=== PATIENT | male | born 1965 | race Caucasian/White ===

== ENCOUNTER → 2025-04-06 15:55 | Outpatient (BNVA) | payer SELFPAY | PROVIDERS: Visit Provider Nurse Practitioner Family | DX: L29.9 Pruritus, unspecified (principal); R17 Unspecified jaundice; R10.9 Unspecified abdominal pain; R22.1 Localized swelling, mass and lump, neck | CPT/HCPCS: 80053; 82150; 83516; 83690; 85025; 86003; 86008 ==

== ENCOUNTER 2025-04-07 21:18 | Emergency (ER) | payer SELFPAY ==
[2025-04-07 21:23] VITALS: BP 175/77; PULSE 87; RESP 18; TEMP 36.8; O2SAT 100; BMI 27.0
--- NOTE | 2025-04-07 22:01 | USR_ITS ---
PROCEDURE INFORMATION: Exam: US Abdomen, Limited; Right Upper Quadrant Exam date and time: 04/07/2025 10:06 PM Age: 59 years old Clinical indication: Other: Elevated lfts; Abdominal pain; Generalized; Additional info: Ruq pain TECHNIQUE: Imaging protocol: Real time ultrasound of the abdomen with image documentation. Limited exam focused on the right upper quadrant. COMPARISON: No relevant prior studies available. FINDINGS: Liver: Hepatic target lesions measuring 2.4 x 1.7 x 2.1 cm and 2.2 x 2.2 x 2.2 cm.. On today's CT scan these are the 2 largest hepatic metastasis with multiple other smaller hepatic metastasis.. 15.2 cm liver. Gallbladder: 2.5 mm gallbladder wall which is upper limits of normal. Echogenic lesion attached to the gallbladder wall suggesting possible gallbladder wall calcification versus sessile polyp. There is no posterior shadowing to indicate a stone and on CT scan there may be noncalcified lesion attached to the gallbladder wall. Multiple calcified stones in the dependent portion of the gallbladder noted on CT scan. Sonographically negative Jose's sign suggesting no cholecystitis. Biliary ducts: Markedly dilated intra and extrahepatic biliary tree with the common hepatic duct measuring up to [address] scan. Probable mass obstructing the distal common bile duct in the pancreas and/or duodenal on today's CT scan. Pancreas: Visualized pancreas is unremarkable. Right kidney: 10.7 x 6.7 x 6.6 cm right kidney with estimated volume 249 cc. 1.7 cm right renal cortex. Aorta: 2.7 cm maximum abdominal aortic diameter. Inferior vena cava: 13 mm IVC. US/US gall bladder [id number] IMPRESSION: 1. Markedly dilated intra and extrahepatic biliary tree with the common hepatic duct measuring up to [address] scan. 2. Probable mass obstructing the distal common bile duct in the pancreas and/or duodenal on today's CT scan. 3. Echogenic lesion attached to the gallbladder wall suggesting possible gallbladder wall calcification versus sessile polyp. There is no posterior shadowing to indicate a stone and on CT scan there may be noncalcified lesion attached to the gallbladder wall. 4. Multiple calcified stones in the dependent portion of the gallbladder noted on CT scan. 5. Hepatic target lesions measuring 2.4 x 1.7 x 2.1 cm and 2.2 x 2.2 x 2.2 cm.. On today's CT scan these are the 2 largest hepatic metastasis with multiple other smaller hepatic metastasis.. 6. Sonographically negative Jose's sign suggesting no cholecystitis.
[2025-04-07 22:19] LABS: Basophils % 0.3 %; Eosinophils % 0.5 %; Hematocrit 24.3 % (37-53); Lymphocytes # 1.7 10^3/uL (0.8-4.8); Lymphocytes % 26.3 %; Mean Corpuscular HGB Conc 30.9 g/dL (30-55); Mean Corpuscular Hemoglobin 27.8 pg (27-33); Mean Platelet Volume 9.3 fL (7.4-10.4); Monocytes # 0.5 10^3/uL (0.2-0.9); Monocytes % 7.9 %; Neutrophils # 4.26 10^3/uL (1.8-7.7); Neutrophils % 64.7 %; Nucleated Red Blood Cells % 0 %; Platelet Count 380 10^3/cmm (157-399); Red Cell Distribution Width 14.2 % (12.1-15.1); White Blood Count 6.58 10^3/uL (3.29-11.43)
[2025-04-07 22:25] VITALS: BP 150/71; O2SAT 96
[2025-04-07 22:33] LABS: INR 0.86 (0.8-1.2)
[2025-04-07 22:34] LABS: Partial Thromboplastin Time 23.2 SECONDS (23.9-36.7)
[2025-04-07 22:36] LABS: Alanine Aminotransferase 322 U/L (0-41); Albumin Level 3.5 g/dL (3.5-5.2); Anion Gap 15.6 (5-19); Aspartate Amino Transferase 256 U/L (0-40); Blood Urea Nitrogen 17 mg/dL (6-20); Calcium 8.7 mg/dL (8.5-10.5); Carbon Dioxide 25 mmol/L (22-29); Chloride 94 mmol/L (98-107); Creatinine Clr Calc Pharmacy 124.5375; Globulin 3.2 g/dL (1.3-4.6); Glomerular Filtration Rate 116.2 mL/min (90-130); Glucose 113 mg/dL (65-115); Lipase 56 U/L (13-60); Osmolality Calculated 274 mOsm/kg (285-295); Potassium 3.6 mmol/L (3.5-5.1); Sodium 131 mmol/L (136-145); Total Bilirubin 4.6 mg/dL (0.15-1.2); Total Protein 6.7 g/dL (6.6-8.7)
[2025-04-07 22:51] LABS: Alkaline Phosphatase 1590 U/L (40-130)
--- NOTE | 2025-04-07 23:07 | CTR_ITS ---
PROCEDURE INFORMATION: Exam: CT Abdomen And Pelvis With Contrast Exam date and time: 04/07/2025 11:14 PM Age: 59 years old Clinical indication: Abdominal pain; Localized; Right upper quadrant (ruq); C/O ruq pain, rash on chest, legs and feet; Additional info: Ruq pain, dilated cbd TECHNIQUE: Imaging protocol: Computed tomography of the abdomen and pelvis with contrast. Radiation optimization: All CT scans at this facility use at least one of these dose optimization techniques: automated exposure control; mA and/or kV adjustment per patient size (includes targeted exams where dose is matched to clinical indication); or iterative reconstruction. Contrast material: OMNI 350; Contrast volume: 100 ml; Contrast route: INTRAVENOUS (IV); COMPARISON: US gall bladder [id number] 04/07/2025 10:06 PM RADIATION DOSE METRICS: Total DLP (mGy-cm): 675.8 FINDINGS: Liver: Normal. No mass. Gallbladder and biliary ducts: Dilated intra and extrahepatic biliary tree with the common hepatic duct measuring 16 mm in diameter. The bulky mass apparently obstructs the distal common bile duct creating dilatation of the biliary tree but no dilatation of the pancreatic duct. Pancreas: See Gallbladder and biliary ducts finding. Spleen: Calcified splenic granulomas. One or more accessory splenules. Adrenal glands: Normal. No mass. Kidneys and ureters: Normal. No hydronephrosis. Stomach and bowel: Unremarkable. No obstruction. No mucosal thickening. Appendix: No evidence of appendicitis. Intraperitoneal space: Unremarkable. No free air. No significant fluid collection. Vasculature: Calcification of the abdominal aorta and/or iliac arteries consistent with atherosclerotic vessel disease. Lymph nodes: Calcified right hilar nodes and/or mediastinal nodes and/or lung granulomas consistent with old granulomatous disease. 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 Urinary bladder: Unremarkable as visualized. Reproductive: Unremarkable as visualized. Bones/joints: Unremarkable. No acute fracture. Soft tissues: Unremarkable. CT/CT abdomen pelvis w con* [id number] IMPRESSION: 1. Dilated intra and extrahepatic biliary tree with the common hepatic duct measuring 16 mm in diameter. 2. 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 3. The bulky mass apparently obstructs the distal common bile duct creating dilatation of the biliary tree but no dilatation of the pancreatic duct. 4. No obvious lymphadenopathy, adrenal metastasis, bony metastasis or lung base pulmonary metastasis.
[2025-04-07] MEDS: iohexol 350 mg/mL 500 mL Btl (per mL) IV (23:20)
[2025-04-07 23:36] LABS: Bilirubin Urine 2+ (Negative); Blood Urine Negative (Negative); Glucose Urine UA Negative (Normal); Ketones Urine Negative (Negative); Leukocyte Esterase Urine Negative (Negative); Nitrate Urine Negative (Negative); Protein Urine Negative (Negative); Specific Gravity, Urine 1.019 (1.005-1.030); Urine Appearance Clear (CLEAR); Urine Color Dark Yellow (Yellow); pH Urine 5.5 (5-7)
[2025-04-07 23:38] LABS: Add Urine Microscopic? YES; Bacteria Urine None Seen /hpf; Hyaline Casts Urine 1.65 /lpf; RBC Urine 0-2 /hpf (0-2); Squamous Epithelial Cell Urine 0-5 /hpf (0-5); WBC Urine 0-5 /hpf (0-5)
[2025-04-08] VITALS (20 sets, daily range): BP systolic 117–161; BP diastolic 41–73; PULSE 62–97; RESP 16–18; TEMP 36.8–37.1; O2SAT 95–100
--- NOTE | 2025-04-08 01:25 | W.ED.RECABL ---
HPI - Recheck/Abnormal Lab/Rx General: Chief Complaint: Recheck/Abnormal Lab/Rx Stated Complaint: Dr Iris gamez with labs Time Seen by Provider: 04/07/25 21:32 History of Present Illness: Patient presents emerged part with complaint of right upper quadrant abdominal pain. Has had some nausea. States the pain has been ongoing for about a year and a half now. He states that he has been doing some over the counter holistic gallbladder cleansing. States he has had blood work done but no imaging. History of drinking alcohol fairly heavy in the past but none for the past year. He noticed that over the last 3 days he started to become jaundiced. Related Data Home Medications ?Medication ?Instructions ?Recorded ?Confirmed No Known Home Medications 05/20/23 05/20/23 Allergies Allergy/AdvReac Type Severity Reaction Status Date / Time No Known Drug Allergies Allergy Unknown Verified 04/07/25 21:31 Physical Exam Const: COMMON NORMALS: no acute distress, average body habitus, patient oriented x3, no limitations, healthy appearing, alert and well nourished Eye: OTHER: Scleral icterus noted Neck/C-Spine: COMMON NORMALS: no JVD Chest: COMMONS NORMALS: normal inspection of the chest, normal palpation of entire chest wall, normal inspection of the breasts and normal palpation of the breasts Breast/axilla inspection: Yes normal inspection of the breasts BREAST/AXILLA PALPATION: Yes normal palpation of the breasts Resp: COMMON NORMALS: normal respiratory effort, No retractions, No use of accessory muscles, clear to auscultation bilaterally and percussion normal AUSCULTATION: clear to auscultation bilaterally PERCUSSION: percussion normal Cardio: COMMON NORMALS: no JVD, regular rate, regular rhythm, S1 normal heart sound present, S2 normal heart sound present, No gallops present (Cardio), No clicks present (Cardio), No murmurs present (Cardio), No rub (Cardio) and Peripheral pulses 2+ throughout RATE: regular rate RHYTHM: regular rhythm HEART SOUNDS: S1 normal heart sound present and S2 normal heart sound present PERIPHERAL PULSES: Peripheral pulses 2+ throughout GI: COMMON NORMALS: Normal to inspection, nondistended, normoactive bowel sounds present, Soft to palpation, No hepatosplenomegaly present, no masses and no bruits; negative for non-tender (Right upper quadrant tenderness to palpation) PALPATION: Yes Soft to palpation and Yes No hepatosplenomegaly present Neuro: COMMON NORMALS: patient oriented x3 SENSORIUM/ORIENTATION: Yes alert Skin: OTHER: Jaundice noted Course Vital Signs: Vital signs: Vital Signs Temperature 98.2 F 04/07/25 21:23 Pulse Rate 87 04/08/25 00:01 Respiratory Rate 16 04/08/25 00:01 Blood Pressure 134/48 04/08/25 00:01 Pulse Oximetry 95 04/08/25 00:01 Oxygen Delivery Me thod Room Air 04/07/25 22:25 MDM - Recheck/Abnormal Lab/Rx Medical Decision Making Patient presents with right upper quadrant abdominal pain over the past year and a half that has been worsening over the past several days as well as jaundice that has been happening over the past 3 days. Has nausea. No vomiting. No diarrhea or constipation. Patient has been thinking it is his gallbladder and has been doing holistic gallbladder cleanses. Patient's labs today reveal significant anemia as well as elevated LFTs. Alk phos in particular is elevated. He has not had any melanotic or hematochezia's stools. No vomiting blood. Imaging today shows that he has a mass in his right upper quadrant that is likely from either the duodenum or the pancreas. Regardless it appears to be causing some common bile duct obstruction. Gallbladder does have some calcifications as well. Patient will need to be transferred to [facility] for GI consultation for possible stenting of his common bile duct as well as further evaluation of cancer mass to determine more definitive diagnosis and treatment options. Dr. Humphrey, hospitalist at [facility] accepted transfer. Discussed all findings with the patient and the patient's family. The patient is wanting to go POV. He is stable here and likely that has been an ongoing issue for quite a while as he has been having pain now for about 18 months. I do not see any immediate risk of life or injury by going POV. Patient was given a dose of IV Zosyn here prophylactically due to the common bile duct obstruction. Patient instructed to drive immediately to [facility] for admission after release from here with bed assignment. Lab Data 04/07/25 22:05 04/07/25 22:05 Radiology Impressions Gallbladder Ultrasound 04/07/25 22:01 IMPRESSION: 1. Markedly dilated intra and extrahepatic biliary tree with the common hepatic duct measuring up to [address] scan. 2. Probable mass obstructing the distal common bile duct in the pancreas and/or duodenal on today's CT scan. 3. Echogenic lesion attached to the gallbladder wall suggesting possible gallbladder wall calcification versus sessile polyp. There is no posterior shadowing to indicate a stone and on CT scan there may be noncalcified lesion attached to the gallbladder wall. 4. Multiple calcified stones in the dependent portion of the gallbladder noted on CT scan. 5. Hepatic target lesions measuring 2.4 x 1.7 x 2.1 cm and 2.2 x 2.2 x 2.2 cm.. On today's CT scan these are the 2 largest hepatic metastasis with multiple other smaller hepatic metastasis.. 6. Sonographically negative Jose's sign suggesting no cholecystitis. Abdomen/Pelvis CT 04/07/25 23:07 IMPRESSION: 1. Dilated intra and extrahepatic biliary tree with the common hepatic duct measuring 16 mm in diameter. 2. 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 3. The bulky mass apparently obstructs the distal common bile duct creating dilatation of the biliary tree but no dilatation of the pancreatic duct. 4. No obvious lymphadenopathy, adrenal metastasis, bony metastasis or lung base pulmonary metastasis. ADDENDUM: 04/08/25 0002 THIS REPORT CONTAINS FINDINGS THAT MAY BE CRITICAL TO PATIENT CARE. The findings were verbally communicated via telephone conference with ROSANNA PRABHAKAR at 12:01 AM CDT on 04/08/2025. The findings were acknowledged and understood. Laboratory Results WBC 6.58 10^3/uL (3.29-11.43) 04/07/25 22:05 RBC 2.70 10^6/uL (3.85-5.65) L 04/07/25 22:05 Hgb 7.50 g/dL (11.27-16.99) L 04/07/25 22:05 Hct 24.3 % (37-53) L 04/07/25 22:05 MCV 90.0 fl (82-101) 04/07/25 22:05 MCH 27.8 pg (27-33) 04/07/25 22:05 MCHC 30.9 g/dL (30-55) 04/07/25 22:05 RDW 14.2 % (12.1-15.1) 04/07/25 22:05 Plt Count 380 10^3/cmm (157-399) 04/07/25 22:05 MPV 9.3 fL (7.4-10.4) 04/07/25 22:05 Neut % (Auto) 64.7 % 04/07/25 22:05 Lymph % (Auto) 26.3 % 04/07/25 22:05 [place] % (Auto) 7.9 % 04/07/25 22:05 Eos % (Auto) 0.5 % 04/07/25 22:05 Baso % (Auto) 0.3 % 04/07/25 22:05 Neut # (Auto) 4.26 10^3/uL (1.8-7.7) 04/07/25 22:05 Lymph # (Auto) 1.7 10^3/uL (0.8-4.8) 04/07/25 22:05 [place] # (Auto) 0.5 10^3/uL (0.2-0.9) 04/07/25 22:05 Eos # (Auto) 0.0 10^3/uL (0.0-0.8) 04/07/25 22:05 Baso # (Auto) 0.0 10^3/uL (0.0-0.1) 04/07/25 22:05 Nucleated RBC % (auto) 0 % 04/07/25 22:05 Nucleated RBCs # 0.0 /100WBC 04/07/25 22:05 PT 12.40 SECONDS (12.1-14.9) 04/07/25 22:05 INR 0.86 (0.8-1.2) 04/07/25 22:05 APTT 23.2 SECONDS (23.9-36.7) L 04/07/25 22:05 Sodium 131 mmol/L (136-145) L 04/07/25 22:05 Potassium 3.6 mmol/L (3.5-5.1) 04/07/25 22:05 Chloride 94 mmol/L (98-107) L 04/07/25 22:05 Carbon Dioxide 25 mmol/L (22-29) 04/07/25 22:05 Anion Gap 15.6 (5-19) 04/07/25 22:05 BUN 17 mg/dL (6-20) 04/07/25 22:05 Creatinine 0.7 mg/dL (0.7-1.2) 04/07/25 22:05 GFR Calculation 116.2 mL/min (90-130) 04/07/25 22:05 Glucose 113 mg/dL (65-115) 04/07/25 22:05 Calculated Osmolality 274 mOsm/kg (285-295) L 04/07/25 22:05 Calcium 8.7 mg/dL (8.5-10.5) 04/07/25 22:05 Magnesium 2.0 mg/dL (1.7-2.3) 04/07/25 22:05 Total Bilirubin 4.6 mg/dL (0.15-1.2) H 04/07/25 22:05 AST 256 U/L (0-40) H 04/07/25 22:05 ALT 322 U/L (0-41) H 04/07/25 22:05 Alkaline Phosphatase 1590 U/L (40-130) H* 04/07/25 22:05 Total Protein 6.7 g/dL (6.6-8.7) 04/07/25 22:05 Albumin 3.5 g/dL (3.5-5.2) 04/07/25 22:05 Globulin 3.2 g/dL (1.3-4.6) 04/07/25 22:05 Lipase 56 U/L (13-60) 04/07/25 22:05 Urine Color Dark yellow (Yellow) A 04/07/25: Urine Appearance Clear (CLEAR) 04/07/25 23: Urine pH 5.5 (5-7) 04/07/25 23: Ur Specific [place] 1.019 (1.005-1.030) 04/07/25 23: Urine Protein Negative (Negative) 04/07/25: Urine Glucose (UA) Negative (Normal) 04/07/25 23: Urine Ketones Negative (Negative) 04/07/25 23: Urine Blood Negative (Negative) 04/07/25: Urine Nitrate Negative (Negative) 04/07/25 23: Urine Bilirubin 2+ (Negative) H 04/07/25 23:29 Urine Urobilinogen 1.0 mg/dL (Negative) 04/07/25 23:29 Ur Leukocyte Esterase Negative (Negative) 04/07/25 23:29 Urine RBC 0-2 /hpf (0-2) 04/07/25 23:29 Urine WBC 0-5 /hpf (0-5) 04/07/25 23:29 Ur Squamous Epith Cells 0-5 /hpf (0-5) 04/07/25 23:29 Amorphous Sediment Not Reportable 04/07/25 23:29 Urine Bacteria None seen /hpf (NONE) 04/07/25 23:29 Hyaline Casts 1.65 /lpf 04/07/25 23:29 All radiology interpretation(s) finalized by discharge Discharge Plan Discharge Patient Disposition: Xfer Short-Term Hosp Clinical Impression: Abdominal mass, RUQ (right upper quadrant), Common bile duct (CBD) obstruction, Hyperbilirubinemia, Elevated LFTs Metastatic disease Qualifiers: Area of secondary neoplastic involvement: unspecified site Qualified Code(s): C79.9 - Secondary malignant neoplasm of unspecified site Cholelithiasis Qualifiers: Cholelithiasis location: gallbladder Cholecystitis presence: without cholecystitis Biliary obstruction: with biliary obstruction Qualified Code(s): K80.21 - Calculus of gallbladder without cholecystitis with obstruction Anemia Qualifiers: Anemia type: unspecified type Qualified Code(s): D64.9 - Anemia, unspecified Condition: Stable Referrals: Roderick Morrison MD [Family Provider, Family Practice] Elizabeth Hollis NP [Primary Care Provider, Family Practice] Print Language: Azerbaijani Coding Level of Care Code ED Verifying Machine Operator for [facility]
[2025-04-08] MEDS: famotidine 20 mg/2 mL INJ IVP (01:26)
[2025-04-08] MEDS: piperacillin-tazobactam 3.375 GM in sodium chloride 0.9% (plus) 50 ML IV ×2 (01:27→13:30)
--- NOTE | 2025-04-08 03:43 | PC.NURSE ---
nurse called and gave family an update at 0343.
[2025-04-08 07:49] LABS: Basophils % 0.2 %; Eosinophils % 0.5 %; Hematocrit 21.9 % (37-53); Lymphocytes # 1.1 10^3/uL (0.8-4.8); Lymphocytes % 20.5 %; Mean Corpuscular HGB Conc 30.1 g/dL (30-55); Mean Corpuscular Hemoglobin 27.3 pg (27-33); Mean Corpuscular Volume 90.5 fl (82-101); Mean Platelet Volume 9.2 fL (7.4-10.4); Monocytes # 0.4 10^3/uL (0.2-0.9); Monocytes % 7.5 %; Neutrophils # 3.88 10^3/uL (1.8-7.7); Neutrophils % 70.9 %; Nucleated Red Blood Cells % 0 %; Platelet Count 355 10^3/cmm (157-399); Red Blood Count 2.42 10^6/uL (3.85-5.65); Red Cell Distribution Width 14.4 % (12.1-15.1); White Blood Count 5.47 10^3/uL (3.29-11.43)
[2025-04-08] MEDS: sodium chlor 0.9% + KCl 20 mEq 20 MEQ/1,000 ML BAG 125 MEQ IV (07:58)
[2025-04-08] MEDS: pantoprazole 40 mg SDV IVP (07:59)
[2025-04-08 08:13] LABS: Alanine Aminotransferase 275 U/L (0-41); Albumin Level 3.1 g/dL (3.5-5.2); Anion Gap 13.6 (5-19); Aspartate Amino Transferase 234 U/L (0-40); Blood Urea Nitrogen 14 mg/dL (6-20); Calcium 8.3 mg/dL (8.5-10.5); Carbon Dioxide 25 mmol/L (22-29); Chloride 100 mmol/L (98-107); Creatinine Clr Calc Pharmacy 124.5375; Globulin 2.7 g/dL (1.3-4.6); Glomerular Filtration Rate 116.2 mL/min (90-130); Glucose 101 mg/dL (65-115); Lipase 39 U/L (13-60); Magnesium 1.9 mg/dL (1.7-2.3); Osmolality Calculated 281 mOsm/kg (285-295); Potassium 3.6 mmol/L (3.5-5.1); Sodium 135 mmol/L (136-145); Total Bilirubin 3.7 mg/dL (0.15-1.2); Total Protein 5.8 g/dL (6.6-8.7)
[2025-04-08 08:34] LABS: Alkaline Phosphatase 1371 U/L (40-130)
[2025-04-08] MEDS: sodium chloride 0.9% 100 mL Bag 50 ML IV (10:15)
--- NOTE | 2025-04-08 14:55 | PC.NURSE ---
BLADDER SCAN PERFORMED AFTER URINATION - BLADDER HAD 0 ML AFTER URINATION. PATIENT URINATED 800 ML. PATIENT REPORTS HE HAS WENT TO THE BATHROOM TWICE PRIOR TO URINATION AT 1445 WHICH WAS UNABLE TO BE MEASURED.
== END 2025-04-08 16:30 | disposition short-term general hospital (02) ==
PROVIDERS: Family Medicine; Emergency Provider Emergency Medicine; Family Provider Family Medicine; PCP Nurse Practitioner Family
DX: R19.00 Intra-abdominal and pelvic swelling, mass and lump, unspecified site (principal); E80.6 Other disorders of bilirubin metabolism; R74.01 Elevation of levels of liver transaminase levels; C79.9 Secondary malignant neoplasm of unspecified site; D64.9 Anemia, unspecified; K80.51 Calculus of bile duct without cholangitis or cholecystitis with obstruction
CPT/HCPCS: 36415; 36430; 74177; 76705; 80053; 81001; 83690; 83735; 85025; 85610; 85730; 86850; 86900; 86920; 96365; 96366; 96367; 96375; 99285; J2470; J2543; J3480; J3490; P9016

== ENCOUNTER 2025-04-23 10:06 | Day surgery (SDC) | payer SELFPAY ==
[2025-04-23] VITALS (7 sets, daily range): BP systolic 118–144; BP diastolic 68–88; PULSE 63–77; RESP 12–17; TEMP 36.3–36.6; O2SAT 97–99; BMI 26.4
--- NOTE | 2025-04-23 10:15 | SC_ITS ---
WS: [id number] C-ARM RADIOGRAPHS CHEST; 2 IMAGES HISTORY: Port placement COMPARISON: None available. RIGHT Mediport is placed to the subclavian. Tip is in the expected location of the cavoatrial junction. SC/C-arm FL for CVA [id number] IMPRESSION: Satisfactory position RIGHT Mediport.
--- NOTE | 2025-04-23 10:30 | ANES.PREANE2 ---
Pre-Anesthetic Assessment Height/Weight: Height 1.75 m Weight 81.193 kg Temp Pulse Resp BP Pulse Ox O2 Del Method 97.6 F 77 16 144/83 98 Room Air 04/23/25 10:04/23/25 10:04/23/25 10:04/23/25 10:04/23/25 10:04/23/25 10:22 Operation Date: 04/23/25 12:00 Proposed Procedures p Portacath Placement 67301 C17.9(Not Applicable) - Roderick Taylor MD Familial anesthetic complications: None Was Beta Padmini taken within 24 hours: N/A Was Clonidine taken within 24 hours: N/A Last intake: Intake Last Liquid Date 04/22/25 Last Liquid Time 20: Last Solid Date 04/22/25 Last Solid Time 20:30 Social No alcohol and No tobacco Exam alert, oriented x 3, clear to auscultation bilaterally and regular rate & rhythm Airway Mallampati: Class I Dentition: chipped CV/HEM Anemia (2 units received on saturday) GI pancreatic cancer Anesthetic Plan ASA status: 4 Anesthesia: MAC Risk of > 500 ml blood loss (7ml/kg in children): No Medications/Allergies Home Medications ?Medication ?Instructions ?Recorded ?Confirmed ?Last Taken ?Type L.acidophilus-B.animalis-B.bifidum 1 cap PO DAILY 04/08/25 04/22/25 04/07/25 08:00 History 25 billion cell-FOS 100 mg capsule (Probiotic Complex) ferrous sulfate 325 mg (65 mg 325 mg PO DAILY 04/19/25 04/22/25 04/22/25 History iron) tablet (FeroSul) levofloxacin 500 mg tablet 500 mg PO DAILY 7 days #7 tabs 04/19/25 04/22/25 04/22/25 Rx methylprednisolone 4 mg tablets in See Rx Instructions PO PER PKG DIR 04/19/25 04/22/25 04/22/25 Rx a dose pack (Medrol ([place])) #21 ea oxycodone 5 mg tablet 5 mg PO PRN PRN Pain 04/19/25 04/22/25 Unknown History pantoprazole 40 mg tablet,delayed 40 mg PO DAILY #14 tabs 04/19/25 04/22/25 04/22/25 Rx release (Protonix) sennosides 8.6 mg-docusate sodium 1 tab PO DAILY 04/19/25 04/22/25 04/22/25 History 50 mg tablet (Stimulant Laxative Plus) simethicone 125 mg chewable tablet 125 mg PO PRN PRN Stomach Upset 04/19/25 04/22/25 Unknown History (Gas Relief Extra Strength) ondansetron HCl 4 mg tablet 4 mg PO Q6H PRN nausea and 04/21/25 04/22/25 Unknown Rx vomiting #30 tabs prochlorperazine maleate 10 mg 10 mg PO Q4H PRN mild nausea #30 04/21/25 04/22/25 Unknown Rx tablet (Compazine) tabs Allergies Allergy/AdvReac Type Severity Reaction Status Date / Time No Known Drug Allergies Allergy Unknown Verified 04/19/25 14:16 [facility] Anesthesia Social History Smoking and tobacco/nicotine status: never used tobacco/nicotine
[2025-04-23] MEDS: sodium chloride 0.9% 1,000 ML 30 ML IV (10:50)
[2025-04-23 11:00] LABS: Basophils % 0.3 %; Eosinophils % 0.3 %; Hematocrit 32.1 % (37-53); Lymphocytes % 31.6 %; Mean Corpuscular HGB Conc 30.8 g/dL (30-55); Mean Corpuscular Hemoglobin 27.8 pg (27-33); Mean Corpuscular Volume 90.2 fl (82-101); Mean Platelet Volume 8.3 fL (7.4-10.4); Monocytes # 0.7 10^3/uL (0.2-0.9); Neutrophils # 5.64 10^3/uL (1.8-7.7); Neutrophils % 59.7 %; Nucleated Red Blood Cells % 0 %; Platelet Count 437 10^3/cmm (157-399); Red Blood Count 3.56 10^6/uL (3.85-5.65); Red Cell Distribution Width 14.5 % (12.1-15.1); White Blood Count 9.45 10^3/uL (3.29-11.43)
--- NOTE | 2025-04-23 12:12 | W.PM.OPSUD ---
Surgery/Procedure H&P Update DATE OF PROCEDURE: April 23, 2025 DATE H&P PERFORMED: 04/19/25 H&P UPDATE INFORMATION: I have reviewed H&P completed within last 30 days, I have examined patient prior to procedure and No changes to prior documentation PLANNED PROCEDURE: Operation Date: 04/23/25 12:00 Proposed Procedures p Portacath Placement 83501 C17.9(Not Applicable) - Roderick Taylor MD
[2025-04-23] MEDS: ceFAZolin 2,000 mg SDV 2000 MG IVP (12:17)
[2025-04-23] MEDS: lidocaine-epi 1% PF 1:200,000 30 mL SDV INJECTION (12:40)
[2025-04-23] MEDS: BUPivacaine 0.25% INJ 30 mL INJECTION (12:40)
[2025-04-23] MEDS: heparin, porcine 1,000 unit/mL INJ 10 mL 10000 UNIT INJECTION (12:41)
--- NOTE | 2025-04-23 12:46 | PM.OP ---
Operative Report Date of procedure: April 23, 2025 Pre-op diagnosis: Pancreatic cancer Post-op diagnosis: same Post-op findings: Right-sided chest port. Accessed right internal jugular vein using ultrasound guidance. Confirmed tip of catheter at atriocaval junction using intraoperative fluoroscopy. Procedure done: Port-A-Cath placement Implants: Port-A-Cath Specimens removed/disposition: N/A Pathology: none sent Surgeon: Roderick Taylor MD Central Office Operator: N/A Anesthesia: MAC Estimated blood loss (mL): 10 Complications: N/A Findings: Right-sided chest port. Accessed right internal jugular vein using ultrasound guidance. Confirmed tip of catheter at atriocaval junction using intraoperative fluoroscopy. Condition: stable Disposition: same day Brief History: 59-year-old male with pancreatic cancer. Discussed risk and benefits and patient agreed to proceed with Port-A-Cath placement. Procedure: Patient was brought into the operating room and a timeout was carried out. Procedure was done under MAC. Patient was placed supine with the arms tucked and in Trendelenburg. Patient was prepped and draped in the usual sterile fashion. Using ultrasound guidance the right internal jugular vein was accessed. A guidewire was then placed down to the atriocaval junction using fluoroscopy. The finder needle was removed and the guidewire was secured. I then turned my attention to creating a pocket over the right chest. Make sure to locally infiltrated using plain lidocaine and bupivacaine at the site of the pocket and throughout the tunnel site. I confirmed adequate hemostasis at the pocket. I then proceeded to place the port that was already preassembled and flushed with heparinized saline and the chest pocket. I tunneled the catheter from the chest to the neck at the site where I accessed the internal jugular vein. I measured and adjusted the length of the catheter so it would reach the atrial caval junction. At this point, I used a dilator to dilate the tract into the internal jugular vein using fluoroscopy. I removed the guidewire and proceeded to thread the central venous catheter through the introducer. In the process, I removed the sheath as a completely pushed the catheter into the internal jugular vein. I then confirmed adequate placement of the catheter by performing intraoperative interpretation of fluoroscopy. The tip of the catheter was confirmed to be placed in the atriocaval junction. There were no kinks noted throughout the trajectory of the catheter. I then proceeded to test the port and was satisfied with its functionality. I proceeded to flushed the catheter without any issues. I then hep-locked the port. Skin was closed using deep dermal 3-0 Vicryl, subcuticular 4-0 Monocryl, and Dermabond. Patient was then transferred to PACU without any complications. Port is ready for immediate use.
--- NOTE | 2025-04-23 14:00 | ANE.PACU2 ---
Inpatient post-anesthesia follow up: Airway intact: Yes Vital signs: Temperature 98 F Pulse Rate 68 Respiratory Rate 16 Blood Pressure 140/88 Pulse Oximetry 98 Oxygen Delivery Me thod Room Air Oxygen Flow Rate Fraction of Inspir ed Oxygen Hydration adequate: Yes Nausea and vomiting: No Pain level: 1 Mental status: Baseline
== END 2025-04-23 14:00 | disposition home or self-care (01) ==
PROVIDERS: Anesthesiology; PCP Nurse Practitioner Family; Visit Provider Student in an Organized Health Care Education/Training Program
PROC: (CPT 36561; principal; 2025-04-23 12:00)
DX: C25.9 Malignant neoplasm of pancreas, unspecified (principal); K21.9 Gastro-esophageal reflux disease without esophagitis
CPT/HCPCS: 36561; 36415; 76000; 77001; 85025; 86850; 86900; C1788; J0690; J1644; J2250; J2704; J3010; J3490; J7030; J9999

== ENCOUNTER 2025-04-30 10:00 | Oncology outpatient (recurring) (ONCR) | payer SELFPAY ==
[2025-04-19 10:39] LABS: Basophils % 0.4 %; Eosinophils % 0.3 %; Hematocrit 25.2 % (37-53); Lymphocytes # 1.8 10^3/uL (0.8-4.8); Lymphocytes % 22.8 %; Mean Corpuscular HGB Conc 29.8 g/dL (30-55); Mean Corpuscular Hemoglobin 27.3 pg (27-33); Mean Corpuscular Volume 91.6 fl (82-101); Mean Platelet Volume 8.7 fL (7.4-10.4); Monocytes # 0.8 10^3/uL (0.2-0.9); Monocytes % 9.5 %; Neutrophils # 5.25 10^3/uL (1.8-7.7); Neutrophils % 65.5 %; Nucleated Red Blood Cells % 0 %; Platelet Count 436 10^3/cmm (157-399); Red Blood Count 2.75 10^6/uL (3.85-5.65); Red Cell Distribution Width 15.3 % (12.1-15.1)
[2025-04-19 11:01] LABS: Alanine Aminotransferase 75 U/L (0-41); Albumin Level 3.5 g/dL (3.5-5.2); Alkaline Phosphatase 564 U/L (40-130); Anion Gap 15.4 (5-19); Aspartate Amino Transferase 36 U/L (0-40); Blood Urea Nitrogen 23 mg/dL (6-20); Carbon Dioxide 26 mmol/L (22-29); Chloride 96 mmol/L (98-107); Creatinine Clr Calc Pharmacy 107.9248; Globulin 3.2 g/dL (1.3-4.6); Glomerular Filtration Rate 99.6 mL/min (90-130); Glucose 107 mg/dL (65-115); Osmolality Calculated 280 mOsm/kg (285-295); Potassium 4.4 mmol/L (3.5-5.1); Sodium 133 mmol/L (136-145); Total Bilirubin 1.1 mg/dL (0.15-1.2); Total Protein 6.7 g/dL (6.6-8.7)
[2025-04-19] MEDS: pantoprazole 40 mg SDV IVP (11:35)
[2025-04-19] MEDS: ertapenem 1,000 mg SDV 1000 MG IVP (11:35)
[2025-04-19] MEDS: dexamethasone 10 mg/mL INJ IVP (11:36)
[2025-04-20] VITALS (11 sets, daily range): BP systolic 129–160; BP diastolic 72–81; PULSE 74–84; RESP 16–17; TEMP 36.7–37.1; O2SAT 97–99
[2025-04-20] MEDS: diphenhydrAMINE 25 mg Capsule PO (08:46)
[2025-04-20] MEDS: sodium chloride 0.9% 250 mL Bag IV (09:25)
[2025-04-20] MEDS: FUROsemide 10 mg/mL SDV 2mL 20 MG IVP (11:14)
[2025-04-28 08:18] LABS: Basophils % 0.5 %; Eosinophils % 0.7 %; Lymphocytes # 1.7 10^3/uL (0.8-4.8); Lymphocytes % 29.8 %; Mean Corpuscular Hemoglobin 26.9 pg (27-33); Mean Corpuscular Volume 89.8 fl (82-101); Mean Platelet Volume 8.4 fL (7.4-10.4); Monocytes # 0.5 10^3/uL (0.2-0.9); Neutrophils # 3.48 10^3/uL (1.8-7.7); Neutrophils % 60.1 %; Nucleated Red Blood Cells % 0 %; Platelet Count 298 10^3/cmm (157-399); Red Blood Count 3.34 10^6/uL (3.85-5.65); Red Cell Distribution Width 13.8 % (12.1-15.1); White Blood Count 5.78 10^3/uL (3.29-11.43)
[2025-04-28 08:35] LABS: Alanine Aminotransferase 32 U/L (0-41); Albumin Level 3.3 g/dL (3.5-5.2); Alkaline Phosphatase 324 U/L (40-130); Anion Gap 14.1 (5-19); Aspartate Amino Transferase 27 U/L (0-40); Blood Urea Nitrogen 23 mg/dL (6-20); Calcium 8.6 mg/dL (8.5-10.5); Carbon Dioxide 24 mmol/L (22-29); Chloride 103 mmol/L (98-107); Creatinine Clr Calc Pharmacy 95.4684; Globulin 2.7 g/dL (1.3-4.6); Glucose 107 mg/dL (65-115); Osmolality Calculated 288 mOsm/kg (285-295); Potassium 4.1 mmol/L (3.5-5.1); Sodium 137 mmol/L (136-145); Total Bilirubin 0.6 mg/dL (0.15-1.2)
[2025-04-28] MEDS: dextrose 5% 250 ML 75 ML IV (10:54)
[2025-04-28] MEDS: palonosetron 0.25 mg/5 mL SDV IVP (10:56)
[2025-04-28] MEDS: dexamethasone 4 mg/mL INJ 5 mL 12 MG IVP (10:59)
[2025-04-28] MEDS: leucovorin 780 MG in dextrose 5% 250 ML 62.5 MG IV (11:28)
[2025-04-28] MEDS: OXALIPLATIN IV (11:29)
[2025-04-28] MEDS: DEXTROSE 5% IV (11:29)
[2025-04-28] MEDS: fluorouraciL 50 mg/ml MDV 100 mL 800 MG IVP (13:57)
[2025-04-28] MEDS: fluorouraciL 4,700 MG, elastomeric pump 1 PUMP in sodium chloride 0.9% (100 ml) 0 ML IV (14:03)
[2025-04-28 14:29] VITALS: BP 156/73; PULSE 80; RESP 16; TEMP 37.2; O2SAT 96
[2025-04-30 09:21] VITALS: BP 125/75; PULSE 70; RESP 18; TEMP 36.4; O2SAT 98
--- NOTE | 2025-04-30 10:00 | PETR_ITS ---
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 Then, PET images were obtained. Attenuation corrected images were constructed using the CT scan. Fused images of PET and CT were reviewed. The standardized uptake values (SUV) reported below are maximum values within a region of interest, expressed in gm/ml. Exam includes orbital meatal line to mid-thigh. SUV normalization method: BodyWeight Radiopharmaceutical: 11.14 mCi F-18 FDG (Fluorodeoxyglucose), IV. Time of imaging post radiopharmaceutical administration: 47 minutes Injection site: left ac COMPARISON: 1. CT abdomen pelvis w con* [id number] 04/07/2025 11:14 PM 2. MR abdomen wo/w con* [id number] 04/09/2025 6:36 PM FINDINGS: Tubes, catheters and devices: Right chest port terminates near the superior cavoatrial junction. Brain: Visualized brain has normal physiologic uptake. Pharynx: No abnormal uptake. Larynx: No abnormal uptake. Lungs, pleura and trachea: No abnormal uptake. Mild dependent atelectasis. Calcified granulomata. No consolidation or mass. Heart: Normal physiologic uptake. Mediastinal space: No abnormal uptake. Liver: Multiple FDG avid lesions throughout both hepatic lobes with subtle underlying hypodense foci on CT images, index at the lateral left lobe adjacent to the fissure for the ligamentum teres showing SUV max 8.7 on axial image 149. Gallbladder and biliary ducts: Interval biliary stent extends from the common duct into the 2nd duodenal segment with resolved biliary ductal dilatation and developed upstream pneumobilia. Associated FDG uptake along its length. Cholelithiasis. Pancreas: No abnormal uptake. Spleen: No abnormal uptake. Calcified granulomata. Adrenal glands: No abnormal uptake. Kidneys and ureters: Normal physiologic uptake. Stomach and bowel: FDG-avid circumferential proximal duodenal masslike thickening along the length of the 2nd segment extending to the proximal 3rd segment with SUV max 13.7. Vasculature: No abnormal uptake. Mild systemic atherosclerotic calcification without aortic aneurysm. Lymph nodes: Noncalcified left hilar node measures 8 mm in the short axis on axial image 101 and shows SUV max 3.9. Calcified mediastinal and bilateral hilar nodes in keeping with sequela of old granulomatous disease. Skeleton: Degenerative change along the spine, shoulders and sacroiliac joints. Soft tissues: No abnormal uptake in the visualized head, neck, chest, abdomen, pelvis, and extremities. Mild bilateral gynecomastia. Small fat containing right inguinal hernia. METRICS: Mediastinal blood pool: SUV mean 1.9 Liver uptake: SUV mean 2.3 PET/PET skull to thigh INIT [id number] assessment IMPRESSION: 1. FDG avid proximal duodenal circumferential masslike thickening compatible with malignancy. 2. Multiple bilobar hepatic metastases. 3. Interval biliary stent with resolved biliary ductal dilatation and developed upstream pneumobilia. Associated FDG uptake along its length may be postprocedural/inflammatory or neoplastic. 4. Mildly FDG avid nonenlarged left hilar lymph node is suspected reactive or possibly granulomatous, metastasis not entirely excluded.
== END 2025-04-30 23:59 | disposition home or self-care (01) ==
LOC: ONCMED 10:55 → RAD 05-01 00:01 → ONCMED 05-03 08:36
PROVIDERS: PCP Nurse Practitioner Family; Visit Provider Internal Medicine Medical Oncology
DX: Z53.9 Procedure and treatment not carried out, unspecified reason; C17.9 Malignant neoplasm of small intestine, unspecified; C78.7 Secondary malignant neoplasm of liver and intrahepatic bile duct; Z45.2 Encounter for adjustment and management of vascular access device
CPT/HCPCS: 36415; 36430; 78815; 80053; 85025; 86850; 86900; 86920; 96367; 96368; 96374; 96375; 96411; 96413; 96415; 96416; 96523; A9552; J0640; J1100; J1335; J1938; J2469; J2470; J7050; J7060; J9190; J9263; P9016

== ENCOUNTER 2025-05-31 13:45 | Oncology outpatient (recurring) (ONCR) | payer MEDICAID, SELFPAY ==
[2025-05-03] VITALS (8 sets, daily range): BP systolic 122–148; BP diastolic 72–86; PULSE 62–75; RESP 16–18; TEMP 36.2–36.9; O2SAT 96–99
[2025-05-03 09:14] LABS: Basophils % 0.2 %; Eosinophils % 0.6 %; Hematocrit 26.7 % (37-53); Lymphocytes # 1.3 10^3/uL (0.8-4.8); Lymphocytes % 24.9 %; Mean Corpuscular HGB Conc 31.1 g/dL (30-55); Mean Corpuscular Hemoglobin 27.4 pg (27-33); Mean Corpuscular Volume 88.1 fl (82-101); Mean Platelet Volume 8.2 fL (7.4-10.4); Monocytes # 0.2 10^3/uL (0.2-0.9); Monocytes % 3.7 %; Neutrophils % 70.4 %; Nucleated Red Blood Cells % 0 %; Platelet Count 214 10^3/cmm (157-399); Red Blood Count 3.03 10^6/uL (3.85-5.65); Red Cell Distribution Width 13.7 % (12.1-15.1); White Blood Count 5.11 10^3/uL (3.29-11.43)
[2025-05-03 09:35] LABS: Alanine Aminotransferase 23 U/L (0-41); Albumin Level 3.6 g/dL (3.5-5.2); Alkaline Phosphatase 223 U/L (40-130); Anion Gap 12.7 (5-19); Aspartate Amino Transferase 24 U/L (0-40); Blood Urea Nitrogen 21 mg/dL (6-20); Calcium 8.2 mg/dL (8.5-10.5); Carbon Dioxide 26 mmol/L (22-29); Chloride 101 mmol/L (98-107); Creatinine Clr Calc Pharmacy 122.1477; Globulin 2.7 g/dL (1.3-4.6); Glomerular Filtration Rate 116.2 mL/min (90-130); Glucose 108 mg/dL (65-115); Osmolality Calculated 286 mOsm/kg (285-295); Potassium 3.7 mmol/L (3.5-5.1); Sodium 136 mmol/L (136-145); Total Bilirubin 0.5 mg/dL (0.15-1.2); Total Protein 6.3 g/dL (6.6-8.7)
[2025-05-03] MEDS: sodium chloride 0.9% 250 mL Bag IV (11:43)
[2025-05-03] MEDS: diphenhydrAMINE 25 mg Capsule PO (11:45)
[2025-05-03] MEDS: pantoprazole 40 mg SDV IVP (11:45)
[2025-05-03] MEDS: FUROsemide 10 mg/mL SDV 2mL 20 MG IVP (14:07)
[2025-05-10 08:06] LABS: Basophils % 0.2 %; Eosinophils # 0.1 10^3/uL (0.0-0.8); Eosinophils % 0.9 %; Hematocrit 34.6 % (37-53); Lymphocytes # 1.5 10^3/uL (0.8-4.8); Lymphocytes % 28.9 %; Mean Corpuscular HGB Conc 31.2 g/dL (30-55); Mean Corpuscular Hemoglobin 27.3 pg (27-33); Mean Corpuscular Volume 87.4 fl (82-101); Mean Platelet Volume 8.6 fL (7.4-10.4); Monocytes # 0.5 10^3/uL (0.2-0.9); Monocytes % 9.1 %; Neutrophils # 3.22 10^3/uL (1.8-7.7); Neutrophils % 60.7 %; Nucleated Red Blood Cells % 0 %; Platelet Count 160 10^3/cmm (157-399); Red Blood Count 3.96 10^6/uL (3.85-5.65); Red Cell Distribution Width 14.3 % (12.1-15.1)
[2025-05-10 08:24] LABS: Alanine Aminotransferase 20 U/L (0-41); Albumin Level 3.7 g/dL (3.5-5.2); Alkaline Phosphatase 225 U/L (40-130); Anion Gap 11.4 (5-19); Aspartate Amino Transferase 21 U/L (0-40); Blood Urea Nitrogen 13 mg/dL (6-20); Carbon Dioxide 26 mmol/L (22-29); Chloride 103 mmol/L (98-107); Creatinine Clr Calc Pharmacy 122.7451; Globulin 2.7 g/dL (1.3-4.6); Glomerular Filtration Rate 116.2 mL/min (90-130); Glucose 120 mg/dL (65-115); Osmolality Calculated 283 mOsm/kg (285-295); Potassium 4.4 mmol/L (3.5-5.1); Sodium 136 mmol/L (136-145); Total Bilirubin 0.4 mg/dL (0.15-1.2); Total Protein 6.4 g/dL (6.6-8.7)
[2025-05-10] MEDS: dextrose 5% 250 ML 75 ML IV (09:47)
[2025-05-10] MEDS: dexamethasone 4 mg/mL INJ 5 mL 12 MG IVP (09:47)
[2025-05-10] MEDS: palonosetron 0.25 mg/5 mL SDV IVP (09:47)
[2025-05-10] MEDS: leucovorin 780 MG in dextrose 5% 250 ML 62.5 MG IV (10:41)
[2025-05-10] MEDS: DEXTROSE 5% IV (10:41)
[2025-05-10] MEDS: OXALIPLATIN IV (10:41)
[2025-05-10] MEDS: fluorouraciL 50 mg/ml MDV 100 mL 800 MG IVP (14:03)
[2025-05-10] MEDS: fluorouraciL 4,700 MG in elastomeric pump 1 PUMP IV (14:04)
--- NOTE | 2025-05-12 16:17 | PC.NURSE ---
Pt states he rolled over in bed last night resulting in the equashield attached to the pump came unhooked, leaking a small amount onto his abdomen and his sleep pants. Pt states he washed the area good with soap and water, re connected the equashield and taped it up with coban. Pump was noted to be empty at time of unhook. No skin irritation was noted on the abdomen. Pt was advised to contact the doctor if any changes are noted. Pt verbalized understanding.
[2025-05-24 08:06] LABS: Basophils % 0.3 %; Eosinophils % 0.3 %; Hematocrit 35.9 % (37-53); Lymphocytes # 1.7 10^3/uL (0.8-4.8); Lymphocytes % 47.7 %; Mean Corpuscular HGB Conc 31.8 g/dL (30-55); Mean Corpuscular Hemoglobin 27.3 pg (27-33); Mean Corpuscular Volume 86.1 fl (82-101); Mean Platelet Volume 9.1 fL (7.4-10.4); Monocytes # 0.6 10^3/uL (0.2-0.9); Monocytes % 15.6 %; Neutrophils # 1.26 10^3/uL (1.8-7.7); Neutrophils % 35.8 %; Nucleated Red Blood Cells % 0 %; Platelet Count 115 10^3/cmm (157-399); Red Blood Count 4.17 10^6/uL (3.85-5.65); Red Cell Distribution Width 15.2 % (12.1-15.1); White Blood Count 3.52 10^3/uL (3.29-11.43)
[2025-05-24 08:28] LABS: Alanine Aminotransferase 50 U/L (0-41); Alkaline Phosphatase 263 U/L (40-130); Anion Gap 16.1 (5-19); Aspartate Amino Transferase 59 U/L (0-40); Blood Urea Nitrogen 13 mg/dL (6-20); Calcium 8.9 mg/dL (8.5-10.5); Carbon Dioxide 24 mmol/L (22-29); Chloride 104 mmol/L (98-107); Globulin 2.6 g/dL (1.3-4.6); Glomerular Filtration Rate 99.6 mL/min (90-130); Glucose 98 mg/dL (65-115); Magnesium 2.1 mg/dL (1.7-2.3); Osmolality Calculated 290 mOsm/kg (285-295); Potassium 4.1 mmol/L (3.5-5.1); Sodium 140 mmol/L (136-145); Total Bilirubin 0.3 mg/dL (0.15-1.2); Total Protein 6.6 g/dL (6.6-8.7)
[2025-05-24] MEDS: dextrose 5% 250 ML 75 ML IV (09:35)
[2025-05-24] MEDS: palonosetron 0.25 mg/5 mL SDV IVP (09:36)
[2025-05-24] MEDS: dexamethasone 4 mg/mL INJ 5 mL 12 MG IVP (09:39)
[2025-05-24 10:03] LABS: Ferritin 61 ng/mL (30-400); Iron 212 ug/dL (59-158); Percent Saturation 56.6 % (20-50); Total Iron Binding Capacity 374 mcg/dl; Unsaturated Iron Binding 162 ug/dL (112-347)
[2025-05-24] MEDS: leucovorin 780 MG in dextrose 5% 250 ML 62.5 MG IV (10:10)
[2025-05-24 10:19] LABS: Vitamin B12 829 pg/mL (232-1245)
[2025-05-24 10:46] LABS: Folate Level > 20.0 ng/mL (4.5-32.2)
[2025-05-24 11:01] LABS: Carcinoembryonic Antigen 6.6 ng/mL (0.0-4.7)
[2025-05-24] MEDS: fluorouraciL 50 mg/ml MDV 100 mL 800 MG IVP (12:23)
[2025-05-24] MEDS: fluorouraciL 4,700 MG, elastomeric pump 1 PUMP in sodium chloride 0.9% (100 ml) 0 ML IV (12:24)
[2025-05-24 12:42] VITALS: BP 151/83; PULSE 71; RESP 16; TEMP 36.2; O2SAT 97
[2025-05-31 14:15] LABS: Basophils % 0.3 %; Eosinophils % 0.3 %; Hematocrit 32.9 % (37-53); Lymphocytes # 1.5 10^3/uL (0.8-4.8); Lymphocytes % 38.7 %; Mean Corpuscular HGB Conc 32.5 g/dL (30-55); Mean Corpuscular Hemoglobin 27.2 pg (27-33); Mean Corpuscular Volume 83.7 fl (82-101); Mean Platelet Volume 9.1 fL (7.4-10.4); Monocytes # 0.2 10^3/uL (0.2-0.9); Monocytes % 6.4 %; Neutrophils # 2.03 10^3/uL (1.8-7.7); Nucleated Red Blood Cells % 0 %; Platelet Count 74 10^3/cmm (157-399); Red Blood Count 3.93 10^6/uL (3.85-5.65); Red Cell Distribution Width 15.2 % (12.1-15.1); White Blood Count 3.75 10^3/uL (3.29-11.43)
[2025-05-31 14:32] LABS: Alanine Aminotransferase 49 U/L (0-41); Alkaline Phosphatase 222 U/L (40-130); Anion Gap 17.2 (5-19); Aspartate Amino Transferase 42 U/L (0-40); Blood Urea Nitrogen 22 mg/dL (6-20); Calcium 8.8 mg/dL (8.5-10.5); Carbon Dioxide 23 mmol/L (22-29); Chloride 102 mmol/L (98-107); Globulin 2.7 g/dL (1.3-4.6); Glucose 96 mg/dL (65-115); Osmolality Calculated 289 mOsm/kg (285-295); Potassium 4.2 mmol/L (3.5-5.1); Sodium 138 mmol/L (136-145); Total Bilirubin 0.3 mg/dL (0.15-1.2); Total Protein 6.7 g/dL (6.6-8.7)
== END 2025-05-31 23:59 | disposition home or self-care (01) ==
PROVIDERS: Internal Medicine; Nurse Practitioner; PCP Nurse Practitioner Family; Visit Provider Internal Medicine Medical Oncology
DX: Z53.9 Procedure and treatment not carried out, unspecified reason; Z45.2 Encounter for adjustment and management of vascular access device; Z95.828 Presence of other vascular implants and grafts; C17.9 Malignant neoplasm of small intestine, unspecified; C78.7 Secondary malignant neoplasm of liver and intrahepatic bile duct
CPT/HCPCS: 36430; 36591; 80053; 82378; 82607; 82728; 82746; 83540; 83550; 83735; 85025; 86850; 86900; 86920; 96368; 96375; 96411; 96413; 96415; 96416; 96523; J0640; J1100; J1938; J2469; J2470; J7050; J7060; J9190; J9263; P9016

== ENCOUNTER 2025-06-21 07:30 | Oncology outpatient (recurring) (ONCR) | payer MEDICAID, SELFPAY ==
[2025-06-07 08:13] LABS: Hematocrit 38.0 % (37-53); Hemoglobin 12.00 g/dL (11.27-16.99); Mean Corpuscular HGB Conc 31.6 g/dL (30-55); Mean Corpuscular Hemoglobin 26.7 pg (27-33); Mean Corpuscular Volume 84.6 fl (82-101); Nucleated Red Blood Cells % 0 %; Platelet Count 96 10^3/cmm (157-399); Red Blood Count 4.49 10^6/uL (3.85-5.65); White Blood Count 4.81 10^3/uL (3.29-11.43)
[2025-06-07 08:32] LABS: Alanine Aminotransferase 44 U/L (0-41); Albumin Level 4.3 g/dL (3.5-5.2); Alkaline Phosphatase 283 U/L (40-130); Anion Gap 18.2 (5-19); Aspartate Amino Transferase 40 U/L (0-40); Blood Urea Nitrogen 16 mg/dL (6-20); Calcium 9.4 mg/dL (8.5-10.5); Carbon Dioxide 23 mmol/L (22-29); Chloride 100 mmol/L (98-107); Globulin 3.3 g/dL (1.3-4.6); Glucose 99 mg/dL (65-115); Osmolality Calculated 285 mOsm/kg (285-295); Potassium 4.2 mmol/L (3.5-5.1); Sodium 137 mmol/L (136-145); Total Protein 7.6 g/dL (6.6-8.7)
[2025-06-07] MEDS: dexamethasone 4 mg/mL INJ 5 mL 12 MG IVP (09:18)
[2025-06-07] MEDS: aprepitant 130 mg/18 ml SDV IVP (09:22)
[2025-06-07] MEDS: OXALIPLATIN IV (10:27)
[2025-06-07] MEDS: DEXTROSE 5% IV (10:27)
[2025-06-07] MEDS: leucovorin 770 MG in dextrose 5% 250 ML 140 MG IV (10:27)
[2025-06-07] MEDS: fluorouraciL 50 mg/ml MDV 100 mL 750 MG IVP (12:54)
[2025-06-07] MEDS: fluorouraciL 4,650 MG in elastomeric pump 1 PUMP IV (12:54)
[2025-06-07 13:07] VITALS: BP 151/81; PULSE 75; TEMP 36.8; O2SAT 96
--- NOTE | 2025-06-14 09:00 | CT_ITS ---
WS: [id number] CT ABDOMEN AND PELVIS WITH CONTRAST HISTORY: malignant neoplasm of small intestine TECHNIQUE: Imaging performed of the abdomen and pelvis with IV contrast. Single phase imaging of the abdomen. Coronal and sagittal reformats are submitted. All CT scans at [facility] use at least one of these dose optimization techniques: automated exposure control; mA and/or kV adjustment per patient size (includes targeted exams where dose is matched to clinical indication); or iterative reconstruction. IV CONTRAST: Omnipaque 350; 100 mL IV. Oral contrast: Yes. DLP: 366.71 mGy.cm COMPARISON: 04/07/2025, PET/CT 04/30/2025 Lower thorax: Lung bases are clear. Heart is normal size. No hiatal hernia. Liver/biliary system: Normal size liver. Previously described intrahepatic and extrahepatic biliary duct dilatation has resolved. There is now pneumobilia. There is a common bile duct stent which has been placed since 04/07/2025. Known metastatic liver lesions are much less apparent. There are only a few identifiable lesions which are smaller and very subtle. Largest lesion is 14 mm along the falciform ligament. Portal vein is patent. Gallbladder: Normally distended gallbladder with stones. Pancreas: Continued mild bulky configuration of the pancreatic head and uncinate process. Common bile duct stent in good position with no residual common bile duct dilatation. Pancreatic duct is not dilated. There is very mild enhancement of the CBD wall. Spleen: Normal size with granulomata. Adrenal glands: Normal. Right kidney: Normal. Left kidney: Normal. Aorta: Normal. Lymphadenopathy: None. Free fluid: None. GI tract: Mildly distended stomach. Previously described bulky circumferential mass involving the second and third portion of the duodenum has significantly decreased. There is a minimal amount of soft tissue infiltration along the pancreatic head and the duodenal C-loop. No residual identifiable mass. Abdominal wall: Unremarkable abdominal wall. No hernia. Pelvis: Urinary bladder is well distended. There is mild bladder wall thickening but no focal mass. Bones: No destructive bone lesions. CT/CT abdomen pelvis w con* [id number] IMPRESSION: 1. Previously described circumferential duodenal bulky masses resolved. No sissy ntifiable mass persists. 2. Interval placement of a common bile duct stent since 04/07/2025 with resolved intrahepatic and extrahepatic biliary duct dilatation. No pancreatic duct dila tation. 3. Significant improvement in the hepatic metastatic sites. There are a few ar eas of decreased attenuation persisting in the liver from treated metastasis. T he largest is 14 mm along the falciform ligament. 4. No ascites or adenopathy. 5. No adrenal mass. 6. Cholelithiasis without acute cholecystitis.
[2025-06-14] MEDS: iohexol 350 mg/mL 500 mL Btl (per mL) PO (09:30)
[2025-06-14] MEDS: iohexol 350 mg/mL 500 mL Btl (per mL) IV (09:30)
[2025-06-14 09:50] LABS: Hematocrit 34.4 % (37-53); Hemoglobin 11.20 g/dL (11.27-16.99); Mean Corpuscular HGB Conc 32.6 g/dL (30-55); Mean Corpuscular Hemoglobin 27.5 pg (27-33); Mean Corpuscular Volume 84.3 fl (82-101); Nucleated Red Blood Cells % 0 %; Platelet Count 89 10^3/cmm (157-399); Red Blood Count 4.08 10^6/uL (3.85-5.65); White Blood Count 2.93 10^3/uL (3.29-11.43)
[2025-06-14 10:07] LABS: Alanine Aminotransferase 41 U/L (0-41); Albumin Level 4.0 g/dL (3.5-5.2); Alkaline Phosphatase 265 U/L (40-130); Anion Gap 14.0 (5-19); Aspartate Amino Transferase 47 U/L (0-40); Blood Urea Nitrogen 12 mg/dL (6-20); Calcium 8.9 mg/dL (8.5-10.5); Carbon Dioxide 25 mmol/L (22-29); Chloride 98 mmol/L (98-107); Creatinine Clr Calc Pharmacy 141.1108; Globulin 2.9 g/dL (1.3-4.6); Glucose 88 mg/dL (65-115); Osmolality Calculated 275 mOsm/kg (285-295); Potassium 4.0 mmol/L (3.5-5.1); Sodium 133 mmol/L (136-145); Total Protein 6.9 g/dL (6.6-8.7)
[2025-06-21 07:54] LABS: Hematocrit 35.0 % (37-53); Hemoglobin 11.50 g/dL (11.27-16.99); Mean Corpuscular HGB Conc 32.9 g/dL (30-55); Mean Corpuscular Hemoglobin 27.8 pg (27-33); Mean Corpuscular Volume 84.5 fl (82-101); Nucleated Red Blood Cells % 0 %; Platelet Count 74 10^3/cmm (157-399); Red Blood Count 4.14 10^6/uL (3.85-5.65); White Blood Count 2.97 10^3/uL (3.29-11.43)
[2025-06-21 08:01] LABS: Alanine Aminotransferase 61 U/L (0-41); Albumin Level 3.9 g/dL (3.5-5.2); Alkaline Phosphatase 424 U/L (40-130); Anion Gap 18.9 (5-19); Aspartate Amino Transferase 61 U/L (0-40); Blood Urea Nitrogen 10 mg/dL (6-20); Calcium 9.1 mg/dL (8.5-10.5); Carbon Dioxide 22 mmol/L (22-29); Chloride 97 mmol/L (98-107); Creatinine Clr Calc Pharmacy 120.9521; Globulin 3.4 g/dL (1.3-4.6); Glucose 102 mg/dL (65-115); Osmolality Calculated 277 mOsm/kg (285-295); Potassium 3.9 mmol/L (3.5-5.1); Sodium 134 mmol/L (136-145); Total Protein 7.3 g/dL (6.6-8.7)
[2025-06-21 08:36] LABS: Slide Review Slide Review Perform
== END 2025-07-01 23:59 | disposition home or self-care (01) ==
PROVIDERS: Internal Medicine; PCP Nurse Practitioner Family; Visit Provider Internal Medicine Medical Oncology
DX: C17.9 Malignant neoplasm of small intestine, unspecified (principal); C78.7 Secondary malignant neoplasm of liver and intrahepatic bile duct
CPT/HCPCS: 36591; 74177; 80053; 85025; 96368; 96375; 96411; 96413; 96415; 96416; J0185; J0640; J1100; J7060; J9190; J9263

== ENCOUNTER 2025-07-21 12:30 | Oncology outpatient (recurring) (ONCR) | payer MEDICAID, SELFPAY ==
[2025-07-05 08:01] LABS: Hematocrit 37.5 % (37-53); Hemoglobin 11.90 g/dL (11.27-16.99); Mean Corpuscular HGB Conc 31.7 g/dL (30-55); Mean Corpuscular Hemoglobin 27.4 pg (27-33); Mean Corpuscular Volume 86.4 fl (82-101); Nucleated Red Blood Cells % 0 %; Platelet Count 222 10^3/cmm (157-399); Red Blood Count 4.34 10^6/uL (3.85-5.65); White Blood Count 6.56 10^3/uL (3.29-11.43)
[2025-07-05 08:31] LABS: Carcinoembryonic Antigen 3.5 ng/mL (0.0-4.7)
[2025-07-05 08:42] LABS: Alanine Aminotransferase 45 U/L (0-41); Albumin Level 4.2 g/dL (3.5-5.2); Alkaline Phosphatase 440 U/L (40-130); Anion Gap 16.0 (5-19); Aspartate Amino Transferase 43 U/L (0-40); Blood Urea Nitrogen 13 mg/dL (6-20); Calcium 9.3 mg/dL (8.5-10.5); Carbon Dioxide 24 mmol/L (22-29); Chloride 101 mmol/L (98-107); Creatinine Clr Calc Pharmacy 107.4020; Globulin 3.5 g/dL (1.3-4.6); Glucose 93 mg/dL (65-115); Osmolality Calculated 284 mOsm/kg (285-295); Potassium 4.0 mmol/L (3.5-5.1); Sodium 137 mmol/L (136-145); Total Protein 7.7 g/dL (6.6-8.7)
[2025-07-05] MEDS: dexamethasone 4 mg/mL INJ 5 mL 12 MG IVP (09:56)
[2025-07-05] MEDS: aprepitant 130 mg/18 ml SDV IVP (09:58)
[2025-07-05] MEDS: leucovorin 780 MG in dextrose 5% 250 ML 62.5 MG IV (10:41)
[2025-07-05] MEDS: fluorouraciL 4,700 MG in elastomeric pump 1 PUMP IV (13:02)
[2025-07-19 08:18] LABS: Hematocrit 35.3 % (37-53); Hemoglobin 11.10 g/dL (11.27-16.99); Mean Corpuscular HGB Conc 31.4 g/dL (30-55); Mean Corpuscular Hemoglobin 27.1 pg (27-33); Mean Corpuscular Volume 86.1 fl (82-101); Nucleated Red Blood Cells % 0 %; Platelet Count 131 10^3/cmm (157-399); Red Blood Count 4.10 10^6/uL (3.85-5.65); White Blood Count 4.16 10^3/uL (3.29-11.43)
[2025-07-19 08:41] LABS: Alanine Aminotransferase 45 U/L (0-41); Albumin Level 4.1 g/dL (3.5-5.2); Alkaline Phosphatase 381 U/L (40-130); Anion Gap 10.3 (5-19); Aspartate Amino Transferase 43 U/L (0-40); Blood Urea Nitrogen 12 mg/dL (6-20); Calcium 8.9 mg/dL (8.5-10.5); Carbon Dioxide 27 mmol/L (22-29); Chloride 100 mmol/L (98-107); Creatinine Clr Calc Pharmacy 122.7451; Globulin 2.9 g/dL (1.3-4.6); Glucose 112 mg/dL (65-115); Magnesium 2.0 mg/dL (1.7-2.3); Osmolality Calculated 277 mOsm/kg (285-295); Potassium 4.3 mmol/L (3.5-5.1); Sodium 133 mmol/L (136-145); Total Protein 7.0 g/dL (6.6-8.7)
[2025-07-19] MEDS: aprepitant 130 mg/18 ml SDV IVP (09:49)
[2025-07-19] MEDS: dexamethasone 4 mg/mL INJ 5 mL 12 MG IVP (09:52)
[2025-07-19] MEDS: OXALIPLATIN IV (10:45)
[2025-07-19] MEDS: DEXTROSE 5% IV (10:45)
[2025-07-19] MEDS: leucovorin 790 MG in dextrose 5% 250 ML 140 MG IV (10:45)
[2025-07-19] MEDS: ELASTOMERIC PUMP PUMP IV (13:15)
[2025-07-19] MEDS: FLUOROURACIL IV (13:15)
== END 2025-08-01 23:59 | disposition home or self-care (01) ==
PROVIDERS: Nurse Practitioner; PCP Nurse Practitioner Family; Visit Provider Internal Medicine Medical Oncology
DX: Z45.2 Encounter for adjustment and management of vascular access device; Z95.828 Presence of other vascular implants and grafts; Z53.9 Procedure and treatment not carried out, unspecified reason
CPT/HCPCS: 80053; 82378; 83735; 85025; 96368; 96375; 96413; 96415; 96416; 96523; J0185; J0640; J1100; J7060; J9190; J9263

== ENCOUNTER 2025-08-30 17:00 | Oncology outpatient (recurring) (ONCR) | payer MEDICAID, SELFPAY ==
[2025-08-03 08:19] LABS: Hematocrit 36.4 % (37-53); Hemoglobin 11.60 g/dL (11.27-16.99); Mean Corpuscular HGB Conc 31.9 g/dL (30-55); Mean Corpuscular Hemoglobin 27.3 pg (27-33); Mean Corpuscular Volume 85.6 fl (82-101); Nucleated Red Blood Cells % 0 %; Platelet Count 130 10^3/cmm (157-399); Red Blood Count 4.25 10^6/uL (3.85-5.65); White Blood Count 4.06 10^3/uL (3.29-11.43)
[2025-08-03 08:40] LABS: Alanine Aminotransferase 86 U/L (0-41); Albumin Level 4.2 g/dL (3.5-5.2); Alkaline Phosphatase 579 U/L (40-130); Anion Gap 13.3 (5-19); Aspartate Amino Transferase 77 U/L (0-40); Blood Urea Nitrogen 10 mg/dL (6-20); Calcium 9.5 mg/dL (8.5-10.5); Carbon Dioxide 26 mmol/L (22-29); Chloride 100 mmol/L (98-107); Globulin 3.6 g/dL (1.3-4.6); Glucose 106 mg/dL (65-115); Osmolality Calculated 279 mOsm/kg (285-295); Potassium 4.3 mmol/L (3.5-5.1); Sodium 135 mmol/L (136-145); Total Protein 7.8 g/dL (6.6-8.7)
[2025-08-03] MEDS: dexamethasone 4 mg/mL INJ 5 mL 12 MG IVP (10:44)
[2025-08-03] MEDS: aprepitant 130 mg/18 ml SDV IVP (10:47)
[2025-08-03] MEDS: leucovorin 790 MG in dextrose 5% 250 ML 145 MG IV (11:34)
[2025-08-03 11:53] VITALS: BP 111/74; PULSE 98; RESP 16; TEMP 36.8; O2SAT 94
[2025-08-03] MEDS: diphenhydrAMINE 50 mg/mL SDV 1mL 25 MG IVP (11:55)
[2025-08-03 12:00] VITALS: BP 158/107; PULSE 76; RESP 18; O2SAT 97
[2025-08-03 12:10] VITALS: BP 167/80; PULSE 65; RESP 17; TEMP 36.3; O2SAT 98
[2025-08-03 12:30] VITALS: BP 151/88; PULSE 60; RESP 16; TEMP 36.6; O2SAT 98
[2025-08-03 12:35] VITALS: O2SAT 95
[2025-08-03] MEDS: ELASTOMERIC PUMP PUMP IV (15:06)
[2025-08-03] MEDS: FLUOROURACIL IV (15:06)
[2025-08-03 15:25] VITALS: BP 150/91; PULSE 83; RESP 17; TEMP 36.4; O2SAT 97
[2025-08-16 08:23] LABS: Hematocrit 33.6 % (37-53); Hemoglobin 10.90 g/dL (11.27-16.99); Mean Corpuscular HGB Conc 32.4 g/dL (30-55); Mean Corpuscular Hemoglobin 28.2 pg (27-33); Mean Corpuscular Volume 87.0 fl (82-101); Nucleated Red Blood Cells % 0 %; Platelet Count 86 10^3/cmm (157-399); Red Blood Count 3.86 10^6/uL (3.85-5.65); White Blood Count 3.95 10^3/uL (3.29-11.43)
[2025-08-16 08:42] LABS: Alanine Aminotransferase 99 U/L (0-41); Albumin Level 4.1 g/dL (3.5-5.2); Alkaline Phosphatase 533 U/L (40-130); Anion Gap 14.3 (5-19); Aspartate Amino Transferase 80 U/L (0-40); Blood Urea Nitrogen 9 mg/dL (6-20); Calcium 9.2 mg/dL (8.5-10.5); Carbon Dioxide 25 mmol/L (22-29); Chloride 105 mmol/L (98-107); Creatinine Clr Calc Pharmacy 123.4362; Globulin 3.3 g/dL (1.3-4.6); Glucose 119 mg/dL (65-115); Osmolality Calculated 290 mOsm/kg (285-295); Potassium 4.3 mmol/L (3.5-5.1); Sodium 140 mmol/L (136-145); Total Protein 7.4 g/dL (6.6-8.7)
[2025-08-23 07:39] LABS: Hematocrit 35.9 % (37-53); Hemoglobin 11.50 g/dL (11.27-16.99); Mean Corpuscular HGB Conc 32.0 g/dL (30-55); Mean Corpuscular Hemoglobin 28.8 pg (27-33); Mean Corpuscular Volume 89.8 fl (82-101); Nucleated Red Blood Cells % 0 %; Platelet Count 165 10^3/cmm (157-399); Red Blood Count 4.00 10^6/uL (3.85-5.65); White Blood Count 3.76 10^3/uL (3.29-11.43)
[2025-08-23 08:01] LABS: Carcinoembryonic Antigen 3.5 ng/mL (0.0-4.7)
[2025-08-23 08:12] LABS: Alanine Aminotransferase 62 U/L (0-41); Albumin Level 4.2 g/dL (3.5-5.2); Alkaline Phosphatase 496 U/L (40-130); Anion Gap 17.3 (5-19); Aspartate Amino Transferase 49 U/L (0-40); Blood Urea Nitrogen 20 mg/dL (6-20); Calcium 9.3 mg/dL (8.5-10.5); Carbon Dioxide 23 mmol/L (22-29); Chloride 101 mmol/L (98-107); Creatinine Clr Calc Pharmacy 96.0059; Globulin 3.4 g/dL (1.3-4.6); Glucose 120 mg/dL (65-115); Osmolality Calculated 288 mOsm/kg (285-295); Potassium 4.3 mmol/L (3.5-5.1); Sodium 137 mmol/L (136-145); Total Protein 7.6 g/dL (6.6-8.7)
[2025-08-23] MEDS: aprepitant 130 mg/18 ml SDV IVP (10:15)
[2025-08-23] MEDS: dexamethasone 4 mg/mL INJ 5 mL 12 MG IVP (10:15)
[2025-08-23] MEDS: leucovorin 790 MG in dextrose 5% 250 ML 62.5 MG IV (11:27)
[2025-08-23] MEDS: DEXTROSE 5% IV (11:27)
[2025-08-23] MEDS: OXALIPLATIN IV (11:27)
[2025-08-23] MEDS: fluorouraciL 4,050 MG, elastomeric pump 1 PUMP in sodium chloride 0.9% (100 ml) 11 ML IV (13:50)
[2025-08-23 14:21] VITALS: BP 152/84; PULSE 69; RESP 18; TEMP 36.6; O2SAT 97
--- NOTE | 2025-08-30 17:00 | CT_ITS ---
WS: [id number] CT ABDOMEN AND PELVIS WITH CONTRAST HISTORY: Follow-up duodenal cancer. TECHNIQUE: Imaging performed of the abdomen and pelvis with IV contrast. Single phase imaging of the abdomen. Coronal and sagittal reformats are submitted. All CT scans at [facility] use at least one of these dose optimization techniques: automated exposure control; mA and/or kV adjustment per patient size (includes targeted exams where dose is matched to clinical indication); or iterative reconstruction. IV CONTRAST: Omnipaque 350; 100 mL IV. Oral contrast: Yes. DLP: 408.19 mGy.cm COMPARISON: 06/14/2025, 04/07/2025, PET/CT 04/30/2025 Lower thorax: Lung bases are clear. Heart is normal size. No hiatal hernia. Liver/biliary system: Normal size liver. No residual intrahepatic duct dilatation. Pneumobilia is again identified. No metastatic lesions are reidentified within the liver. No new metastatic sites. Gallbladder: Gallbladder is present with stones. Pancreas: There is a common bile duct stent which remains in good position. New area of decreased attenuation and fullness surrounding the pancreatic stent extending between the second portion of the duodenum and the pancreatic head. On the most recent study no mass was identified. New soft tissue mass encasing the distal stent with variable attenuation. Mass measures 3.7 x 4.9 cm. Mass extends between the pancreatic head and the duodenum. Spleen: Normal size with granulomata. Adrenal glands: Normal. Right kidney: Normal. Left kidney: Normal. Aorta: Normal. Lymphadenopathy: None. Free fluid: None. GI tract: No GI tract obstruction. See above pancreas for details of the duodenum. Moderate diffuse constipation. No obstruction. Abdominal wall: Tiny umbilical hernia. Pelvis: Normally distended urinary bladder. No free fluid. No adenopathy. Bones: Unremarkable. CT/CT abdomen pelvis w con* [id number] IMPRESSION: 1. Recurrent heterogeneous mass surrounding the common bile duct stent extendi ng into the duodenal C-loop and the pancreatic head. Highly suspicious for recu rrent neoplasm. Mass measures seven 3.7 x 4.9 cm and is new since 06/14/2025. 2. No hepatic metastatic sites are identified. 3. No ascites or adenopathy. 4. Cholelithiasis without acute cholecystitis. 5. Pneumobilia.
[2025-08-30] MEDS: iohexol 350 mg/mL 500 mL Btl (per mL) PO (17:29)
[2025-08-30] MEDS: iohexol 350 mg/mL 500 mL Btl (per mL) IV (17:30)
== END 2025-08-31 23:59 | disposition home or self-care (01) ==
LOC: RAD 08-31 00:01 → ONCMED 08-31 11:04
PROVIDERS: Nurse Practitioner; PCP Nurse Practitioner Family; Visit Provider Internal Medicine Medical Oncology
DX: Z53.9 Procedure and treatment not carried out, unspecified reason; C17.9 Malignant neoplasm of small intestine, unspecified; C78.7 Secondary malignant neoplasm of liver and intrahepatic bile duct; R19.09 Other intra-abdominal and pelvic swelling, mass and lump; K80.20 Calculus of gallbladder without cholecystitis without obstruction; K83.8 Other specified diseases of biliary tract
CPT/HCPCS: 74177; 80053; 82378; 85025; 96368; 96375; 96411; 96413; 96415; 96416; 96417; 96523; J0185; J0640; J1100; J1200; J3490; J7040; J7060; J9190; J9263

== ENCOUNTER 2025-09-12 14:09 | Emergency (ER) | payer MEDICAID, SELFPAY ==
[2025-09-12] VITALS (10 sets, daily range): BP systolic 133–179; BP diastolic 79–114; PULSE 75–90; RESP 16–18; TEMP 36.8; O2SAT 93–100
--- OUTSIDE RECORDS SUMMARY | 2025-09-12 14:15 | XMS_ITS | Clinical Summary ---
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
--- OUTSIDE RECORDS SUMMARY | 2025-09-12 14:15 | XMS_ITS | Patient Health Record ---
Author Organization [facility] Address [address] [place] [address] Care Team Providers Care Automation Consultant Name Role Phone Ara Escalona APN Primary Care Provider UnavailAmbrosio Najera Unavailable Allergies Allergen (clinical drug ingredient) Drug/Non Drug Allergy documented on EMR Reaction Allergy Type Onset Date Status Dust Mites Unknown Allergy Active Shellfish (FN) Shellfish-derived Products Unknown Drug Allergy Active Reason For Referral No Information Medications Medication SIG (Take, Route, Frequency, Duration) Notes Start Date End Date Status Desloratadine 5 MG Tablet 1 tablet Orall y Once a day Active Montelukast Sodium 10 MG Tablet Take 1 tablet by mouth once daily; Duration: 30 Active Social History Tobacco Use: Social History Observation Description Date Details (start date - stop date) Never Smoker NA - NA Social History Depression Screening Social Info Question Answer Notes depression screening findings Findings Negative (0 -4) PHQ9 - 10/06/24 PHQ-9 Little interest or pleasure in doing things Not at all Feeling down, depressed, or hopeless Not at all Trouble falling or staying asleep, or sleeping t oo much Not at all Feeling tired or having little energy Not at all Poor appetite or overeating Not at all Feeling bad about yourself, or that you are a failure, or have let yourself or your family down Not at all Trouble concentrating on thi ngs, such as reading the newspaper or watching television Not at all Moving or speaking so slowly that other people could have noticed. Or the opposite ? being so fidgety or restless that you have been moving around a lot more than usual Not at all Thoughts that you would be b marnie off , or of hurting yourself in some way Not at all Total Score 0 Drugs/Alcohol: Social Info Question Answer Notes Drugs Have you used drugs other than those for medical reasons in the past 12 months? No Drug/Alcohol: Social Info Question Answer Notes AUDIT-C (Standard) Did you have a drink containing alcohol in the past year? No Points 0 Interpretation Negative Tobacco Use: Social Info Question Answer Notes Tobacco Control (Standard) Tobacco use: Nonsmoker Additional Findings: Tobacco user Chews tobacco Section Notes: PHQ9 - 09/07/24 Problems Problem Type SNOMED Code ICD Code Onset Dates Problem Status W/U Status Risk Notes Problem Hyperlipidaemia (50011657) Hyperlipidemia, unspecified hyperlipidemia type (E78.5) Active confirmed Problem Pruritic rash (54486341) Pruritic rash (L28.2) Active confirmed Problem Elevated liver enzymes level (277524241) Elevated LFTs (R79.89) Active confirmed Encounters Encounter Location Date Provider Diagnosis [facility] [address] [place] [phone] 11/04/2024 Ambrosio Mustafa Pruritic rash L28.2 Assessments Encounter Date Diagnosis (ICD Code) Assessment Notes Treatment Notes Treatment Clinical Notes Section Notes 11/04/2024 Pruritic rash (ICD-10 - L28.2) Plan Of Treatment No Information Insurance Providers Payer Name Payer Address Payer Phone Subscriber Number Group Number Insured Name Patient Relationship to Insured Coverage Start Date Coverage End Date [facility] Medicaid Replacement [address] [facility] [place] [phone] [id number] KINA GUTIERREZ Self - patient is the insured Medical (General) History Medical History History ICD Code seasonal allergies Surgical History Surgery Date(Month/Year) L shoulder x 3 cyst removal neck
--- OUTSIDE RECORDS SUMMARY | 2025-09-12 14:15 | XMS_ITS | Patient Health Record ---
Author Organization [facility] Address [address] [address] Care Team Providers Care Esl Teacher Name Role Phone Ara Escalona Unavailable [phone] Allergies No Known Allergies Results Component Value Reference Range Notes COMPREHENSIVE METABOLIC PANE L ([id number]) Reviewed date:10/05/2024 08:58:52 AM Interpretation: Performing Lab:[facility]-[id number] Zenon Patel, [id number] Melissa Montana MD Notes/Report: 0 GLUCOSE 112 65-99 mg/dL Fasting reference interval For someone without known diabetes, a glucose value between 100 and 125 mg/dL is consistent with prediabetes and should be confirmed with a follow-up test. UREA NITROGEN (BUN) 14 7-25 mg/dL CREATININE 0.96 0.70-1.30 mg/dL EGFR 93 > OR = 60 mL/min/1.73m2 BUN/CREATININE RATIO SEE NOTE: 6-22 (calc) Not Reported: BUN and Creatinine are within reference range. SODIUM 139 135-146 mmol/L POTASSIUM 4.5 3.5-5.3 mmol/L CHLORIDE 105 98-110 mmol/L CARBON DIOXIDE 27 20-32 mmol/L CALCIUM 9.3 8.6-10.3 mg/dL PROTEIN, TOTAL 6.8 6.1-8.1 g/dL ALBUMIN 4.4 3.6-5.1 g/dL GLOBULIN 2.4 1.9-3.7 g/dL (calc) ALBUMIN/GLOBULIN RATIO 1.8 1.0-2.5 (calc) BILIRUBIN, TOTAL 0.4 0.2-1.2 mg/dL ALKALINE PHOSPHATASE 144 35-144 U/L AST 57 10-35 U/L ALT 66 9-46 U/L Reason For Referral No Information Medications Medication SIG (Take, Route, Frequency, Duration) Notes Start Date End Date Status predniSONE 20 MG as directed. daily d ose in m,40,20,20 ,20, 10, 10 Orally Once a day 03/26/2024 Active Ibuprofen 11/16/2022 Not-Takin g Triamcinolone Acetonide 0.1 % 1 application Externally Twice a day; Duration: 7 days 03/26/2024 Active Tylenol 325 MG 1 tablet as needed Orally every 4 hrs As needed Active Social History Sex Assigned At : Social History Observation Description Sex Assigned At Male Section Notes: chews tobacco no smoking occasional etoh chews tobacco Problems Problem Type SNOMED Code ICD Code Onset Dates Problem Status W/U Status Risk Notes Problem Hyperlipidaemia (53840671) Hyperlipidemia, unspecified hyperlipidemia type (E78.5) Active confirmed Problem Elevated liver enzymes level (374344387) Elevated LFTs (R79.89) Active confirmed Encounters Encounter Location Date Provider Diagnosis [address] [phone] 09/23/2024 Ara Escalona Elevated LFTs R79.89 Assessments Encounter Date Diagnosis (ICD Code) Assessment Notes Treatment Notes Treatment Clinical Notes Section Notes 09/23/2024 Elevated LFTs (ICD-10 - R79.89) labs drawn by Nito Domingo LPN Draw for [facility] fax [phone] Plan Of Treatment No Information Insurance Providers Payer Name Payer Address Payer Phone Subscriber Number Group Number Insured Name Patient Relationship to Insured Coverage Start Date Coverage End Date [facility] [address] [place] [phone] [id number] Melo Simpson Self - patient is the insured Medical (General) History Medical History History ICD Code HX of high blood pressure swollen salivary gland Surgical History Surgery Date(Month/Year) Right Neck abscess 11/2023 left shoulder surgery x3 Hospitalization History Reason Date(Month/Year) right neck abscess [facility] 11/2022
--- OUTSIDE RECORDS SUMMARY | 2025-09-12 14:15 | XMS_ITS | Clinical Summary ---
Author Organization [facility] Address [address] [place] [address] Phone Care Team Providers Care Supervisor Roving Department Name Role Phone Unavailable Primary Care Provider Unavailabl e Allergies Active Allergy Reactions Criticality Noted Date Comments Onion Unknown 04/16/2025 Shrimp Anaphylaxis High 04/16/2025 Medications ferrous sulfate 325 mg (65 mg iron) tablet Take 1 Tablet (325 mg) by mouth daily. 30 Tablet 2 04/17/2025 Active oxyCODONE (ROXICODONE) 5 mg tabletIndication s:Elevated LFTs Take 1 Tablet (5 mg) by mouth every 4 hours as needed for Pain. Max Daily Amount: 30 mg 20 Tablet 04/16/2025 Active Active Problems Problem Noted Date Diagnosed Date Protein-calorie malnutrition, moderate Biliary stricture 04/14/2025 History of biliary stent insertion 04/14/2025 Biliary obstruction 04/09/2025 Elevated LFTs 04/09/2025 Pancreatic mass 04/08/2025 Common bile duct dilatation 04/08/2025 Transaminitis 04/08/2025 Calcification of gallbladder 04/08/2025 Abdominal pain, acute, right upper quadrant 05/0 07/2025 Encounters Date Type Department Care Team Description 08/31/2025 External Device Data ST[facility] ABSTRACTION Provider, Abstract 07/21/2025 External Device Data [facility] ABSTRACTION Provider, Abstract 07/20/2025 External Device Data [facility] ABSTRACTION Provider, Abstract 07/20/2025 External Device Data [facility] ABSTRACTION Provider, Abstract 07/07/2025 External Device Data [facility] ABSTRACTION Provider, Abstract 06/16/2025 External Device Data STL ABSTRACTION Provider, Abstract 06/16/2025 External Device Data ST[facility] ABSTRACTION Provider, Abstract 06/16/2025 External Device Data STL ABSTRACTION Provider, Abstract 06/16/2025 External Device Data ST[facility] ABSTRACTION Provider, Abstract 06/15/2025 External Device Data STL ABSTRACTION Provider, Abstract from Last 3 Months Social History Tobacco Use Types Packs/Day Years Used Date Smoking Tobacco: Never Smokeless Tobacco: Never Tobacco Cessation:Counseling Given: Not Answered Food Insecurity Answer Date Recorded Do you find you are eating l ess than you should because you can t pay for food? No 04/09/2025 Housing Stability Answer Date Recorded Do you worry you won t have a steady place to sleep or struggle to pay rent or mortgage? No 04/09/2025 Feeling Safe Answer Date Recorded Are you in a relationship wi th someone who hurts you emotionally and/or physically? 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 Gender Identity Not on file Sexual Orientation Not on file Last Filed Vital Signs Vital Sign Reading Time Taken Comments Blood Pressure 142/74 04/16/2025 10:57 AM CDT Pulse 81 04/16/2025 10:57 AM CDT Temperature 36.4 C (97.5 F) 04/16/2025 10:57 AM CDT Respiratory Rate 14 04/16/2025 10:57 AM CDT Oxygen Saturation 100% 04/16/2025 10:57 AM CDT Inhaled Oxygen Concentration - - Weight 83.5 kg (184 lb) 04/10/2025 4:00 PM CDT Height 175.3 cm (5' 9 ) 04/10/2025 4:00 PM CDT Body Mass Index 27.17 04/10/2025 4:00 PM CDT Plan of Treatment Health Maintenance Due Date Last Done Comments Pre-Diabetes and Diabetes Screening 1967 DTAP/TDAP/TD VACCINES (1 - Tdap) 1986 HEPATITIS B VACCINES (1 of 3 - 19+ 3-dose series) 09/02 COLORECTAL SCREENING 2012 Colorectal Cancer Screening 2012 FIT-DNA Q 3 years 2012 FIT/FOBT Q 1 year 2012 Flex Sig/CT Colonography Q 5 years 2012 ZOSTER VACCINE (1 of 2) 2017 INFLUENZA VACCINE (#1) 2025 Medical Devices Implanted Type Area Import Specialist Device Identifier Shelf Expiration Date Model / Serial / Lot 8.5f Resolve Biliary Drain-04/12/2025 Implanted:Qty: 1 on 04/12/2025 by Yefri Topete MD Catheter Left: Bile Duct 02/17/2027 / / [id number] Stent Bili Wallflex Rx 10x60 [id number] - [id number] Implanted:Qty: 1 on 04/13/2025 by Stephanie Oden DO at [facility] Stent N/A: Bile Duct [facility] [id number] 01/07/2027 [id number] / / [id number] [address] [place] [address] MEDICAID [place] Advance Directives For more information, please contact: [phone] * Full Code (Latest Code Status on File) Date Activated Date Inactivated Comments 04/13/2025 10:28 AM 04/16/2025 5:00 PM * Full Code Date Activated Date Inactivated Comments 04/08/2025 7:44 PM 04/13/2025 10:28 AM
--- OUTSIDE RECORDS SUMMARY | 2025-09-12 14:15 | XMS_ITS | Encounter Summary ---
Author Organization [facility] Address [address] [place] [address] Care Team Providers Care Antique Refinisher Name Role Phone Unavailable Primary Care Provider Unavailabl e Encounter Details Date Type Department Care Team (Late st Contact Info) Description 11/13/2005 Emergency [facility] Emergency Department [address] 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
--- NOTE | 2025-09-12 14:37 | ED_ITS ---
HPI - Abdominal Pain 2 General: Chief Complaint: Abdominal Pain Stated Complaint: abd pains, nausea Time Seen by Provider: 09/12/25 14:35 History of Present Illness: 59-year-old male presents emergency room with abdominal pain and nausea progressively worsening for the last week. . Patient has a history of pancreatic CA previously had a common bile duct stent placed Associated Symptoms: Denies chills, dysuria and fever(s) Related Data Previous Rx's ?Medication ?Instructions ?Recorded pantoprazole 40 mg tablet,delayed 40 mg PO DAILY #60 t abs 05/03/25 release (Protonix) diphenoxylate-atropine 2.5 2 tab PO QID PRN diarrhea # 60 tabs 09/07/25 mg-0.025 mg tablet (Lomotil) ondansetron HCl 4 mg tablet 4 mg PO Q6H PRN nausea and 09/07/25 vomiting #30 tabs prochlorperazine maleate 10 mg 10 mg PO Q4H PRN mild n ausea #30 09/07/25 tablet (Compazine) tabs Allergies Allergy/AdvReac Type Severity Reaction Status Date / Time No Known Drug Allergies Allergy Unknown Verified 09/12/25 14:25 Review of Systems 2 Const: Denies: fever(s) or chills Card: Denies: chest pain Resp: Denies: dyspnea GI: Reports: abdominal pain : Denies: dysuria, urinary frequency or urinary urgency Musc: Denies: neck pain or back pain Skin/Breast: Denies: rash PFSH ED 2 PFSH: Medical History Port-A-Cath in place 04/23/25 Dr Taylor Social History Smoking and tobacco/nicotine status: never used tobacco/nicotine Physical Exam 2 Const: COMMON NORMALS: no acute distress GENERAL APPEARANCE: cooperative and comfortable ORIENTATION/CONSCIOUSNESS: Yes awake, Yes oriented to person, Yes oriented to place and Yes oriented to time HENMT: COMMON NORMALS: normocephalic, atraumatic and hearing grossly normal bilaterally HEAD & SCALP: normocephalic and atraumatic Resp: COMMON NORMALS: normal respiratory effort, No retractions, No use of accessory muscles and clear to auscultation bilaterally AUSCULTATION: clear to auscultation bilaterally Cardio: COMMON NORMALS: regular rate, regular rhythm and No murmurs present (Cardio) RATE: regular rate RHYTHM: regular rhythm GI: COMMON NORMALS: No hepatosplenomegaly present AUSCULTATION: Yes Hyperactive bowel sounds present PALPATION: Yes Tenderness to palpation present (GI), No Guarding due to palpation present (GI) and Yes No hepatosplenomegaly present Extremity: COMMON NORMALS: normal to inspection, capillary refill normal, no clubbing, cyanosis or edema, no calf tenderness and no pedal edema Neuro: SENSORIUM/ORIENTATION: Yes oriented to person, Yes oriented to place and Yes oriented to time Skin: COMMON NORMALS: no rashes or lesions noted GENERAL SKIN EXAM: no rashes or lesions noted Course 2 Vital Signs: Vital signs: Vital Signs Temperature 98.2 F 09/12/25 14:20 Pulse Rate 79 09/12/25 18:11 Respiratory Rate 18 09/12/25 15:23 Blood Pressure 144/82 09/12/25 18:11 Pulse Oximetry 95 09/12/25 18:11 Oxygen Delivery Me thod Room Air 09/12/25 16:51 MDM - Abdominal Pain Medical Decision Making Labs and imaging reviewed. Patient has a gastric outlet obstruction second part of the duodenum. Gastroccult on emesis was positive. Patient has known pancreatic cancer is some elevation of transaminases mild elevation of lipase as well discussed with the patient we will place an NG tube. Contacted [facility] [place] where he was seen previously we will transfer him back there for GI specialty. He likely will need another duodenal stent. Medical Records I reviewed the patient's medical records. Lab Data I reviewed the patient's lab results. 09/12/25 15:05 09/12/25 15:05 Labs/Radiology: Radiology Impressions Gallbladder Ultrasound 09/12/25 14:43 IMPRESSION: 1. Gallstones with gallbladder wall upper limits of normal in thickness. Common bile duct stent. 2. Gallbladder polyp. Abdomen/Pelvis CT 09/12/25 14:44 IMPRESSION: 1. Enlarging mass centered in the 2nd portion of the duodenal/pancreatic head. It may be partially obstructing the duodenal. Again seen is a stent between the 2nd duodenal in the extrahepatic bile duct. This is highly suggestive of malignancy. 2. Cholelithiasis. Laboratory Results WBC 5.73 10^3/uL (3.29-11.43) 09/12/25 15:05 RBC 4.07 10^6/uL (3.85-5.65) 09/12/25 15:05 Hgb 12.00 g/dL (11.27-16.99) 09/12/25 15:05 Hct 36.4 % (37-53) L 09/12/25 15:05 MCV 89.4 fl (82-101) 09/12/25 15:05 MCH 29.5 pg (27-33) 09/12/25 15:05 MCHC 33.0 g/dL (30-55) 09/12/25 15:05 RDW 17.8 % (12.1-15.1) H 09/12/25 15:05 Plt Count 192 10^3/cmm (157-399) 09/12/25 15:05 MPV 8.4 fL (7.4-10.4) 09/12/25 15:05 Neut % (Auto) 48.6 % 09/12/25 15:05 Lymph % (Auto) 37.2 % 09/12/25 15:05 Granite % (Auto) 12.7 % 09/12/25 15:05 Eos % (Auto) 0.5 % 09/12/25 15:05 Baso % (Auto) 0.7 % 09/12/25 15:05 Neut # (Auto) 2.78 10^3/uL (1.8-7.7) 09/12/25 15:05 Lymph # (Auto) 2.1 10^3/uL (0.8-4.8) 09/12/25 15:05 Granite # (Auto) 0.7 10^3/uL (0.2-0.9) 09/12/25 15:05 Eos # (Auto) 0.0 10^3/uL (0.0-0.8) 09/12/25 15:05 Baso # (Auto) 0.0 10^3/uL (0.0-0.1) 09/12/25 15:05 Nucleated RBC % (auto) 0 % 09/12/25 15:05 Nucleated RBCs # 0.0 /100WBC 09/12/25 15:05 PT 11.90 SECONDS (12.1-14.9) L 09/12/25 15:05 INR 0.82 (0.8-1.2) 09/12/25 15:05 APTT 37.0 SECONDS (23.9-36.7) H 09/12/25 15:05 Sodium 138 mmol/L (136-145) 09/12/25 15:05 Potassium 4.6 mmol/L (3.5-5.1) 09/12/25 15:05 Chloride 99 mmol/L (98-107) 09/12/25 15:05 Carbon Dioxide 25 mmol/L (22-29) 09/12/25 15:05 Anion Gap 18.6 (5-19) 09/12/25 15:05 BUN 16 mg/dL (6-20) 09/12/25 15:05 Creatinine 0.7 mg/dL (0.7-1.2) 09/12/25 15:05 GFR Calculation 116.2 mL/min (90-130) 09/12/25 15:05 Glucose 106 mg/dL (65-115) 09/12/25 15:05 Calculated Osmolality 288 mOsm/kg (285-295) 09/12/25 15:05 Calcium 9.5 mg/dL (8.5-10.5) 09/12/25 15:05 Total Bilirubin 0.3 mg/dL (0.15-1.2) 09/12/25 15:05 AST 42 U/L (0-40) H 09/12/25 15:05 ALT 50 U/L (0-41) H 09/12/25 15:05 Alkaline Phosphatase 458 U/L (40-130) H 09/12/25 15:05 Ammonia 26 umol/L (16-60) 09/12/25 15:05 Total Protein 7.5 g/dL (6.6-8.7) 09/12/25 15:05 Albumin 4.3 g/dL (3.5-5.2) 09/12/25 15:05 Globulin 3.2 g/dL (1.3-4.6) 09/12/25 15:05 Lipase 128 U/L (13-60) H 09/12/25 15:05 Urine Color Dark yellow (Yellow) A 09/12/25 14:38 Urine Appearance Cloudy (CLEAR) A 09/12/25 14:38 Urine pH 5 (5-7) 09/12/25 14:38 Ur Specific [place] 1.030 (1.005-1.030) 09/12/25 14:38 Urine Protein Trace (Negative) 09/12/25 14:38 Urine Glucose (UA) Norm (Normal) 09/12/25 14:38 Urine Ketones 2+ (Negative) H 09/12/25 14:38 Urine Blood Trace (Negative) H 09/12/25 14:38 Urine Nitrate Negative (Negative) 09/12/25 14:38 Urine Bilirubin 1+ (Negative) H 09/12/25 14:38 Urine Urobilinogen 1 mg/dL (Negative) H 09/12/25 14:38 Ur Leukocyte Esterase Trace (Negative) H 09/12/25 14:38 Urine RBC 0-4 /hpf (0-2) H 09/12/25 14:38 Urine WBC 0-4 /hpf (0-5) H 09/12/25 14:38 Ur Squamous Epith Cells 5-10 /hpf (0-5) H 09/12/25 14:38 Calcium Oxalate Crystal 0-4 /hpf H 09/12/25 14:38 Amorphous Sediment Not Reportable 09/12/25 14:38 Urine Bacteria Trace /hpf (NONE) 09/12/25 14:38 Hyaline Casts 0-4 /lpf H 09/12/25 14:38 Urine Mucus 3+ /hpf 09/12/25 14:38 Gastric Occult Blood Positive (Negative) H 09/12/25 15:17 All radiology interpretation(s) finalized by discharge Discharge Plan Discharge Patient Disposition: Xfer Short-Term Hosp Clinical Impression: Gastric outlet obstruction, Metastasis from pancreatic cancer, Pancreatic cancer Condition: Stable Referrals: Elizabeth Hollis NP [Primary Care Provider, [facility]] Print Language: Korean Coding Level of Care Code ED Safety Inspector for Bryan Matute
--- NOTE | 2025-09-12 14:43 | USR_ITS ---
PROCEDURE INFORMATION: Exam: US Abdomen, Limited; Right Upper Quadrant Exam date and time: 09/12/2025 3:40 PM Age: 59 years old Clinical indication: Abdominal pain; Prior surgery; Surgery date: 6+ months; Surgery type: Unsure of dates, but patient has a history of a cbd stent; Additional info: Abdominal pain history common bile duct obstruction current TECHNIQUE: Imaging protocol: Real time ultrasound of the abdomen with image documentation. Limited exam focused on the right upper quadrant. COMPARISON: US gall bladder [id number] 04/07/2025 10:06 PM ; CT abdomen pelvis 08/30/2025 FINDINGS: Liver: Normal. No masses. Gallbladder: There are gallstones. Gallbladder polyp measures 1.1 x 0.8 x 0.6 cm gallbladder wall is borderline in thickness measuring 3 mm. Biliary ducts: Stent in the extrahepatic bile duct. Pancreas: Visualized pancreas is unremarkable. Mass in the pancreatic head on CT is not clearly visualized on this ultrasound. Right kidney: Normal. No mass. No hydronephrosis. US/US gall bladder [id number] IMPRESSION: 1. Gallstones with gallbladder wall upper limits of normal in thickness. Common bile duct stent. 2. Gallbladder polyp.
--- NOTE | 2025-09-12 14:44 | CTR_ITS ---
PROCEDURE INFORMATION: Exam: CT Abdomen And Pelvis With Contrast Exam date and time: 09/12/2025 4:11 PM Age: 59 years old Clinical indication: Abdominal pain; Prior surgery; Surgery date: 6+ months; Surgery type: Port; Additional info: Abd pain, history of pancreatic cancer previous common bile TECHNIQUE: Imaging protocol: Computed tomography of the abdomen and pelvis with contrast. Radiation optimization: All CT scans at this facility use at least one of these dose optimization techniques: automated exposure control; mA and/or kV adjustment per patient size (includes targeted exams where dose is matched to clinical indication); or iterative reconstruction. Contrast material: OMNI 350; Contrast volume: 100 ml; Contrast route: INTRAVENOUS (IV); COMPARISON: CT abdomen pelvis w con* [id number] 08/30/2025 5:22 PM RADIATION DOSE METRICS: Total DLP (mGy-cm): 503.21 FINDINGS: Liver: Intrahepatic and extrahepatic biliary gas is again seen. There is a stent between the extrahepatic bile duct in the duodenal, crossing a duodenal/pancreatic head mass. The mass is increased in size, measuring 6.2 x 4.7 cm, previously 4.9 x 3.7 cm. There is slight dilatation of the proximal duodenal or duodenal bulb and slight prominence of the stomach. Gallbladder and biliary ducts: Dependent gallstones are seen. Pancreas: See Liver finding. Spleen: Normal. No splenomegaly. Adrenal glands: Normal. No mass. Kidneys and ureters: Normal. No hydronephrosis. Stomach and bowel: See Liver finding. Appendix: No evidence of appendicitis. Intraperitoneal space: Unremarkable. No free air. No significant fluid collection. Vasculature: Unremarkable. No abdominal aortic aneurysm. Lymph nodes: Unremarkable. No enlarged lymph nodes. Urinary bladder: Unremarkable as visualized. Reproductive: Unremarkable as visualized. Bones/joints: Unremarkable. No acute fracture. Soft tissues: Unremarkable. CT/CT abdomen pelvis w con* [id number] IMPRESSION: 1. Enlarging mass centered in the 2nd portion of the duodenal/pancreatic head. It may be partially obstructing the duodenal. Again seen is a stent between the 2nd duodenal in the extrahepatic bile duct. This is highly suggestive of malignancy. 2. Cholelithiasis.
[2025-09-12 14:53] LABS: Glucose Urine UA Norm (Normal); Nitrate Urine Negative (Negative); Specific Gravity, Urine 1.030 (1.005-1.030)
[2025-09-12 14:54] LABS: Add Urine Microscopic? YES
[2025-09-12 15:12] LABS: Hematocrit 36.4 % (37-53); Hemoglobin 12.00 g/dL (11.27-16.99); Mean Corpuscular HGB Conc 33.0 g/dL (30-55); Mean Corpuscular Hemoglobin 29.5 pg (27-33); Mean Corpuscular Volume 89.4 fl (82-101); Nucleated Red Blood Cells % 0 %; Platelet Count 192 10^3/cmm (157-399); Red Blood Count 4.07 10^6/uL (3.85-5.65); White Blood Count 5.73 10^3/uL (3.29-11.43)
[2025-09-12] MEDS: ondansetron 2 mg/ML SDV 2 mL 4 MG IVP (15:23)
[2025-09-12] MEDS: morphine 4 mg/mL SDV 1 mL IVP ×2 (15:23→19:21)
[2025-09-12 15:24] LABS: INR 0.82 (0.8-1.2); Prothrombin Time 11.90 SECONDS (12.1-14.9)
[2025-09-12 15:25] LABS: Partial Thromboplastin Time 37.0 SECONDS (23.9-36.7)
[2025-09-12 15:32] LABS: Ammonia 26 umol/L (16-60)
[2025-09-12 15:33] LABS: Alanine Aminotransferase 50 U/L (0-41); Albumin Level 4.3 g/dL (3.5-5.2); Alkaline Phosphatase 458 U/L (40-130); Anion Gap 18.6 (5-19); Aspartate Amino Transferase 42 U/L (0-40); Blood Urea Nitrogen 16 mg/dL (6-20); Calcium 9.5 mg/dL (8.5-10.5); Carbon Dioxide 25 mmol/L (22-29); Chloride 99 mmol/L (98-107); Creatinine Clr Calc Pharmacy 122.1477; Globulin 3.2 g/dL (1.3-4.6); Glucose 106 mg/dL (65-115); Lipase 128 U/L (13-60); Osmolality Calculated 288 mOsm/kg (285-295); Potassium 4.6 mmol/L (3.5-5.1); Sodium 138 mmol/L (136-145); Total Protein 7.5 g/dL (6.6-8.7)
[2025-09-12 15:34] LABS: Gastricult Occult Blood Positive (Negative); Gastricult Occult PH 2.0 PH (1.5-3.5)
[2025-09-12] MEDS: iohexol 350 mg/mL 500 mL Btl (per mL) IV (16:16)
[2025-09-12] MEDS: pantoprazole 40 mg SDV 80 MG IVP (18:27)
--- NOTE | 2025-09-12 19:04 | XRR_ITS ---
PROCEDURE INFORMATION: Exam: XR Chest Exam date and time: 09/12/2025 7:06 PM Age: 59 years old Clinical indication: Device placement; Ng tube; Prior surgery; Surgery date: 6+ months; Surgery type: Port; Additional info: Ng placement confirmation TECHNIQUE: Imaging protocol: Radiologic exam of the chest. Views: 1 view. COMPARISON: PT PET skull to thigh INIT [id number] 04/30/2025 10:51 AM FINDINGS: Tubes, catheters and devices: There is a right internal jugular MediPort terminating SVC right atrial junction. The nasogastric tube is in the stomach. Lungs: Unremarkable. No consolidation. Pleural spaces: Unremarkable. No pleural effusion. No pneumothorax. Heart/Mediastinum: Unremarkable. No cardiomegaly. Bones/joints: Unremarkable. XR/XR chest 1V portable [id number] IMPRESSION: No acute cardiopulmonary process demonstrated
== END 2025-09-12 22:54 | disposition short-term general hospital (02) ==
PROVIDERS: Physician Assistant; Emergency Provider Family Medicine; PCP Nurse Practitioner Family
DX: K31.1 Adult hypertrophic pyloric stenosis (principal); C25.9 Malignant neoplasm of pancreas, unspecified
CPT/HCPCS: 71045; 74177; 76705; 80053; 81001; 82140; 82271; 83690; 85025; 85610; 85730; 96361; 96374; 96375; 96376; 99285; J2270; J2405; J2470; J7030

== ENCOUNTER 2025-09-24 11:00 | Oncology outpatient (recurring) (ONCR) | payer MEDICAID, SELFPAY ==
[2025-09-06 07:47] LABS: Hematocrit 33.8 % (37-53); Hemoglobin 11.00 g/dL (11.27-16.99); Mean Corpuscular HGB Conc 32.5 g/dL (30-55); Mean Corpuscular Hemoglobin 29.0 pg (27-33); Mean Corpuscular Volume 89.2 fl (82-101); Nucleated Red Blood Cells % 0 %; Platelet Count 123 10^3/cmm (157-399); Red Blood Count 3.79 10^6/uL (3.85-5.65); White Blood Count 4.73 10^3/uL (3.29-11.43)
[2025-09-06 08:07] LABS: Carcinoembryonic Antigen 4.0 ng/mL (0.0-4.7)
[2025-09-06 08:18] LABS: Alanine Aminotransferase 66 U/L (0-41); Albumin Level 4.2 g/dL (3.5-5.2); Alkaline Phosphatase 503 U/L (40-130); Anion Gap 15.1 (5-19); Aspartate Amino Transferase 62 U/L (0-40); Blood Urea Nitrogen 9 mg/dL (6-20); Calcium 8.8 mg/dL (8.5-10.5); Carbon Dioxide 24 mmol/L (22-29); Chloride 100 mmol/L (98-107); Globulin 3.0 g/dL (1.3-4.6); Glucose 142 mg/dL (65-115); Osmolality Calculated 281 mOsm/kg (285-295); Potassium 4.1 mmol/L (3.5-5.1); Sodium 135 mmol/L (136-145); Total Protein 7.2 g/dL (6.6-8.7)
--- NOTE | 2025-09-24 15:30 | PETR_ITS ---
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 Then, PET images were obtained. Attenuation corrected images were constructed using the CT scan. Fused images of PET and CT were reviewed. The standardized uptake values (SUV) reported below are maximum values within a region of interest, expressed in gm/ml. Exam includes orbital meatal line to mid-thigh. SUV normalization method: BodyWeight Radiopharmaceutical: 11.2 mCi F-18 FDG (Fluorodeoxyglucose), IV. Time of imaging post radiopharmaceutical administration: 47 minutes Injection site: right hand COMPARISON: PT PET skull to thigh INIT [id number] 04/30/2025 10:51 AM FINDINGS: Tubes, catheters and devices: Right chest wall chemo port with tip at the cavoatrial junction. Brain: Visualized brain has normal physiologic uptake. Pharynx: No abnormal uptake. Larynx: New nonspecific focal increased FDG uptake posterior to the right cricoid cartilage, maximum SUV 6.6. No discrete visualized underlying lesion. Lungs, pleura and trachea: New clustered tree-in-bud branching opacities throughout the right upper lobe and some scattered throughout the right middle and lower lobe. No increased FDG uptake. Scattered punctate and coarsely calcified pulmonary granulomas. Heart: Normal physiologic uptake. Mediastinal space: No abnormal uptake. Liver: No visualized abnormal uptake. There has been complete resolution of previously noted multifocal FDG avid metastatic uptake. There is no discrete visualized hepatic lesion. Compression. Gallbladder and biliary ducts: No abnormal uptake. Cholelithiasis. Stable mild pneumobilia without significant biliary ductal dilatation. Pancreas: Hypermetabolic duodenal mass adjacent to the pancreatic head. The remainder of the pancreas appears unremarkable without increased FDG uptake. Spleen: No abnormal uptake. The spleen demonstrates punctate calcifications, consistent with remote granulomatous organism exposure. Adrenal glands: No abnormal uptake. Kidneys and ureters: Normal physiologic uptake. Stomach and bowel: Redemonstrated, ill-defined circumferential proximal duodenal FDG avid mass, maximum SUV 10.1 (previously 13). There is a redemonstrated proximal duodenal stent. Intraperitoneal and retroperitoneal spaces: Small volume postoperative gas along the upper abdomen. Non FDG avid gas and fluid containing collection along the right paramidline superior anterior abdomen measuring 1.8 x 2.9 cm, likely a postoperative seroma/collection. Vasculature: No abnormal uptake. Lymph nodes: FDG avid bilateral hilar lymph nodes and subcarinal lymph node, maximum SUV 7.0 obtained from the left hilum. Skeleton: No abnormal uptake in the visualized axial and appendicular skeleton. Soft tissues: Postsurgical changes along the anterior abdominal wall, with anterior peritoneal increased FDG uptake, likely inflammatory/postoperative. Overlying skin amelia. Scattered minimal subcutaneous emphysema along the anterior abdominal wall. METRICS: Mediastinal blood pool: Mean SUV of 1.8 Liver uptake: Mean SUV of 2.2 PET/PET skull to thigh SUBS [id number] IMPRESSION: 1. Postoperative changes along the anterior abdominal wall and associated small volume postoperative gas along the upper abdomen. There is a non FDG avid 2.9 cm gas and fluid containing collection along the right paramidline superior anterior abdomen, likely a postoperative seroma/collection. Correlate with clinical findings to exclude developing abscess. 2. Redemonstrated FDG avid circumferential proximal duodenal mass consistent with malignancy. Redemonstrated proximal duodenal stent in place. 3. New clustered tree-in-bud branching opacities throughout the right lung most pronounced in the right upper lobe, suspicious for bronchiolitis, possibly aspiration in etiology. 4. FDG avid hilar and mediastinal lymph nodes, possibly reactive in the setting of pulmonary findings. Close attention on interval follow-up is recommended. 5. New nonspecific focal increased FDG uptake posterior to the right cricoid cartilage without discrete visualized underlying lesion. This may be due to vocal cord use but remains indeterminate. Close attention on interval follow-up is recommended.
== END 2025-10-01 23:59 | disposition home or self-care (01) ==
LOC: ONCMED 09-27 09:26
PROVIDERS: Internal Medicine Medical Oncology; PCP Nurse Practitioner Family; Visit Provider Nurse Practitioner
DX: C17.9 Malignant neoplasm of small intestine, unspecified (principal); R93.89 Abnormal findings on diagnostic imaging of other specified body structures; Z96.89 Presence of other specified functional implants; R91.8 Other nonspecific abnormal finding of lung field; R59.0 Localized enlarged lymph nodes; Z95.828 Presence of other vascular implants and grafts; J84.10 Pulmonary fibrosis, unspecified; K80.20 Calculus of gallbladder without cholecystitis without obstruction; R93.3 Abnormal findings on diagnostic imaging of other parts of digestive tract; K86.89 Other specified diseases of pancreas; D73.89 Other diseases of spleen; J43.8 Other emphysema; Z53.9 Procedure and treatment not carried out, unspecified reason
CPT/HCPCS: 78815; 80053; 82378; 85025; A9552

== ENCOUNTER 2025-09-25 06:28 | Emergency (ER) | payer MEDICAID, SELFPAY ==
--- OUTSIDE RECORDS SUMMARY | 2025-09-13 00:34 | XMS_ITS | Encounter Summary ---
Author Organization [facility] Address [address] [place] [address] Care Team Providers Care Photocopying Equipment Repairer Name Role Phone Unavailable Primary Care Provider Unavailabl e Reason for Visit * Auth/Cert (Routine) Specialty Diagnoses / Procedures Referred By Victorianoac t Referred To Contact Oncology Diagnoses GI bleed Federico Garibay MD [facility] [place] [address] Phone: tel: fax: [address] Oncology [address] [place] [phone] Phone: tel: fax: Referral ID Status Reason Start Date Expiration Date Visits Re quested Visits Authorized [id number] 1 1 Encounter Details Date Type Department Care Team (Latest Contact Info) Description 09/13/2025 12:34 AM CDT - 09/23/2025 9:22 AM CDT Hospital Encounter [address] Oncology [address] [place] [phone] Tevin Quigley MD [facility] [place] [address] Federico Garibay MD [facility] [place] [address] Andrea Solano MD [address] [place] [address] Tex Ricketts MD [address] [place] [address] Shlomo Harris MD [address] [place] [address] Upper GI bleed Discharge Disposition: Home or Self Care Social History Tobacco Use Types Packs/Day Years Used Date Smoking Tobacco: Never Smokeless Tobacco: Never Food Insecurity Answer Date Recorded Do you find you are eating l ess than you should because you can t pay for food? No 09/13/2025 Transportation Needs Answer Date Record ed Have you gone without health care because you didn t have a way to get there? Or worry about transportation for future doctor visits, parts picker medication, etc.? No 2024 Housing Stability Answer Date Recorded Do you worry you won t have a steady place to sleep or struggle to pay rent or mortgage? No 09/13/2025 Utility Needs Answer Date Recorded Do you have difficulty payin g for utility costs (electric, water or gas bills)? No 09/13/2025 Medication Needs Answer Date Recorded Have you skipped taking medi cation due to cost or worry you can t afford new medications? No 09/13/2025 Feeling Safe Answer Date Recorded Are you in a relationship wi th someone who hurts you emotionally and/or physically? 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 Gender Identity Not on file Sexual Orientation Not on file documented as of this encounter Last Filed Vital Signs Vital Sign Reading Time Taken Comments Blood Pressure 148/80 09/23/2025 7:42 AM CDT Pulse 80 09/23/2025 7:42 AM CDT Temperature 36.5 C (97.7 F) 09/23/2025 7:42 AM CDT Respiratory Rate 18 09/23/2025 7:42 AM CDT Oxygen Saturation 97% 09/23/2025 7:42 AM CDT Inhaled Oxygen Concentration - - Weight 73.9 kg (163 lb) 09/19/2025 4:13 AM CDT Height 175.3 cm (5' 9 ) 09/13/2025 12:48 AM CDT Body Mass Index 24.07 09/13/2025 12:48 AM CDT documented in this encounter Discharge Summaries * Shlomo Harris MD - 09/23/2025 7:35 AM CDT [facility]- Discharge Summary Melo Simpson 59 y.o. male 1965 CSN: [id number] Date of Admission: 09/13/2025 Date of Discharge: 09/23/2025 LOS: 10 days Discharging Physician: Shlomo Harris MD PCP: No primary care provider on file. Code Status at Discharge: Full Code Dispo: Home Labs and studies from this hospitalization needing follow up: CBC and Comprehensive Metabolic Panel (CMP) in 1 week Abnormal Imaging: Follow up with PCP: Follow-up: You must follow up with PCP in one week Follow up with Consultants: Follow-up with general surgery as scheduled. Follow- up with primary oncologist as scheduled. Discharge Condition: stable Primary Discharge Diagnosis: Upper GI bleed Other Active medical issues also addressed during this admission: Active Hospital Problems Diagnosis Adenocarcinoma of pancreas (CMS/HCC) Anemia in neoplastic disease Upper GI bleed Gastric outlet obstruction Protein-calorie malnutrition, moderate History of biliary stent insertion Pancreatic mass Abdominal pain, acute, right upper quadrant Resolved Hospital Problems No resolved problems to display. HOSPITAL COURSE: Melo Simpson is a 59-year-old male with a history of pancreatic adenocarcinoma who was admitted for evaluation and management of abdominal pain, nausea, and concern for upper gastrointestinal (GI)bleeding. On admission, he was found to have a history of partial gastric outlet obstruction, biliary stent placement, and protein-calorie malnutrition. Initial workup included CT imaging that demonstrated an enlarging mass in the pancreatic head with possible duodenal obstruction and cholelithiasis, as well as ultrasound findings of gallstones and a common bile duct (CBD) stent. Nasogastric (NG)tube placement revealed occult blood in gastric fluid, raising concern for an upper GI bleed. Gastroenterology was consulted and an upper endoscopy (EGD) was performed, which showed mild to moderate esophagitis, a normal stomach, and a circumferential mass in the duodenal bulb causing at least partial obstruction; the endoscope could not be advanced beyond this point. An upper GI series confirmed moderate to high-grade obstruction in the second portion of the duodenum, consistent with theEGD findings, and suggested possible displacement of the CBD stent. Hemoglobin remained stable throughout the initial course, and no active GI bleeding was identified on endoscopy. Despite initial conservative management with intravenous pantoprazole, antiemetics, and bowel rest,he was unable to tolerate advancement of his diet due to persistent vomiting and evidence of ongoing obstruction. After multidisciplinary discussion with gastroenterology, oncology, and surgery, he un derwent an open gastrojejunostomy on 09/17 to bypass the malignant duodenal obstruction. The procedure was uncomplicated, and postoperatively he was managed with NG decompression, intravenous fluids,and gradual advancement of diet as tolerated. He initially developed a postoperative ileus, requiring reinsertion of the NG tube and a period of NPO status, but subsequently demonstrated return of bowel function and was able to tolerate advancement to a soft diet with oral supplements. During the admission, he was also managed for moderate protein-calorie malnutrition, as evidenced by significant weight loss, reduced oral intake, and physical exam findings, with ongoing nutrition support and monitoring by the dietitian. His course was further complicated by anemia in the setting of neoplastic disease, but he remained hemodynamically stable and did not require transfusion. Oncology was involved for ongoing management of metastatic pancreatic adenocarcinoma, with plans to transition chemotherapy regimens as an outpatient following recovery from the acute illness. By the end of the hospitalization, his principal issues included duodenal obstruction secondary to pancreatic adenocarcinoma, postoperative recovery from gastrojejunostomy, moderate protein-calorie malnutrition, and anemia in neoplastic disease. He was tolerating a soft diet with supplements, had stable laboratory parameters, and was planned for discharge with follow-up arranged with his primary care provider, oncology, and surgery. MEDICATION RECONCILIATION: Current and discharge medications reviewed and reconciled: Yes Consultants: IP CONSULT TO GI IP CONSULT TO IV TEAM IP CONSULT TO IV TEAM IP CONSULT TO NUTRITION SERVICES IP CONSULT TO IV TEAM IP CONSULT TO GENERAL SURGERY Procedures performed: 09/20 1915 INSERT MIDLINE IV Procedure(s) (LRB): GASTROJEJUNOSTOMY (N/A) DISCHARGE MEDICATIONS: Medication List START taking these medications polyethylene glycol 17 gram Powder in Packet Commonly known as: MIRALAX Take 1 Packet (17 Grams) by mouth daily. Signed by: Dr. José Harris Quantity: 30 Packet Refills: 0 simethicone 125 mg Capsule Commonly known as: GAS-X Take 1 Capsule (125 mg) by mouth every 6 hours as needed for Gas. Signed by: Dr. José Harris Quantity: 20 Capsule Refills: 0 CONTINUE taking these medications ferrous sulfate 325 mg (65 mg iron) tablet Take 1 Tablet (325 mg) by mouth daily. Signed by: Dr. Ashley Mccann Quantity: 30 Tablet Refills: 2 oxyCODONE 5 mg tablet Commonly known as: ROXICODONE Take 1 Tablet (5 mg) by mouth every 4 hours as needed for Pain. Max Daily Amount: 30 mg Signed by: Dr. Ashley Mccann Quantity: 20 Tablet Refills: 0 pantoprazole 40 mg Tablet, Delayed Release (E.C.) Commonly known as: PROTONIX Take 1 Tablet (40 mg) by mouth daily. Signed by: Dr. José Harris Quantity: 30 Tablet Refills: 1 Where to Get Your Medications These medications were sent to [facility] [address] [address] Hours: Saturday - Saturday: 7 am - 9 pm; Saturday - Saturday: 8 am - 4 pm pantoprazole 40 mg Tablet, Delayed Release (E.C.) polyethylene glycol 17 gram Powder in Packet simethicone 125 mg Capsule Future Appointments Date Time Provider Department Center 10/06/2025 1:00 PM Marah Cruz NP [id number] Activity level: up as tolerated Diet: DIET GENERAL Soft, Effective Now DIET SUPPLEMENT GEN ADULT QID; Complete Oral Supplement, Wound Care: Not Applicable DISCHARGE EXAM: BP 138/75 (BP Location: Left arm, Patient Position (BP): Supine) Pulse 87 Temp 98.4 ??F (36.9 ??C) (Oral) Resp 18 Ht 5' 9 (1.753 m) Wt 73.9 kg (163 lb) SpO2 96% BMI 24.07 kg/m?? Last documented weight: Weight: 73.9 kg (163 lb) (09/19/25 0413) General: alert, in no distress Neurologic: Grossly normal HEENT: atraumatic, Normocephalic, without obvious abnormality Lungs: clear to auscultation bilaterally, normal respiratory effort Heart: normal rate, regular rhythm, normal S1, S2, no murmurs, rubs, clicks or gallops Abdomen: Soft, non-tender. Bowel sounds normal. No masses, no organomegaly. Extremities: extremities normal, atraumatic, no cyanosis or edema, intact distal pulses, moves all extremities equally, no edema, redness or tenderness in the calves or thighs, normal strength, normal tone Total time spent on discharge services today including examining and educating the patient and , writing prescriptions and reviewing the discharge medication list, documenting this discharge summary and coordinating outpatient care and follow up required more than 30 minutes. documented in this encounter Discharge Instructions * Discharge Instructions* Yessi Perez GN - 09/23/2025 7:40 AM CDT Diet: You may resume your usual diet. Activity: As tolerated. Take frequent rest periods. Avoid crowds: Avoid persons with colds, flu, or other contagious diseases Medicine to note: Do not take aspirin or aspirin products unless otherwise instructed by your physician. Do not take anti-inflammatory medicines (usually used to treat pain or arthritis) such as ibuprofen, Motrin, Advil, or Aleve, unless otherwise instructed by your physician. Mouth: Mouth rinses with salt/soda after meals and before bedtime. Do not use commercial mouth washes. Follow-up: Follow up with PCP 3-5 days after discharge Follow Up with Nurse Practitioner Ashley Cruz Saturday 1:00 PM (Arrive by 12:45 PM) Call the doctor if: Fever over 100.4 F or shaking chills. Pain that is new or pain not relieved by current medication(s). Nausea/vomiting that is new or does not lessen after taking medication for nausea. You are unable to keep food or liquids down for 24 hours or more. Any bleeding, such as nosebleed. Diarrhea that is new or persists. Cough is new or persists. Weight loss more than 10 pounds from admission weight. Central line is red, tender or draining. Smoking: STOP SMOKING AND/OR DO NOT ALLOW ANYONE TO SMOKE IN YOUR HOUSE OR CAR. Tobacco smoke aggravates coughing and increases wheezing. Tobacco smoke may cause you to have further lung problems and delay your recovery. Tobacco smoke irritates the breathing passages and greatlyincreases the risk of pneumonia, bronchitis, and asthma. If you need help to stop smoking, call [phone] or the Health Information Team at [phone] or [phone] The staff of seeks to provide the best possible care. We hope you were satisfied with your recent stay. You may receive a phone call regarding this hospital stay and we would appreciate your sincere feedback. Thank you, Management & staff of * Attachments The following attachments cannot be sent through Care Everywhere. * Ultrasound: Endoscopic (Oral): Pre op (Omani) * Upper GI Bleed (Omani) * Wound Dehiscence (Omani) * Surgical Site Infections: Prevention: General Info (Omani) documented in this encounter Medications at Time of Discharge pantoprazole (PROTONIX) 40 mg Tablet, Delayed Release (E.C.) Take 1 Tablet (40 mg) by mouth daily. 30 Tablet 1 09/23/2025 9:12 AM CDT 09/23/2025 polyethylene glycol 3350 (MIRALAX) 17 gram/dose Powder Take 1 Scoop (17 Grams) by mouth daily. 510 Gram 09/23/2025 9:12 AM CDT 09/23/2025 10/23/2025 simethicone (GAS-X) 125 mg Capsule Take 1 Capsule (125 mg) by mouth every 6 hours as needed for Gas. 20 Capsule 09/23/2025 ferrous sulfate 325 mg (65 mg iron) tablet Take 1 Tablet (325 mg) by mouth daily. 30 Tablet 2 04/17/2025 oxyCODONE (ROXICODONE) 5 mg tabletIndications :Elevated LFTs Take 1 Tablet (5 mg) by mouth every 4 hours as needed for Pain. Max Daily Amount: 30 mg 20 Tablet 04/16/2025 documented as of this encounter Progress Notes * Beth Dawson, RD - 09/23/2025 11:11 AM CDT Nutritional Status/Recommendations/Plan for Follow up: Postop ileus resolved per PA documentation 09/22 Diet: clear with tolerance 09/22 Diet to advance to soft with supplements 09/22 Nutrition Interventions: other (see comments) (monior plan of care) (09/20/25 1400) Estimated Needs: Estimated Energy Target: 1850- 2220 (09/20/25 1400) Estimated Protein Target: 75 -95 (09/20/25 1400) Estimated Fluid Target : 1850- - 2220 (09/20/25 1400) Nutrition Energy Formula: Calories per kilogram (09/20/25 1400) Weight Used for Formula: Actual weight (09/20/25 1400) Current diet/nutrition support: DIET GENERAL Soft, Effective Now DIET SUPPLEMENT GEN ADULT QID; Complete Oral Supplement, Food/Meal: Breakfast (09/23/25 0749),Intake (%): (!) 20% (09/23/25 0749) Oral Supplement Type: Clear liquid supplement (09/21/25 1538) Weight status/changes: Height: 5' 9 (175.3 cm) (09/13/2547) Weight: 73.9 kg (163 lb) (09/19/25412) Last seven weights (if available) from 08/26/25 1112 to 09/23/25 1111 (Last 7 readings): Weight Weight Method 09/19/25412 73.9 kg (163 lb) Actual 09/13/2547 79.4 kg (175 lb) Stated Admission:Weight: 79.4 kg (175 lb) (09/13/2547)Weight Method: Stated (09/13/2547) Body mass index is 24.07 kg/m??. 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) (09/20/25 1500) Percentage of Energy: < or equal to 50% for > or equal to 5 days (severe-acute) (09/20/25 1500) Percentage of Weight Loss: 10% in 6 months (moderate) (09/20/25 1500) Additional assessment indices: Kapil Score: 21 (09/23/25 0700) Last Bowel Movement (mm/dd/yyyy): 09/21/25 (09/21/25 1538) Stool Consistency - Reference Bud Stool Chart: soft - (type 4/5) (09/21/25 1538) Bowel Sounds: All Quadrants: hypoactive (09/22/252019) Allergies Allergies Allergen Reactions Shrimp Anaphylaxis Onion Unknown Labs: Lab Results Component Value Date/Time NA 134 (L) 09/23/2025 05:01 AM K 3.9 09/23/2025 05:01 AM CL 100 09/23/2025 05:01 AM CO2 24 09/23/2025 05:01 AM CA 8.1 (L) 09/23/2025 05:01 AM BUN 10 09/23/2025 05:01 AM CREAT 0.72 09/23/2025 05:01 AM GLUCOSE 122 (H) 09/23/2025 05:01 AM TOTALPROTEIN 5.8 (L) 09/23/2025 05:01 AM ALBUMIN 2.9 (L) 09/23/2025 05:01 AM BILITOTAL 0.3 09/23/2025 05:01 AM ALKPHOS 297 (H) 09/23/2025 05:01 AM AST 17 09/23/2025 05:01 AM ALT 11 09/23/2025 05:01 AM ANIONGAP 10 09/23/2025 05:01 AM No results found for: HGBA1C , [id number] Lab Results Component Value Date/Time RDW 16.3 (H) 09/20/2025 04:21 AM No results found for: CRP , CRPHS Lab Results Component Value Date/Time MG 1.8 09/22/2025 01:39 AM Lab Results Component Value Date/Time CA 8.1 (L) 09/23/2025 05:01 AM No results found for: AFLD824 , VITD25 , EHZO68NAI4 , WKRD83LBR2 , SDHM72DTLU , EPWC9SDAGCHM , IQIW8OAYXGKP , VITAMINDTO , HRJRAWZ044 Lab Results Component Value Date/Time [id number] 977 (H) 04/14/2025 02:19 PM Lab Results Component Value Date/Time FOLATE 6.9 04/14/2025 02:19 PM No results found for: ZINC * Shlomo Harris MD - 09/22/2025 10:00 AM CDT Images from the original note were not included. [facility] MEDICINE PROGRESS NOTE Patient name: Melo Simpson Date of : 1965 Room/Bed: [address] [place] [address] ; LOS: 9 days HOSPITAL COURSE SUMMARY: Melo Simpson is a 59 y.o. male who is being admitted for further evaluation of abdominal pain andnausea. Patient is a direct admit from [facility]. He has a past medical history of pancreatic adenocarcinoma. He went to the outside facility complaining of abdominal pain with nausea. CT abdomen pelvis with contrast showing enlarging mass centered in second portion of duodenal/pancreatic head, may be partially obstructing the duodenum, cholelithiasis. Ultrasound abdomen showing gallstones with gallbladder wall upper limits of normal in thickness, CBD stent. Patient had NG tube placed and w as found to have positive occult blood on gastric fluid. He is being transferred to [facility] for GI evaluation and higher level of care. 09/13: Took over patient care, continue NG tube to intermittent suction, pending GI evaluation 09/14: S/p EGD, showing esophagitis, cannot pass the scope past the obvious circumferential mass, upper GI follow-through ordered. Oncology consulted for second opinion 09/15: Upper GI showing moderate to high-grade obstruction secondary to masslike effect in the second portion of the duodenum consistent with EGD, patient is tolerating a clear diet, pending further evaluation by GI and oncology. 09/16: Yesterday patient became nauseous and had abdominal discomfort and vomited a couple of timesafter advancing his diet, patient was switched back to n.p.o., after discussion with the patient today, GI and oncology oncology team consulted surgery for J-tube placement. 09/17-patient is s/p open gastrojejunostomy 09/18-per general surgery recommendation, continue NGT for now. Once the output decreases and patient passes flatus, remove NG and start clear liquid diet. Since patient has been n.p.o. for so many days, will switch Ringer lactate to dextrose Ringer lactate for 24 hours. 09/19-patient's NG tube came off early this morning, surgery has recommended to try clear diet. 09/20: NG tube reinserted, 09/21; reported two bowel movements yesterday. NG tube in place. No nausea or vomiting He is hungry now. 09/22: Tolerating clear liquids. Advance to full liquid diet He denied any increasing abdominal pain at this time. No nausea vomiting. SUBJECTIVE: Patient is seen and examined Patient denied any increasing abdominal pain. No nausea vomiting. No fever no chills. ROS: negative except as mentioned above. OBJECTIVE: BP (!) 148/74 (BP Location: Left arm, Patient Position (BP): Supine) Pulse 68 Temp 98.1 ??F (36.7 ??C) (Oral) Resp 12 Ht 5' 9 (1.753 m) Wt 73.9 kg (163 lb) SpO2 100% BMI 24.07 kg/m?? Intake/Output Summary (Last 24 hours) at 09/22/2025 1000 Last data filed at 09/21/2025 1538 Gross per 24 hour Intake 137 ml Output 650 ml Net -513 ml EXAM: unchanged General:fatigued, overall ill appearing Neurologic: generalized debility HEENT: atraumatic, Normocephalic, without obvious abnormality Lungs: clear to auscultation bilaterally, normal respiratory effort Heart: normal rate, regular rhythm, normal S1, S2, no murmurs Abdomen: no bowel sounds still. No gross tenderness. . Extremities: intact distal pulses, moves all extremities equally, no cyanosis or edema Skin: negative LABORATORY: Recent Labs 09/20/25420 WBC 9.9 HGB 11.3* HCT 34.6* PLT 228 Recent Labs 09/20/2542009/21/2532 09/22/25 0139 NA 138 140 138 K 3.9 4.4 3.4* CL 97* 100 100 CO2 27 29 28 CA 9.4 8.9 8.4* BUN 18 21* 19 CREAT 0.77 0.77 0.78 GLUCOSE 139* 109* 116* Recent Labs 09/20/2542009/21/2532 09/22/25 0139 TOTALPROTEIN 7.8 6.7 6.3* ALBUMIN 3.7 3.3* 3.2* BILITOTAL 0.4 0.3 0.4 ALKPHOS 242* 208* 220* AST 18 15 14 ALT 16 12 11 Diagnostic testing and medications were reviewed. Primary discharge diagnosis: Upper GI bleed Other active medical issues also addressed during this admission: Active Hospital Problems Diagnosis Adenocarcinoma of pancreas (CMS/HCC) Anemia in neoplastic disease Upper GI bleed Gastric outlet obstruction Protein-calorie malnutrition, moderate History of biliary stent insertion Pancreatic mass Abdominal pain, acute, right upper quadrant Resolved Hospital Problems No resolved problems to display. ASSESSMENT AND PLAN: Duodenal obstruction secondary to pancreatic adenocarcinoma Concern for upper GI bleed Abdominal pain Pancreatic adenocarcinoma CT abdomen pelvis with contrast showing enlarging mass centered in second portion of duodenal/pancreatic head, may be partially obstructing the duodenum, cholelithiasis. Status post NG tube placement, Gastric fluid positive for occult blood GI consulted, appreciate assistance, s/p EGD showing at least partial obstruction if no total obstruction by the mass Continue with twice daily Protonix Hemoglobin stable Telemetry monitoring Upper GI follow-through shows moderate to high-grade stenosis Patient was not able to tolerate full liquid diet; recurrent emesis, NG tube reinserted 09/20. Improved ileus; advance diet and add bowel regimen. Slowly introduce full liquid diet and stay on liquid diet at least for a week. Continue PPI therapy Patient is s/p open gastrojejunostomy 09/17 Code status: Full Code Diet: Diet Orders Procedures DIET FULL LIQUID Nutrition Status: Malnutrition Nutrition Diagnosis: Moderate protein-calorie malnutrition Provider Assessment/Plan: Symptoms/Signs/Physical Exam: Muscle Wasting, Poor Appetite, Weight Loss, Eating Poorly, Weakness, and Fatigue Etiology: Cancer, Acute illness, Chronic illness, Inability to consume adequate nutrition, Alteration in GI tract structure/function, Physiological causes increasing nutrient needs, and Recurrent hospitalization with decreased oral intake Nutrition Treatment Plan: - Current Diet and/or Nutritional Supplementation ordered: DIET FULL LIQUID - Daily weights Impact of Malnutrition on patient condition and outcomes: Reduced oral intake, Increased dysphagia, Increased risk of infection, Delayed recovery, Increased muscle weakness and fall risk, Decreased ability to perform activities, Decreased activity toleranceand reduced mobility , Respiratory deterioration, Poor wound healing, Skin breakdown, Decreased bone health and healing, Increased readmission risk, and Increased hospitalization length DVT Pharmacologic Prophylaxis: Lovenox Disposition: Home with family support after return of bowel function Likely DC tomorrow. Discharge follow-ups: PCP MDM complexity: [] Mild [x] Moderate [] High Shlomo Harris MD, 09/22/2025 10:00 AM * Lizet Shrestha GN - 09/22/2025 2:41 AM CDT 0240: NG Tube removed pt tolerated removal. No N/V episodes * Binta Garay RN - 09/21/2025 6:00 PM CDT Nursing Shift Report: NG clamped at 1230. Patient provided clear liquids. Tolerated without concern. Per General Surgery,NGT can be removed at 2029 if patient still tolerating well. Moderate solid BM noted this morning. Passing flatus throughout shift. Moderate solid BM this afternoon x2. Willie having stomach cramping after clear liquid diet. No N/V. Ambulating in room. [place] along midline abdomen remains dry and intact. * Shlomo Harris MD - 09/21/2025 10:01 AM CDT Images from the original note were not included. HOSPITAL MEDICINE PROGRESS NOTE Patient name: Melo Simpson Date of : 1965 Room/Bed: [address] [place] [address] ; LOS: 8 days HOSPITAL COURSE SUMMARY: Melo Simpson is a 59 y.o. male who is being admitted for further evaluation of abdominal pain andnausea. Patient is a direct admit from [facility]. He has a past medical history of pancreatic adenocarcinoma. He went to the outside facility complaining of abdominal pain with nausea. CT abdomen pelvis with contrast showing enlarging mass centered in second portion of duodenal/pancreatic head, may be partially obstructing the duodenum, cholelithiasis. Ultrasound abdomen showing gallstones with gallbladder wall upper limits of normal in thickness, CBD stent. Patient had NG tube placed and w as found to have positive occult blood on gastric fluid. He is being transferred to [facility] for GI evaluation and higher level of care. 09/13: Took over patient care, continue NG tube to intermittent suction, pending GI evaluation 09/14: S/p EGD, showing esophagitis, cannot pass the scope past the obvious circumferential mass, upper GI follow-through ordered. Oncology consulted for second opinion 09/15: Upper GI showing moderate to high-grade obstruction secondary to masslike effect in the second portion of the duodenum consistent with EGD, patient is tolerating a clear diet, pending further evaluation by GI and oncology. 09/16: Yesterday patient became nauseous and had abdominal discomfort and vomited a couple of timesafter advancing his diet, patient was switched back to n.p.o., after discussion with the patient today, GI and oncology oncology team consulted surgery for J-tube placement. 09/17-patient is s/p open gastrojejunostomy 09/18-per general surgery recommendation, continue NGT for now. Once the output decreases and patient passes flatus, remove NG and start clear liquid diet. Since patient has been n.p.o. for so many days, will switch Ringer lactate to dextrose Ringer lactate for 24 hours. 09/19-patient's NG tube came off early this morning, surgery has recommended to try clear diet. 09/20: NG tube reinserted, 09/21; reported two bowel movements yesterday. NG tube in place. No nausea or vomiting He is hungry now. SUBJECTIVE: Patient is seen and examined No nausea or emesis ROS: negative except as mentioned above. OBJECTIVE: BP 133/70 (BP Location: Left arm, Patient Position (BP): Sitting) Pulse 92 Temp 98.2 ??F (36.8 ??C) (Oral) Resp 12 Ht 5' 9 (1.753 m) Wt 73.9 kg (163 lb) SpO2 99% BMI 24.07 kg/m?? Intake/Output Summary (Last 24 hours) at 09/21/2025 1001 Last data filed at 09/21/2025 0421 Gross per 24 hour Intake -- Output 2550 ml Net -2550 ml EXAM: unchanged General:fatigued, overall ill appearing Neurologic: generalized debility HEENT: atraumatic, Normocephalic, without obvious abnormality Lungs: clear to auscultation bilaterally, normal respiratory effort Heart: normal rate, regular rhythm, normal S1, S2, no murmurs Abdomen: no bowel sounds still. No gross tenderness. . Extremities: intact distal pulses, moves all extremities equally, no cyanosis or edema Skin: negative LABORATORY: Recent Labs 09/19/2532509/20/25 0421 WBC 8.9 9.9 HGB 10.5* 11.3* HCT 32.3* 34.6* PLT 171 228 Recent Labs 09/19/2532509/20/251 09/21/25 0532 NA 138 138 140 K 3.7 3.9 4.4 CL 99 97* 100 CO2 27 27 29 CA 8.8 9.4 8.9 BUN 12 18 21* CREAT 0.79 0.77 0.77 GLUCOSE 140* 139* 109* Recent Labs 09/19/2532509/20/251 09/21/25 0532 TOTALPROTEIN 6.9 7.8 6.7 ALBUMIN 3.4* 3.7 3.3* BILITOTAL 0.3 0.4 0.3 ALKPHOS 237* 242* 208* AST 18 18 15 ALT 15 16 12 Diagnostic testing and medications were reviewed. Primary discharge diagnosis: Upper GI bleed Other active medical issues also addressed during this admission: Active Hospital Problems Diagnosis Adenocarcinoma of pancreas (CMS/HCC) Anemia in neoplastic disease Upper GI bleed Gastric outlet obstruction Protein-calorie malnutrition, moderate History of biliary stent insertion Pancreatic mass Abdominal pain, acute, right upper quadrant Resolved Hospital Problems No resolved problems to display. ASSESSMENT AND PLAN: Duodenal obstruction secondary to pancreatic adenocarcinoma Concern for upper GI bleed Abdominal pain Pancreatic adenocarcinoma CT abdomen pelvis with contrast showing enlarging mass centered in second portion of duodenal/pancreatic head, may be partially obstructing the duodenum, cholelithiasis. Status post NG tube placement, Gastric fluid positive for occult blood GI consulted, appreciate assistance, s/p EGD showing at least partial obstruction if no total obstruction by the mass Continue with twice daily Protonix Hemoglobin stable Telemetry monitoring Upper GI follow-through shows moderate to high-grade stenosis Patient was not able to tolerate full liquid diet; recurrent emesis, NG tube reinserted 09/20. Improving ileus slowly. Can clamp NG tube and assess clinically . Slowly introduce liquid diet and stay on liquid diet at least for a week. Continue PPI therapy Patient is s/p open gastrojejunostomy 09/17 Code status: Full Code Diet: Diet Orders Procedures DIET NPO Strict NPO terms: Strict Nutrition Status: Malnutrition Nutrition Diagnosis: Moderate protein-calorie malnutrition Provider Assessment/Plan: Symptoms/Signs/Physical Exam: Muscle Wasting, Poor Appetite, Weight Loss, Eating Poorly, Weakness, and Fatigue Etiology: Cancer, Acute illness, Chronic illness, Inability to consume adequate nutrition, Alteration in GI tract structure/function, Physiological causes increasing nutrient needs, and Recurrent hospitalization with decreased oral intake Nutrition Treatment Plan: - Current Diet and/or Nutritional Supplementation ordered: DIET NPO Strict - Daily weights Impact of Malnutrition on patient condition and outcomes: Reduced oral intake, Increased dysphagia, Increased risk of infection, Delayed recovery, Increased muscle weakness and fall risk, Decreased ability to perform activities, Decreased activity toleranceand reduced mobility , Respiratory deterioration, Poor wound healing, Skin breakdown, Decreased bone health and healing, Increased readmission risk, and Increased hospitalization length DVT Pharmacologic Prophylaxis: Lovenox Disposition: Home with family support after return of bowel function Likely DC in 1-2 days. Discharge follow-ups: PCP MDM complexity: [] Mild [x] Moderate [] High Shlomo Harris MD, 09/21/2025 10:01 AM * Binta Garya RN - 09/20/2025 7:56 PM CDT Nursing Shift Report: NG replaced for Willie this morning due to vomiting dark black, fecal matter. Discussed with hospitalist and Mariana Alex from Trauma Surgery. Per Mariana, ok for RN to place. NG verified by Xray. Gastric contents removed throughout shift was dark black, fecal matter containing, and foul smelling. Ambulating to bedside commode and in hallway this shift. IV infiltrated this afternoon. Warm, redness, swollen to touch. Removed. Midline placed per IV team. Willie reports that he is feeling hungry and would like a milkshake. Two BMs noted this shift were liquid and very dark. * Beth Dawson RD - 09/20/2025 3:18 PM CDT The patient was evaluated by the dietitian and was found to have Malnutrition Nutrition Diagnosis: Moderate protein-calorie malnutrition (09/20/25 1500). 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) (09/20/25 1500) Percentage of Energy: < or equal to 50% for > or equal to 5 days (severe-acute) (09/20/25 1500) Percentage of Weight Loss: 10% in 6 months (moderate) (09/20/25 1500) Malnutrition Decision Malnutrition Nutrition Diagnosis: Moderate protein-calorie malnutrition (09/20/25 1500) BMI BMI (Calculated): 24.05 (09/19/25 0413) Malnutrition Recommendations Monitor for plan of care Nutrition Interventions: other (see comments) (monior plan of care) (09/20/25 1400) Cosigned by Shlomo Harris MD at 09/21/2025 4:49 AM CDT * JulianaLynne kendall Daniel [employer] INSULATOR - 09/20/2025 1:54 PM CDT ONCOLOGY PROGRESS NOTE Subjective: The patient is seen awake and alert, resting in bed. He reports he is feeling better. No further nausea. NGT in place. Review of Systems: Constitutional: denies fevers, chills, sweats, fatigue Neurological: denies headaches, weakness, visual changes Respiratory: denies cough, dyspnea, nosebleeds Cardiovascular: denies chest pain or discomfort Gastrointestinal: denies abdominal pain, constipation, diarrhea, vomiting Genitourinary: denies dysuria, urinary frequency Hematologic, Oncologic: denies bruising, bleeding, petechiae Lymphatic: denies lymph node swelling, no lumps or bumps Musculoskeletal: denies: myalgia, muscle weakness Skin: denies nail changes or rash Objective: Vitals: 09/20/25 0000 09/20/25 0244 09/20/25 0400 09/20/25 0755 BP: (!) 145/72 (!) 143/87 (!) 143/87 136/85 BP Location: Left arm Left arm Left arm Patient Position (BP): Supine Supine Supine Pulse: 86 88 84 Resp: 20 20 11 Temp: 98.2 ??F (36.8 ??C) 97.5 ??F (36.4 ??C) 97.8 ??F (36.6 ??C) TempSrc: Oral Oral Oral SpO2: 96% 96% 95% Weight: Height: PHYSICAL EXAMINATION: General appearance: Alert, in no distress ECOG 0. Head: Atraumatic, normocephalic without obvious abnormality. Eyes: Conjunctivae/corneas clear. PERRL, EOM's intact. Nose: Nares normal. Septum midline. Mucosa normal, no drainage, or sinus tenderness. NGT to LIS Lungs: Clear to auscultation bilaterally, normal respiratory effort. Heart: Normal rate, regular rhythm, normal S1-S2, no murmurs, rubs, clicks, or gallops. Abdomen: Soft, non-tender. Bowel sounds normal, no masses, no organomegaly. Extremities: No extremity edema, no redness or tenderness in the calves or thighs, normal strength,normal tone. Pulses: 2+ and symmetric. Skin: Skin color, texture, turgor normal, no rashes, or lesions. Data Review: Labs Reviewed Lab Results Component Value Date/Time WBC 9.9 09/20/2025 04:21 AM HGB 11.3 (L) 09/20/2025 04:21 AM HCT 34.6 (L) 09/20/2025 04:21 AM PLT 228 09/20/2025 04:21 AM MCV 90.6 09/20/2025 04:21 AM Lab Results Component Value Date/Time NA 138 09/20/2025 04:21 AM K 3.9 09/20/2025 04:21 AM CL 97 (L) 09/20/2025 04:21 AM CO2 27 09/20/2025 04:21 AM CA 9.4 09/20/2025 04:21 AM BUN 18 09/20/2025 04:21 AM CREAT 0.77 09/20/2025 04:21 AM GLUCOSE 139 (H) 09/20/2025 04:21 AM TOTALPROTEIN 7.8 09/20/2025 04:21 AM ALBUMIN 3.7 09/20/2025 04:21 AM BILITOTAL 0.4 09/20/2025 04:21 AM ALKPHOS 242 (H) 09/20/2025 04:21 AM AST 18 09/20/2025 04:21 AM ALT 16 09/20/2025 04:21 AM ANIONGAP 14 09/20/2025 04:21 AM ASSESSMENT/PLAN Principal Problem: Upper GI bleed Active Problems: Pancreatic mass Abdominal pain, acute, right upper quadrant History of biliary stent insertion Gastric outlet obstruction Adenocarcinoma of pancreas (CMS/HCC) Anemia in neoplastic disease Metastatic duodenal cancer with liver metastasis-MSI stable, no targetable mutations -diagnosed April 2025 [facility] [place] [facility] mFOLFOX -s/p cycle 7 with reduced dose (15% reduction) -CT abdomen/pelvis-August 30 2025-recurrent mass surrounding CBD 3.7 x 4.9 cm -planned treatment break as of 09/06/2025-stopping FOLFOX due to side effects and recurrence of disease -planning re-evaluation with PET scan -planning therapy change to FOLFIRI after PET -CT abdomen pelvis with contrast showing enlarging mass centered in second portion of duodenal/pancreatic head, may be partially obstructing the duodenum, cholelithiasis Bowel obstruction Concern for occult blood in the gastric fluid -CT abdomen pelvis with contrast showing enlarging mass centered in second portion of duodenal/pancreatic head, may be partially obstructing the duodenum, cholelithiasis -Ultrasound abdomen showing gallstones with gallbladder wall upper limits of normal in thickness, CBD stent -s/p EGD-shows mild to moderate esophagitis, normal stomach, patent pylorus, endoscope was passed to the duodenal bulb, an obvious mass was seen circumferentially. Endoscope passed beyond this point.At this point there is a partial obstruction -Upper GI series showed moderate to high-grade obstruction secondary to masslike defect in the second portion of the duodenum as seen on EGD -GI following: -Per GI It was noted however that CBD stent is now horizontal in the right upper quadrant, it wasvertical at the time of placement. ALP has continued to trend down and since initial presentation now at 298, bilirubin/AST/ALT remain within normal limits, if this changes would consider further imaging. If replacement of fully covered metal stent is needed, patient would need PTC given previous need for rendezvous and inability to visualize stent on EGD. -s/p GJ placement per surgery Anemia in neoplastic disease -hgb 11.3 -monitor daily -plan to transfuse for hgb <7 or active bleeding -medical management per primary team and appropriate consultants Oncology daily plan: -planned for ongoing chemo as outpatient per his primary oncologist but will need to recover from acute illness first-he is going to call them -monitor counts,plan to mims culture for fever > 100.4 if ANC < 1 -monitor counts, plan to transfuse for hgb <7, plts <10 or active bleeding Discharge planning -disposition-TBD per primary team -timeframe-TBD per primary team -criteria-clinical improvement -follow up-TBD pending clinical course This note is prepared by Lynne Tenorio NP acting as a scribe for Dr Kike Tenorio NP, 09/20/2025 1:54 PM Cosigned by Susan Stokes MD at 09/20/2025 5:24 PM CDT Associated attestation - Susan Stokes MD - 09/20/2025 5:24 PM CDT Patient seen at bedside Status post gastrojejunostomy on 09/17/2025 he had a bowel movement earlier today Still has NG tube Labs today show white cell count of 9.9, hemoglobin of 11.3, platelet count of 228 CMP with creatinine of 0.77, alkaline phosphatase 242 otherwise unremarkable Plan to switch treatment to FOLFIRI outpatient. He tells me this has been arranged at his oncologist office. * Shlomo Harris MD - 09/20/2025 10:02 AM CDT Images from the original note were not included. HOSPITAL MEDICINE PROGRESS NOTE Patient name: Melo Simpson Date of : 1965 Room/Bed: [address] [place] [address] ; LOS: 7 days HOSPITAL COURSE SUMMARY: Melo Simpson is a 59 y.o. male who is being admitted for further evaluation of abdominal pain andnausea. Patient is a direct admit from [facility]. He has a past medical history of pancreatic adenocarcinoma. He went to the outside facility complaining of abdominal pain with nausea. CT abdomen pelvis with contrast showing enlarging mass centered in second portion of duodenal/pancreatic head, may be partially obstructing the duodenum, cholelithiasis. Ultrasound abdomen showing gallstones with gallbladder wall upper limits of normal in thickness, CBD stent. Patient had NG tube placed and w as found to have positive occult blood on gastric fluid. He is being transferred to [facility] for GI evaluation and higher level of care. 09/13: Took over patient care, continue NG tube to intermittent suction, pending GI evaluation 09/14: S/p EGD, showing esophagitis, cannot pass the scope past the obvious circumferential mass, upper GI follow-through ordered. Oncology consulted for second opinion 09/15: Upper GI showing moderate to high-grade obstruction secondary to masslike effect in the second portion of the duodenum consistent with EGD, patient is tolerating a clear diet, pending further evaluation by GI and oncology. 09/16: Yesterday patient became nauseous and had abdominal discomfort and vomited a couple of timesafter advancing his diet, patient was switched back to n.p.o., after discussion with the patient today, GI and oncology oncology team consulted surgery for J-tube placement. 09/17-patient is s/p open gastrojejunostomy 09/18-per general surgery recommendation, continue NGT for now. Once the output decreases and patient passes flatus, remove NG and start clear liquid diet. Since patient has been n.p.o. for so many days, will switch Ringer lactate to dextrose Ringer lactate for 24 hours. 09/19-patient's NG tube came off early this morning, surgery has recommended to try clear diet. 09/20: NG tube reinserted, SUBJECTIVE: Patient is seen and examined Noted emesis, foul smelling emesis, fecal appearing. Generalized weakness and abdominal bloating ROS: negative except as mentioned above. OBJECTIVE: BP 136/85 (BP Location: Left arm, Patient Position (BP): Supine) Pulse 84 Temp 97.8 ??F (36.6 ??C) (Oral) Resp 11 Ht 5' 9 (1.753 m) Wt 73.9 kg (163 lb) SpO2 95% BMI 24.07 kg/m?? Intake/Output Summary (Last 24 hours) at 09/20/2025 1009 Last data filed at 09/20/2025 0508 Gross per 24 hour Intake -- Output 150 ml Net -150 ml EXAM: General:fatigued, overall ill appearing Neurologic: generalized debility HEENT: atraumatic, Normocephalic, without obvious abnormality Lungs: clear to auscultation bilaterally, normal respiratory effort Heart: normal rate, regular rhythm, normal S1, S2, no murmurs Abdomen: no bowel sounds. Mild distention. No gross tenderness. . Extremities: intact distal pulses, moves all extremities equally, no cyanosis or edema Skin: negative LABORATORY: Recent Labs 09/19/256 09/20/25420 WBC 8.9 9.9 HGB 10.5* 11.3* HCT 32.3* 34.6* PLT 171 228 Recent Labs 09/18/25 0743 09/19/2532509/20/25420 NA 138 138 138 K 4.2 3.7 3.9 CL 99 99 97* CO2 26 27 27 CA 8.9 8.8 9.4 BUN 13 12 18 CREAT 0.90 0.79 0.77 GLUCOSE 131* 140* 139* Recent Labs 09/19/25 0326 09/20/25 0421 TOTALPROTEIN 6.9 7.8 ALBUMIN 3.4* 3.7 BILITOTAL 0.3 0.4 ALKPHOS 237* 242* AST 18 18 ALT 15 16 Diagnostic testing and medications were reviewed. Primary discharge diagnosis: Upper GI bleed Other active medical issues also addressed during this admission: Active Hospital Problems Diagnosis Adenocarcinoma of pancreas (CMS/HCC) Anemia in neoplastic disease Upper GI bleed Gastric outlet obstruction History of biliary stent insertion Pancreatic mass Abdominal pain, acute, right upper quadrant Resolved Hospital Problems No resolved problems to display. ASSESSMENT AND PLAN: Duodenal obstruction secondary to pancreatic adenocarcinoma Concern for upper GI bleed Abdominal pain Pancreatic adenocarcinoma CT abdomen pelvis with contrast showing enlarging mass centered in second portion of duodenal/pancreatic head, may be partially obstructing the duodenum, cholelithiasis. Status post NG tube placement, Gastric fluid positive for occult blood GI consulted, appreciate assistance, s/p EGD showing at least partial obstruction if no total obstruction by the mass Continue with twice daily Protonix Hemoglobin stable Telemetry monitoring Upper GI follow-through shows moderate to high-grade stenosis Patient was not able to tolerate full liquid diet; recurrent emesis, NG tube reinserted 09/20. continue low intermittent suction Continue PPI therapy Patient is s/p open gastrojejunostomy 09/17 Code status: Full Code Diet: Diet Orders Procedures DIET NPO Strict NPO terms: Strict Concern for Nutrition Status: Start Malnutrition pathway Nutrition consult for assessment and nutrition support recommendations Daily weights Diet: DIET NPO Strict DVT Pharmacologic Prophylaxis: Lovenox Disposition: Home with family support after return of bowel function Likely DC in 2-3 days. Discharge follow-ups: PCP MDM complexity: [] Mild [x] Moderate [] High Shlomo Harris MD, 09/20/2025 10:09 AM * Gabriela Burns DO - 09/20/2025 9:51 AM CDT General Surgery Progress Note Melo Simpson 1965 CSN: [id number] 09/20/2025 Subjective: Consult for: gastrojejunostomy to bypass gastric outlet obstruction. This is a 59 y.o. male with pancreatic cancer who has developed gastric outlet obstruction secondary to pancreatic cancer. We have therefore offered him a gastrojejunostomy to bypass this obstruction. If this is not feasible we will place a jejunostomy feeding tube. Discussion had with the patient about the risks and benefits. He is amenable to proceeding with surgery. 09/17 open gastrojejunostomy performed 09/18 Patient stable. NG tube not connected post-operatively. Connected this AM, minimal output however patient is reporting nausea and no flatus. We will therefore continue it for now. Once NG output decreases and patient starts passing flatus will remove NG and start CLD. 09/19 NG tube fell out this AM, patient reports some abdominal bloating but no nausea. Has not yet passed flatus. Will trial small amounts of clears this morning to see if the patient tolerates 09/20 -had emesis overnight, NG tube reinserted, patient states he feels better now, denies flatus Objective: BP 136/85 (BP Location: Left arm, Patient Position (BP): Supine) Pulse 84 Temp 97.8 ??F (36.6 ??C) (Oral) Resp 11 Ht 5' 9 (1.753 m) Wt 73.9 kg (163 lb) SpO2 95% BMI 24.07 kg/m?? General appearance: alert, in no distress Neck: supple, symmetrical, trachea midline Lungs: normal respiratory effort Heart: regular rate Abdomen: soft, appropriately tender, moderately distended, dressing over midline incision intact and without strikethrough Extremities: extremities normal, atraumatic, no cyanosis or edema, moves all extremities equally Skin: Skin color, texture, turgor normal. No rashes or lesions Neurologic: Grossly normal Data Review: CBC: Recent Labs 09/19/2532509/20/25 042 WBC 8.9 9.9 HGB 10.5* 11.3* HCT 32.3* 34.6* PLT 171 228 MCV 90.0 90.6 BMP: Recent Labs 09/18/25 0743 09/19/2532509/20/25 0421 GLUCOSE 131* 140* 139* BUN 13 12 18 CREAT 0.90 0.79 0.77 NA 138 138 138 K 4.2 3.7 3.9 CL 99 99 97* CO2 26 27 27 ANIONGAP 13 12 14 LFTs: Recent Labs 09/19/25 0326 09/20/25 0421 ALKPHOS 237* 242* ALT 15 16 AST 18 18 BILITOTAL 0.3 0.4 ALBUMIN 3.4* 3.7 Coagulation: No results for input(s): PT , INR , APTT in the last 72 hours. ABGs: No results for input(s): PH , PCO2 , PO2 , HCO3 , BASEEXCESS , SO2 in the last 72 hours. Imaging studies personally reviewed. Labs personally reviewed. Assessment: Principal Problem: Upper GI bleed Active Problems: Pancreatic mass Abdominal pain, acute, right upper quadrant History of biliary stent insertion Gastric outlet obstruction Anemia in neoplastic disease Plan: 59 year old man with gastric outlet obstruction secondary to pancreatic malignancy. To OR 09/17 foropen gastrojejunostomy. - NG tube reinserted, connect to low intermittent suction -ok for PO meds through the NG tube -continue pantoprazole -lovenox ordered - Awaiting return of bowel function - Once able to start diet, FLD for 1 week, then can slowly introduce solids -continue IV fluids until tolerating sufficient PO -general surgery will continue to follow Gabriela Burns DO * Dawna Peraza RN - 09/20/2025 4:50 AM CDT 0425 The patient complained of being bloated and gassy . He stated I keep on burping . The patient denies flatus. 0427 Dr. Nito Jones was informed and updated via secure chat [phone] Made a follow up. Received a call back at 0500 She ordered Famotidine 20 mg IV, given as prescribed. 0500 The patient reported that he vomited (in the trash bin). The emesis was noted to be brown, thin/ watery, fecal smelling odor approximately 150 cc. 0509 trauma surgery physics and astronomy professor has been paged [phone] Made a follow up; paged again [phone] Received a call back from Wendy Dillon. He is aware regarding the vomiting episode of the patient. This RN suggested gentle IV hydration for the patient as he stated I feel dry . 0542 Lactated Ringer IVF started 75 cc/ hr as ordered. * Tex Ricketts MD - 09/19/2025 8:28 AM CDT Images from the original note were not included. HOSPITAL MEDICINE PROGRESS NOTE Patient name: Melo Simpson Date of : 1965 Room/Bed: [address] [place] [address] ; LOS: 6 days HOSPITAL COURSE SUMMARY: Melo Simpson is a 59 y.o. male who is being admitted for further evaluation of abdominal pain andnausea. Patient is a direct admit from [facility]. He has a past medical history of pancreatic adenocarcinoma. He went to the outside facility complaining of abdominal pain with nausea. CT abdomen pelvis with contrast showing enlarging mass centered in second portion of duodenal/pancreatic head, may be partially obstructing the duodenum, cholelithiasis. Ultrasound abdomen showing gallstones with gallbladder wall upper limits of normal in thickness, CBD stent. Patient had NG tube placed and w as found to have positive occult blood on gastric fluid. He is being transferred to [facility] for GI evaluation and higher level of care. 09/13: Took over patient care, continue NG tube to intermittent suction, pending GI evaluation 09/14: S/p EGD, showing esophagitis, cannot pass the scope past the obvious circumferential mass, upper GI follow-through ordered. Oncology consulted for second opinion 09/15: Upper GI showing moderate to high-grade obstruction secondary to masslike effect in the second portion of the duodenum consistent with EGD, patient is tolerating a clear diet, pending further evaluation by GI and oncology. 09/16: Yesterday patient became nauseous and had abdominal discomfort and vomited a couple of timesafter advancing his diet, patient was switched back to n.p.o., after discussion with the patient today, GI and oncology oncology team consulted surgery for J-tube placement. 09/17-patient is s/p open gastrojejunostomy 09/18-per general surgery recommendation, continue NGT for now. Once the output decreases and patient passes flatus, remove NG and start clear liquid diet. Since patient has been n.p.o. for so many days, will switch Ringer lactate to dextrose Ringer lactate for 24 hours. 09/19-patient's NG tube came off early this morning, surgery has recommended to try clear diet. SUBJECTIVE: Patient was seen and examined at bedside this morning. Patient saying that he is burping a lot but denies passing gas ROS: negative except as mentioned above. OBJECTIVE: BP (!) 157/89 Pulse 76 Temp 97.5 ??F (36.4 ??C) Resp 18 Ht 5' 9 (1.753 m) Wt 73.9 kg (163 lb) SpO2 97% BMI 24.07 kg/m?? Intake/Output Summary (Last 24 hours) at 09/19/2025 08 Last data filed at 09/19/2025 0400 Gross per 24 hour Intake 120 ml Output 2300 ml Net -2180 ml EXAM: General: alert, in no distress Neurologic: Grossly normal HEENT: atraumatic, Normocephalic, without obvious abnormality Lungs: clear to auscultation bilaterally, normal respiratory effort Heart: normal rate, regular rhythm, normal S1, S2, no murmurs Abdomen: Soft, non-tender. Bowel sounds normal. No masses, no organomegaly. Extremities: intact distal pulses, moves all extremities equally, no cyanosis or edema Skin: negative LABORATORY: Recent Labs 09/17/25 0529 09/19/25 0326 WBC 7.7 8.9 HGB 11.5* 10.5* HCT 34.9* 32.3* PLT 182 171 Recent Labs 09/17/25 0530 09/18/25 0743 09/19/25 0326 NA 136 138 138 K 3.5 4.2 3.7 CL 99 99 99 CO2 20* 26 27 CA 9.2 8.9 8.8 BUN 22* 13 12 CREAT 0.84 0.90 0.79 GLUCOSE 93 131* 140* Recent Labs 09/17/25 0530 09/19/25 0326 TOTALPROTEIN 7.8 6.9 ALBUMIN 3.9 3.4* BILITOTAL 0.4 0.3 ALKPHOS 304* 237* AST 22 18 ALT 23 15 Diagnostic testing and medications were reviewed. Primary discharge diagnosis: Upper GI bleed Other active medical issues also addressed during this admission: Active Hospital Problems Diagnosis Anemia in neoplastic disease Upper GI bleed Gastric outlet obstruction History of biliary stent insertion Pancreatic mass Abdominal pain, acute, right upper quadrant Resolved Hospital Problems Diagnosis Date Resolved Adenocarcinoma of pancreas (CMS/HCC) 09/15/2025 ASSESSMENT AND PLAN: Duodenal obstruction secondary to pancreatic adenocarcinoma Concern for upper GI bleed Abdominal pain Pancreatic adenocarcinoma CT abdomen pelvis with contrast showing enlarging mass centered in second portion of duodenal/pancreatic head, may be partially obstructing the duodenum, cholelithiasis. Status post NG tube placement, Gastric fluid positive for occult blood GI consulted, appreciate assistance, s/p EGD showing at least partial obstruction if no total obstruction by the mass Continue with twice daily Protonix Hemoglobin stable Telemetry monitoring Upper GI follow-through shows moderate to high-grade stenosis Patient was not able to tolerate full liquid diet After discussion with GI, oncology General surgery consulted Patient is s/p open gastrojejunostomy Code status: Full Code Diet: Diet Orders Procedures DIET CLEAR LIQUID DVT Pharmacologic Prophylaxis: Patient has a contraindication for pharmacologic prophylaxis. Pleaserefer to the orders for additional details. Disposition: Discharge barriers: Pending Discharge follow-ups: PCP MDM complexity: [] Mild [x] Moderate [] High Tex Ricketts MD, 09/19/2025 8:29 AM * Ketan Stockton MD - 09/19/2025 8:04 AM CDT General Surgery Progress Note Melo Simpson 1965 CSN: [id number] 09/19/2025 Subjective: Consult for: gastrojejunostomy to bypass gastric outlet obstruction. This is a 59 y.o. male with pancreatic cancer who has developed gastric outlet obstruction secondary to pancreatic cancer. We have therefore offered him a gastrojejunostomy to bypass this obstruction. If this is not feasible we will place a jejunostomy feeding tube. Discussion had with the patient about the risks and benefits. He is amenable to proceeding with surgery. 09/17 open gastrojejunostomy performed 09/18 Patient stable. NG tube not connected post-operatively. Connected this AM, minimal output however patient is reporting nausea and no flatus. We will therefore continue it for now. Once NG output decreases and patient starts passing flatus will remove NG and start CLD. 09/19 NG tube fell out this AM, patient reports some abdominal bloating but no nausea. Has not yet passed flatus. Will trial small amounts of clears this morning to see if the patient tolerates Objective: BP (!) 157/89 Pulse 76 Temp 97.5 ??F (36.4 ??C) Resp 18 Ht 5' 9 (1.753 m) Wt 73.9 kg (163 lb) SpO2 97% BMI 24.07 kg/m?? General appearance: alert, in no distress Neck: supple, symmetrical, trachea midline Lungs: normal respiratory effort Heart: regular rate Abdomen: soft, appropriately tender, nondistended, dressing over midline incision intact and without strikethrough Extremities: extremities normal, atraumatic, no cyanosis or edema, moves all extremities equally Skin: Skin color, texture, turgor normal. No rashes or lesions Neurologic: Grossly normal Data Review: CBC: Recent Labs 09/17/25 0529 09/19/25 0326 WBC 7.7 8.9 HGB 11.5* 10.5* HCT 34.9* 32.3* PLT 182 171 MCV 87.9 90.0 BMP: Recent Labs 09/17/25 0530 09/18/25 0743 09/19/25 0326 GLUCOSE 93 131* 140* BUN 22* 13 12 CREAT 0.84 0.90 0.79 NA 136 138 138 K 3.5 4.2 3.7 CL 99 99 99 CO2 20* 26 27 ANIONGAP 17 13 12 LFTs: Recent Labs 09/17/2530 09/19/25 0326 ALKPHOS 304* 237* ALT 23 15 AST 22 18 BILITOTAL 0.4 0.3 ALBUMIN 3.9 3.4* Coagulation: No results for input(s): PT , INR , APTT in the last 72 hours. ABGs: No results for input(s): PH , PCO2 , PO2 , HCO3 , BASEEXCESS , SO2 in the last 72 hours. Imaging studies personally reviewed. Labs personally reviewed. Assessment: Principal Problem: Upper GI bleed Active Problems: Pancreatic mass Abdominal pain, acute, right upper quadrant History of biliary stent insertion Gastric outlet obstruction Anemia in neoplastic disease Plan: 59 year old man with gastric outlet obstruction secondary to pancreatic malignancy. To OR 09/17 foropen gastrojejunostomy. -ok to leave NG tube, may have to replace if patient becomes nauseated -ok for PO meds -continue pantoprazole -lovenox ordered -starting small amount of CLD on 09/19 -FLD for 1 week, then can slowly introduce solids -continue IV fluids until tolerating sufficient PO -general surgery will continue to follow Ketan Stockton MD * Iris Snyder RN - 09/19/2025 7:18 AM CDT 0655:This nurse was called into patient room upon entering patient was holding his NG tube stating it had come out while he was sneezing. 0702: Paged [facility] about NG tube was told by midlevel provider to leave out at this time andwe would discuss further action when that team rounded this morning. 1345: Patient family member came out stating patient was vomiting, called physics and astronomy professor trauma midlevel was told to put an NG tube in on Low intermittent suction and to NPO strict the patient. 1400: This nurse and charge nurse went in and the patient stated that he actually didn't throw up that it was close and he was going to but didn't. Called trauma surgery back and explained what happened they said to not put NG tube in unless patient started to actively vomit. Informed patient and family member of what the provider said. 1545: Paged Dr. Ricketts and no call back 1640: Paged DR ricketts and received for order for IV pain medication now that the patient is NPO strict 2mg of Morphine ordered q4. * Andreea Franz GN - 09/19/2025 2:08 AM CDT Patient wanted to take a shower after NG output was leaked from the connection between the suction and NG tube. This nurse contacted Dr. Fish at 0042 saying, Patient has an abdominal wound from surgery. He was wanting to take a shower; however, there are no dressing change orders. How would you like me to proceed? Would you like me to put a shield and tape over it or skip a shower and just do a bed bath? Dr. Fish responded at 0056 with I am not sure what the plan was. I would skip this shower and just do a bed bath for now. Thanks. Informed patient and patient's daughter of what doctor said. * Iris Snyder RN - 09/18/2025 6:02 PM CDT Patient to low intermittent suction patient asked to walk around so disconnected when reconnecting to suction patient stated that pain was present and would tense every time the suction would turn onand relax when it turned off. This nurse then stopped suction and paged surgery, rTacy Moore called and had me leave suction off and to order a KUB for tube placement stat. Elizabeth done and paged yadira back and Wendy Dillon called and he stated to pull back 3 cm and to hold off on suction for now and to check residuals q 4 and if more than 400 to hook back to suction if not more than 400 in the 4 hours to continue with just checking residuals. * Ketan Stockton MD - 09/18/2025 8:14 AM CDT General Surgery Progress Note Melo Simpson 1965 CSN: [id number] 09/18/2025 Subjective: Consult for: gastrojejunostomy to bypass gastric outlet obstruction. This is a 59 y.o. male with pancreatic cancer who has developed gastric outlet obstruction secondary to pancreatic cancer. We have therefore offered him a gastrojejunostomy to bypass this obstruction. If this is not feasible we will place a jejunostomy feeding tube. Discussion had with the patient about the risks and benefits. He is amenable to proceeding with surgery. 09/17 open gastrojejunostomy performed 09/18 Patient stable. NG tube not connected post-operatively. Connected this AM, minimal output however patient is reporting nausea and no flatus. We will therefore continue it for now. Once NG output decreases and patient starts passing flatus will remove NG and start CLD. Objective: BP (!) 155/77 (BP Location: Left arm, Patient Position (BP): Supine) Pulse 86 Temp 98.2 ??F (36.8 ??C) (Oral) Resp 20 Ht 5' 9 (1.753 m) Wt 79.4 kg (175 lb) SpO2 99% BMI 25.84 kg/m?? General appearance: alert, in no distress, NG in place with bilious output Neck: supple, symmetrical, trachea midline Lungs: normal respiratory effort Heart: regular rate Abdomen: soft, appropriately tender, nondistended, dressing over midline incision intact and without strikethrough Extremities: extremities normal, atraumatic, no cyanosis or edema, moves all extremities equally Skin: Skin color, texture, turgor normal. No rashes or lesions Neurologic: Grossly normal Data Review: CBC: Recent Labs 09/16/2562609/17/25 0529 WBC 5.5 7.7 HGB 11.1* 11.5* HCT 33.7* 34.9* PLT 152 182 MCV 89.6 87.9 BMP: Recent Labs 09/16/2562609/17/25 0530 GLUCOSE 104* 93 BUN 15 22* CREAT 0.88 0.84 NA 135* 136 K 3.7 3.5 CL 98 99 CO2 24 20* ANIONGAP 13 17 LFTs: Recent Labs 09/16/2562609/17/25 0530 ALKPHOS 323* 304* ALT 25 23 AST 23 22 BILITOTAL 0.4 0.4 ALBUMIN 4.0 3.9 Coagulation: No results for input(s): PT , INR , APTT in the last 72 hours. ABGs: No results for input(s): PH , PCO2 , PO2 , HCO3 , BASEEXCESS , SO2 in the last 72 hours. Imaging studies personally reviewed. Labs personally reviewed. Assessment: Principal Problem: Upper GI bleed Active Problems: Pancreatic mass Abdominal pain, acute, right upper quadrant History of biliary stent insertion Gastric outlet obstruction Anemia in neoplastic disease Plan: 59 year old man with gastric outlet obstruction secondary to pancreatic malignancy. To OR 09/17 foropen gastrojejunostomy. -continue NG to LIS -ok to clamp tube to give meds -continue pantoprazole -lovenox ordered -once output from NG decreases and patient passes flatus will start CLD -when tolerates CLD can advance to FLD that same afternoon -FLD for 1 week, then can slowly introduce solids -continue IV fluids until tolerating sufficient PO -general surgery will continue to follow Ketan Stockton MD * Tex Ricketts MD - 09/17/2025 3:01 PM CDT Images from the original note were not included. HOSPITAL MEDICINE PROGRESS NOTE Patient name: Melo Simpson Date of : 1965 Room/Bed: [facility]/ ; LOS: 5 days HOSPITAL COURSE SUMMARY: Melo Simpson is a 59 y.o. male who is being admitted for further evaluation of abdominal pain andnausea. Patient is a direct admit from [facility]. He has a past medical history of pancreatic adenocarcinoma. He went to the outside facility complaining of abdominal pain with nausea. CT abdomen pelvis with contrast showing enlarging mass centered in second portion of duodenal/pancreatic head, may be partially obstructing the duodenum, cholelithiasis. Ultrasound abdomen showing gallstones with gallbladder wall upper limits of normal in thickness, CBD stent. Patient had NG tube placed and w as found to have positive occult blood on gastric fluid. He is being transferred to [facility] for GI evaluation and higher level of care. 09/13: Took over patient care, continue NG tube to intermittent suction, pending GI evaluation 09/14: S/p EGD, showing esophagitis, cannot pass the scope past the obvious circumferential mass, upper GI follow-through ordered. Oncology consulted for second opinion 09/15: Upper GI showing moderate to high-grade obstruction secondary to masslike effect in the second portion of the duodenum consistent with EGD, patient is tolerating a clear diet, pending further evaluation by GI and oncology. 09/16: Yesterday patient became nauseous and had abdominal discomfort and vomited a couple of timesafter advancing his diet, patient was switched back to n.p.o., after discussion with the patient today, GI and oncology oncology team consulted surgery for J-tube placement. 09/17-patient is s/p open gastrojejunostomy 09/18-per general surgery recommendation, continue NGT for now. Once the output decreases and patient passes flatus, remove NG and start clear liquid diet. Since patient has been n.p.o. for so many days, will switch Ringer lactate to dextrose Ringer lactate for 24 hours. SUBJECTIVE: Patient was seen and examined at bedside this morning. ROS: negative except as mentioned above. OBJECTIVE: BP (!) 168/90 Pulse 84 Temp 98.1 ??F (36.7 ??C) Resp 18 Ht 5' 9 (1.753 m) Wt 79.4 kg (175 lb) SpO2 95% BMI 25.84 kg/m?? Intake/Output Summary (Last 24 hours) at 09/18/2025 0910 Last data filed at 09/17/2025 1900 Gross per 24 hour Intake 900 ml Output 1035 ml Net -135 ml EXAM: General: alert, in no distress Neurologic: Grossly normal HEENT: atraumatic, Normocephalic, without obvious abnormality Lungs: clear to auscultation bilaterally, normal respiratory effort Heart: normal rate, regular rhythm, normal S1, S2, no murmurs Abdomen: Soft, non-tender. Bowel sounds normal. No masses, no organomegaly. Extremities: intact distal pulses, moves all extremities equally, no cyanosis or edema Skin: negative LABORATORY: Recent Labs 09/16/2562609/17/25 0529 WBC 5.5 7.7 HGB 11.1* 11.5* HCT 33.7* 34.9* PLT 152 182 Recent Labs 09/16/2562609/17/25 0530 09/18/25 0743 NA 135* 136 138 K 3.7 3.5 4.2 CL 98 99 99 CO2 24 20* 26 CA 9.2 9.2 8.9 BUN 15 22* 13 CREAT 0.88 0.84 0.90 GLUCOSE 104* 93 131* Recent Labs 09/16/2562609/17/25 0530 TOTALPROTEIN 7.4 7.8 ALBUMIN 4.0 3.9 BILITOTAL 0.4 0.4 ALKPHOS 323* 304* AST 23 22 ALT 25 23 Diagnostic testing and medications were reviewed. Primary discharge diagnosis: Upper GI bleed Other active medical issues also addressed during this admission: Active Hospital Problems Diagnosis Anemia in neoplastic disease Upper GI bleed Gastric outlet obstruction History of biliary stent insertion Pancreatic mass Abdominal pain, acute, right upper quadrant Resolved Hospital Problems Diagnosis Date Resolved Adenocarcinoma of pancreas (CMS/HCC) 09/15/2025 ASSESSMENT AND PLAN: Duodenal obstruction secondary to pancreatic adenocarcinoma Concern for upper GI bleed Abdominal pain Pancreatic adenocarcinoma CT abdomen pelvis with contrast showing enlarging mass centered in second portion of duodenal/pancreatic head, may be partially obstructing the duodenum, cholelithiasis. Status post NG tube placement, Gastric fluid positive for occult blood GI consulted, appreciate assistance, s/p EGD showing at least partial obstruction if no total obstruction by the mass Continue with twice daily Protonix Hemoglobin stable Telemetry monitoring Upper GI follow-through shows moderate to high-grade stenosis Patient was not able to tolerate full liquid diet After discussion with GI, oncology General surgery consulted Patient is s/p open gastrojejunostomy Code status: Full Code Diet: Diet Orders Procedures DIET NPO Sips w/Meds, NPO terms: Sips w/Meds, DVT Pharmacologic Prophylaxis: Patient has a contraindication for pharmacologic prophylaxis. Pleaserefer to the orders for additional details. Disposition: Discharge barriers: Pending Discharge follow-ups: PCP MDM complexity: [] Mild [x] Moderate [] High Tex Ricketts MD, 09/18/2025 9:10 AM * Andrea Solano MD - 09/16/2025 4:14 PM CDT Images from the original note were not included. HOSPITAL MEDICINE PROGRESS NOTE Patient name: Melo Simpson Date of : 1965 Room/Bed: [address] [place] [address] ; LOS: 3 days HOSPITAL COURSE SUMMARY: Melo Simpson is a 59 y.o. male who is being admitted for further evaluation of abdominal pain andnausea. Patient is a direct admit from [facility]. He has a past medical history of pancreatic adenocarcinoma. He went to the outside facility complaining of abdominal pain with nausea. CT abdomen pelvis with contrast showing enlarging mass centered in second portion of duodenal/pancreatic head, may be partially obstructing the duodenum, cholelithiasis. Ultrasound abdomen showing gallstones with gallbladder wall upper limits of normal in thickness, CBD stent. Patient had NG tube placed and w as found to have positive occult blood on gastric fluid. He is being transferred to [facility] for GI evaluation and higher level of care. 09/13: Took over patient care, continue NG tube to intermittent suction, pending GI evaluation 09/14: S/p EGD, showing esophagitis, cannot pass the scope past the obvious circumferential mass, upper GI follow-through ordered. Oncology consulted for second opinion 09/15: Upper GI showing moderate to high-grade obstruction secondary to masslike effect in the second portion of the duodenum consistent with EGD, patient is tolerating a clear diet, pending further evaluation by GI and oncology. 09/16: Yesterday patient became nauseous and had abdominal discomfort and vomited a couple of timesafter advancing his diet, patient was switched back to n.p.o., after discussion with the patient today, GI and oncology oncology team consulted surgery for J-tube placement. SUBJECTIVE: Patient was seen and examined at bedside this morning. Patient is feeling better this morning, denies any further nausea. ROS: negative except as mentioned above. OBJECTIVE: BP (!) 149/80 (BP Location: Left arm, Patient Position (BP): Supine) Pulse 77 Temp 99.7 ??F (37.6 ??C) (Oral) Resp 16 Ht 5' 9 (1.753 m) Wt 79.4 kg (175 lb) SpO2 98% BMI 25.84 kg/m?? Intake/Output Summary (Last 24 hours) at 09/16/2025 1614 Last data filed at 09/15/20252055 Gross per 24 hour Intake -- Output 10 ml Net -10 ml EXAM: General: alert, in no distress Neurologic: Grossly normal HEENT: atraumatic, Normocephalic, without obvious abnormality Lungs: clear to auscultation bilaterally, normal respiratory effort Heart: normal rate, regular rhythm, normal S1, S2, no murmurs Abdomen: Soft, non-tender. Bowel sounds normal. No masses, no organomegaly. Extremities: intact distal pulses, moves all extremities equally, no cyanosis or edema Skin: negative LABORATORY: Recent Labs 09/13/25 2137 10/14/41609/15/2551809/16/25626 WBC -- 6.3 5.0 5.5 HGB 10.2* 10.5* 9.7* 11.1* HCT 31.5* 31.8* 29.6* 33.7* PLT -- 143 145 152 Recent Labs 09/14/2541609/15/2551809/16/25626 NA 134* 134* 135* K 3.9 4.0 3.7 CL 99 101 98 CO2 22 23 24 CA 8.8 8.4* 9.2 BUN 15 12 15 CREAT 0.77 0.77 0.88 GLUCOSE 92 99 104* Recent Labs 09/14/2541609/15/2551809/16/25626 TOTALPROTEIN 6.8 6.4 7.4 ALBUMIN 3.7 3.3* 4.0 BILITOTAL 0.5 0.4 0.4 ALKPHOS 331* 298* 323* AST 26 24 23 ALT 34 28 25 Diagnostic testing and medications were reviewed. Primary discharge diagnosis: Upper GI bleed Other active medical issues also addressed during this admission: Active Hospital Problems Diagnosis Anemia in neoplastic disease Upper GI bleed Gastric outlet obstruction History of biliary stent insertion Pancreatic mass Abdominal pain, acute, right upper quadrant Resolved Hospital Problems Diagnosis Date Resolved Adenocarcinoma of pancreas (CMS/HCC) 09/15/2025 ASSESSMENT AND PLAN: Duodenal obstruction secondary to pancreatic adenocarcinoma Concern for upper GI bleed Abdominal pain Pancreatic adenocarcinoma CT abdomen pelvis with contrast showing enlarging mass centered in second portion of duodenal/pancreatic head, may be partially obstructing the duodenum, cholelithiasis. Status post NG tube placement, removed prior to EGD will continue to monitor without an NG tube Gastric fluid positive for occult blood GI consulted, appreciate assistance, s/p EGD showing at least partial obstruction if no total obstruction by the mass Continue with twice daily Protonix Hemoglobin stable Telemetry monitoring Upper GI follow-through shows moderate to high-grade stenosis Patient was not able to tolerate full liquid diet After discussion with GI, oncology, surgery team consulted for J-tube placement. Code status: Full Code Diet: Diet Orders Procedures DIET NPO Sips w/Meds, NPO terms: Sips w/Meds, DVT Pharmacologic Prophylaxis: Patient has a contraindication for pharmacologic prophylaxis. Pleaserefer to the orders for additional details. Disposition: Discharge barriers: Pending Discharge follow-ups: PCP MDM complexity: [] Mild [x] Moderate [] High Andrea Solano MD, 09/16/2025 4:14 PM * Regina Ragsdale (Student) - 09/16/2025 10:40 AM CDTSummary: Medical Student Note Images from the original note were not included. Your life is our life's work [facility] Medicine Progress Note LOS: 3 days Room/Bed: [facility]/ Patient name: Melo Simpson Date of : 1965 HOSPITAL COURSE SUMMARY: Melo Simpson, a 59 y.o. male with pancreatic adenocarcinoma, is admitted for further management of abdominal pain with nausea and vomiting, found to have gastric outlet obstruction with concern forupper GI bleed. Admitted from [facility]. Has known pancreatic adenocarcinoma of the pancreatic head. Has a history of partial gastric outlet obstruction and stent as well as PTC. Workup included CT with contrast that showed enlarging mass of the pancreatic head with possible obstruction of the duodenum. Also showed cholelithiasis. US of the abdomen significant for gallstones, CBD stent. NG tube placement had positive occult blood in gastric fluid. No labs from [facility]. Treatment and management has included continuation of twice daily pantoprazole and monitoring. GI consult requested. 09/13/25: Pt continues to improve and remains hemodynamically stable with no blood seen grossly in NG output. Hgb stable at 10.2-10.4. Alk phos elevated at 355. Remains on protonix, zofran, compazine, NPO with plans for EGD per GI. 09/14/25: Pt remains hemodynamically stable. NG tube removed before EGD due to improper placement, as it had moved. Hgb remains stable at 10.5. Alk phos down to 331. EGD showed at least partial obstruction at the duodenum and esophagitis. No signs of bleeding. Remains on protonix, zofran, compazine, clear liquids post EGD. 09/15/25: Pt remains stable. Remains off NG tube. Hgb decreased to 9.7. Alk phos decreased to 298. Ca at 8.4. GI series showed moderate to high grade obstruction with possible displacement of the common bile duct stent. Remains on protonix, zofran, compazine, progressed to full liquid diet. Consultants: IP CONSULT TO GI IP CONSULT TO IV TEAM IP CONSULT TO IV TEAM SUBJECTIVE: Melo is struggling with vomiting this morning. After progressing to the full liquid diet yesterday and having a few drink of a protein drink, he began vomiting. He has had 2 significant episodes of vomiting, 1 last night and 1 this morning. He has not had any liquids since 4-5pm yesterday. He had asolid bowel movement this morning. He is having burping and acid reflux. The pain and cramps in hisupper right abdomen are back. ROS: History obtained from the patient Constitutional: negative for fever, chills, negative for confusion HEENT: positive for sore throat Pulmonary: Negative for dyspnea, no cough Cardiovascular: negative for chest pain, no palpitations GI: Positive for nausea, vomiting, abdominal pain Renal: no dysuria Neuro: positive for headache, no vision changes OBJECTIVE: Temp (24hrs), Av.6 ??F (37 ??C), Min:98.2 ??F (36.8 ??C), Max:99.1 ??F (37.3 ??C) BP (!) 159/86 (BP Location: Left arm, Patient Position (BP): Supine) Pulse 81 Temp 98.2 ??F (36.8 ??C) (Oral) Resp 14 Ht 5' 9 (1.753 m) Wt 79.4 kg (175 lb) SpO2 93% BMI 25.84 kg/m?? Intake/Output Summary (Last 24 hours) at 09/16/2025 1041 Last data filed at 09/15/20252055 Gross per 24 hour Intake -- Output 10 ml Net -10 ml Last documented weight: Weight: 79.4 kg (175 lb) (09/13/25 0048) EXAM: General: alert, in no distress Neurologic: Grossly normal HEENT: atraumatic, Normocephalic, without obvious abnormality, No lympadenoapthy Lungs: normal respiratory effort, no wheezing, rhonchi, rales. Heart: normal rate, regular rhythm, normal S1, S2, no murmurs, rubs, clicks or gallops Abdomen: normal bowel sounds, tender over RUQ Extremities: extremities normal, atraumatic, no cyanosis or edema, moves all extremities equally, no edema, redness or tenderness in the calves or thighs, normal strength, normal tone Skin: negative LABORATORY: Recent Labs 09/13/25 1308 09/13/25 2137 09/14/2541609/15/2551809/16/25626 WBC -- -- 6.3 5.0 5.5 HGB 10.4* 10.2* 10.5* 9.7* 11.1* HCT 32.0* 31.5* 31.8* 29.6* 33.7* PLT -- -- 143 145 152 Recent Labs 09/14/2541609/15/2551809/16/25626 NA 134* 134* 135* K 3.9 4.0 3.7 CL 99 101 98 CO2 22 23 24 CA 8.8 8.4* 9.2 BUN 15 12 15 CREAT 0.77 0.77 0.88 GLUCOSE 92 99 104* Recent Labs 09/14/2541609/15/2551809/16/25626 TOTALPROTEIN 6.8 6.4 7.4 ALBUMIN 3.7 3.3* 4.0 BILITOTAL 0.5 0.4 0.4 ALKPHOS 331* 298* 323* AST 26 24 23 ALT 34 28 25 No results for input(s): INR , PT in the last 72 hours. Invalid input(s): PTT No results for input(s): BASETROP , 2HRTROP , DELTA , 6HRTROP in the last 72 hours. No results found. Medications were reviewed by me. Current Facility-Administered Medications: lactated ringers infusion, , IV, continuous, Andrea Solano MD, Last Rate: 75 mL/hr at 09/16/25 0936, New Bag at 09/16/25935 simethicone (GAS-X) capsule 125 mg, 125 mg, Oral, every 6 hours PRN, Andrea Solano MD, 125 mg at 09/15/252054 oxyCODONE (ROXICODONE) tablet 5 mg, 5 mg, Oral, every 4 hours PRN, Federico Garibay MD, 5 mg at 09/15/25 0702 naloxone (NARCAN) 0.4 mg/mL injection 0.1-0.4 mg, 0.1-0.4 mg, IV, see admin instructions, Federico Garibay MD pantoprazole (PROTONIX) 40 mg in sodium chloride 0.9% 10 mL injection, 40 mg, IV, BID, Federico Garibay MD, 40 mg at 09/16/25 0935 sodium chloride flush injection 10 mL, 10 mL, IV, every 12 hours (2 times daily), Federico Garibay MD,10 mL at 09/16/25 0932 sodium chloride flush injection 10 mL, 10 mL, IV, see admin instructions, Federico Garibay MD sodium chloride 0.9 % flush bag 25 mL, 25 mL, IV, see admin instructions, Federico Garibay MD dextrose 5 % in water 250 mL flush bag 25 mL, 25 mL, IV, see admin instructions, Federico Garibay MD acetaminophen (TYLENOL) tablet 650 mg, 650 mg, Oral, every 6 hours PRN, Federico Garibay MD HYDROmorphone (PF) (DILAUDID) injection 0.5 mg, 0.5 mg, IV, every 3 hours PRN, Federico Garibay MD, 0.5 mg at 09/13/25 1956 ondansetron (ZOFRAN) 4 mg/2 mL injection 4 mg, 4 mg, IV, every 6 hours PRN, Federico Garibay MD, 4 mg at 09/13/25 0239 prochlorperazine (COMPAZINE) injection 10 mg, 10 mg, IV, every 6 hours PRN, Federico Garibay MD Primary discharge diagnosis: Upper GI bleed Other active medical issues also addressed during this admission: Active Hospital Problems Diagnosis Anemia in neoplastic disease Upper GI bleed Gastric outlet obstruction History of biliary stent insertion Pancreatic mass Abdominal pain, acute, right upper quadrant Resolved Hospital Problems Diagnosis Date Resolved Adenocarcinoma of pancreas (CMS/HCC) 09/15/2025 ASSESSMENT AND PLAN: Gastric Outlet Obstruction CT showed enlarging mass of the pancreatic head with partial obstruction of the duodenum EGD showed at least partial obstruction, scope unable to be passed by duodenal bulb. GI Series showed moderate to high grade obstruction and possible displacement of the common bile duct stent Pt has had some small bowel movements, indicating obstruction might be partial Cholelithiasis also present on imaging and likely contributing to abdominal pain NG tube removed 09/14/25 Clear liquid diet started post EGD, attempted to progress to full liquids without success on 09/15/25. Zofran, compazine for nausea J tube most likely at this time as pt is not tolerating liquids well. GI and oncology discussing this. G tube may be necessary if vomiting continues Concern for displacement of biliary stent, most likely not a candidate for ERCP per GI. Watch for any sxs from CBD. Continue to follow with GI and oncology Concern for upper GI bleed Ruled out via EGD Continue twice daily Protonix for prophylaxis Pancreatic adenocarcinoma of the pancreatic head CT from outside ER shows enlarging mass, this is the likely cause of the obstruction Plans for oncology to consult this afternoon Nutrition Status: NPO DVT prophylaxis: SCDs Code status: Full Code Regina Ragsdale 09/16/2025, 10:41 AM Cosigned by Andrea Solano MD at 09/16/2025 1:29 PM CDT Associated attestation - Andrea Solano MD - 09/16/2025 1:29 PM CDT This is a medical student note for teaching purposes only, Patient seen and examined with student, please review hospitalist PN for assessment and plan. * Ernst Chi NP - 09/16/2025 8:06 AM CDT GI Progress Note Melo Simpson 09/16/2025 CSN [id number] Collaborative physician: SUBJECTIVE: Patient reports that he was tolerating clear liquid diet yesterday, but was not able to advance to full liquid. Now no longer tolerating clear liquids without vomiting. ROS: Constitutional ROS: Negative- fever or chills. Cardiovascular ROS: Negative- chest pain or palpitations. Respiratory ROS: Negative- shortness of breath. Gastrointestinal ROS: Positive - n/v, abdominal pain Current Facility-Administered Medications Medication Dose Route Frequency Provider Last Rate Last Admin [COMPLETED] barium sulfate (LIQUID E-Z PAQUE,BAROSPERSE) oral suspension 355 mL 355 mL Oral intra-proc ONE time Ernst ChiRENE vergara 355 mL at 09/15/25 0900 simethicone (GAS-X) capsule 125 mg 125 mg Oral every 6 hours PRN Andrea Solano MD 125 mg at 09/15/252054 oxyCODONE (ROXICODONE) tablet 5 mg 5 mg Oral every 4 hours PRN Federico Garibay MD 5 mg at 09/15/25 07 naloxone (NARCAN) 0.4 mg/mL injection 0.1-0.4 mg 0.1-0.4 mg IV see admin instructions Federico Garibay MD pantoprazole (PROTONIX) 40 mg in sodium chloride 0.9% 10 mL injection 40 mg IV BID Federico Garibay MD40 mg at 09/15/252055 sodium chloride flush injection 10 mL 10 mL IV every 12 hours (2 times daily) Federico Garibay MD 10 mL at 09/15/252055 sodium chloride flush injection 10 mL 10 mL IV see admin instructions Federico Garibay MD sodium chloride 0.9 % flush bag 25 mL 25 mL IV see admin instructions Federico Garibay MD dextrose 5 % in water 250 mL flush bag 25 mL 25 mL IV see admin instructions Federico Garibay MD acetaminophen (TYLENOL) tablet 650 mg 650 mg Oral every 6 hours PRN Federico Garibay MD HYDROmorphone (PF) (DILAUDID) injection 0.5 mg 0.5 mg IV every 3 hours PRN Federico Garibay MD 0.5 mg at 09/13/251955 ondansetron (ZOFRAN) 4 mg/2 mL injection 4 mg 4 mg IV every 6 hours PRN Federico Garibay MD 4 mg at 09/13/25238 prochlorperazine (COMPAZINE) injection 10 mg 10 mg IV every 6 hours PRN Federico Garibay MD OBJECTIVE: BP (!) 159/86 (BP Location: Left arm, Patient Position (BP): Supine) Pulse 81 Temp 98.2 ??F (36.8 ??C) (Oral) Resp 14 Ht 5' 9 (1.753 m) Wt 79.4 kg (175 lb) SpO2 93% BMI 25.84 kg/m?? Lungs Unlabored respirations, Heart regular rate and rhythm Abdomen: soft, nontender Intake/Output Summary (Last 24 hours) at 09/16/2025805 Last data filed at 09/15/20252055 Gross per 24 hour Intake -- Output 10 ml Net -10 ml Wt Readings from Last 3 Encounters: 09/13/25 79.4 kg (175 lb) 04/10/25 83.5 kg (184 lb) 11/10/22 88.5 kg (195 lb) LABS: Recent Labs 09/14/2541609/15/2551809/16/25626 WBC 6.3 5.0 5.5 HGB 10.5* 9.7* 11.1* HCT 31.8* 29.6* 33.7* PLT 143 145 152 MCV 90.3 90.8 89.6 Recent Labs 09/14/2541609/15/2551809/16/25626 GLUCOSE 92 99 104* BUN 15 12 15 CREAT 0.77 0.77 0.88 NA 134* 134* 135* K 3.9 4.0 3.7 CL 99 101 98 CO2 22 23 24 ANIONGAP 13 10 13 CA 8.8 8.4* 9.2 Recent Labs 09/14/2541609/15/2551809/16/25626 ALKPHOS 331* 298* 323* ALT 34 28 25 AST 26 24 23 BILITOTAL 0.5 0.4 0.4 ALBUMIN 3.7 3.3* 4.0 No results for input(s): PT , INR , APTT in the last 72 hours. DIAGNOSTICS: Results for orders placed during the hospital encounter of 09/13/25 XR UPR GI Impression : Please see below. Exam: XR UPR GI Date/Time of Exam: 09/15/2025 9:00 AM Reason For Exam: Bowel Obstruction, Comment: Gastric outlet obstruction. Diagnosis: See Reason for Exam. Preliminary findings dictated by Ole Angelo PA-C. Supervision and final interpretation by Dr. Damon. Midwife view of the mid abdomen shows a stent within the common bile duct. Nondistended bowel gas pattern. No other acute findings. The patient was given barium swallow. Thoracic esophagus is normal in course and caliber without mass, stricture ulceration. The esophageal motility is within normal limits. The gastroesophageal junction is within normal limits. The mildly distended stomach does not show any gross mass or ulceration. The duodenal bulb is within normal limits. Moderate to high-grade obstruction from masslike defect in the second portion of the duodenum. The remainder of the duodenum and opacified small bowel is unremarkable. There was no gastroesophageal reflux seen during intermittent fluoroscopy. Impression: 1. Moderate to high grade obstruction secondary to masslike defect in the second portion of the duodenum. Findings consistent with EGD performed on 09/14/2025. 2. Of note, the orientation of the common bile duct stent is now horizontal in the right upper quadrant and on the ERCP image the stent appeared vertical. Displacement of the stent is a consideration. If further evaluation is warranted, repeat cross-sectional imaging with CT or MRI is recommended. There is suspected pneumobilia in the right upper quadrant. EGD 09/14/2025 Findings: Mild to moderate esophagitis Normal stomach. Pylorus is patent. Endoscope was passed to the duodenal bulb or an obvious mass was seen circumferentially. I was unable to pass the endoscope beyond this. At least partial obstruction if not complete was seen. ERCP 04/13/2025 Impression: Infiltrating duodenal mass s/p bx Removal of PTC Biliary stricture s/p FCSEMS placement Possible partial GOO ERCP 04/09/2025 Findings: The esophagus was successfully intubated under direct vision without detailed examination of the pharynx, larynx, and associated structures. There was evidence of a large infiltrative mass with ulceration involving the entire second portion in the region of the ampulla. Ampullary opening could not be identified. Further attempts were aborted due to nonvisualization of the ampullary opening from the underlying mass Impression: Nonvisualization of the ampullary opening secondary to large infiltrative mass EUS 04/09/2025 Impression: Large infiltrating hypoechoic mass measuring 42.1 mm x 40.4 mm in the region of the pancreatic head with infiltration into the lumen of the duodenum status post FNA using 22-gauge acquire needle Loss of fascial plane between the mass and surrounding vascular structures including portal vein and superior mesenteric artery Multiple left hepatic lobe lesions highly suspicious for metastasis status post FNA using a separate 25-gauge SlimLine needle No evidence of any ascites in the visualized portions Findings highly suspicious for stage IV pancreatic adenocarcinoma FINAL DIAGNOSIS A. Pancreatic head mass, fine-needle aspiration and cell block - Positive for malignancy - Malignant spindle cell neoplasm, see comment / B. Left liver lesion, fine-needle aspiration and cell block - Suspicious for malignancy ASSESSMENT and PLAN: A 59 y.o.male admitted with gastric outlet obstruction and suspected upper GI bleed Imaging revealed an enlarging duodenal/pancreatic head mass. He previously underwent EUS/ERCP confirming malignant spindle cell neoplasm and later had ERCP for PTC removal and stent placement, with partial gastric outlet obstruction noted on 04/13/2025. Patient has NG tube with dark output and fluid was noted to be occult positive. Currently patient is hemodynamically stable. Underwent EGD yesterday which showed mild to moderate esophagitis. There was an obvious circumferential mass in the duodenal bulb with at least a partial obstruction. Unable to determine if it was a total obstruction. Hemoglobin this morning 9.7. Patient remains hemodynamically stable. Upper GI series showed moderate to high-grade obstruction secondary to masslike defect in the second portion of the duodenum as seen on EGD. It was noted however that CBD stent is now horizontal in the right upper quadrant, it was vertical at the time of placement. ALP has continued to trend down and since initial presentation now at 298, bilirubin/AST/ALT remain within normal limits, if this changes would consider further imaging. If replacement of fully covered metal stent is needed, patient would need PTC given previous need for rendezvous and inability to visualize stent on EGD. Patient is no longer tolerating clear liquid diet. Discussed thoroughly with hospitalist and oncology. Recommend consulting surgery or IR for J-tube placement. Discussed duodenal stent with Dr. Stafford, however given plan for change in chemotherapy, J-tube would be more appropriate due to the high risk of complications associated with duodenal stenting. Could consider duodenal stenting for palliative care near end of life. - Continue to monitor liver related enzymes - Continue PPI - Monitor H&H and transfuse as medically warranted - Notify GI physics and astronomy professor for any brisk bleeding, especially if accompanied by hemodynamic compromise (may need to consider NM bleeding scan vs CTA) - No further interventions from GI at this time, please call as needed. POC discussed with Dr. Solano and Dr. Stokes over the phone. Plan of care discussed and developed in collaboration with Dr. Whittington Thank you for allowing us to participate in Melo Simpson's care. [facility] Cosigned by Leno Whittington DO at 09/17/2025 12:20 PM CDT * Andrea Solano MD - 09/15/2025 1:17 PM CDT Images from the original note were not included. HOSPITAL MEDICINE PROGRESS NOTE Patient name: Melo Simpson Date of : 1965 Room/Bed: 71[facility] ; LOS: 2 days HOSPITAL COURSE SUMMARY: Melo Simpson is a 59 y.o. male who is being admitted for further evaluation of abdominal pain andnausea. Patient is a direct admit from [facility]. He has a past medical history of pancreatic adenocarcinoma. He went to the outside facility complaining of abdominal pain with nausea. CT abdomen pelvis with contrast showing enlarging mass centered in second portion of duodenal/pancreatic head, may be partially obstructing the duodenum, cholelithiasis. Ultrasound abdomen showing gallstones with gallbladder wall upper limits of normal in thickness, CBD stent. Patient had NG tube placed and w as found to have positive occult blood on gastric fluid. He is being transferred to [facility] for GI evaluation and higher level of care. 09/13: Took over patient care, continue NG tube to intermittent suction, pending GI evaluation 09/14: S/p EGD, showing esophagitis, cannot pass the scope past the obvious circumferential mass, upper GI follow-through ordered. Oncology consulted for second opinion 09/15: Upper GI showing moderate to high-grade obstruction secondary to masslike effect in the second portion of the duodenum consistent with EGD, patient is tolerating a clear diet, pending further evaluation by GI and oncology. SUBJECTIVE: Patient was seen and examined at bedside this morning. Patient is denying any nausea, continues to pass gas denies any complaint. ROS: negative except as mentioned above. OBJECTIVE: BP (!) 144/78 (BP Location: Left arm, Patient Position (BP): Sitting) Pulse 80 Temp 98.4 ??F (36.9 ??C) (Oral) Resp 14 Ht 5' 9 (1.753 m) Wt 79.4 kg (175 lb) SpO2 98% BMI 25.84 kg/m?? No intake or output data in the 24 hours ending 09/15/25 1317 EXAM: General: alert, in no distress Neurologic: Grossly normal HEENT: atraumatic, Normocephalic, without obvious abnormality Lungs: clear to auscultation bilaterally, normal respiratory effort Heart: normal rate, regular rhythm, normal S1, S2, no murmurs Abdomen: Soft, non-tender. Bowel sounds normal. No masses, no organomegaly. Extremities: intact distal pulses, moves all extremities equally, no cyanosis or edema Skin: negative LABORATORY: Recent Labs 09/13/2534709/13/25 1308 09/13/257 09/14/2541609/15/25518 WBC 5.3 -- -- 6.3 5.0 HGB 10.2* 10.4* 10.2* 10.5* 9.7* HCT 31.1* 32.0* 31.5* 31.8* 29.6* PLT 144 -- -- 143 145 Recent Labs 09/13/2534709/14/2541609/15/25 05 NA 136 134* 134* K 4.4 3.9 4.0 CL 103 99 101 CO2 25 22 23 CA 8.6 8.8 8.4* BUN 14 15 12 CREAT 0.81 0.77 0.77 GLUCOSE 106* 92 99 Recent Labs 09/13/2534709/14/2541609/15/25 05 TOTALPROTEIN 6.5 6.8 6.4 ALBUMIN 3.7 3.7 3.3* BILITOTAL 0.3 0.5 0.4 ALKPHOS 355* 331* 298* AST 32 26 24 ALT 39 34 28 Diagnostic testing and medications were reviewed. Primary discharge diagnosis: Upper GI bleed Other active medical issues also addressed during this admission: Active Hospital Problems Diagnosis Anemia in neoplastic disease Upper GI bleed Gastric outlet obstruction History of biliary stent insertion Pancreatic mass Abdominal pain, acute, right upper quadrant Resolved Hospital Problems Diagnosis Date Resolved Adenocarcinoma of pancreas (CMS/HCC) 09/15/2025 ASSESSMENT AND PLAN: Duodenal obstruction secondary to pancreatic adenocarcinoma Concern for upper GI bleed Abdominal pain Pancreatic adenocarcinoma CT abdomen pelvis with contrast showing enlarging mass centered in second portion of duodenal/pancreatic head, may be partially obstructing the duodenum, cholelithiasis. Status post NG tube placement, removed prior to EGD will continue to monitor without an NG tube Gastric fluid positive for occult blood GI consulted, appreciate assistance, s/p EGD showing at least partial obstruction if no total obstruction by the mass Continue with twice daily Protonix Hemoglobin stable Telemetry monitoring Upper GI follow-through ordered Code status: Full Code Diet: Diet Orders Procedures DIET CLEAR LIQUID DVT Pharmacologic Prophylaxis: Patient has a contraindication for pharmacologic prophylaxis. Pleaserefer to the orders for additional details. Disposition: Discharge barriers: Pending Discharge follow-ups: PCP MDM complexity: [] Mild [x] Moderate [] High Andrea Solano MD, 09/15/2025 1:17 PM * Regina Ragsdale (Student) - 09/15/2025 10:43 AM CDTSummary: Medical Student Note Images from the original note were not included. Your life is our life's work [facility] Hospitalist/Hospital Medicine Progress Note LOS: 2 days Room/Bed: 7122/ Patient name: Melo Simpson Date of : 1965 HOSPITAL COURSE SUMMARY: Melo Simpson, a 59 y.o. male with pancreatic adenocarcinoma, is admitted for further management of abdominal pain with nausea and vomiting, found to have gastric outlet obstruction with concern forupper GI bleed. Admitted from [facility]. Has known pancreatic adenocarcinoma of the pancreatic head. Has a history of partial gastric outlet obstruction and stent as well as PTC. Workup included CT with contrast that showed enlarging mass of the pancreatic head with possible obstruction of the duodenum. Also showed cholelithiasis. US of the abdomen significant for gallstones, CBD stent. NG tube placement had positive occult blood in gastric fluid. No labs from [place] [facility]. Treatment and management has included continuation of twice daily pantoprazole and monitoring. GI consult requested. 09/13/25: Pt continues to improve and remains hemodynamically stable with no blood seen grossly in NG output. Hgb stable at 10.2-10.4. Alk phos elevated at 355. Remains on protonix, zofran, compazine, NPO with plans for EGD per GI. 09/14/25: Pt remains hemodynamically stable. NG tube removed before EGD due to improper placement, as it had moved. Hgb remains stable at 10.5. Alk phos down to 331. EGD showed at least partial obstruction at the duodenum and esophagitis. No signs of bleeding. Remains on protonix, zofran, compazine, clear liquids post EGD. Consultants: IP CONSULT TO GI IP CONSULT TO IV TEAM IP CONSULT TO IV TEAM SUBJECTIVE: Melo is doing well overall this morning. He is happy to have the NG tube out. His sore throat from that has pretty much resolved. His only complaint is some headaches, although these are well controlled with pain medication. He had 4 very small bowel movements yesterday. No further questions ROS: History obtained from the patient, unchanged from yesterday. Constitutional: negative for fever, chills, negative for confusion HEENT: positive for sore throat Pulmonary: Negative for dyspnea, no cough Cardiovascular: negative for chest pain, no palpitations GI: Negative for nausea, vomiting, no abdominal pain Renal: no dysuria Neuro: positive for headache, no vision changes OBJECTIVE: Temp (24hrs), Av.8 ??F (37.1 ??C), Min:98.4 ??F (36.9 ??C), Max:99.5 ??F (37.5 ??C) BP (!) 144/78 (BP Location: Left arm, Patient Position (BP): Sitting) Pulse 80 Temp 98.4 ??F (36.9 ??C) (Oral) Resp 14 Ht 5' 9 (1.753 m) Wt 79.4 kg (175 lb) SpO2 98% BMI 25.84 kg/m?? No intake or output data in the 24 hours ending 09/15/25 1043 Last documented weight: Weight: 79.4 kg (175 lb) (09/13/25 004) EXAM: General: alert, in no distress Neurologic: Grossly normal HEENT: atraumatic, Normocephalic, without obvious abnormality, No lympadenoapthy Lungs: normal respiratory effort, no wheezing, rhonchi, rales. Heart: normal rate, regular rhythm, normal S1, S2, no murmurs, rubs, clicks or gallops Abdomen: soft, non-tender, non-distended, normal bowel sounds Extremities: extremities normal, atraumatic, no cyanosis or edema, moves all extremities equally, no edema, redness or tenderness in the calves or thighs, normal strength, normal tone Skin: negative LABORATORY: Recent Labs 09/13/258 09/13/25 1308 09/13/25 2137 09/14/2541609/15/25 0519 WBC 5.3 -- -- 6.3 5.0 HGB 10.2* 10.4* 10.2* 10.5* 9.7* HCT 31.1* 32.0* 31.5* 31.8* 29.6* PLT 144 -- -- 143 145 Recent Labs 09/13/2534709/14/2541609/15/25 0519 NA 136 134* 134* K 4.4 3.9 4.0 CL 103 99 101 CO2 25 22 23 CA 8.6 8.8 8.4* BUN 14 15 12 CREAT 0.81 0.77 0.77 GLUCOSE 106* 92 99 Recent Labs 09/13/2534709/14/2541609/15/25 0519 TOTALPROTEIN 6.5 6.8 6.4 ALBUMIN 3.7 3.7 3.3* BILITOTAL 0.3 0.5 0.4 ALKPHOS 355* 331* 298* AST 32 26 24 ALT 39 34 28 Recent Labs 09/13/25 0402 INR 1.0 PT 13.7 No results for input(s): BASETROP , 2HRTROP , DELTA , 6HRTROP in the last 72 hours. XR UPR GI Result Date: 09/15/2025 IMPRESSION: Please see below. Exam: XR UPR GI Date/Time of Exam: 09/15/2025 9:00 AM Reason For Exam: Bowel Obstruction, Comment: Gastric outlet obstruction. Diagnosis: See Reason for Exam. Preliminary findings dictated by Ole Angelo PA-C. Supervision and final interpretation by Dr. Damon. Scoutview of the mid abdomen shows a stent within the common bile duct. Nondistended bowel gas pattern. No other acute findings. The patient was given barium swallow. Thoracic esophagus is normal in course and caliber without mass, stricture ulceration. The esophageal motility is within normal limits. The gastroesophageal junction is within normal limits. The mildly distended stomach does not show anygross mass or ulceration. The duodenal bulb is within normal limits. Moderate to high- grade obstruction from masslike defect in the second portion of the duodenum. The remainder of the duodenum and opacified small bowel is unremarkable. There was no gastroesophageal reflux seen during intermittent fluoroscopy. Impression: 1. Moderate to high grade obstruction secondary to masslike defect in the se cond portion of the duodenum. Findings consistent with EGD performed on 09/14/2025. 2. Of note, theorientation of the common bile duct stent is now horizontal in the right upper quadrant and on the ERCP image the stent appeared vertical. Displacement of the stent is a consideration. If further evaluation is warranted, repeat cross-sectional imaging with CT or MRI is recommended. There is suspected pneumobilia in the right upper quadrant. Medications were reviewed by me. Current Facility-Administered Medications: [COMPLETED] barium sulfate (LIQUID E-Z JULEIN LARSENOSPER) oral suspension 355 mL, 355 mL, Oral, intra-proc ONE time, Ernst Chi NP, 355 mL at 09/15/25 0900 oxyCODONE (ROXICODONE) tablet 5 mg, 5 mg, Oral, every 4 hours PRN, Federico Garibay MD, 5 mg at 09/15/25 0702 naloxone (NARCAN) 0.4 mg/mL injection 0.1-0.4 mg, 0.1-0.4 mg, IV, see admin instructions, Federico Garibay MD pantoprazole (PROTONIX) 40 mg in sodium chloride 0.9% 10 mL injection, 40 mg, IV, BID, Federico Garibay MD, 40 mg at 09/15/25 0926 sodium chloride flush injection 10 mL, 10 mL, IV, every 12 hours (2 times daily), Federico Garibay MD,10 mL at 09/15/25 0927 sodium chloride flush injection 10 mL, 10 mL, IV, see admin instructions, Federico Garibay MD sodium chloride 0.9 % flush bag 25 mL, 25 mL, IV, see admin instructions, Federico Garibay MD dextrose 5 % in water 250 mL flush bag 25 mL, 25 mL, IV, see admin instructions, Federico aGribay MD acetaminophen (TYLENOL) tablet 650 mg, 650 mg, Oral, every 6 hours PRN, Federico Garibay MD HYDROmorphone (PF) (DILAUDID) injection 0.5 mg, 0.5 mg, IV, every 3 hours PRN, Federico Garibay MD, 0.5 mg at 09/13/25 195 ondansetron (ZOFRAN) 4 mg/2 mL injection 4 mg, 4 mg, IV, every 6 hours PRN, Federico Garibay MD, 4 mg at 09/13/25 0239 prochlorperazine (COMPAZINE) injection 10 mg, 10 mg, IV, every 6 hours PRN, Federico Garibay MD Facility-Administered Medications Ordered in Other Encounters: [DISCONTINUED] propofoL (DIPRIVAN) injection, , IV, intra-proc continuous PRN, True, Cybil A, DATA INTEGRITY SPECIALIST,Stopped at 09/14/25 1349 [DISCONTINUED] sodium chloride 0.9 % infusion, , IV, intra-proc continuous PRN, True, Cybil A, DATA INTEGRITY SPECIALIST, Stopped-Anesthesia at 09/14/25 1354 [DISCONTINUED] lidocaine 2 % (XYLOCAINE) injection, , IV, intra-proc PRN, True, Cybil A, DATA INTEGRITY SPECIALIST, 100 mg at 09/14/25 1347 Primary discharge diagnosis: Upper GI bleed Other active medical issues also addressed during this admission: Active Hospital Problems Diagnosis Anemia in neoplastic disease Upper GI bleed Gastric outlet obstruction History of biliary stent insertion Pancreatic mass Abdominal pain, acute, right upper quadrant Resolved Hospital Problems Diagnosis Date Resolved Adenocarcinoma of pancreas (CMS/HCC) 09/15/2025 ASSESSMENT AND PLAN: Gastric Outlet Obstruction CT showed enlarging mass of the pancreatic head with partial obstruction of the duodenum EGD showed at least partial obstruction, scope unable to be passed by duodenal bulb. Pt has had some small bowel movements, indicating obstruction might be partial Cholelithiasis also present on imaging and likely contributing to abdominal pain NG tube removed 09/14/25 Clear liquid diet started post EGD Zofran, compazine for nausea Upper GI series pending to assess extent of obstruction J tube vs full liquid diet possible depending on upper GI series findings Concern for displacement of biliary stent, may require ERCP. Appreciate GI input on this. Continue to follow with GI Concern for upper GI bleed Ruled out via EGD Continue twice daily Protonix for prophylaxis Pancreatic adenocarcinoma of the pancreatic head CT from outside ER shows enlarging mass, this is the likely cause of the obstruction Plans for oncology to consult this afternoon Nutrition Status: NPO DVT prophylaxis: SCDs Code status: Full Code Regina Ragsdale 09/15/2025, 10:43 AM Cosigned by Andrea Solano MD at 09/15/2025 12:06 PM CDT Associated attestation - Andrea Solano MD - 09/15/2025 12:06 PM CDT This is a medical student note for teaching purposes only, Patient seen and examined with student, please review hospitalist PN for assessment and plan. * Faith Graff, RT - 09/15/2025 9:01 AM CDT IMAGING SERVICES- CONTRAST, MEDICATION and FLUSH PROTOCOL [facility] Enter the protocol in the patient's electronic health record using smartphrase: .imagingcontrastprotocol Communication Orders: Initiate a peripheral IV, if not already in place, and discontinue IV prior to discharge Enter order if needed: Insert Peripheral IV Medication Orders: Lidocaine 4% (L.M.X.4)- applied topically ONE TIME prior to IV catheter insertion PRN (apply 15 minutes prior to procedure) Sodium chloride 0.9% (normal saline) flush- 10 mLs PRN for saline lock or medication administration Oxygen- For respiratory distress, initiate O2 to maintain saturation greater than 90% CAT SCAN CT IV CONTRAST PROTOCOLS FOR ADULTS Iopamidol Injection 61% (ISOVUE-300)- Double bolus with MD approval Routine exams dosed by weight: <150lbs- 75mL 151lbs to 220lbs- 100mL >220lbs- 125mL CT Angiography: 100mL Runoff and Triphasic Liver Protocols: 150mL Iopamidol Injection 76% (ISOVUE-370) Cardiac- 110mL TAVR- 160mL CT IV CONTRAST PROTOCOLS FOR PEDIATRICS Iopamidol Injection 61% (ISOVUE-300) Infant- Routine exams: 1mL per pound and Pediatric- Head / Face: 1mL per pound up to 50 lbs Pediatric- Routine exams: 1mL per pound up to 75 lbs 75-150 lbs: 75mL 150-220 lbs: 100mL >220 lbs: 125mL CT ORAL CONTRAST PROTOCOLS FOR ADULTS Iohexol 300mg/mL (OMNIPAQUE) for CT scan unless patient has a documented allergy to contrast * 15ml added to 16 oz of clear liquid of patient's choice. Preferred route is oral. May use nasoenteric tube if needed. Administer 16 oz the diluted Omnipaque 300, orally 1st dose 30-60 minutes prior to scan and 2nd dose just before scan. * Barium Sulfate 2% w/v (READI-CAT2) for CT scan when patient has documented contrast allergy Administer 2 doses of 450mL of barium sulfate. First dose 30-60 min prior to exam and 2nd dose justbefore exam. Preferred route is oral. May use nasoenteric tube if needed. Barium Sulfate 0.1% w/v, 0.1% w/w (VOLUMEN) for Enterography and GI Bleed protocols Administer VoLumen- 3 doses of 450 mL. 1st dose must be completed within 20 minutes. 2nd dose must be completed in the next 30 minutes. 3rd dose is given at scan time. Preferred route is oral. May use nasoenteric tube if needed. CT ORAL CONTRAST PROTOCOLS FOR PEDIATRICS Preferred route is oral, may use nasoenteric tube if needed. to 3 months- Barium Sulfate 2%w/v (READI-CAT2) thinned with water to a consistency for typical bottle feeding 3 Months to 3 years- Iohexol 300mg/mL (OMNIPAQUE) 5mL diluted with 16oz clear fluid. 1 dose: 30min prior to exam 4 years to 10 years- Iohexol 300mg/mL (OMNIPAQUE) 8mL diluted with 16oz clear fluid. 1 dose: 30min prior to exam 10 years and up- Iohexol 300mg/mL (OMNIPAQUE) 15mL diluted with 16oz clear fluid. 2 doses: first dose 30min prior to exam and 2nd dose just before scan if tolerated CT CYSTOGRAM Iopamidol 61% Injection ([id number]): 25mL Dilute into 500mL bag of sterile NS administer up to 300mL retrograde via urinary catheter DIAGNOSTIC RADIOLOGY Enter the protocol in the patient's electronic health record using Stage I Diagnosticsphrase: ADULTS PROCEDURE DOSAGE ARTHROGRAMS Plain ISOVUE 300 12mL MRI-(Ankle,Elbow,Hip,Wrist,Knee,Shoulder) ISOVUE 300 5mL / Prohance .2ml CT-(Ankle,Elbow,Hip,Wrist,Knee,Shoulder) ISOVUE 300 20mL BARIUM ENEMAS BARIUM ENEMA AIR CONTRAST LIQUID POLIBAR 1900ml BARIUM ENEMA/ GASTROGRAFIN B.E. LIQUID POLIBAR 800mL + 3200mL of water or GASTROGRAFIN 960mL + 3040mL of water. CYSTOGRAM CYSTOGRAFIN 1500mL ESOPHAGUS BARIUM SWALLOW E-Z-HD Barium Sulfate for Suspension 340g. and/or E-Z-PAQUE Barium Sulfate Oral Suspension 355mL OMNIPAQUE 350 50ml or GASTROGRAFIN 120mL Barium tablet 700mg (if indicated) MODIFIED BARIUM SWALLOW Barium tablet 700mg, Varibar paste 90g/Varibar thin 74g/ Varibar honey 125mL/ Varibar Milano 120mL HYSTEROSALPINGOGRAM ISOVUE 300 30ml IVP'S ISOVUE 300 100ml MYELOGRAMS: CERVICAL ISOVUE-M 300 10mL THORACIC ISOVUE-M 300 10mL LUMBAR ISOVUE-M 200 12mL SMALL BOWEL SERIES E-Z-PAQUE Barium Sulfate for Oral Suspension 710mL or GASTROGRAFIN 240mL LOOPOGRAM ISOVUE 300 60mL NEPHROSTOGRAM ISOVUE 300 60mL RETROGRADE URETHROGRAM Cystografin 300mL UPPER GI Upper GI E-Z-HD Barium Sulfate for Suspension: 340g. and/or E-Z-PAQUE Barium Sulfate for Oral Suspension: 355mL Upper GI Air Contrast Same as above EZ Gas crystals (if indicated) URETHROCYSTOGRAM VOIDING Cystografin 1500mL PORT CONTRAST INJECTION WITH Isovue 300 20mL [facility]ORO PEDIATRICS PROCEDURE CONTRAST DOSAGE Upper GI Under Age 5 Liquid E-Z-Paque (Thin Barium) 240mL Omnipaque 180 (hypaque) or 350 50mL Upper GI Above Age 5 EZ HD (Thick Barium) 340g Liquid E-Z Paque (Thin Barium) 240mL EZ Gas Packet 4g Omnipaque 350 (hypaque) 50mL Small Bowel Series Under Age 5 Liquid E-Z Paque (Thin Barium) 240mL Omnipaque 180 (hypaque) 50mL Small Bowel Series Above Age 5 Liquid E-Z Paque (Thin Barium) 480mL Omnipaque 350 50mL Barium Swallow Under Age 5 Liquid E-Z Paque (Thin Barium) 240mL Omnipaque 180 (hypaque) 50mL Barium Swallow Above Age 5 EZ HD (Thick Barium) 340g Liquid E-Z Paque (Thin Barium) 240mL Omnipaque 350 50mL Modified Barium Swallow >1 Varibar [id number]: 1 to 2 Varibar Thin74 Paste 90g (Video Swallow with Speech) <2 Varibar [id number], [id number], Honey 125mL, Paste 90g IVP Isovue 300 100mL/1mL per lb. Urethrocystogram Voiding Cystografin 500mL Barium Enema Liquid Polibar 400mL+1600 water 2000mL Barium Enema with Hypaque Gastrografin 1 bottle mixed 5 bottle water 720mL Over 5 Gastrografin 480mL+1520 water 2000mL Barium Enema Air Contrast Liquid Polibar 1900mL INTERVENTIONAL RADIOLOGY PROCEDURE DOSAGE IR ARTERIOGRAM VISIPAQUE 320 OR OMNIPAQUE 300 MAX DOSAGE 400mL IR BILIARY ISOVUE 200 MAX DOSAGE 300 mL IR FISTULOGRAM ISOVUE 200 OR VISIPAQUE 320 MAX DOSAGE 400mL IR IVC FILTER ISOVUE 200 OR VISIPAQUE MAX DOSAGE 400 mL IR TUBE PLACEMENT ISOVUE 200 MAX DOSAGE 300 mL IR VENOUS ABDOMINAL VISIPAQUE 320 OR ISOVUE 200 MAX DOSAGE 400 mL IR VENOUS ACCESS ISOVUE 200 MAX DOSAGE 300 mL IR VENOUS UPPER AND LOWER EXTREMITY VISIPAQUE 320 OR ISOVUE 200 MAX DOSAGE 400 mL IR SPINAL INTERVENTION ISOVUE 200 MAX DOSAGE 100mL (FOR BALLOON ONLY) MRI MRI IV CONTRAST PROTOCOLS FOR ADULTS Gadobenate Dimeglumine (MULTIHANCE) (0.1mmol/0.2mL)- Administer 0.1mmol/kg = 0.2mL/kg up to 30mL MAX, intravenously, one time only for routine MRI Gadoxetate (EOVIST) (2.5 mmol/10mL)- Administer 0.025mmol/kg = 0.1mL/kg up to 15mL MAX, intravenously, one time only when requested by radiologist for Liver protocol Gadoteridol (PROHANCE) (0.1mmol/0.2mL)- Administer 0.1mmol/kg = 0.2mL/kg up to 30mL MAX, intravenously, one time only when approved by radiologist for routine MRI MRI IV CONTRAST PROTOCOLS FOR PEDIATRICS Radiologist to determine the need for contrast Term neonates and older: Gadobenate Dimeglumine (MULTIHANCE) (0.1mmol/0.2mL) -Administer 0.1mmol/kg = 0.2mL/kg up 20mL MAX, intravenously, one time only MRI ORAL CONTRAST PROTOCOLS Barium Sulfate 0.1% w/v, 0.1% w/w (VOLUMEN) for Enterography Administer VoLumen- 3 doses of 450 mL. 1st dose must be completed within 20 minutes. 2nd dose must be completed in the next 30 minutes. 3rd dose is given at scan time. Preferred route is oral. May use nasoenteric tube if needed. Use half dose if patient is <100lb NUCLEAR MEDICINE Procedure: Abscess Localization Medications for Procedure: In-111 Leukocytes *Syringes prepped with 2000 units of Heparin added to 10ml of 6% Hetastarch- Approximately 45ml's patient's blood added to the above for labeling Adult Dose: 300-550uCi Pediatric Dose Calculation: .0075mCi/kg Pediatric Minimum: 50uCi Pediatric Maximum: 500uCi Reference: #3 Procedure: Abscess Localization Medications for Procedure: Tc-99m HMPAO Leukocytes *Syringes prepped with 2000 units of Heparin added to 10ml of 6% Hetastarch- Approximately 45ml's patient's blood added to the above for labeling Adult Dose: 15-30mCi Pediatric Dose Calculation: .15mCi/kg Pediatric Minimum: 500uCi Pediatric Maximum: 10.5mCi Reference: #3 Procedure: Abscess Localization Medications for Procedure: Ga-67 Citrate Adult Dose: Ga-67 Citrate Pediatric Dose Calculation: .05mCi/kg Pediatric Minimum: .05mCi/kg Pediatric Maximum: .05mCi/kg Reference: .05mCi/kg Procedure: Arthrogram Medications for Procedure: Tc-99m Sulfur Colloid Adult Dose: 1.0mCi Procedure: Blood Pool (Muga/Hepatic Hemangioma/GI Bleed) Medications for Procedure: Tc-99m Ultratag *Syringe prepped with Heparin Lock Flush(concentration of 100 units/ml) volume of ~.1ml used so dose is ~10 units of Heparin for each procedure Adult Dose: 30mCi Pediatric Dose Calculation: .25mCi/kg Pediatric Minimum: 2.5mCi Pediatric Maximum: 17.5mCi Reference: #1 Comments: Used .25mCi/kg for all exams in this category per Nuclear Medicine physicians Procedure: Bone Scan Medications for Procedure: Tc-99m HDP Adult Dose: 20mCi Pediatric Dose Calculation: .25mCi/kg Pediatric Minimum: 1.0mCi Pediatric Maximum: 17.5mCi Reference: #2 Procedure: Bone Scan Medications for Procedure: Tc-99m MDP Adult Dose: 20mCi Pediatric Dose Calculation: .25mCi/kg Pediatric Minimum: 1.0mCi Pediatric Maximum: 17.5mCi Reference: #2 Procedure: Bone Marrow Imaging Medications for Procedure: Tc-99m Sulfur Colloid Adult Dose: 10mCi Pediatric Dose Calculation: .14mCi/kg Pediatric Minimum: 1.0mCi Pediatric Maximum: 10.0mCi Reference: #1 Procedure: Bowel Imaging (Meckel's) Medications for Procedure: Tc-99m Pertechnetate Adult Dose: 10mCi Pediatric Dose Calculation: .05mCi/kg Pediatric Minimum: 250uCi Pediatric Maximum: 3.5mCi Reference: #2 Procedure: Brain (Cerebral flow) Medications for Procedure: Tc-99m Pertechnetate Adult Dose: 20mCi Pediatric Dose Calculation: .28mCi/kg Pediatric Minimum: 4mCi Pediatric Maximum: 20.0mCi Reference: #1 Procedure: Brain (SPECT) Medications for Procedure: Tc-99m HMPAO(Ceretec) Adult Dose: 30mCi Pediatric Dose Calculation: .35mCi/kg Pediatric Minimum: 3mCi Pediatric Maximum: 25.0mCi Reference: #1 Procedure: Brain (DaTscan) Medications for Procedure: Tc-99m Ioflupane (DaTscan) *120 mg Potassium Iodide in 8 Oz. given PO one hour prior to dosing for procedure Adult Dose: 5mCi Procedure: Cisternogram Medications for Procedure: In-111 DTPA Adult Dose: 2mCi Pediatric Dose Calculation: .007mCi/kg Pediatric Minimum: 100uCi Pediatric Maximum: 500uCi Reference: #1 Procedure: Cystogram Medications for Procedure: Tc-99m Sulfur Colloid or MAA Adult Dose: 1.0mCi Procedure: Gastric Empty (Solid) Medications for Procedure: Tc-99m Sulfur Colloid (eggs/oatmeal/formula) Adult Dose: 1.0mCi Pediatric Dose Calculation: NMIS weight based calculation Pediatric Minimum: 250uCi Pediatric Maximum: 1.0mCi Reference: #5 Procedure: Gastro-esophageal Reflux Medications for Procedure: Tc-99m Sulfur Colloid Adult Dose: 1.0mCi Pediatric Dose Calculation: NMIS weight based calculation Pediatric Minimum: 250uCi Pediatric Maximum: 1.0mCi Reference: #5 Procedure: Hepatobiliary With or without EF Medications for Procedure: Tc-99m Mebrofenin *If using CCK (Sincalide) for EF- dose is .02mcg/kg Sincalide prepared using 5 ml Sterile water added to 5 mcg vial of Sincalide Adult Dose: 5.0mCi Pediatric Dose Calculation: .05mCi/kg Pediatric Minimum: 500uCi Pediatric Maximum: 3.5mCi Reference: #2 Procedure: Hepatobiliary With or without EF Medications for Procedure: Tc-99m Mebrofenin *Bilirubin >1.5mg Adult Dose: 8.0mCi Pediatric Dose Calculation: N/A Pediatric Minimum: 1.0mCi * Pediatric Maximum: 1.0mCi * Reference: #2 Procedure: Hepatic Artery Angiography (Sphere Mapping) Medications for Procedure: Tc-99m MAA Adult Dose: 4.0mCi Pediatric Dose Calculation: N/A Procedure: LeVeen Shunt Patency Medications for Procedure: Tc-99m Sulfur Colloid or MAA Adult Dose: 3.0mCi Procedure: Liver/Spleen Imaging Medications for Procedure: Tc-99m Sulfur Colloid Adult Dose: 5.0mCi Pediatric Dose Calculation: .05mCi/kg Pediatric Minimum: 200uCi Pediatric Maximum: 3.5mCi Reference: #1 Procedure: Lymphoscintigraphy (Breast) Medications for Procedure: Tc-99m Sulfur Colloid (filtered) Adult Dose: 250-550uCi Pediatric Dose Calculation: N/A Procedure: Lymphoscintigraphy (Breast) Medications for Procedure: Tc-99m Tilmanocept (Lymphoseek) Adult Dose: 250-550uCi Pediatric Dose Calculation: N/A Procedure: Lymphoscintigraphy (Melanoma) Medications for Procedure: Tc-99m Sulfur Colloid (filtered) Adult Dose: 500uCi Pediatric Dose Calculation: N/A Procedure: Lymphoscintigraphy (Melanoma) Medications for Procedure: Tc-99m Tilmanocept (Lymphoseek) Adult Dose: 500uCi Pediatric Dose Calculation: N/A Procedure: Lymphoscintigraphy (Melanoma/Breast - 24 hr Injection) Medications for Procedure: Tc-99m Sulfur Colloid (filtered) Adult Dose: 1.8mCi Pediatric Dose Calculation: N/A Procedure: Lymphoscintigraphy (Melanoma/Breast - 24 hr Injection) Medications for Procedure: Tc-99m Tilmanocept (Lymphoseek) Adult Dose: 1.8mCi Pediatric Dose Calculation: N/A Procedure: Lymphoscintigraphy (Lymphedema) Medications for Procedure: Tc-99m Tilmanocept (Lymphoseek) *Apply Topical Lidocaine 30 minutes prior to injections using 4% Anesthetic cream to both feet between webbing of 1st and 2nd toes. Tube is 5 grams of 4% lidocaine Adult Dose: 1.0mCi Pediatric Dose Calculation: N/A Comments: Split dose in (2) 1ml syringes ~500uCi/.1ml each Procedure: Metabolic Tumor Imaging Medications for Procedure: FDG-18 Adult Dose: 10-14mCi Pediatric Dose Calculation: .12mCi/kg Pediatric Minimum: 1.0mCi Pediatric Maximum: 8.4mCi Reference: #2 Procedure: Metabolic Tumor Imaging Medications for Procedure: F-18 Na Flouride Adult Dose: 10-15mCi Pediatric Dose Calculation: .06mCi/kg Pediatric Minimum: .5mCi Pediatric Maximum: 4.2mCi Reference: #2 Procedure: Metabolic Tumor Imaging Medications for Procedure: F-18 fluciclovine(Axumin) Adult Dose: 10.0mCi Pediatric Dose Calculation: N/A Procedure: Metabolic Brain Imaging Medications for Procedure: FDG-18 Adult Dose: 6mCi Pediatric Dose Calculation: .10mCi/kg Pediatric Minimum: 1.0mCi Pediatric Maximum: 5.0mCi Reference: #2 Procedure: Myocardial Perfusion Imaging (Same Day Protocol) Medications for Procedure: Tc-99m Tetrofosmin or Sestamibi *Pharmacologic Stress testing using 0.4mg Lexiscan (regadenoson) for all Myocardial Perfusion protocols Adult Dose: 10mCi (Rest) 30mCi(Stress) *8.0mCi(Rest) *24.0mCi(Stress) Pediatric Dose Calculation: .07mCi/kg, .28mCi/kg Pediatric Minimum: ---, --- Pediatric Maximum: 6.0mCi, 24.0mCi Reference: #1 Comments: *Only used during periods of Tc 99m shortages Procedure: Myocardial Perfusion Imaging (2 day protocol) Day 1(Rest) Day 2(Stress) Medications for Procedure: Tc-99m Tetrofosmin or Sestamibi Adult Dose: 20mCi(Rest), 30mCi(Stress) Pediatric Dose Calculation: .07mCi/kg, .28mCi/kg Pediatric Minimum: ---, --- Pediatric Maximum: 6.0mCi, 24.0mCi Reference: #1 Procedure: Myocardial Perfusion Imaging (Same Day Weight Based Dosing) Medications for Procedure: Tc-99m Tetrofosmin or Sestamibi Adult Dose: Up to 220lbs 10mCi (Rest) 30mCi (Stress) 220-285lbs 13mCi (Rest) 39mCi (Stress) 286-351lbs 16mCi (Rest) 48mCi (Stress) 352lbs and > 19mCi (Rest) 57mCi (Stress) Pediatric Dose Calculation: N/A Procedure: Myocardial Perfusion Imaging (Same Day Weight Based Dosing) Medications for Procedure: Tl-201 Thallous Chloride Adult Dose: 3.25mCi Pediatric Dose Calculation: .035mCi/kg Pediatric Maximum: 2.5mCi Reference: #1 Procedure: Myocardial Infarction Imaging Medications for Procedure: Tc-99m Pyrophosphate Adult Dose: 25.0mCi Pediatric Dose Calculation: N/A Procedure: Parathyroid Imaging Medications for Procedure: Tc-99m Sestamibi Adult Dose: 20.0mCi Pediatric Dose Calculation: .28mCi/kg Pediatric Minimum: 2.0mCi Pediatric Maximum: 20.0mCi Reference: #1 Procedure: Pulmonary Perfusion Imaging Medications for Procedure: Tc-99m MAA Adult Dose: 6.0mCi Pediatric Dose Calculation: .03mCi/kg Pediatric Minimum: 400uCi Pediatric Maximum: 2.1mCi Reference: #2 Procedure: Pulmonary Perfusion Imaging (Pumlonary HTN or Right to Left Shunts) Medications for Procedure: Tc-99m MAA Adult Dose: 1-2.5mCi in max of .2ml volume Pediatric Dose Calculation: N/A Procedure: Pulmonary Perfusion Imaging ( Patients - All Trimesters) Medications for Procedure: Tc-99m MAA Adult Dose: 3.0mCi Pediatric Dose Calculation: N/A Procedure: Pulmonary Ventilation Imaging Medications for Procedure: Xe-133 Gas Adult Dose: 10-30mCi Pediatric Dose Calculation: Adult dose Procedure: Pulmonary Ventilation Imaging Medications for Procedure: Tc-99m DTPA Adult Dose: 35mCi Pediatric Dose Calculation: Adult dose Procedure: Renal Imaging (Cortical) Medications for Procedure: Tc-99m DMSA Adult Dose: 5mCi Pediatric Dose Calculation: .05mCi/kg Pediatric Minimum: 500uCi Pediatric Maximum: 3.5mCi Reference: #2 Procedure: Renal Imaging (Function/ Lasix) Medications for Procedure: Tc-99m MAG 3 *(Lasix IV) 0.5 mg/kg in the adult patient using a minimum of 40 mg and a maximum of 80 mg. The dose for infants (0-1yr. old) is 1mg/kg. The dose for a child (1-16yr. old) is 0.5mg/kg, without a minimum Adult Dose: 10mCi Pediatric Dose Calculation: .15mCi/kg Pediatric Minimum: 500uCi Pediatric Maximum: 10.0mCi Reference: #2 Procedure: Thyroid Uptake/Imaging Medications for Procedure: I-123 Sodium Iodide capsules or solution Adult Dose: 200-500uCi Pediatric Dose Calculation: 5uCi/kg Pediatric Minimum: 50uCi Pediatric Maximum: 250uCi Reference: #4 Procedure: Thyroid Uptake/Imaging Medications for Procedure: I-131 Sodium Iodide Solution (uptake only) Adult Dose: 5-10uCi Pediatric Dose Calculation: N/A Procedure: Thyroid Uptake/Imaging Medications for Procedure: Tc-99m Pertechnetate (scan only) Adult Dose: 10mCi Pediatric Dose Calculation: .14mCi/kg Pediatric Minimum: 1.0mCi Pediatric Maximum: 10.0mCi Reference: #1 Procedure: Tumor Localization Imaging Medications for Procedure: Ga-67 Citrate Adult Dose: 10mCi Pediatric Dose Calculation: .14mCi/kg Pediatric Maximum: 10.0mCi Reference: #1 Procedure: Tumor Localization Imaging Medications for Procedure: In-111 Capromab Pendetide(Prostascint) Adult Dose: 6.0mCi Pediatric Dose Calculation: N/A Procedure: Tumor Localization Imaging (MIBG Scans) Medications for Procedure: I-123 Metaiodobenzylguanidine (MIBG) *120 mg Potassium Iodide in 8 Oz. given PO one hour prior to dosing for procedure Adult Dose: 10mCi Pediatric Dose Calculation: .14mCi/kg Pediatric Minimum: 1.0mCi Pediatric Maximum: 10.0mCi Reference: #2 Procedure: Tumor Localization Imaging (MIBG Scans) Medications for Procedure: I-131Metaiodobenzylguanidine (MIBG) *120 mg Potassium Iodide in 8 Oz. given PO one hour prior to dosing for procedure Adult Dose: 1.0mCi Pediatric Dose Calculation: N/A Procedure: Tumor Localization Imaging Medications for Procedure: In-111 Pentetreotide (Octreoscan) Adult Dose: 6.0mCi Pediatric Dose Calculation: .08mCi/kg Pediatric Maximum: 6.0mCi Reference: #1 Procedure: Tumor Localization Imaging Medications for Procedure: I-131 Sodium Iodide Adult Dose: 5.0mCi Pediatric Dose Calculation: N/A Procedure: Tumor Localization Imaging Medications for Procedure: I-123 Sodium Iodide Adult Dose: 1.5-2.0mCi Pediatric Dose Calculation: .028mCi/kg Reference: No reference information Procedure: Venogram (Upper/Lower Extremities) Medications for Procedure: Tc-99m Ultratag *Syringe prepped with Heparin Lock Flush(concentration of 100 units/ml) volume of ~.1ml used so dose is ~10 units of Heparin for each procedure Adult Dose: 30mCi Pediatric Dose Calculation: N/A Procedure: Ventricular Shunt Imaging Medications for Procedure: Tc-99m DTPA Adult Dose: 1.0mCi Pediatric Dose Calculation: N/A References for Pediatric Administration: Nuclear Medicine Procedure Manual, Division of Nuclear Medicine, [facility] of Radiology; gamma.[facility]/index2.html [place] Consensus Guidelines for Administered Radiopharmaceutical Activities in Children andAdolescents; http://interactive.snm.org/docs/Pediatric dose consensus guidelines Final 2010.pdf ACR-SNM-SPR Practice guideline for the performance of Scintigraphy for inflammation and infection; www/acr.org.guidelines. Revised 2009 9.1 Walter ROSEANNA, Nikita WC, [address]. Nuclear Medicine Diagnosis and Therapy. [employer]1996. Chapter 37, page 930, Table 1. Pediatric weight/dose database file NMIS system: Pediatric Dose = Adult dose (mCi) x Dose Factor Range of Weight (lbs) Dose Factor (%) 0.00-5.00 10 5.01-10.00 10 10.01-15.00 16 15.01-20.00 21 20.01-25.00 25 25.01-30.00 30 30.01-40.00 34 40.01-50.00 41 50.01-60.00 48 60.01-70.00 54 70.01-80.00 61 80.01-90.00 67 90.01-100.00 72 100.01-110.00 78 110.01-120.00 83 120.01-130.00 88 130.01-140.00 94 140.01-142.00 99 142.01-150.00 100 Attention: Any exam, radiopharmaceutical or dosage not included on this list requires physician approval and a written prescription Approved by: Medical Executive Committee and Imaging Services * Ernst Chi NP - 09/15/2025 8:33 AM CDT GI Progress Note Melo Simpson 09/15/2025 CSN [id number] N [id number] Collaborative physician: Dr. Whittington SUBJECTIVE: Patient denies abdominal pain, nausea, vomiting or any other GI complaint. Family at bedside discussed findings of endoscopy and upper GI series. All questions answered ROS: Constitutional ROS: Negative- fever or chills. Cardiovascular ROS: Negative- chest pain or palpitations. Respiratory ROS: Negative- shortness of breath. Gastrointestinal ROS: Negative - n/v, abdominal pain, or overt GI bleeding. Current Facility-Administered Medications Medication Dose Route Frequency Provider Last Rate Last Admin oxyCODONE (ROXICODONE) tablet 5 mg 5 mg Oral every 4 hours PRN Federico Garibay MD 5 mg at 09/15/25 0702 naloxone (NARCAN) 0.4 mg/mL injection 0.1-0.4 mg 0.1-0.4 mg IV see admin instructions Federico Garibay MD pantoprazole (PROTONIX) 40 mg in sodium chloride 0.9% 10 mL injection 40 mg IV BID Federico Garibay MD40 mg at 09/14/252035 sodium chloride flush injection 10 mL 10 mL IV every 12 hours (2 times daily) Federico Garibay MD 10 mL at 09/14/252035 sodium chloride flush injection 10 mL 10 mL IV see admin instructions Federico Garibay MD sodium chloride 0.9 % flush bag 25 mL 25 mL IV see admin instructions Federico Garibay MD dextrose 5 % in water 250 mL flush bag 25 mL 25 mL IV see admin instructions Federico Garibay MD acetaminophen (TYLENOL) tablet 650 mg 650 mg Oral every 6 hours PRN Federico Garibay MD HYDROmorphone (PF) (DILAUDID) injection 0.5 mg 0.5 mg IV every 3 hours PRN Federico Garibay MD 0.5 mg at 09/13/251955 ondansetron (ZOFRAN) 4 mg/2 mL injection 4 mg 4 mg IV every 6 hours PRN Federico Garibay MD 4 mg at 09/13/25 0239 prochlorperazine (COMPAZINE) injection 10 mg 10 mg IV every 6 hours PRN Federico Garibay MD Facility-Administered Medications Ordered in Other Encounters Medication Dose Route Frequency Provider Last Rate Last Admin [DISCONTINUED] propofoL (DIPRIVAN) injection IV intra-proc continuous PRN True, Cybil A, DATA INTEGRITY SPECIALIST Stopped at 09/14/25 1349 [DISCONTINUED] sodium chloride 0.9 % infusion IV intra-proc continuous PRN True, Cybil A, DATA INTEGRITY SPECIALIST Stopped-Anesthesia at 09/14/25 1354 [DISCONTINUED] lidocaine 2 % (XYLOCAINE) injection IV intra-proc PRN True, Cybil A, DATA INTEGRITY SPECIALIST 100 mg at 09/14/25 1347 OBJECTIVE: BP (!) 149/59 (BP Location: Right arm, Patient Position (BP): Supine) Pulse 78 Temp 99.5 ??F (37.5 ??C) (Oral) Resp 16 Ht 5' 9 (1.753 m) Wt 79.4 kg (175 lb) SpO2 95% BMI 25.84 kg/m?? Lungs Unlabored respirations, Clear to auscultation bilaterally. Heart regular rate and rhythm Abdomen: soft, non-tender No intake or output data in the 24 hours ending 09/15/25 0833 Wt Readings from Last 3 Encounters: 09/13/25 79.4 kg (175 lb) 04/10/25 83.5 kg (184 lb) 11/10/22 88.5 kg (195 lb) LABS: Recent Labs 09/13/25 0348 09/13/25 1308 09/13/25 2137 09/14/25 0417 09/15/25 0519 WBC 5.3 -- -- 6.3 5.0 HGB 10.2* < > 10.2* 10.5* 9.7* HCT 31.1* < > 31.5* 31.8* 29.6* PLT 144 -- -- 143 145 MCV 92.0 -- -- 90.3 90.8 < > = values in this interval not displayed. Recent Labs 09/13/25 0348 09/14/257 09/15/25 0519 GLUCOSE 106* 92 99 BUN 14 15 12 CREAT 0.81 0.77 0.77 NA 136 134* 134* K 4.4 3.9 4.0 CL 103 99 101 CO2 25 22 23 ANIONGAP 8* 13 10 CA 8.6 8.8 8.4* Recent Labs 09/13/25 0348 09/14/257 09/15/25 0519 ALKPHOS 355* 331* 298* ALT 39 34 28 AST 32 26 24 BILITOTAL 0.3 0.5 0.4 ALBUMIN 3.7 3.7 3.3* Recent Labs 09/13/25 0402 PT 13.7 INR 1.0 DIAGNOSTICS: Results for orders placed during the hospital encounter of 09/13/25 XR UPR GI Impression : Please see below. Exam: XR UPR GI Date/Time of Exam: 09/15/2025 9:00 AM Reason For Exam: Bowel Obstruction, Comment: Gastric outlet obstruction. Diagnosis: See Reason for Exam. Preliminary findings dictated by Ole Angelo PA-C. Supervision and final interpretation by Dr. Damon. Midwife view of the mid abdomen shows a stent within the common bile duct. Nondistended bowel gas pattern. No other acute findings. The patient was given barium swallow. Thoracic esophagus is normal in course and caliber without mass, stricture ulceration. The esophageal motility is within normal limits. The gastroesophageal junction is within normal limits. The mildly distended stomach does not show any gross mass or ulceration. The duodenal bulb is within normal limits. Moderate to high-grade obstruction from masslike defect in the second portion of the duodenum. The remainder of the duodenum and opacified small bowel is unremarkable. There was no gastroesophageal reflux seen during intermittent fluoroscopy. Impression: 1. Moderate to high grade obstruction secondary to masslike defect in the second portion of the duodenum. Findings consistent with EGD performed on 09/14/2025. 2. Of note, the orientation of the common bile duct stent is now horizontal in the right upper quadrant and on the ERCP image the stent appeared vertical. Displacement of the stent is a consideration. If further evaluation is warranted, repeat cross-sectional imaging with CT or MRI is recommended. There is suspected pneumobilia in the right upper quadrant. EGD 09/14/2025 Findings: Mild to moderate esophagitis Normal stomach. Pylorus is patent. Endoscope was passed to the duodenal bulb or an obvious mass was seen circumferentially. I was unable to pass the endoscope beyond this. At least partial obstruction if not complete was seen. ERCP 04/13/2025 Impression: Infiltrating duodenal mass s/p bx Removal of PTC Biliary stricture s/p FCSEMS placement Possible partial GOO ERCP 04/09/2025 Findings: The esophagus was successfully intubated under direct vision without detailed examination of the pharynx, larynx, and associated structures. There was evidence of a large infiltrative mass with ulceration involving the entire second portion in the region of the ampulla. Ampullary opening could not be identified. Further attempts were aborted due to nonvisualization of the ampullary opening from the underlying mass Impression: Nonvisualization of the ampullary opening secondary to large infiltrative mass EUS 04/09/2025 Impression: Large infiltrating hypoechoic mass measuring 42.1 mm x 40.4 mm in the region of the pancreatic head with infiltration into the lumen of the duodenum status post FNA using 22-gauge acquire needle Loss of fascial plane between the mass and surrounding vascular structures including portal vein and superior mesenteric artery Multiple left hepatic lobe lesions highly suspicious for metastasis status post FNA using a separate 25-gauge SlimLine needle No evidence of any ascites in the visualized portions Findings highly suspicious for stage IV pancreatic adenocarcinoma FINAL DIAGNOSIS A. Pancreatic head mass, fine-needle aspiration and cell block - Positive for malignancy - Malignant spindle cell neoplasm, see comment / B. Left liver lesion, fine-needle aspiration and cell block - Suspicious for malignancy ASSESSMENT and PLAN: A 59 y.o.male admitted with gastric outlet obstruction and suspected upper GI bleed Imaging revealed an enlarging duodenal/pancreatic head mass. He previously underwent EUS/ERCP confirming malignant spindle cell neoplasm and later had ERCP for PTC removal and stent placement, with partial gastric outlet obstruction noted on 04/13/2025. Patient has NG tube with dark output and fluid was noted to be occult positive. Currently patient is hemodynamically stable. Underwent EGD yesterday which showed mild to moderate esophagitis. There was an obvious circumferential mass in the duodenal bulb with at least a partial obstruction. Unable to determine if it was a total obstruction. Hemoglobin this morning 9.7. Patient remains hemodynamically stable. Upper GI series showed moderate to high-grade obstruction secondary to masslike defect in the second portion of the duodenum as seen on EGD. It was noted however that CBD stent is now horizontal in the right upper quadrant, it was vertical at the time of placement. ALP has continued to trend down and since initial presentation now at 298, bilirubin/AST/ALT remain within normal limits, if this changes would consider further imaging. If replacement of fully covered metal stent is needed, patient would need PTC given previous need for rendezvous and inability to visualize stent on EGD. Patient is currently tolerating clear liquid diet. Can advance to full liquid diet as tolerated, but anticipate that he will ultimately require a GJ tube. Oncology consult for second opinion is pending. - Continue to monitor liver related enzymes - Continue PPI - Monitor H&H and transfuse as medically warranted - Notify GI physics and astronomy professor for any brisk bleeding, especially if accompanied by hemodynamic compromise (may need to consider NM bleeding scan vs CTA) POC discussed with Dr. Solano via secure chat. Plan of care discussed and developed in collaboration with Dr. Whittington Thank you for allowing us to participate in Melo Simpson's care. [facility] Cosigned by Leno Whittington DO at 09/15/2025 4:25 PM CDT * Andrea Solano MD - 09/14/2025 3:40 PM CDT Images from the original note were not included. HOSPITAL MEDICINE PROGRESS NOTE Patient name: Melo Simpson Date of : 1965 Room/Bed: [address] [place] [address] ; LOS: 1 day HOSPITAL COURSE SUMMARY: Melo Simpson is a 59 y.o. male who is being admitted for further evaluation of abdominal pain andnausea. Patient is a direct admit from [facility]. He has a past medical history of pancreatic adenocarcinoma. He went to the outside facility complaining of abdominal pain with nausea. CT abdomen pelvis with contrast showing enlarging mass centered in second portion of duodenal/pancreatic head, may be partially obstructing the duodenum, cholelithiasis. Ultrasound abdomen showing gallstones with gallbladder wall upper limits of normal in thickness, CBD stent. Patient had NG tube placed and w as found to have positive occult blood on gastric fluid. He is being transferred to [facility] for GI evaluation and higher level of care. 09/13: Took over patient care, continue NG tube to intermittent suction, pending GI evaluation 09/14: S/p EGD, showing esophagitis, cannot pass the scope past the obvious circumferential mass, upper GI follow-through ordered. Oncology consulted for second opinion SUBJECTIVE: Patient was seen and examined at bedside this morning. Patient is denying any nausea, continues to pass gas denies any complaint. ROS: negative except as mentioned above. OBJECTIVE: BP (!) 146/79 Pulse 97 Temp 98.4 ??F (36.9 ??C) (Oral) Resp 18 Ht 5' 9 (1.753 m) Wt 79.4kg (175 lb) SpO2 99% BMI 25.84 kg/m?? Intake/Output Summary (Last 24 hours) at 09/14/2025 1540 Last data filed at 09/14/2025 0430 Gross per 24 hour Intake -- Output 450 ml Net -450 ml EXAM: General: alert, in no distress Neurologic: Grossly normal HEENT: atraumatic, Normocephalic, without obvious abnormality Lungs: clear to auscultation bilaterally, normal respiratory effort Heart: normal rate, regular rhythm, normal S1, S2, no murmurs Abdomen: Soft, non-tender. Bowel sounds normal. No masses, no organomegaly. Extremities: intact distal pulses, moves all extremities equally, no cyanosis or edema Skin: negative LABORATORY: Recent Labs 09/13/25 0348 09/13/25 1308 09/13/25 2137 09/14/25 0417 WBC 5.3 -- -- 6.3 HGB 10.2* 10.4* 10.2* 10.5* HCT 31.1* 32.0* 31.5* 31.8* PLT 144 -- -- 143 Recent Labs 09/13/25 0348 09/14/25 0417 NA 136 134* K 4.4 3.9 CL 103 99 CO2 25 22 CA 8.6 8.8 BUN 14 15 CREAT 0.81 0.77 GLUCOSE 106* 92 Recent Labs 09/13/25 0348 09/14/25 0417 TOTALPROTEIN 6.5 6.8 ALBUMIN 3.7 3.7 BILITOTAL 0.3 0.5 ALKPHOS 355* 331* AST 32 26 ALT 39 34 Diagnostic testing and medications were reviewed. Primary discharge diagnosis: Upper GI bleed Other active medical issues also addressed during this admission: Active Hospital Problems Diagnosis Upper GI bleed Gastric outlet obstruction History of biliary stent insertion Pancreatic mass Abdominal pain, acute, right upper quadrant Resolved Hospital Problems No resolved problems to display. ASSESSMENT AND PLAN: Duodenal obstruction secondary to pancreatic adenocarcinoma Concern for upper GI bleed Abdominal pain Pancreatic adenocarcinoma CT abdomen pelvis with contrast showing enlarging mass centered in second portion of duodenal/pancreatic head, may be partially obstructing the duodenum, cholelithiasis. Status post NG tube placement, removed prior to EGD will continue to monitor without an NG tube Gastric fluid positive for occult blood GI consulted, appreciate assistance, s/p EGD showing at least partial obstruction if no total obstruction by the mass Continue with twice daily Protonix Hemoglobin stable Telemetry monitoring Upper GI follow-through ordered Code status: Full Code Diet: Diet Orders Procedures DIET CLEAR LIQUID DVT Pharmacologic Prophylaxis: Patient has a contraindication for pharmacologic prophylaxis. Pleaserefer to the orders for additional details. Disposition: Discharge barriers: Pending Discharge follow-ups: PCP MDM complexity: [] Mild [x] Moderate [] High Andrea Solano MD, 09/14/2025 3:40 PM * Regina Ragsdale Allie (Student) - 09/14/2025 10:21 AM CDTSummary: Medical Student Note Images from the original note were not included. Your life is our life's work [facility] Hospitalist/Hospital Medicine Progress Note LOS: 1 day Room/Bed: 40/01 Patient name: Melo Simpson Date of : 1965 HOSPITAL COURSE SUMMARY: Melo Simpson, a 59 y.o. male with pancreatic adenocarcinoma, is admitted for further management of abdominal pain with nausea and vomiting, found to have gastric outlet obstruction with concern forupper GI bleed. Admitted from [facility]. Has known pancreatic adenocarcinoma of the pancreatic head. Has a history of partial gastric outlet obstruction and stent as well as PTC. Workup included CT with contrast that showed enlarging mass of the pancreatic head with possible obstruction of the duodenum. Also showed cholelithiasis. US of the abdomen significant for gallstones, CBD stent. NG tube placement had positive occult blood in gastric fluid. No labs from [facility]. Treatment and management has included continuation of twice daily pantoprazole and monitoring. GI consult requested. 09/13/25: Pt continues to improve and remains hemodynamically stable with no blood seen grossly in NG output. Hgb stable at 10.2-10.4. Alk phos elevated at 355. Remains on protonix, zofran, compazine, NPO with plans for EGD per GI. Consultants: IP CONSULT TO GI IP CONSULT TO IV TEAM IP CONSULT TO IV TEAM SUBJECTIVE: Melo is doing better overall this morning. He had pressure in his chest last night due to improper NG tube placement. He is no longer having this pressure. His abdominal pain is gone. He has not had a bowel movement, but is passing gas. Otherwise, he has no questions or concerns. ROS: History obtained from the patient Constitutional: negative for fever, chills, negative for confusion HEENT: positive for sore throat Pulmonary: Negative for dyspnea, no cough Cardiovascular: negative for chest pain, no palpitations GI: Negative for nausea, vomiting, no abdominal pain Renal: no dysuria Neuro: positive for headache, no vision changes OBJECTIVE: Temp (24hrs), Av.7 ??F (37.1 ??C), Min:98.1 ??F (36.7 ??C), Max:99.9 ??F (37.7 ??C) BP (!) 156/79 (BP Location: Right arm, Patient Position (BP): Sitting) Pulse 79 Temp 98.2 ??F (36.8 ??C) (Oral) Resp 13 Ht 5' 9 (1.753 m) Wt 79.4 kg (175 lb) SpO2 94% BMI 25.84 kg/m?? Intake/Output Summary (Last 24 hours) at 09/14/2025 1022 Last data filed at 09/14/2025 0430 Gross per 24 hour Intake -- Output 2325 ml Net -2325 ml Last documented weight: Weight: 79.4 kg (175 lb) (09/13/25 0048) EXAM: General: alert, in no distress Neurologic: Grossly normal HEENT: atraumatic, Normocephalic, without obvious abnormality, No lympadenoapthy Lungs: normal respiratory effort, no wheezing, rhonchi, rales. Can hear bowel sounds on chest auscultation. Heart: normal rate, regular rhythm, normal S1, S2, no murmurs, rubs, clicks or gallops Abdomen: soft, non-tender, non-distended, normal bowel sounds Extremities: extremities normal, atraumatic, no cyanosis or edema, moves all extremities equally, no edema, redness or tenderness in the calves or thighs, normal strength, normal tone Skin: negative LABORATORY: Recent Labs 09/13/25 0348 09/13/25 1308 09/13/25 2137 09/14/25 0417 WBC 5.3 -- -- 6.3 HGB 10.2* 10.4* 10.2* 10.5* HCT 31.1* 32.0* 31.5* 31.8* PLT 144 -- -- 143 Recent Labs 09/13/25 0348 09/14/25416 NA 136 134* K 4.4 3.9 CL 103 99 CO2 25 22 CA 8.6 8.8 BUN 14 15 CREAT 0.81 0.77 GLUCOSE 106* 92 Recent Labs 09/13/25 0348 09/14/25416 TOTALPROTEIN 6.5 6.8 ALBUMIN 3.7 3.7 BILITOTAL 0.3 0.5 ALKPHOS 355* 331* AST 32 26 ALT 39 34 Recent Labs 09/13/25 040 INR 1.0 PT 13.7 No results for input(s): BASETROP , 2HRTROP , DELTA , 6HRTROP in the last 72 hours. Medications were reviewed by me. Current Facility-Administered Medications: oxyCODONE (ROXICODONE) tablet 5 mg, 5 mg, Oral, every 4 hours PRN, Federico Garibay MD naloxone (NARCAN) 0.4 mg/mL injection 0.1-0.4 mg, 0.1-0.4 mg, IV, see admin instructions, Federico Garibay MD pantoprazole (PROTONIX) 40 mg in sodium chloride 0.9% 10 mL injection, 40 mg, IV, BID, Federico Garibay MD, 40 mg at 09/14/25 0924 sodium chloride flush injection 10 mL, 10 mL, IV, every 12 hours (2 times daily), Federico Garibay MD,10 mL at 09/14/25 0925 sodium chloride flush injection 10 mL, 10 mL, IV, see admin instructions, Federico Garibay MD sodium chloride 0.9 % flush bag 25 mL, 25 mL, IV, see admin instructions, Federico Garibay MD dextrose 5 % in water 250 mL flush bag 25 mL, 25 mL, IV, see admin instructions, Federico Garibay MD acetaminophen (TYLENOL) tablet 650 mg, 650 mg, Oral, every 6 hours PRN, Federico Garibay MD HYDROmorphone (PF) (DILAUDID) injection 0.5 mg, 0.5 mg, IV, every 3 hours PRN, Federico Garibay MD, 0.5 mg at 09/13/251955 ondansetron (ZOFRAN) 4 mg/2 mL injection 4 mg, 4 mg, IV, every 6 hours PRN, Federico Garibay MD, 4 mg at 09/13/25 0239 prochlorperazine (COMPAZINE) injection 10 mg, 10 mg, IV, every 6 hours PRN, Federico Garibay MD [] lactated ringers infusion, , IV, continuous, Federico Garibay MD, Stopped at 09/14/25 0059 Primary discharge diagnosis: Upper GI bleed Other active medical issues also addressed during this admission: Active Hospital Problems Diagnosis Upper GI bleed Gastric outlet obstruction History of biliary stent insertion Pancreatic mass Abdominal pain, acute, right upper quadrant Resolved Hospital Problems No resolved problems to display. ASSESSMENT AND PLAN: Gastric Outlet Obstruction CT showed enlarging mass of the pancreatic head with partial obstruction of the duodenum Cholelithiasis also present and likely contributing to abdominal pain NG tube with initial output of occult blood, currently output is bilious with sediment. NG tube is displaced, okay to remove since pt is going for EGD today Remain NPO Plan for EGD today per GI to assess for extent of obstruction Zofran, compazine for nausea Concern for upper GI bleed Ddx includes gastric ulcer, gastric or duodenal varices from splenic vein thrombosis, Sugar-weisstear from vomiting, direct tumor invasion of gastric wall, erosive gastritis. Issue most likely exacerbated or initiated by underlying malignancy. Initial NG output positive for occult blood, current NG output does not have obvious blood Continue twice daily Protonix for management of potential bleed Continue Lactated ringers Consider Carafate Plan for EGD today per GI to assess for continued bleeding Monitor hemoglobin and hematocrit for signs of continued bleeding, transfuse if hgb<7 Monitor vitals for hemodynamic instability, currently appears to be stable Pancreatic adenocarcinoma of the pancreatic head CT from outside ER shows enlarging mass, this is the likely cause of the obstruction and could be causing the source of bleeding. Pt should follow up with his oncologist after discharge Nutrition Status: NPO DVT prophylaxis: SCDs Code status: Full Code Regina Ragsdale 09/14/2025, 10:22 AM Cosigned by Andrea Solano MD at 09/14/2025 1:51 PM CDT Associated attestation - Andrea Solano MD - 09/14/2025 1:51 PM CDT This is a medical student note for teaching purposes only, Patient seen and examined with student, please review hospitalist PN for assessment and plan. * Yessi Perze GN - 09/14/2025 6:30 AM CDT Patient NG tube not in place at nose marking. Messaged Xiomara YARBROUGH to get orders for X-ray to verify placement. X-ray done ant NG not in place. Received orders from Xiomara YARBROUGH to call ENDO to ask when he was getting his procedure done, was told some time this AM. Relayed info to Xiomara who gave me orders to remove NG tube. NG removed. Patient tolerated well, will continue to monitor. * Nithya Altamirano GN - 09/14/2025 5:44 AM CDT Pt abdominal xray showed NG tube was not in place. Xray emissions testing technician waited while I advanced NG tube.Another xray was obtained and showed NG was in proper placement after one attempt. Put new tape on nose and NG tube to show measurement on tubing if NG becomes displaced again. Patient tolerated well. Suction is working and gastric contents are being emptied. * Yessi Perez GN - 09/13/2025 7:37 PM CDT Patient started complaining of NG tube suctioning in Upper left chest area. I stopped suction and notified wallpaper printer physics and astronomy professor Susana ROAD MARKER. Received orders for a stat X-ray to confirm Placement. Abd Xray complete. Awaiting results. Will continue to monitor, report given to MICHAEL Barriga who is aware of care. * Regina Ragsdale Allie (Student) - 09/13/2025 11:26 AM CDTSumjean claude: Medical Student Progress Note Images from the original note were not included. Your life is our life's work [facility] Hospitalist/Hospital Medicine Progress Note LOS: 0 days Room/Bed: 7122/01 Patient name: Melo Simpson Date of : 1965 HOSPITAL COURSE SUMMARY: Melo Simpson, a 59 y.o. male with pancreatic adenocarcinoma, is admitted for further management of abdominal pain with nausea and vomiting, found to have gastric outlet obstruction with concern forupper GI bleed. Admitted from [facility]. Has known pancreatic adenocarcinoma of the pancreatic head. Has a history of partial gastric outlet obstruction and stent as well as PTC. Workup included CT with contrast that showed enlarging mass of the pancreatic head with possible obstruction of the duodenum. Also showed cholelithiasis. US of the abdomen significant for gallstones, CBD stent. NG tube placement had positive occult blood in gastric fluid. No labs from [facility]. Treatment and management has included continuation of twice daily pantoprazole and monitoring. GI consult requested. Consultants: IP CONSULT TO GI IP CONSULT TO IV TEAM IP CONSULT TO IV TEAM SUBJECTIVE: Melo is feeling a little better this morning, but is sick of the NG tube. It is making him cough and causing sore throat. He is still having RUQ pain but it is improved from yesterday, and it comesand goes. He has no nausea this morning. His hands feel swollen which is bothering him. He has not been able to urinate yet, and has not had a bowel movement. Otherwise he has no questions. ROS: History obtained from the patient Constitutional: negative for fever, chills, negative for confusion HEENT: positive for sore throat Pulmonary: positive for dyspnea, no cough Cardiovascular: negative for chest pain, no palpitations GI: Positive for nausea, vomiting, abdominal pain Renal: no dysuria Neuro: positive for headache, no vision changes OBJECTIVE: Temp (24hrs), Av.4 ??F (36.9 ??C), Min:98.2 ??F (36.8 ??C), Max:98.7 ??F (37.1 ??C) BP (!) 140/71 (BP Location: Right arm, Patient Position (BP): Supine) Pulse 78 Temp 98.4 ??F (36.9 ??C) (Oral) Resp 12 Ht 5' 9 (1.753 m) Wt 79.4 kg (175 lb) SpO2 97% BMI 25.84 kg/m?? Intake/Output Summary (Last 24 hours) at 09/13/2025 1126 Last data filed at 09/13/2025 1100 Gross per 24 hour Intake -- Output 1450 ml Net -1450 ml Last documented weight: Weight: 79.4 kg (175 lb) (09/13/25 0048) EXAM: General: alert, in no distress Neurologic: Grossly normal HEENT: atraumatic, Normocephalic, without obvious abnormality, No lympadenoapthy Lungs: normal respiratory effort, rales R base, L base Heart: normal rate, regular rhythm, normal S1, S2, no murmurs, rubs, clicks or gallops Abdomen: abnormal findings: tenderness mild and moderate in the RUQ, non- distended, normal bowel sounds Extremities: extremities normal, atraumatic, no cyanosis or edema, moves all extremities equally, no edema, redness or tenderness in the calves or thighs, normal strength, normal tone Skin: negative LABORATORY: Recent Labs 09/13/25347 WBC 5.3 HGB 10.2* HCT 31.1* PLT 144 Recent Labs 09/13/25347 NA 136 K 4.4 CL 103 CO2 25 CA 8.6 BUN 14 CREAT 0.81 GLUCOSE 106* Recent Labs 09/13/25347 TOTALPROTEIN 6.5 ALBUMIN 3.7 BILITOTAL 0.3 ALKPHOS 355* AST 32 ALT 39 Recent Labs 09/13/25 0402 INR 1.0 PT 13.7 No results for input(s): BASETROP , 2HRTROP , DELTA , 6HRTROP in the last 72 hours. Medications were reviewed by me. Current Facility-Administered Medications: oxyCODONE (ROXICODONE) tablet 5 mg, 5 mg, Oral, every 4 hours PRN, Federico Garibay MD naloxone (NARCAN) 0.4 mg/mL injection 0.1-0.4 mg, 0.1-0.4 mg, IV, see admin instructions, Federico Garibay MD pantoprazole (PROTONIX) 40 mg in sodium chloride 0.9% 10 mL injection, 40 mg, IV, BID, Federico Gairbay MD, 40 mg at 09/13/25 0900 sodium chloride flush injection 10 mL, 10 mL, IV, every 12 hours (2 times daily), Federico Garibay MD,10 mL at 09/13/25 0914 sodium chloride flush injection 10 mL, 10 mL, IV, see admin instructions, Federico Garibay MD sodium chloride 0.9 % flush bag 25 mL, 25 mL, IV, see admin instructions, Federico Garibay MD dextrose 5 % in water 250 mL flush bag 25 mL, 25 mL, IV, see admin instructions, Federico Garibay MD acetaminophen (TYLENOL) tablet 650 mg, 650 mg, Oral, every 6 hours PRN, Federico Garibay MD HYDROmorphone (PF) (DILAUDID) injection 0.5 mg, 0.5 mg, IV, every 3 hours PRN, Federico Garibay MD, 0.5 mg at 09/13/25 1111 ondansetron (ZOFRAN) 4 mg/2 mL injection 4 mg, 4 mg, IV, every 6 hours PRN, Federico Garibay MD, 4 mg at 09/13/25 0239 prochlorperazine (COMPAZINE) injection 10 mg, 10 mg, IV, every 6 hours PRN, Federico Garibay MD lactated ringers infusion, , IV, continuous, Federico Garibay MD, Last Rate: 75 mL/hr at 09/13/25 0244, New Bag at 09/13/25 0244 Primary discharge diagnosis: Upper GI bleed Other active medical issues also addressed during this admission: Active Hospital Problems Diagnosis Upper GI bleed Gastric outlet obstruction History of biliary stent insertion Pancreatic mass Abdominal pain, acute, right upper quadrant Resolved Hospital Problems No resolved problems to display. ASSESSMENT AND PLAN: Gastric Outlet Obstruction CT showed enlarging mass of the pancreatic head with partial obstruction of the duodenum Cholelithiasis also present and likely contributing to abdominal pain NG tube places with initial output of occult blood, currently output is bilious with sediment. Significant amount of output supports continued obstruction GI consulted Remain NPO Plan for EGD tomorrow per GI to assess for extent of obstruction Zofran, compazine for nausea Concern for upper GI bleed Initial NG output positive for occult blood, current NG output does not have obvious blood Continue twice daily Protonix for management of potential bleed Plan for EGD tomorrow per GI to assess for continued bleeding Monitor hemoglobin and hematocrit for signs of continued bleeding, transfuse if hgb<7 Monitor vitals for hemodynamic instability, currently appears to be stable Pancreatic adenocarcinoma of the pancreatic head CT from outside ER shows enlarging mass, this is the likely cause of the obstruction Pt should follow up with his oncologist after discharge Genitourinary/renal Pt had not been able to urinate yet as of this morning, if this continues, consider bladder scan Continue lactated ringers Nutrition Status: NPO DVT prophylaxis: SCDs Code status: Full Code Regina Ragsdale 09/13/2025, 11:26 AM Cosigned by Andrea Solano MD at 09/13/2025 12:30 PM CDT Associated attestation - Andrea Solano MD - 09/13/2025 12:30 PM CDT This is a medical student note for teaching purposes only, Patient seen and examined with student, please review hospitalist PN for assessment and plan. documented in this encounter H&P Notes * Federico Garibay MD - 09/13/2025 2:49 AM CDT [facility]Federico Garibay MD History and physical- date of admission: 09/13/2025 Patient name: Melo Simpson Date of : 1965 CSN number: [id number] PCP: No primary care provider on file. Chief Complaint: No chief complaint on file. History of present illness: Pt seen and examined at the bedside Melo Simpson is a 59 y.o. male who is being admitted for further evaluation of abdominal pain andnausea. Patient is a direct admit from [facility]. He has a past medical history of pancreatic adenocarcinoma. He went to the outside facility complaining of abdominal pain with nausea. CT abdomen pelvis with contrast showing enlarging mass centered in second portion of duodenal/pancreatic head, may be partially obstructing the duodenum, cholelithiasis. Ultrasound abdomen showing gallstones with gallbladder wall upper limits of normal in thickness, CBD stent. Patient had NG tube placed and w as found to have positive occult blood on gastric fluid. He is being transferred to [facility] for GI evaluation and higher level of care. Past medical history: Past Medical History: Diagnosis Date Patient denies medical problems Active chronic medical issues that patient has been followed for as outpatient: Patient Active Problem List Diagnosis Code Pancreatic mass K86.89 Common bile duct dilatation K83.8 Transaminitis R74.01 Calcification of gallbladder K82.8 Abdominal pain, acute, right upper quadrant R10.11 Biliary obstruction (CMS/HCC) K83.1 Elevated LFTs R79.89 Biliary stricture (CMS/HCC) K83.1 History of biliary stent insertion Z98.890 Protein-calorie malnutrition, moderate E44.0 Upper GI bleed K92.2 Gastric outlet obstruction K31.1 Past surgical history: Past Surgical History: Procedure Laterality Date HX ERCP N/A 04/09/2025 CHOLANGIOPANCREATOGRAPHY RETROGRADE ENDOSCOPIC performed by Cecil An MD at [facility] ENDOSCOPY HX ERCP N/A 04/13/2025 CHOLANGIOPANCREATOGRAPHY RETROGRADE ENDOSCOPIC performed by Stephanie Oden DO at [facility] ENDOSCOPY CA ESOPHAGOGASTRODUODENOSCOPY US SCOPE W/ADJ STRXRS N/A 04/09/2025 ESOPHAGOGASTRODUODENOSCOPY WITH ENDOSCOPIC ULTRASOUND performed by Cecil An MD at [facility] ENDOSCOPY PT DENIES RELEVANT SURGICAL HISTORY Current medications: Prior to Admission Medications Prescriptions Last Dose Informant Patient Reported? Taking? ferrous sulfate 325 mg (65 mg iron) tablet > Month No No Sig: Take 1 Tablet (325 mg) by mouth daily. oxyCODONE (ROXICODONE) 5 mg tablet > Month No No Sig: Take 1 Tablet (5 mg) by mouth every 4 hours as needed for Pain. Max Daily Amount: 30 mg pantoprazole (PROTONIX) 40 mg Tablet, Delayed Release (E.C.) 09/12/2025 Morning Yes Yes Sig: Take 40 mg by mouth daily. Facility-Administered Medications: None Allergies and intolerances: Allergies Allergen Reactions Shrimp Anaphylaxis Onion Unknown Social history: Social History Socioeconomic History Marital status: Spouse name: Not on file Number of children: Not on file Years of education: Not on file Highest education level: Not on file Occupational History Not on file Tobacco Use Smoking status: Never Smokeless tobacco: Never Vaping Use Vaping status: Not on file Substance and Sexual Activity Alcohol use: Not on file Drug use: Never Sexual activity: Not on file Other Topics Concern Not on file Social History Narrative Not on file Health-Related Social Needs Food Insecurity: Low Risk (09/13/2025) Food Insecurity Eating less because can't pay for food: No Transportation Needs: Low Risk (09/13/2025) Transportation Needs Worry about transportation for 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 ROS: As per HPI OBJECTIVE: Temp (24hrs), Av.2 ??F (36.8 ??C), Min:98.2 ??F (36.8 ??C), Max:98.2 ??F (36.8 ??C) BP (!) 181/81 (BP Location: Right arm, Patient Position (BP): Sitting) Pulse 78 Temp 98.2 ??F (36.8 ??C) (Axillary) Resp 16 Ht 5' 9 (1.753 m) Wt 79.4 kg (175 lb) SpO2 96% BMI 25.84 kg/m?? No intake or output data in the 24 hours ending 09/13/25 0253 Last documented weight: Weight: 79.4 kg (175 lb) (09/13/25 0048) EXAM: General: Lying in bed, not in distress Mental exam: Alert oriented x 3 Neurologic: Grossly normal HEENT: Normocephalic Lungs: Normal respiratory effort Heart: Normal rate Abdomen: Nondistended Extremities: No edema Lab Data: No results for input(s): WBC , HGB , HCT , PLT in the last 72 hours. No results for input(s): NA , K , CL , CO2 , CA , BUN , CREAT , GLUCOSE in the last 72 hours. No results for input(s): TOTALPROTEIN , ALBUMIN , BILITOTAL , ALKPHOS , AST , ALT in the last 72 hours. No results for input(s): INR , PT in the last 72 hours. Invalid input(s): PTT No results for input(s): CPK , CKMB , TROPONIN in the last 72 hours. Primary diagnosis: Upper GI bleed Other active medical issues Active Hospital Problems Diagnosis Upper GI bleed Gastric outlet obstruction History of biliary stent insertion Pancreatic mass Abdominal pain, acute, right upper quadrant Resolved Hospital Problems No resolved problems to display. ASSESSMENT AND PLAN: Concern for upper GI bleed Gastric outlet obstruction Abdominal pain Pancreatic adenocarcinoma CT abdomen pelvis with contrast showing enlarging mass centered in second portion of duodenal/pancreatic head, may be partially obstructing the duodenum, cholelithiasis. Status post NG tube placement Gastric fluid positive for occult blood GI consulted Continue with twice daily Protonix Hemoglobin at outside facility was 12.0, H&H monitoring Telemetry monitoring N.p.o. DVT Pharmacologic Prophylaxis: SCDs only Current diet : DIET NPO Sips w/Meds, Code Status: Full Code Admission status -admit to telemetry This patient is admitted as inpatient. I have a reasonable expectation that this patient requires hospital care that crosses 2 midnights supported by complex medical factors documented in the medicalrecord. On the day of the visit, I spent 76 minutes providing care to this patient including Preparing to see the patient, Obtaining and/or reviewing separately obtained history, Performing a medically appropriate examination and/or evaluation, Counseling and educating the patient/family/caregiver, Ordering medications, tests or procedures, Documenting clinical information in the medical record, Referring and communication with other health direct care professional (not separately reported), Independently interpreting results and communicating results to the patient/family/caregiver (not separately reported), and Care coordination (not separately reported). Federico Garibay MD 09/13/2025 2:53 AM documented in this encounter Procedure Notes * Renny Nuno RN - 09/20/2025 7:15 PM CDTAssociated Order(s): INSERT MIDLINE IV Images from the original note were not included. VASCULAR ACCESS NOTE Midline PATIENT NAME: Melo Simpson DATE OF : 1965 CSN: [id number] DATE: 09/20/2025 Room: [address] [place] [address] Admit Date: 09/13/2025 Hospital day: LOS: 7 days LINE STATUS: A Midline catheter was successfully inserted and can be used Adult Midline Catheter: Single Lumen 09/20/251914 Right: basilic vein (Active) 09/20/251914 basilic vein Earliest Known Present: Present on Admission: Orientation: Right: Size: Number of Insertion Attempts: 1 Insertion: Patient Tolerance: tolerated well Insertion: Pain Prevention: distraction Power Injectable Compatable: Yes Earliest Known Removed: Removal Indication: Removal Interventions: *Procedural Assist Insertion of Midline catheter WO SQ port >5 yrs 09/20/251914 Extremity Circumference, Mid-Upper (cm) 30 09/20/251914 Patency flushes w/o difficulty;positive blood return 09/20/251914 Line Interventions system flushed;aspirate returned;antimicrobial cap/s in place or applied to lineand/or tubing;IV capped 09/20/251914 Dressing Type/Securement antimicrobial patch/disc;transparent semipermeable dressing;secured with tape;site adhesive 09/20/251914 Dressing Changed Date 09/20/25 09/20/251914 Needleless Connector Changed Date 09/20/25 09/20/251914 Line Criteria Poor venous access 09/20/251914 Number of days: 0 MIDLINE PROCEDURE A Time Out process was completed prior to the midline placement procedure confirming correct patient, correct procedure site, and correct procedure being performed. Ultrasound assessment was performed to assess adequacy of vascular anatomy Adequate vessel was located with less than 45% catheter to vein ratio. Insertion site cleansed for 30 seconds with Chlora-prep Allowed to dry before initial needle stick. A midline was inserted in the basilic vein of the right upper arm using ultrasound guidance under sterile technique. 18 gauge, 8 cm Secure port adhesive used Yes 1 attempts 50 minutes required to complete procedure, including time waiting for physician communication regarding orders Positive blood return visualized. Neutral pressure cap applied Catheter flushed easily with 5ml of Normal Saline Transparent antimicrobial stabilization dressing applied Antimicrobial cap placed Dressing with date, time and initials of RN Patient tolerated procedure well. Primary care nurse notified of catheter placement Renny Nuno RN CARE AND MAINTENANCE This is not a central line. NO BLOOD PRESSURES on arm with powerglide Requires physician order for blood draws The midline is indicated for use as a peripheral IV access only The midline is Power injectable - Securely apply neutral OR positive pressure cap when not in use. Use port protector cap when not in use Flush the catheter with 5 mL of normal saline every 12 hours or after each use, using a 10 mL or larger Flush the catheter with 10ml normal saline before blood draw and flush with 20 ml of normal saline after blood draws, using a 10ml or larger syringe. Waste 5ml prior to collection. Flush catheter once weekly when not in use(outpatient setting). Flush catheter using pulsating start-stop technique Always use 10ml syringe when flushing Do not forcefully flush against resistance Change dressing weekly and as needed using sterile technique * Leno Whittington DO - 09/14/2025 1:58 PM CDTAssociated Order(s): UPPER ENDOSCOPY REPORT [facility] GI Patient Name: Melo Simpson Procedure Date: 09/14/2025 Date of : 1965 Admit Type: Inpatient Age: 59 Attending MD: Leno Whittington DO, Procedure: Upper GI endoscopy Providers: Leno Whittington DO Referring MD: Medicines: Propofol per Anesthesia Complications: No immediate complications. Procedure: Pre-Anesthesia Assessment: - Prior to the procedure, a History and Physical was performed, and patient medications, allergies and sensitivities were reviewed. The patient's tolerance of previous anesthesia was reviewed. - The risks and benefits of the procedure and the sedation options and risks were discussed with the patient. All questions were answered and informed consent was obtained. - ASA Grade Assessment: III - A patient with severe systemic disease. After obtaining informed consent, the endoscope was passed under direct vision. Throughout the procedure, the patient's blood pressure, pulse, and oxygen saturations were monitored continuously. The Endoscope was introduced through the mouth, and advanced to the duodenal bulb. The upper GI endoscopy was accomplished without difficulty. The patient tolerated the procedure well. Estimated Blood Loss: Estimated blood loss: none. Findings: Mild to moderate esophagitis Normal stomach. Pylorus is patent. Endoscope was passed to the duodenal bulb or an obvious mass was seen circumferentially. I was unable to pass the endoscope beyond this. At least partial obstruction if not complete was seen. Plan: Clear liquid diet if tolerated Per oncology Leno Whittington DO 09/14/2025 1:58:01 PM This report has been signed electronically. Number of Addenda: 0 Note Initiated On: 09/14/2025 1:36 PM Scope Withdrawal Time Scope In: Scope Out: [address] [place], [place] * Juventino George RN - 09/13/2025 2:30 AM CDT VASCULAR ACCESS TEAM Peripheral IV insertion PATIENT NAME: Melo Simpson DATE OF : 1965 CSN: [id number] DATE: 09/13/2025 Room: [address] [place] [address] Admit Date: 09/13/2025 Hospital day: LOS: 0 days Allergies: Allergies Allergen Reactions Shrimp Anaphylaxis Onion Unknown PERIPHERAL IV INSERTION Ultrasound assessment was performed to assess adequacy of vascular anatomy Adequate vessel was located Insertion site cleansed for 30 seconds with Chlora-prep. Allowed to dry before initial needle stick. A 20 Gauge 2 Inch peripheral IV was successfully placed using ultrasound guidance in the right, lower Arm Secure port adhesive used Yes 1 attempts 30 minutes required to complete procedure Positive blood return noted Neutral pressure cap applied Catheter Flushed with 5ml of Normal Saline Transparent dressing applied with date, time and initials of cowoker inserting. LDA documentation is contained in EMR flowsheet Patient tolerated well. Juventino George RN documented in this encounter Consult Notes * Renny Nuno RN - 09/20/2025 6:18 PM CDTAssociated Order(s): IP CONSULT TO IV TEAM VASCULAR ACCESS CONSULT PATIENT NAME: Melo Simpson DATE OF : 1965 CSN: [id number] DATE: 09/20/2025 Room: [address] [place] [address] Admit Date: 09/13/2025 Hospital day: LOS: 7 days INDICATION: continuous IV fluids and intermittent IV push medications EXCLUSIONS/CONSIDERATIONS: none noted in chart LAST RECORDED TEMP: Temp: 97.8 ??F (36.6 ??C) (09/20/25 1516)] Assessment Allergies Allergen Reactions Shrimp Anaphylaxis Onion Unknown Lab Results Component Value Date/Time CREAT 0.77 09/20/2025 04:21 AM BUN 18 09/20/2025 04:21 AM NA 138 09/20/2025 04:21 AM K 3.9 09/20/2025 04:21 AM CL 97 (L) 09/20/2025 04:21 AM CO2 27 09/20/2025 04:21 AM GFR >60 09/20/2025 04:21 AM Lab Results Component Value Date/Time WBC 9.9 09/20/2025 04:21 AM HGB 11.3 (L) 09/20/2025 04:21 AM HCT 34.6 (L) 09/20/2025 04:21 AM PLT 228 09/20/2025 04:21 AM MCV 90.6 09/20/2025 04:21 AM IRON 34 (L) 04/14/2025 05:25 AM TIBC 446 04/14/2025 05:25 AM FERRITIN 18.2 (L) 04/14/2025 05:25 AM Lab Results Component Value Date/Time INR 1.0 09/13/2025 04:02 AM INR 0.8 04/12/2025 01:47 PM INR 0.86 04/07/2025 12:00 AM PT 13.7 09/13/2025 04:02 AM PT 11.8 (L) 04/12/2025 01:47 PM PT 12.4 04/07/2025 12:00 AM Past Medical History: Diagnosis Date Patient denies medical problems Past Surgical History: Procedure Laterality Date HX ERCP N/A 04/09/2025 CHOLANGIOPANCREATOGRAPHY RETROGRADE ENDOSCOPIC performed by Cecil An MD at [facility] ENDOSCOPY HX ERCP N/A 04/13/2025 CHOLANGIOPANCREATOGRAPHY RETROGRADE ENDOSCOPIC performed by Stephanie Oden DO at [facility] ENDOSCOPY HX ESOPHAGOGASTRODUODENOSCOPY N/A 09/14/2025 ESOPHAGOGASTRODUODENOSCOPY performed by Leno Whittington DO at [facility] ENDOSCOPY HX GASTROJEJUNOSTOMY N/A 09/17/2025 GASTROJEJUNOSTOMY performed by Jai Hilario DO at [facility] MAIN OR CA ESOPHAGOGASTRODUODENOSCOPY US SCOPE W/ADJ STRXRS N/A 04/09/2025 ESOPHAGOGASTRODUODENOSCOPY WITH ENDOSCOPIC ULTRASOUND performed by Cecil An MD at [facility] ENDOSCOPY PT DENIES RELEVANT SURGICAL HISTORY Current Facility-Administered Medications: [COMPLETED] famotidine PF (PEPCID) 20 mg in sodium chloride 0.9% 10 mL injection, 20 mg, IV, ONE time only, Chanda Jones DO, 20 mg at 09/20/25 0504 lactated ringers infusion, , IV, continuous, Wendy Dillon PA, Last Rate: 75 mL/hr at 557, New Bag at 09/20/25 1557 morphine 4 mg/mL injection 2 mg, 2 mg, IV, every 4 hours PRN, Tex Ricketts MD, 2 mg at 09/20/25 1644 [COMPLETED] HYDROmorphone (PF) (DILAUDID) injection 0.3 mg, 0.3 mg, IV, ONE time only, Pillo Fish MD, 0.3 mg at 09/19/25 2127 enoxaparin (LOVENOX) injection 40 mg, 40 mg, subCUT, every 24 hours, Ketan Stockton MD, 40 mg at 09/20/25 0851 hydrALAZINE (APRESOLINE) 20 mg/mL injection 5 mg, 5 mg, IV, every 6 hours PRN, Tex Ricketts MD simethicone chewable tablet 80 mg, 80 mg, Oral, every 6 hours PRN, Tracy Moore, ROAD MARKER, 80 mg at 09/17/25 0411 simethicone (GAS-X) capsule 125 mg, 125 mg, Oral, every 6 hours PRN, Tracy Moore, ROAD MARKER, 125 mg at 09/15/252054 oxyCODONE (ROXICODONE) tablet 5 mg, 5 mg, Oral, every 4 hours PRN, Tracy Moore, ROAD MARKER, 5 mg at 09/19/25 1308 naloxone (NARCAN) 0.4 mg/mL injection 0.1-0.4 mg, 0.1-0.4 mg, IV, see admin instructions, Tracy Moore, ROAD MARKER pantoprazole (PROTONIX) 40 mg in sodium chloride 0.9% 10 mL injection, 40 mg, IV, BID, Tracy Moore, ROAD MARKER, 40 mg at 09/20/25 0851 sodium chloride flush injection 10 mL, 10 mL, IV, every 12 hours (2 times daily), Tracy Moore, ROAD MARKER, 10 mL at 09/20/25 0852 sodium chloride flush injection 10 mL, 10 mL, IV, see admin instructions, Tracy Moore, ROAD MARKER sodium chloride 0.9 % flush bag 25 mL, 25 mL, IV, see admin instructions, Tracy Moore, ROAD MARKER dextrose 5 % in water 250 mL flush bag 25 mL, 25 mL, IV, see admin instructions, Tracy Moore, ROAD MARKER acetaminophen (TYLENOL) tablet 650 mg, 650 mg, Oral, every 6 hours PRN, Tracy Moore, ROAD MARKER ondansetron (ZOFRAN) 4 mg/2 mL injection 4 mg, 4 mg, IV, every 6 hours PRN, Tracy Moore, ROAD MARKER, 4mg at 09/20/25 0423 prochlorperazine (COMPAZINE) injection 10 mg, 10 mg, IV, every 6 hours PRN, Tracy Moore, ROAD MARKER, 10 mg at 09/19/25 8634 PLAN Insert PIV Addendum: veins are either too small or non compressible and unable to place a short PIV. Will contact physician regarding possible placement of a midline IV. Renny Nuno RN * Beth Dawson, RD - 09/20/2025 2:19 PM CDTAssociated Order(s): IP CONSULT TO NUTRITION SERVICES Reason For Nutrition Assessment: Consult,, MST>2,, MST 1,, Previous Malnutrition Dx,, LOS,, and Other Nutrition Diagnosis Malnutrition Nutrition Diagnosis: (P) Moderate protein-calorie malnutrition (09/20/25 1500) In the context of: Acute Illness/Injury and Chronic Illness Problem: (P) Altered GI function (09/20/25 1500) Etiology: (P) Acute illness (09/20/25 1500) Signs/Symptoms: (P) Weight loss;Change in functional ability (09/20/25 1500) Malnutrition Impact: Reduced oral intake, Delayed recovery, Increased readmission risk, Increased hospitalization length, Increased dysphagia, and Increased risk of infection Interventions/Recommendations: Monitor npo status progression and or need for alternate means of nutrition Goals: Tolerate nutrition source Monitoring/Evaluation: labs, wt, npo Nutrition Discharge Plan: TBD See below for full assessment Assessment 59 y.o.male admitted with Upper GI bleed. Subjective: 59 y.o. male with pancreatic cancer who has developed gastric outlet obstruction secondary to pancreatic cancer. We have therefore offered him a gastrojejunostomy to bypass this obstruction. If this is not feasible we will place a jejunostomy feeding tube; S/p biliary stent insertion, anemia Food and Nutrition Related History: patient relates decreased appetite, abdominal pain,N, wt loss, allergy to shellfish, dislikes broth; BM today 09/20 Weight changes: . 10% wt loss over last 6 months per EHR wt hx Subjective Global Assessment: Weight: During the past 2 weeks the patient's weight has: (P) Decreased (09/20/25 1500) Food Intake: Compared to normal intake, over the past month the patient's intake has been: (P) Lessthan usual (10/20/25 1500) Less than usual: (P) Very little of anything (09/20/251499) Symptoms: Patient reports the following problems that have kept them from eating enough during the past 2 weeks: (P) Other (comment) (09/20/251499) Activities & Function: Over the past month the patient generally rates their activity as: : (P)Very low energy, spend most of the day in bed or chair (09/20/251499) Total score = SGA Score : (P) 10 (09/20/251499) Nutrition Focused Exam Physical Findings- Summary: Malnutrition Nutrition Diagnosis: (P) Moderate protein-calorie malnutrition (09/20/251499) Orbital: (P) Flattened fat pads but not depressed (mild) (09/20/251499) Facial cheeks (buccal pads): (P) Slightly depressed inward (mild) (09/20/251499) Biceps and triceps: (P) Minor but noticeable thinning of fat tissue fold (mild) (09/20/251499) Ribs - lower back, mid axillary line: (P) Ribs not apparent, but mild appearance of iliac crest (mild) (09/20/251499) Subcutaneous Fat Loss Assessment: (P) Mild fat loss (09/20/251499) Temporal: (P) Slight depression or shadowing (mild) (09/20/251499) Clavicle: (P) Some protrusion (moderate) (09/20/251499) Shoulder (deltoid muscle): (P) Shoulders not square, acromion process visible (moderate) (09/20/251499) Scapula: (P) Slight depressions around the scapula bone, but not prominent (mild) (09/20/251499) Interosseous: (P) Thinning, flattened muscle (mild) (09/20/251499) Thigh (quadriceps muscle): (P) Not able to reduce. 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) (09/20/25 1500) Percentage of Energy: (P) < or equal to 50% for > or equal to 5 days (severe- acute) () Percentage of Weight Loss: (P) 10% in 6 months (moderate) (09/20/25 1500) Estimated Needs: Estimated Energy Target: 1850- 2220 (09/20/25 1400) Estimated Protein Target: 75 -95 (09/20/251399) Estimated Fluid Target : 1850- - 2220 (09/20/251399) Nutrition Energy Formula: Calories per kilogram (09/20/251399) Weight Used for Formula: Actual weight (09/20/251399) Clinical Data: Height: 5' 9 (175.3 cm) (09/13/2547) [place] body weight: 70.7 kg (155 lb 13.8 oz) Adjusted ideal body weight: 72 kg (158 lb 11.5 oz) Body mass index is 24.07 kg/m??. Admission:Weight: 79.4 kg (175 lb) (09/13/2547) Weight Method: Stated (09/13/2547) Current:Weight: 73.9 kg (163 lb) (09/19/25 0413) Wt Readings from Last 8 Encounters: 09/19/25 73.9 kg (163 lb) 04/10/25 83.5 kg (184 lb) 11/10/22 88.5 kg (195 lb) Labs Recent Labs 09/18/25 0743 09/19/25 0326 09/20/25 0421 GLUCOSE 131* 140* 139* BUN 13 12 18 CREAT 0.90 0.79 0.77 GFR >60 >60 >60 NA 138 138 138 K 4.2 3.7 3.9 CO2 26 27 27 ANIONGAP 13 12 14 CA 8.9 8.8 9.4 ALBUMIN -- 3.4* 3.7 ALKPHOS -- 237* 242* ALT -- 15 16 AST -- 18 18 BILITOTAL -- 0.3 0.4 No results found for: PO4 , HGBA1C , [id number] , MG Current Diet and Intake: DIET NPO Strict Food/Meal: NPO (09/16/25 0745),Intake (%): (!) 0% (09/15/25 1700) , Skin: Wound 09/17/25 1203 other (comment) abdomen Surgical-Dressing Appearance: dry;intact;no drainage (09/19/251923) Kapil Score: 19 (09/19/251923) Gastrointestinal: Last Bowel Movement (mm/dd/yyyy): 09/20/25 (09/20/25 0934) Stool Consistency - Reference Bud Stool Chart: formed - (type 1-4) (09/16/25 0745) Bowel Sounds: All Quadrants: hypoactive (09/19/251923) Pertinent Meds/IVF: Access: NGT to LES NGT for suction 09/20 []NG / OG []NJT, postpyloric tube []PEG / G-tube []PEJ / J-tube Verified by: [x]Gastro-Jejunostomy tube Date: 09/17 Allergies: Allergies Allergen Reactions Shrimp Anaphylaxis Onion Unknown Past Medical History: Diagnosis Date Patient denies medical problems Time spent:Consultation Time (mins): 35 mins (09/20/25 1400) * Ketan Stockton MD - 09/16/2025 3:14 PM CDTAssociated Order(s): IP CONSULT TO GENERAL SURGERY General Surgery Consult Note Melo Pimentel Calvin 1965 CSN: [id number] 09/16/2025 Subjective: Consult for: gastrojejunostomy to bypass gastric outlet obstruction. This is a 59 y.o. male with pancreatic cancer who has developed gastric outlet obstruction secondary to pancreatic cancer. We have therefore offered him a gastrojejunostomy to bypass this obstruction. If this is not feasible we will place a jejunostomy feeding tube. Discussion had with the patient about the risks and benefits. He is amenable to proceeding with surgery. Past Medical History: Diagnosis Date Patient denies medical problems Past Surgical History: Procedure Laterality Date HX ERCP N/A 04/09/2025 CHOLANGIOPANCREATOGRAPHY RETROGRADE ENDOSCOPIC performed by Cecil An MD at [facility] HX ERCP N/A 04/13/2025 CHOLANGIOPANCREATOGRAPHY RETROGRADE ENDOSCOPIC performed by Stephanie Oden DO at [facility] HX ESOPHAGOGASTRODUODENOSCOPY N/A 09/14/2025 ESOPHAGOGASTRODUODENOSCOPY performed by Leno Whittington DO at [facility] CA ESOPHAGOGASTRODUODENOSCOPY US SCOPE W/ADJ STRXRS N/A 04/09/2025 ESOPHAGOGASTRODUODENOSCOPY WITH ENDOSCOPIC ULTRASOUND performed by Cecil An MD at [facility] PT DENIES RELEVANT SURGICAL HISTORY Current Facility-Administered Medications Medication Dose Route Frequency Provider Last Rate Last Admin lactated ringers infusion IV continuous Andrea Solano MD 75 mL/hr at 09/16/25 0936 New Bag at 09/16/25 0936 simethicone (GAS-X) capsule 125 mg 125 mg Oral every 6 hours PRN Andrea Solano MD 125 mg at 09/15/252054 oxyCODONE (ROXICODONE) tablet 5 mg 5 mg Oral every 4 hours PRN Federico Garibay MD 5 mg at 09/15/25 0702 naloxone (NARCAN) 0.4 mg/mL injection 0.1-0.4 mg 0.1-0.4 mg IV see admin instructions Federico Garibay MD pantoprazole (PROTONIX) 40 mg in sodium chloride 0.9% 10 mL injection 40 mg IV BID Federico Garibay MD40 mg at 09/16/25 0935 sodium chloride flush injection 10 mL 10 mL IV every 12 hours (2 times daily) Federico Garibay MD 10 mL at 09/16/25 0932 sodium chloride flush injection 10 mL 10 mL IV see admin instructions Federico Garibay MD sodium chloride 0.9 % flush bag 25 mL 25 mL IV see admin instructions Federico Garibay MD dextrose 5 % in water 250 mL flush bag 25 mL 25 mL IV see admin instructions Federico Garibay MD acetaminophen (TYLENOL) tablet 650 mg 650 mg Oral every 6 hours PRN Federico Garibay MD HYDROmorphone (PF) (DILAUDID) injection 0.5 mg 0.5 mg IV every 3 hours PRN Federico Garibay MD 0.5 mg at 09/13/251955 ondansetron (ZOFRAN) 4 mg/2 mL injection 4 mg 4 mg IV every 6 hours PRN Federico Garibay MD 4 mg at 09/13/25 0239 prochlorperazine (COMPAZINE) injection 10 mg 10 mg IV every 6 hours PRN Federico Garibay MD Allergies Allergen Reactions Shrimp Anaphylaxis Onion Unknown Social History Tobacco Use Smoking status: Never Smokeless tobacco: Never Substance Use Topics Alcohol use: Not on file FamHx No significant familial history Review of Systems Except as listed above, all other systems were reviewed and are negative. Objective: BP 131/83 (BP Location: Left arm, Patient Position (BP): Sitting) Pulse 85 Temp 98.4 ??F (36.9 ??C) (Oral) Resp 16 Ht 5' 9 (1.753 m) Wt 79.4 kg (175 lb) SpO2 97% BMI 25.84 kg/m?? General appearance: alert, in no distress Neck: supple, symmetrical, trachea midline Lungs: normal respiratory effort Heart: regular rate Abdomen: soft, nontender, nondistended Extremities: extremities normal, atraumatic, no cyanosis or edema, moves all extremities equally Skin: Skin color, texture, turgor normal. No rashes or lesions Neurologic: Grossly normal Data Review: CBC: Recent Labs 09/13/25213609/14/2541609/15/2551809/16/25626 WBC -- 6.3 5.0 5.5 HGB 10.2* 10.5* 9.7* 11.1* HCT 31.5* 31.8* 29.6* 33.7* PLT -- 143 145 152 MCV -- 90.3 90.8 89.6 BMP: Recent Labs 09/14/2541609/15/2551809/16/25626 GLUCOSE 92 99 104* BUN 15 12 15 CREAT 0.77 0.77 0.88 NA 134* 134* 135* K 3.9 4.0 3.7 CL 99 101 98 CO2 22 23 24 ANIONGAP 13 10 13 LFTs: Recent Labs 09/14/2541609/15/2551825 0627 ALKPHOS 331* 298* 323* ALT 34 28 25 AST 26 24 23 BILITOTAL 0.5 0.4 0.4 ALBUMIN 3.7 3.3* 4.0 Coagulation: No results for input(s): PT , INR , APTT in the last 72 hours. ABGs: No results for input(s): PH , PCO2 , PO2 , HCO3 , BASEEXCESS , SO2 in the last 72 hours. Imaging studies personally reviewed. Labs personally reviewed. Assessment: Principal Problem: Upper GI bleed Active Problems: Pancreatic mass Abdominal pain, acute, right upper quadrant History of biliary stent insertion Gastric outlet obstruction Anemia in neoplastic disease Plan: 59 year old man with gastric outlet obstruction. To proceed to OR tomorrow for gastrojejunostomy, if this is not feasible a jejunostomy feeding tube will be placed. Ketan Stockton MD * Susan Stokes MD - 09/15/2025 1:35 PM CDT [place] ONCOLOGY CONSULTATION NOTE Melo Simpson is a 59 y.o. male 1965 CSN:[id number] Referring provider Dr Solano Reason for referral : Duodenal cancer History of Present illness: The patient initially presented as a direct admission to the hospitalist service for evaluation of abdominal pain and nausea. At the outside hospital, the patient was found with occult positive gastric fluid. He was transferred to [facility] for further evaluation. Oncological history -CT abdomen/pelvis-dilated intra and extrahepatic biliary tree with common hepatic duct enlargement; bulky lobulated bowel wall thickening of the 2nd portion of the duodenum; bulky mass apparently obstructs the distal CBD; no obvious lymphadenopathy, adrenal metastases, bone mets or lung mets -MRI abdomen-primary duodenal or ampullary lesion involving the second proximal third portion duodenum; appears simcircular moderate luminal narrowing with partial low grade gastric outlet obstruction; mass abuts anterior aspect of the IVC and pancreas; mass results in narrowing of distal CBD with moderate upstream biliary duct dilatation; scattered hepatic metastasis throughout bilateral lobes of the liver -s/p EUS-large infiltrating hypoechoic mass in the region of the pancreatic head with infiltration into the lumen of the duodenum; loss of fascial plane between the mass and surrounding vascular structures including portal vein and superior mesenteric artery -cytology-Neoplastic tissue present, pending immunohistochemical stains -s/p ERCP-nonvisualization of the ampullary opening to large infiltrative mass -cytology-NEGATIVE FOR MALIGNANT CELLS- Benign bile duct epithelium and chronic inflammation -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 male with the following history as recorded in [facility]: Patient Active Problem List Diagnosis Date Noted Anemia in neoplastic disease 09/15/2025 Upper GI bleed 09/13/2025 Gastric outlet obstruction 09/13/2025 Protein-calorie malnutrition, moderate 04/16/2025 Biliary stricture (CMS/HCC) 04/14/2025 History of biliary stent insertion 04/14/2025 Biliary obstruction (CMS/HCC) 04/09/2025 Elevated LFTs 04/09/2025 Pancreatic mass 04/08/2025 Common bile duct dilatation 04/08/2025 Transaminitis 04/08/2025 Calcification of gallbladder 04/08/2025 Abdominal pain, acute, right upper quadrant 04/08/2025 No current facility-administered medications on file prior to encounter. Current Outpatient Medications on File Prior to Encounter Medication Sig Dispense Refill pantoprazole (PROTONIX) 40 mg Tablet, Delayed Release (E.C.) Take 40 mg by mouth daily. ferrous sulfate 325 mg (65 mg iron) tablet Take 1 Tablet (325 mg) by mouth daily. 30 Tablet 2 oxyCODONE (ROXICODONE) 5 mg tablet Take 1 Tablet (5 mg) by mouth every 4 hours as needed for Pain. Max Daily Amount: 30 mg 20 Tablet 0 Allergies: Shrimp and Onion Past Medical History: Diagnosis Date Patient denies medical problems Past Surgical History: Procedure Laterality Date HX ERCP N/A 04/09/2025 CHOLANGIOPANCREATOGRAPHY RETROGRADE ENDOSCOPIC performed by Cecil An MD at [facility] HX ERCP N/A 04/13/2025 CHOLANGIOPANCREATOGRAPHY RETROGRADE ENDOSCOPIC performed by Stephanie Oden DO at [facility] HX ESOPHAGOGASTRODUODENOSCOPY N/A 09/14/2025 ESOPHAGOGASTRODUODENOSCOPY performed by Leno Whittington DO at [facility] CA ESOPHAGOGASTRODUODENOSCOPY US SCOPE W/ADJ STRXRS N/A 04/09/2025 ESOPHAGOGASTRODUODENOSCOPY WITH ENDOSCOPIC ULTRASOUND performed by Cecil An MD at [facility] PT DENIES RELEVANT SURGICAL HISTORY No family history on file. Social History Tobacco Use Smoking status: Never Smokeless tobacco: Never Substance Use Topics Alcohol use: Not on file PHYSICAL EXAMINATION: Vitals: 09/15/25 0918 BP: (!) 144/78 Pulse: 80 Resp: 14 Temp: 98.4 ??F (36.9 ??C) SpO2: 98% Physical Exam: Blood pressure 127/78, pulse 80, temperature 98.4 ??F (36.9 ??C), temperature source Oral, resp. rate 13, height 5' 9 (1.753 m), weight 79.4 kg (175 lb), SpO2 98%. Constitutional: alert, oriented, in no apparent distress Head: normocephalic, atraumatic, moist mucous membranes Ears: extrenal ears normal, normal hearing Respiratory: Equal bilateral chest wall motion Cardiac: no JVD GI: non distended Musculoskeletal/Extremity: passive ROM of joints in all 4 extremities are normal Skin: normal color, normal texture, normal turgor Neurology : awake, alert and oriented x 3, motor grossly intact , no focal deficits Psychiatry : normal, full range of affect LABORATORY/RADIOLOGY DATA: Lab Results Component Value Date/Time WBC 5.0 09/15/2025 05:19 AM HGB 9.7 (L) 09/15/2025 05:19 AM HCT 29.6 (L) 09/15/2025 05:19 AM PLT 145 09/15/2025 05:19 AM MCV 90.8 09/15/2025 05:19 AM Lab Results Component Value Date/Time NA 134 (L) 09/15/2025 05:19 AM K 4.0 09/15/2025 05:19 AM CL 101 09/15/2025 05:19 AM CO2 23 09/15/2025 05:19 AM CA 8.4 (L) 09/15/2025 05:19 AM BUN 12 09/15/2025 05:19 AM CREAT 0.77 09/15/2025 05:19 AM GLUCOSE 99 09/15/2025 05:19 AM TOTALPROTEIN 6.4 09/15/2025 05:19 AM ALBUMIN 3.3 (L) 09/15/2025 05:19 AM BILITOTAL 0.4 09/15/2025 05:19 AM ALKPHOS 298 (H) 09/15/2025 05:19 AM AST 24 09/15/2025 05:19 AM ALT 28 09/15/2025 05:19 AM ANIONGAP 10 09/15/2025 05:19 AM ASSESSMENT/PLAN Principal Problem: Upper GI bleed Active Problems: Pancreatic mass Abdominal pain, acute, right upper quadrant History of biliary stent insertion Gastric outlet obstruction 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-MSI stable, no targetable mutations #Bowel obstruction #Concern for occult blood in the gastric fluid -diagnosed April 2025 -[facility] [place] [facility]therapy with mFOLFOX -s/p cycle 7 with reduced dose (15% reduction) -CT abdomen/pelvis-August 30 2025-recurrent mass surrounding CBD 3.7 x 4.9 cm -planned treatment break as of 09/06/2025-stopping FOLFOX due to side effects and recurrence of disease -planning re-evaluation with PET scan -planning therapy change to FOLFIRI after PET -September 2025-CT abdomen pelvis with contrast showing enlarging mass centered in second portion of duodenal/pancreatic head, may be partially obstructing the duodenum, cholelithiasis. Ultrasound abdomen showing gallstones with gallbladder wall upper limits of normal in thickness, CBD stent. Patienthad NG tube placed and was found to have positive occult blood on gastric fluid. EGD on 09/14/2025 shows mild to moderate esophagitis, normal stomach, patent pylorus, endoscope waspassed to the duodenal bulb, an obvious mass was seen circumferentially. Endoscope passed beyond this point. At this point there is a partial obstruction. Upper GI series showed moderate to high-grade obstruction secondary to masslike defect in the second portion of the duodenum as seen on EGD. Per GI It was noted however that CBD stent is now horizontal in the right upper quadrant, it was vertical at the time of placement. ALP has continued to trend down and since initial presentation now at 298, bilirubin/AST/ALT remain within normal limits, if this changes would consider further imaging. If replacement of fully covered metal stent is needed, patient would need PTC given previous need for rendezvous and inability to visualize stent on EGD. Patient has not been able to eat anything orally since last week. I will discuss with GI more tomorrow. Could also get surgery input to see if there is any way to bypass this obstruction. J-tube is reasonable. Anemia in neoplastic disease -hgb 9.7 -monitor daily -plan to transfuse for hgb <7 or active bleeding -medical management per primary team and appropriate consultants Oncology daily plan: -monitor counts,plan to mims culture for fever > 100.4 if ANC < 1 -monitor counts, plan to transfuse for hgb <7, plts <10 or active bleeding Discharge planning -disposition-TBD per primary team -timeframe-TBD per primary team -criteria-clinical improvement -follow up-TBD pending clinical course * Ernst Chi NP - 09/13/2025 7:03 AM CDTAssociated Order(s): IP CONSULT TO GI GASTROENTEROLOGY CONSULT NOTE COLLABORATING PHYSICIAN: Dr. Whittington IDENTIFYING DATA: Melo Simpson is a 59 y.o. male seen in gastroenterologic consultation for concern of upper GI bleed HISTORY OF PRESENT ILLNESS: Melo Simpson is a 59 y.o. male with a past medical history including but not limited to pancreatic adenocarcinoma admitted with gastric outlet obstruction and concern for upper GI bleed. Patient was a direct admission from [place] emergency room where he presented with abdominal pain and nausea. CT showed enlarging mass centered in the second portion of duodenal/pancreatic head which could possibly be obstructing the duodenum. Patient had an EUS/ ERCP on 04/09/2025 in which cytology revealed malignant spindle cell neoplasm on the pancreatic head mass and left liver lesion suspicious formalignancy. ERCP on 04/13/2025 for removal of PTC and placement of fully covered metal stent. Partial gastric outlet obstruction was noted at that time. Patient has an NG tube placed and was found to have positive occult blood on gastric fluid. Output from NG tube is dark in color. He was transferred to [facility] for GI evaluation. Patient reports that he has not been able to tolerate oralintake for the past couple of days. NG tube was placed last night at outlying facility. He denies abdominal pain, melena, fever. He believes he may have had some unintentional weight loss since the start of this but is unsure of the exact amount. He denies the use of NSAIDs, alcohol, or recreational drug use. He does not have a personal or known family history of stomach cancer, colon cancer, celiac disease, ulcerative colitis, Crohn's disease, liver problems. PAST MEDICAL HISTORY: Past Medical History: Diagnosis Date Patient denies medical problems PAST SURGICAL HISTORY: Past Surgical History: Procedure Laterality Date HX ERCP N/A 04/09/2025 CHOLANGIOPANCREATOGRAPHY RETROGRADE ENDOSCOPIC performed by Cecil An MD at [facility] HX ERCP N/A 04/13/2025 CHOLANGIOPANCREATOGRAPHY RETROGRADE ENDOSCOPIC performed by Stephanie Oden DO at [facility] CA ESOPHAGOGASTRODUODENOSCOPY US SCOPE W/ADJ STRXRS N/A 04/09/2025 ESOPHAGOGASTRODUODENOSCOPY WITH ENDOSCOPIC ULTRASOUND performed by Cecil An MD at [facility] PT DENIES RELEVANT SURGICAL HISTORY CURRENT MEDS: Outpatient Medications Marked as Taking for the 09/13/25 encounter (Hospital Encounter) Medication Sig Dispense Refill pantoprazole (PROTONIX) 40 mg Tablet, Delayed Release (E.C.) Take 40 mg by mouth daily. ALLERGIES: Allergies Allergen Reactions Shrimp Anaphylaxis Onion Unknown SOCIAL HISTORY / HABITS: Social History Socioeconomic History Marital status: Spouse name: Not on file Number of children: Not on file Years of education: Not on file Highest education level: Not on file Occupational History Not on file Tobacco Use Smoking status: Never Smokeless tobacco: Never Vaping Use Vaping status: Not on file Substance and Sexual Activity Alcohol use: Not on file Drug use: Never Sexual activity: Not on file Other Topics Concern Not on file Social History Narrative Not on file Health-Related Social Needs Food Insecurity: Low Risk (09/13/2025) Food Insecurity Eating less because can't pay for food: No Transportation Needs: Low Risk (09/13/2025) Transportation Needs Worry about transportation for doctor visits / parts 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 REVIEW OF SYSTEMS: General ROS: Negative for - chills, fever, night sweats or weight loss. HEENT ROS: Negative for - acute vision loss, acute hearing loss, sore throat, nasal congestion. Respiratory ROS: Negative for - cough or shortness of breath. Cardiovascular ROS: Negative for - chest pain or palpitations. Gastrointestinal ROS: As per the history of present illness. Genito-Urinary ROS: Negative for - dysuria, hematuria, or frequency. Hematologic ROS: Negative for - easy bruisability. Musculoskeletal ROS: Negative for - joint pain, erythema, or swelling. Dermatological ROS: Negativefor - rash or skin lesions. Neurological ROS: Negativefor - unilateral motor or sensory loss, dementia. Behavioral/Psych ROS: Negative for - severe depression, suicidal ideation. PHYSICAL EXAM: VITALS: BP (!) 154/76 (BP Location: Right arm, Patient Position (BP): Supine) Pulse 78 Temp 98.7 ??F (37.1 ??C) (Oral) Resp 16 Ht 5' 9 (1.753 m) Wt 79.4 kg (175 lb) SpO2 93% BMI 25.84 kg/m?? GEN: In no acute distress. HEENT: Mucous membranes moist. LUNGS: Respirations unlabored HEART: Regular rate and rhythm. ABD: Soft with normoactive BS. No distention. No appreciable tenderness. No rebound or guarding. RECTAL: Not performed at this time. EXT: Without cyanosis, deformity or pitting edema. SKIN: [place], warm, dry. NEURO: Grossly intact, A/O x 4 LABS: Recent Labs 09/13/25347 WBC 5.3 HGB 10.2* HCT 31.1* PLT 144 MCV 92.0 Recent Labs 09/13/25347 GLUCOSE 106* BUN 14 CREAT 0.81 NA 136 K 4.4 CL 103 CO2 25 ANIONGAP 8* CA 8.6 Lab Results Component Value Date INR 1.0 09/13/2025 INR 0.8 04/12/2025 INR 0.86 04/07/2025 PT 13.7 09/13/2025 PT 11.8 (L) 04/12/2025 PT 12.4 04/07/2025 Lab Results Component Value Date ALT 39 09/13/2025 AST 32 09/13/2025 ALKPHOS 355 (H) 09/13/2025 Lab Results Component Value Date BILITOTAL 0.3 09/13/2025 DIAGNOSTICS: ERCP 04/13/2025 Impression: Infiltrating duodenal mass s/p bx Removal of PTC Biliary stricture s/p FCSEMS placement Possible partial GOO ERCP 04/09/2025 Findings: The esophagus was successfully intubated under direct vision without detailed examination of the pharynx, larynx, and associated structures. There was evidence of a large infiltrative mass with ulceration involving the entire second portion in the region of the ampulla. Ampullary opening could not be identified. Further attempts were aborted due to nonvisualization of the ampullary opening from the underlying mass Impression: Nonvisualization of the ampullary opening secondary to large infiltrative mass EUS 04/09/2025 Impression: Large infiltrating hypoechoic mass measuring 42.1 mm x 40.4 mm in the region of the pancreatic head with infiltration into the lumen of the duodenum status post FNA using 22-gauge acquire needle Loss of fascial plane between the mass and surrounding vascular structures including portal vein and superior mesenteric artery Multiple left hepatic lobe lesions highly suspicious for metastasis status post FNA using a separate 25-gauge SlimLine needle No evidence of any ascites in the visualized portions Findings highly suspicious for stage IV pancreatic adenocarcinoma FINAL DIAGNOSIS A. Pancreatic head mass, fine-needle aspiration and cell block - Positive for malignancy - Malignant spindle cell neoplasm, see comment / B. Left liver lesion, fine-needle aspiration and cell block - Suspicious for malignancy IMPRESSION and PLAN: A 59 y.o.male admitted with gastric outlet obstruction and suspected upper GI bleed Imaging revealed an enlarging duodenal/pancreatic head mass. He previously underwent EUS/ERCP confirming malignant spindle cell neoplasm and later had ERCP for PTC removal and stent placement, with partial gastric outlet obstruction noted on 04/13/2025. Patient has NG tube with dark output and fluid was noted to be occult positive. Currently patient is hemodynamically stable. Hemoglobin is 10.2, MCV 92.0, BUN 14, creatinine 0.81. Will plan for EGD for further evaluation tomorrow. Discussed the benefits, risks, and alternatives. He verbalized understanding and is agreeable to proceed. - Keep NPO. Continue PPI - Monitor H&H and transfuse as medically warranted - Notify GI physics and astronomy professor for any brisk bleeding, especially if accompanied by hemodynamic compromise (may need to consider NM bleeding scan vs CTA) - Further recommendations pending the results of the EGD Other problems being addressed during this hospitalization: Patient Active Problem List Diagnosis Code Pancreatic mass K86.89 Common bile duct dilatation K83.8 Transaminitis R74.01 Calcification of gallbladder K82.8 Abdominal pain, acute, right upper quadrant R10.11 Biliary obstruction (CMS/HCC) K83.1 Elevated LFTs R79.89 Biliary stricture (CMS/HCC) K83.1 History of biliary stent insertion Z98.890 Protein-calorie malnutrition, moderate E44.0 Upper GI bleed K92.2 Gastric outlet obstruction K31.1 POC discussed with bedside nurse and Dr. Solano via secure chat. Plan of care discussed and developed in collaboration with Dr. Whittington Thank you for allowing us to participate in the care of eMlo Simpson. [facility] Cosigned by Leno Whittington DO at 09/13/2025 3:55 PM CDT * Juventino George RN - 09/13/2025 2:11 AM CDTAssociated Order(s): IP CONSULT TO IV TEAM VASCULAR ACCESS CONSULT PATIENT NAME: Melo Simpson DATE OF : 1965 CSN: [id number] DATE: 09/13/2025 Room: [address] [place] [address] Admit Date: 09/13/2025 Hospital day: LOS: 0 days INDICATION: IV fluids and pain medications EXCLUSIONS/CONSIDERATIONS: No obvious exclusions. LAST RECORDED TEMP: Temp: 98.2 ??F (36.8 ??C) (09/13/25 0048)] Assessment Allergies Allergen Reactions Shrimp Anaphylaxis Onion Unknown Lab Results Component Value Date/Time CREAT 0.77 04/16/2025 12:12 PM BUN 19 04/16/2025 12:12 PM NA 133 (L) 04/16/2025 12:12 PM K 4.5 04/16/2025 12:12 PM CL 99 04/16/2025 12:12 PM CO2 22 04/16/2025 12:12 PM GFR >60 04/16/2025 12:12 PM Lab Results Component Value Date/Time WBC 6.3 04/16/2025 06:10 AM HGB 7.2 (L) 04/16/2025 06:10 AM HCT 24.5 (L) 04/16/2025 06:10 AM PLT 410 04/16/2025 06:10 AM MCV 94.2 04/16/2025 06:10 AM IRON 34 (L) 04/14/2025 05:25 AM TIBC 446 04/14/2025 05:25 AM FERRITIN 18.2 (L) 04/14/2025 05:25 AM Lab Results Component Value Date/Time INR 0.8 04/12/2025 01:47 PM INR 0.86 04/07/2025 12:00 AM PT 11.8 (L) 04/12/2025 01:47 PM PT 12.4 04/07/2025 12:00 AM Past Medical History: Diagnosis Date Patient denies medical problems Past Surgical History: Procedure Laterality Date HX ERCP N/A 04/09/2025 CHOLANGIOPANCREATOGRAPHY RETROGRADE ENDOSCOPIC performed by Cecil An MD at [facility] HX ERCP N/A 04/13/2025 CHOLANGIOPANCREATOGRAPHY RETROGRADE ENDOSCOPIC performed by Stephanie Oden DO at [facility] CA ESOPHAGOGASTRODUODENOSCOPY US SCOPE W/ADJ STRXRS N/A 04/09/2025 ESOPHAGOGASTRODUODENOSCOPY WITH ENDOSCOPIC ULTRASOUND performed by Cecil An MD at [facility] PT DENIES RELEVANT SURGICAL HISTORY Current Facility-Administered Medications: oxyCODONE (ROXICODONE) tablet 5 mg, 5 mg, Oral, every 4 hours PRN, Federico Garibay MD naloxone (NARCAN) 0.4 mg/mL injection 0.1-0.4 mg, 0.1-0.4 mg, IV, see admin instructions, Federico Garibay MD pantoprazole (PROTONIX) 40 mg in sodium chloride 0.9% 10 mL injection, 40 mg, IV, BID, Federico Garibay MD sodium chloride flush injection 10 mL, 10 mL, IV, every 12 hours (2 times daily), Federico Garibay MD sodium chloride flush injection 10 mL, 10 mL, IV, see admin instructions, Federico Garibay MD sodium chloride 0.9 % flush bag 25 mL, 25 mL, IV, see admin instructions, Federico Garibay MD dextrose 5 % in water 250 mL flush bag 25 mL, 25 mL, IV, see admin instructions, Federico Garibay MD acetaminophen (TYLENOL) tablet 650 mg, 650 mg, Oral, every 6 hours PRN, Federico Garibay MD HYDROmorphone (PF) (DILAUDID) injection 0.5 mg, 0.5 mg, IV, every 3 hours PRN, Federico Garibay MD ondansetron (ZOFRAN) 4 mg/2 mL injection 4 mg, 4 mg, IV, every 6 hours PRN, Federico Garibay MD prochlorperazine (COMPAZINE) injection 10 mg, 10 mg, IV, every 6 hours PRN, Federico Garibay MD lactated ringers infusion, , IV, continuous, Federico Garibay MD PLAN Assess patient for PIV access. Juventino George RN documented in this encounter OR Notes * Arabella-OP - Romelia Gonzales RN - 09/17/2025 1:16 PM CDT Pt alert and oriented x 4. Pt resting between nursing cares. Pt to be transported to in stable condition. * Operative Report - Jai Hilario DO - 09/17/2025 1:08 PM CDT Melo Simpson CSN: [id number] : 1965 OPERATIVE PROCEDURE NOTE Date of Service: 09/17/2025 Preoperative Diagnoses: gastric outlet obstruction Postoperative Diagnoses: same Procedures Performed: gastrojejunostomy Anesthesia: General endotracheal anesthesia. Estimated Blood Loss: 15 mL Surgeon: Jai Hilario DO Renal Technician: Tracy Mooer NP Complications: none apparent INDICATIONS FOR PROCEDURE: Melo Simpson is a 59 y.o. year-old male with pancreatic adenocarcinomacausing duodenal obstruction. Bypass via gastrojejunostomy was recommended. DESCRIPTION OF PROCEDURE: After the benefits and risks of the procedure were explained and an informed consent was obtained, the patient was brought to the operating room and laid supine on the operating table. After the induction of general endotracheal anesthesia, time-out was completed and appropriate perioperative antibiotics were administered. The abdomen was prepped and draped in standard sterile fashion. We made an upper midline incision with a scalpel, dissected through fascia with cautery and enteredthe abdominal cavity. We inspected the small bowel from the ligament of Treitz to terminal ileum, identifying no pathology on gross exam or by palpation. A loop of jejunum, 15 cm from the ligament ofTreitz, was brought up to create and antecolic, isoperistaltic gastrojejunostomy. The antimesenteric side of the small bowel was anastomosed to the anterior wall of the stomach, along the greater curvature, about 5 cm from the pylorus. The posterior, outer layer was made with silk sutures. A gastrotomy and matching enterotomy were made for 6 cm. The inner layer was made with full thickness Vicrylsutures, and the anterior outer layer with silk sutures. The new gastric outlet was palpated and widely patent. The abdomen was washed out with warm saline and hemostasis was assured. The fascia was closed with two #1 PDS sutures, running from either end and meeting tin the middle where they were tied together. Skin was closed with amelia. The patient tolerated the procedure well without complications. All sponge and instrument counts were correct at the end of the procedure. At the conclusion of the procedure, the patient was extubated and transferred to PACU. A physician's preschool assistant was utilized during this operative procedure. No other qualified preschool assistant was available at the time of this operation. The physician's preschool assistant was critical to the safety and expeditious nature of the procedure performed. This included optimizing exposure, control of hemorrhage, and closure. Jai Hilario DO 09/17/2025 documented in this encounter Miscellaneous Notes * Care Plan - Lizet Shrestha GN - 09/23/2025 5:52 AM CDT Shift Summary Potassium chloride infusion was stopped at 2:59 AM as ordered. High fall risk interventions and safety checks were consistently maintained throughout the shift. No pain or discomfort was reported, and no pain interventions were required. GI and assessments remained within defined limits, with no additional interventions needed. Overall, the shift was stable with continued monitoring and completion of ordered interventions. Verbalizes/displays acceptable comfort level or baseline comfort level: No pain or discomfort was reported throughout the shift, and no pain interventions were required. Safety/Fall: Absence of fall, injury, harm during hospitalization: High fall risk interventions were maintained and safety checks were completed, with no documented falls or injuries during the shift. Achieve optimal genitourinary and renal function by discharge or maintain baseline function: Genitourinary status remained within defined limits throughout the shift, with no additional assessments noted. Achieve optimal gastrointestinal function by discharge or maintain baseline function: Gastrointestinal status remained within defined limits, though bowel sounds were hypoactive and no additional assessments were required. * Care Plan - Antonette Kelley RN - 09/22/2025 3:52 PM CDT [place] Discharge Planning Expected Discharge Date Sep 23, 2025 Plan Discharge To: Home with family assist (09/20/251428) Plan Discharge To - Alternate: Home or Self Care (09/20/251428) Family/Caregiver Assist Does the patient have family and/or a caregiver that is willing, able and available to assist if needed?: Yes (09/20/251428) Name and Relation: daughter (09/20/251428) Met with patient. He is feeling better, NG tube is out and he states he is tolerating liquids. Possible plan for home discharge tomorrow with family. CM to continue to follow for discharge needs. Referrals Status: Preferred Pharmacy: [facility] [address] [place], [place] [address] [facility] [address] AT [place], [place] - [address] [facility] Patient / Family Communications: Patient/Family Communications: Plan Discharge To Update (09/20/251428) Discharge Plan Agreed Upon: Patient;Family member (09/20/251428) Resources Provided Transportation Plan Follow Up Appointments Scheduled Antonette Kelley RN * Care Plan - Lizet Shrestha GN - 09/22/2025 5:47 AM CDT Shift Summary Comprehensive metabolic panel was drawn overnight, showing stable renal function and mild electrolyte changes. High fall risk interventions and safety checks were maintained throughout the shift. No changes were observed in wound or midline catheter status, and dressings remained intact. Overall, comfort was maintained and no acute events occurred during the shift. Verbalizes/displays acceptable comfort level or baseline comfort level: Pain was denied throughout the shift, though abdominal discomfort persisted; no pain interventions were required. Infection Risk/Actual: Infection prevention, control, or resolution by discharge: No changes in wound or midline catheter assessments were noted, and dressings remained dry and intact throughout the shift. Safety/Fall: Absence of fall, injury, harm during hospitalization: High fall risk interventions were maintained, and safety checks were consistently completed with no reported falls or injuries. Achieve optimal genitourinary and renal function by discharge or maintain baseline function: Genitourinary assessments remained within defined limits, and renal function lab results were stable with no significant changes during the shift. * Care Plan - Dawna Peraza RN - 09/21/2025 2:46 AM CDT Shift Summary The patient has NGT in situ at 57 cm. , connected to low intermittent suction. Output is dark brownto black in color, watery; marked at 400 cc in the cannister. IV team at bedside and placed a RIGHT MIDLINE. The ordered Lactated Ringers re started at 75 cc/hr. Alert, oriented; not in distress; daughter at bedside. He reported he felt better and less nauseated after placing the NGT. Offered anti nausea medicationbut refused. He also reported that his abdominal pain is better and refused pain medication at this time. The patient requested to have ice chips, reminded on STRICT NPO diet. Offered ice chips for comfort; tolerated. Pain medication was administered at 2248 as he complained of 4/10 abdominal pain. Seen resting quietly after medication administration. Large amount of gastric content was recorded. Earlier last night, gastric content output was noted to be dark in color, however, this morning, it was noted to be in light brown to light yellow green in color, thick in consistency. Did not require any anti nausea and pain meds prior end of the shift. All needs met and attended, kept safe and comfortable. Handed over to the morning shift RN. * Care Plan - Renny Nuno RN - 09/20/2025 11:26 PM CDT Problem: Infection, Risk/Actual (Adult) Goal: Infection, Risk/Actual: Infection Prevention/Resolution/Control Description: Patient will demonstrate the desired outcomes. Note: Melo 's midline IV will remain free from infection. * Care Plan - Antonette Kelley RN - 09/20/2025 2:29 PM CDT [place] Discharge Planning Expected Discharge Date Sep 22, 2025 Plan Discharge To: Home with family assist (09/20/251428) Plan Discharge To - Alternate: Home or Self Care (09/20/251428) Family/Caregiver Assist Does the patient have family and/or a caregiver that is willing, able and available to assist if needed?: Yes (09/20/251428) Name and Relation: daughter (09/20/251428) Met with patient and daughter at bedside. Plan at discharge will be to discharge to home with family once medically ready. winter sports manager to continue to follow for discharge planning. Referrals Status: Preferred Pharmacy: [facility] [address] [place] [address] [place] [address] AT [facility], [place] - [address] [facility] Patient / Family Communications: Patient/Family Communications: Plan Discharge To Update (09/20/251428) Discharge Plan Agreed Upon: Patient;Family member (09/20/251428) Resources Provided Transportation Plan Follow Up Appointments Scheduled Antonette Kelley RN * Care Plan - Dawna Peraza RN - 09/20/2025 5:50 AM CDT Shift Summary Nausea was managed with ondansetron and prochlorperazine, and pain was addressed with morphine and HYDROmorphone (PF) throughout the shift. High fall risk interventions were consistently implemented, with no reported falls or injuries. Patient remained NPO due to nausea, and abdominal discomfort persisted but was controlled with medication. Bowel function did not change, and no emesis occurred during the shift. Patient was able to rest quietly for extended periods, with personal and safety needs maintained. Verbalizes/displays acceptable comfort level or baseline comfort level: Pain was present throughoutthe shift but was managed with medication and non- pharmacologic interventions, resulting in periodsof relaxation and quiet rest; pain scores fluctuated slightly but generally remained moderate, withmorphine and HYDROmorphone (PF) administered for relief. Safety/Fall: Absence of fall, injury, harm during hospitalization: High fall risk interventions were maintained, including low bed positioning, call light within reach, and family presence; no falls or injuries occurred during the shift. Achieve optimal gastrointestinal function by discharge or maintain baseline function: Nausea was present but managed with ondansetron and prochlorperazine, and mesis was noted; patient remained NPO and abdominal discomfort persisted, with bowel function unchanged during the shift. * Care Plan - Andreea Franz GN - 09/19/2025 5:57 AM CDT Shift Summary HYDROmorphone was administered for abdominal pain, resulting in improved comfort and lower pain scores. NG tube suction was discontinued by the end of the shift after monitoring output and tolerance. Wound and enterostomy tube dressings remained dry and intact, with no skin breakdown observed. High fall risk interventions and safety checks were consistently performed, with no falls or injuries documented. Overall, comfort improved, safety was maintained, and skin and GI interventions were completed as planned. Verbalizes/displays acceptable comfort level or baseline comfort level: Abdominal pain decreased from a rating of 8 to 3.5 after HYDROmorphone administration, and by end of shift, resting quietly andcontent/relaxed was noted, with pain management interventions provided as needed. Safety/Fall: Absence of fall, injury, harm during hospitalization: High fall risk interventions andsafety checks were consistently completed, with no documented falls or injuries during the shift. Maintain skin integrity and/or promote wound healing by discharge: Wound and enterostomy tube dressings remained dry and intact throughout the shift, and skin integrity was maintained with no apparent problems or breakdown noted. Achieve optimal gastrointestinal function by discharge or maintain baseline function: Gastrointestinal interventions focused on monitoring stool output and weight changes, with altered bowel functiondocumented and nasogastric tube suction discontinued by end of shift; bowel sounds remained hypoactive on the right and hyperactive on the left, and abdominal discomfort persisted but nausea was intermittent. Achieve optimal nutrition and fluid status to meet metabolic needs throughout hospitalization: Oralintake and appetite remained poor, with blood glucose monitored and dietary modifications encouraged; lab results showed high glucose and low albumin, and interventions included rest breaks and oral hygiene. * Care Plan - Iris Snyder RN - 09/18/2025 6:12 PM CDT Shift Summary HYDROmorphone was administered in the afternoon for pain management, and comfort interventions wereperformed later in the shift. Ambulation occurred in the cruz with supervision, and independence in ADLs was promoted throughout the day. CHG bathing and perineal care were provided, with wound dressing remaining dry and intact. Fluid management included lactated ringers and dextrose 5% - lactated ringers, with enoxaparin administered in the morning. Overall, pain was addressed, ambulation improved, and infection prevention measures were maintainedduring the shift. Verbalizes/displays acceptable comfort level or baseline comfort level: Pain rating at rest was 4 in the morning and HYDROmorphone was administered in the afternoon for pain, with ambulation and comfort interventions provided later in the shift. Infection Risk/Actual: Infection prevention, control, or resolution by discharge: No fever was present and skin integrity was maintained with CHG bathing and dry, intact wound dressing throughout theshift. Safety/Fall: Absence of fall, injury, harm during hospitalization: High fall risk interventions were completed and ambulation occurred with supervision, with no reported falls or injuries during the shift. Identify discharge needs upon admission and through discharge: Ambulation status improved to walking in the cruz with continued independence in ADLs, and patient expressed intent to shower with family assistance. Achieve optimal genitourinary and renal function by discharge or maintain baseline function: Voiding dysfunction and hesitancy were noted, with urine output monitored and no acute changes documented during the shift. * Care Plan - Iris Snyder RN - 09/17/2025 6:54 PM CDT Shift Summary Pain management interventions with HYDROmorphone and fentaNYL in [facility] led to improved comfort levels. Wound remained dry and intact, and hygiene was maintained with a CHG shower in the morning. High fall risk interventions and safety checks were consistently completed, with aspiration precautions in place throughout the shift. Discharge planning was completed and agreed upon with patient and family, with home or self-care asthe plan and caregiver support confirmed. Genitourinary function was maintained within defined limits, with pending voids resolved by end of shift. Infection Risk/Actual: Infection prevention, control, or resolution by discharge: Wound assessmentsthroughout the shift remained within defined limits and dressing was consistently dry and intact, with hygiene maintained via CHG shower in the morning. Safety/Fall: Absence of fall, injury, harm during hospitalization: High fall risk interventions andsafety checks were completed each interval, with no additional individualized interventions required and aspiration precautions maintained throughout the shift. * Care Plan - Harriett Theodore RN - 09/17/2025 3:11 PM CDT [place] Discharge Planning Expected Discharge Date Sep 18, 2025 Plan Discharge To: Home or Self Care (09/17/251509) Plan Discharge To - Alternate: Home with family assist (09/17/251509) Family/Caregiver Assist Does the patient have family and/or a caregiver that is willing, able and available to assist if needed?: Yes (09/17/251509) Name and Relation: Tami-daughter (09/17/251509) Patient to discharge home with family assist when medically stable. CM will continue to follow for discharge planning. Referrals Status: Preferred Pharmacy: [facility] [address] [place] [address] [place] [address] AT [place], [place] - [address] [facility] Patient / Family Communications: Patient/Family Communications: Plan Discharge To Update (09/17/251509) Discharge Plan Agreed Upon: Patient;Family member (09/17/251509) Resources Provided Transportation Plan Follow Up Appointments Scheduled Harriett Theodore RN * Care Plan - Diana Estrada RN - 09/16/2025 5:24 PM CDT Shift Summary Moderate brown, fecal-smelling emesis persisted through the morning, with nausea and abdominal discomfort managed by antiemetic and head of bed elevation. NPO status and aspiration precautions were maintained to address poor oral intake and risk of aspiration. Lactated ringers were administered to support fluid status. CHG shower was provided for hygiene care. Overall, gastrointestinal symptoms and nutrition concerns were managed with ongoing interventions and supportive care. Achieve optimal gastrointestinal function by discharge or maintain baseline function: Emesis remained moderate and brown with fecal odor throughout the morning, accompanied by intermittent nausea andabdominal discomfort; bowel sounds were not audible and stool was formed, with ongoing management including antiemetic administration and head of bed elevation. Infection, Risk/Actual: Infection Prevention/Resolution/Control: No new symptoms or documentation related to infection prevention or control were noted during the shift. Achieve optimal nutrition and fluid status to meet metabolic needs throughout hospitalization: Oralintake was inadequate and patient remained NPO, with aspiration precautions in place and lactated ringers administered to support fluid status. * Care Plan - Harriett Theodore RN - 09/16/2025 9:29 AM CDT [place] Discharge Planning Expected Discharge Date Sep 17, 2025 Plan Discharge To: Home or Self Care (09/16/25928) Plan Discharge To - Alternate: Home with family assist (09/16/25928) Family/Caregiver Assist Does the patient have family and/or a caregiver that is willing, able and available to assist if needed?: Yes (09/16/25928) Name and Relation: Daughter (09/16/25928) Patient to discharge home when medically stable. CM will continue to follow for discharge planning. Referrals Status: Preferred Pharmacy: [address] [address] [place] [address] [facility] [address] [facility] Patient / Family Communications: Patient/Family Communications: Plan Discharge To Update (09/16/25928) Discharge Plan Agreed Upon: Patient (09/16/25928) Resources Provided Transportation Plan Follow Up Appointments Scheduled Harriett Theodore RN * Care Plan - Dawna Peraza RN - 09/15/2025 6:11 AM CDT Shift Summary No pain or discomfort was reported, but abdominal discomfort was present earlier in the shift. Bowel function remained altered and oral intake was inadequate, with clear liquids provided and adherence to diet encouraged. Activity was promoted and positioning remained independent with head of bed elevated for aspirationprecautions. Vitals remained stable with mild fluctuations in blood pressure and oxygen saturation. Overall, comfort was maintained and interventions focused on nutrition, GI function, and safety. Verbalizes/displays acceptable comfort level or baseline comfort level: No pain or discomfort was reported throughout the shift, though abdominal discomfort was noted earlier; no pain interventions were required. Achieve optimal gastrointestinal function by discharge or maintain baseline function: Bowel function remained altered and abdominal discomfort was present, but no emesis episodes were documented and activity was promoted. Achieve optimal nutrition and fluid status to meet metabolic needs throughout hospitalization: Oralintake was inadequate and limited to clear liquids, with adherence to prescribed diet and oral hygiene encouraged. * Care Plan - Harriett Theodore RN - 09/14/2025 8:39 AM CDT [place] Discharge Planning Expected Discharge Date Sep 15, 2025 Plan Discharge To: Home or Self Care (09/14/25838) Plan Discharge To - Alternate: Home with family assist (09/14/25838) Family/Caregiver Assist Does the patient have family and/or a caregiver that is willing, able and available to assist if needed?: Yes (09/14/25838) Name and Relation: Daughter (09/14/25838) Patient planning to return home when medically stable. CM will continue to follow for discharge planning. Referrals Status: Preferred Pharmacy: [facility] [address] [place] [address] - [address] [address] AT [place], [place] - [address] [facility] Patient / Family Communications: Patient/Family Communications: Plan Discharge To Update (09/14/25838) Discharge Plan Agreed Upon: Patient (09/14/25838) Resources Provided Transportation Plan Follow Up Appointments Scheduled Harriett Theodore RN * Care Plan - Harriett Theodore RN - 09/13/2025 2:04 PM CDT Care Management Initial Assessment Initial Discharge Planning Assessment completed. Discussed Care Management's role and Discharge planning. Plan Discharge To: Home or Self Care Plan Discharge To - Alternate: Home with family assist Does the patient have family and/or a caregiver that is willing, able and available to assist if needed? Yes - Name/Relation:Tami-daughter Comments: Patient lives at home alone. Patient Discharge Planning Goal: home with family Patient will potentially discharge to a SNF/NH? No Care Management visited with: patient and daughterTami via in person. Prior to admission, patient resides at: own home. Patient resides in a 1 story home with 6 stairs to enter. Patient's bedroom and bathroom are located on the main floor. Prior to admission, living arrangements: lives alone. Prior to admission, patient's functional level:independent; uses N/A for mobility; needs assistancewith iADLs: N/A Community Ambulator: yes Prior to admission, the patient has the following DME? N/A Services in the home/community: none Receives hemodialysis? No Emergency contact(s): Extended Emergency Contact Information Primary Emergency Contact: CalvinTami Mobile Relation: Daughter Analytics Leader needed? No Secondary Emergency Contact: Hamida Zhao Mobile Relation: Daughter Prescription coverage: yes [facility] [address] [place] [address] - [address]/[place] [address] [facility] [address] AT [place] - [address] [facility] Insurance coverage verified: Payor: [facility] MEDICAID / Plan: [facility] [id number] / Product Type: HMO / Secondary Insurance:N/A Medicaid Status: no spend down Has VA Benefits: no Employment Status: employed PCP verified as: No primary care provider on file. Dr. Elizabeth Hollis [employer] @ [place], [place] Patient has not had a stay at an acute care hospital in the last 30 days. Recent Falls?: Last Known Fall: No falls Plan for transportation at discharge: daughter-Tami Care Management contact information provided. Care Management will continue to follow and assist asneeded. * Care Plan - Juventino George RN - 09/13/2025 2:31 AM CDT Problem: Infection, Risk/Actual (Adult) Goal: Infection, Risk/Actual: Infection Prevention/Resolution/Control Description: Patient will demonstrate the desired outcomes. Melo 's peripheral IV will remain free from infection. 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 Office Visit [facility] [address] [facility] [address] [place] [address] Marah Cruz NP [address] [facility] [address] [place] [address] Scheduled Orders Name Type Priority Associated Diagnoses Orde r Schedule CBC WITH DIFFERENTIAL Lab Routine Upper GI bleed Adenocarcinoma of pancreas (CMS/HCC) Expected: 09/30/2025, Expires: 09/23/2026 COMPREHENSIVE METABOLIC PANEL Lab Routine Upper GI bleed Adenocarcinoma of pancreas (CMS/HCC) Expected: 09/30/2025, Expires: 09/23/2026 documented as of this encounter Procedures Procedure Name Priority Date/Time Associated Diagnosis Comments TELEMETRY REPORT 09/24/2025 3:19 PM CDT COMPREHENSIVE METABOLIC PANEL Routine 5:01 AM CDT MAGNESIUM LEVEL Routine 09/22/2025 1:39 AM CDT COMPREHENSIVE METABOLIC PANEL Routine 1:39 AM CDT COMPREHENSIVE METABOLIC PANEL Routine 5:32 AM CDT INSERT MIDLINE IV Routine 09/20/2025 7:15 PM CDT XR ABDOMEN FOR FEEDING TUBE 1 VW Stat 09/20/2025 9:27 AM CDT CBC WITH DIFFERENTIAL Routine 09/20/2025 4:21 AM CDT COMPREHENSIVE METABOLIC PANEL Routine 4:21 AM CDT POC GLUCOSE Routine 09/19/2025 4:37 AM CDT CBC WITH DIFFERENTIAL Routine 09/19/2025 3:26 AM CDT COMPREHENSIVE METABOLIC PANEL Routine 3:26 AM CDT POC GLUCOSE Routine 09/18/2025 9:31 PM CDT XR ABDOMEN FOR FEEDING TUBE 1 VW Stat 09/18/2025 4:55 PM CDT BASIC METABOLIC PANEL Routine 09/18/2025 7:43 AM CDT POC GLUCOSE Routine 09/17/2025 12:57 PM CDT GASTROJEJUNOSTOMY 09/17/2025 8:32 AM CDT COMPREHENSIVE METABOLIC PANEL Routine 5:30 AM CDT CBC WITH DIFFERENTIAL Routine 09/17/2025 5:29 AM CDT CBC WITH DIFFERENTIAL Routine 09/16/2025 6:27 AM CDT COMPREHENSIVE METABOLIC PANEL Routine 6:27 AM CDT XR UPR GI Pending Discharge 09/15/2025 9:00 AM CDT CBC WITH DIFFERENTIAL Routine 09/15/2025 5:19 AM CDT COMPREHENSIVE METABOLIC PANEL Routine 5:19 AM CDT UPPER ENDOSCOPY REPORT 1:58 PM CDT ESOPHAGOGASTRODUODENOSCOPY 09/14 1:40 PM CDT XR ABDOMEN FOR FEEDING TUBE 1 VW Stat 09/14/2025 7:47 AM CDT CBC WITH DIFFERENTIAL Routine 09/14/2025 4:17 AM CDT COMPREHENSIVE METABOLIC PANEL Routine 4:17 AM CDT HEMOGLOBIN AND HEMATOCRIT Routine 2024 9:37 PM CDT XR ABDOMEN FOR FEEDING TUBE 1 VW Stat 09/13/2025 7:57 PM CDT XR ABDOMEN FOR FEEDING TUBE 1 VW Stat 09/13/2025 7:32 PM CDT HEMOGLOBIN AND HEMATOCRIT Routine 2024 1:08 PM CDT PROTIME-INR Routine 09/13/2025 4:02 AM CDT CBC WITH DIFFERENTIAL Routine 09/13/2025 3:48 AM CDT COMPREHENSIVE METABOLIC PANEL Routine 3:48 AM CDT documented in this encounter Results * TELEMETRY REPORT (09/24/2025 3:19 PM CDT) us Provider Scanning ECG ORDERABLES Final Result * (ABNORMAL) COMPREHENSIVE METABOLIC PANEL (09/23/2025 5:01 AM CDT) SODIUM 134(L) 136 - 145 mmol/L 09/23/2025 5:48 AM CDT [facility] POTASSIUM 3.9 3.5 - 5.1 mmol/L 09/23/2025 5:48 AM CDT [facility] CHLORIDE 100 98 - 107 mmol/L 09/23/2025 5:48 AM CDT [facility] CO2 24 22 - 29 mmol/L 09/23/2025 5:48 AM CDT [facility] CALCIUM 8.1(L) 8.6 - 10.0 mg/dL 09/23/2025 5:48 AM CDT [facility] BUN 10 6 - 20 mg/dL 09/23/2025 5:48 AM T [facility] CREATININE 0.72 0.67 - 1.17 mg/dL 09/23/2025 5:48 AM T [facility] GLUCOSE 122(H) 74 - 99 mg/dL 09/23/2025 5:48 AM [facility] TOTAL PROTEIN 5.8(L) 6.4 - 8.3 g/dL 09/23/2025 5:48 AM [facility] ALBUMIN 2.9(L) 3.5 - 5.2 g/dL 09/23/2025 5:48 AM T [facility] BILIRUBIN TOTAL 0.3 0.0 - 1.0 mg/dL 09/23/2025 5:48 AM [facility] ALKALINE PHOSPHATASE 297(H) 40 - 129 U/L 09/23/2025 5:48 AM [facility] AST 17 10 - 50 U/L 09/23/2025 5:48 AM [facility] ALT 11 <=50 U/L 09/23/2025 5:48 AM [facility] GFR >60 >=60 mL/min/1.7 3 sq meter 09/23/2025 5:48 AM [facility] Comment:eGFR calculated with 2020 CKD-EPI equation. Vegetarian diet, extremely high or low muscle mass, and may affect results. Cystatin C with Glomerular Filtration Rate is a suitable alternative for these patients. ANION GAP 10 9 - 20 mmol/L 09/23/2025 5:48 AM [facility] Blood Venipuncture / Unknown 09/23/2025 5:01 AM CDT 09/23/2025 5:11 AM CDT us Tex Ricketts MD CHEMISTRY ORDERABLES Final Re sult [facility] CLIA # [id number] [address] [place] [address] * MAGNESIUM LEVEL (09/22/2025 1:39 AM CDT) MAGNESIUM 1.8 1.6 - 2.6 mg/dL 09/22/2025 7:45 AM T [facility] Blood Venipuncture / Unknown 09/22/2025 1:39 AM CDT 09/22/2025 1:50 AM CDT Shlomo Harris MD CHEMISTRY ORDERABLE S Final Result [facility] CLIA # [id number] [facility] [address] [place] [address] * (ABNORMAL) COMPREHENSIVE METABOLIC PANEL (09/22/2025 1:39 AM CDT) Pathologist [facility] SODIUM 138 136 - 145 mmol/L 09/22/2025 2:23 AM T [facility] POTASSIUM 3.4(L) 3.5 - 5.1 mmol/L 09/22/2025 2:23 AM T [facility] CHLORIDE 100 98 - 107 mmol/L 09/22/2025 2:23 AM T [facility] CO2 28 22 - 29 mmol/L 09/22/2025 2:23 AM T [facility] CALCIUM 8.4(L) 8.6 - 10.0 mg/dL 09/22/2025 2:23 AM T [facility] BUN 19 6 - 20 mg/dL 09/22/2025 2:23 AM T [facility] CREATININE 0.78 0.67 - 1.17 mg/dL 09/22/2025 2:23 AM T [facility] GLUCOSE 116(H) 74 - 99 mg/dL 09/22/2025 2:23 AM T [facility] TOTAL PROTEIN 6.3(L) 6.4 - 8.3 g/dL 09/22/2025 2:23 AM T [facility] ALBUMIN 3.2(L) 3.5 - 5.2 g/dL 09/22/2025 2:23 AM T [facility] BILIRUBIN TOTAL 0.4 0.0 - 1.0 mg/dL 09/22/2025 2:23 AM T [facility] ALKALINE PHOSPHATASE 220(H) 40 - 129 U/L 09/22/2025 2:23 AM T [facility] AST 14 10 - 50 U/L 09/22/2025 2:23 AM T [facility] ALT 11 <=50 U/L 09/22/2025 2:23 AM [facility] GFR >60 >=60 mL/min/1.7 3 sq meter 09/22/2025 2:23 AM T [facility] Comment:eGFR calculated with 2020 CKD-EPI equation. Vegetarian diet, extremely high or low muscle mass, and may affect results. Cystatin C with Glomerular Filtration Rate is a suitable alternative for these patients. ANION GAP 10 9 - 20 mmol/L 09/22/2025 2:23 AM [facility] Blood Venipuncture / Unknown 09/22/2025 1:39 AM CDT 09/22/2025 1:50 AM CDT us Tex Ricketts MD CHEMISTRY ORDERABLES Final Re sult [facility] CLIA # [id number] [address] [place] [address] * (ABNORMAL) COMPREHENSIVE METABOLIC PANEL (09/21/2025 5:32 AM CDT) SODIUM 140 136 - 145 mmol/L 09/21/2025 6:43 AM CDT [facility] POTASSIUM 4.4 3.5 - 5.1 mmol/L 09/21/2025 6:43 AM T [facility] CHLORIDE 100 98 - 107 mmol/L 09/21/2025 6:43 AM [facility] CO2 29 22 - 29 mmol/L 09/21/2025 6:43 AM [facility] CALCIUM 8.9 8.6 - 10.0 mg/dL 09/21/2025 6:43 AM [facility] BUN 21(H) 6 - 20 mg/dL 09/21/2025 6:43 AM [facility] CREATININE 0.77 0.67 - 1.17 mg/dL 09/21/2025 6:43 AM [facility] GLUCOSE 109(H) 74 - 99 mg/dL 09/21/2025 6:43 AM [facility] TOTAL PROTEIN 6.7 6.4 - 8.3 g/dL 09/21/2025 6:43 AM [facility] ALBUMIN 3.3(L) 3.5 - 5.2 g/dL 09/21/2025 6:43 AM [facility] BILIRUBIN TOTAL 0.3 0.0 - 1.0 mg/dL 09/21/2025 6:43 AM [facility] ALKALINE PHOSPHATASE 208(H) 40 - 129 U/L 09/21/2025 6:43 AM [facility] AST 15 10 - 50 U/L 09/21/2025 6:43 AM [facility] ALT 12 <=50 U/L 09/21/2025 6:43 AM [facility] GFR >60 >=60 mL/min/1.7 3 sq meter 09/21/2025 6:43 AM [facility] Comment:eGFR calculated with 2020 CKD-EPI equation. Vegetarian diet, extremely high or low muscle mass, and may affect results. Cystatin C with Glomerular Filtration Rate is a suitable alternative for these patients. ANION GAP 11 9 - 20 mmol/L 09/21/2025 6:43 AM [facility] Blood Venipuncture / Unknown 09/21/2025 5:32 AM CDT 09/21/2025 5:54 AM CDT us Tex Ricketts MD CHEMISTRY ORDERABLES Final Re sult [facility] # [id number] [address] [place] [address] [place] [address] * INSERT MIDLINE IV (09/20/2025 7:15 PM CDT) Narrative Renny Nuno RN - 09/20/2025 7:15 PM CDT Renny Nuno RN 09/20/2025 7:28 PM VASCULAR ACCESS NOTE Midline PATIENT NAME: Melo Simpson DATE OF : 1965 CSN: [id number] DATE: 09/20/2025 Room: [address] [place] [address] Admit Date: 09/13/2025 Hospital day: LOS: 7 days LINE STATUS: A Midline catheter was successfully inserted and can be used Adult Midline Catheter: Single Lumen 09/20/251914 Right: basilic vein (Active) 09/20/251914 basilic vein Earliest Known Present: Present on Admission: Orientation: Right: Size: Number of Insertion Attempts: 1 Insertion: Patient Tolerance: tolerated well Insertion: Pain Prevention: distraction Power Injectable Compatable: Yes Earliest Known Removed: Removal Indication: Removal Interventions: *Procedural Assist Insertion of Midline catheter WO SQ port >5 yrs 09/20/251914 Extremity Circumference, Mid-Upper (cm) 30 09/20/251914 Patency flushes w/o difficulty;positive blood return 09/20/251914 Line Interventions system flushed;aspirate returned;antimicrobial cap/s in place or applied to line and/or tubing;IV capped 09/20/251914 Dressing Type/Securement antimicrobial patch/disc;transparent semipermeable dressing;secured with tape;site adhesive 09/20/251914 Dressing Changed Date 09/20/25 09/20/251914 Needleless Connector Changed Date 09/20/25 09/20/251914 Line Criteria Poor venous access 09/20/251914 Number of days: 0 MIDLINE PROCEDURE A Time Out process was completed prior to the midline placement procedure confirming correct patient, correct procedure site, and correct procedure being performed. Ultrasound assessment was performed to assess adequacy of vascular anatomy Adequate vessel was located with less than 45% catheter to vein ratio. Insertion site cleansed for 30 seconds with Chlora-prep Allowed to dry before initial needle stick. A midline was inserted in the basilic vein of the right upper arm using ultrasound guidance under sterile technique. 18 gauge, 8 cm Secure port adhesive used Yes 1 attempts 50 minutes required to complete procedure, including time waiting for physician communication regarding orders Positive blood return visualized. Neutral pressure cap applied Catheter flushed easily with 5ml of Normal Saline Transparent antimicrobial stabilization dressing applied Antimicrobial cap placed Dressing with date, time and initials of RN Patient tolerated procedure well. Primary care nurse notified of catheter placement Renny Nuno RN CARE AND MAINTENANCE This is not a central line. NO BLOOD PRESSURES on arm with powerglide Requires physician order for blood draws The midline is indicated for use as a peripheral IV access only The midline is Power injectable - Securely apply neutral OR positive pressure cap when not in use. Use port protector cap when not in use Flush the catheter with 5 mL of normal saline every 12 hours or after each use, using a 10 mL or larger Flush the catheter with 10ml normal saline before blood draw and flush with 20 ml of normal saline after blood draws, using a 10ml or larger syringe. Waste 5ml prior to collection. Flush catheter once weekly when not in use(outpatient setting). Flush catheter using pulsating start-stop technique Always use 10ml syringe when flushing Do not forcefully flush against resistance Change dressing weekly and as needed using sterile technique Shlomo Harris MD IV THERAPY ORDERABL ES Final Result * XR ABDOMEN FOR FEEDING TUBE 1 VW (09/20/2025 9:27 AM CDT) Anatomical Region Laterality Modality Abdomen Computed Radiogr aphy 09/20/2025 9:27 AM CDT Narrative 09/20/2025 9:42 AM CDT EXAM: XR ABDOMEN FOR FEEDING TUBE 1 VW DATE/TIME OF EXAM: 09/20/2025 9:27 AM REASON FOR EXAM: Check Tube Placement DIAGNOSIS: See Reason for Exam COMPARISON: 09/18/2025 FINDINGS: NG/OG tube is in similar position and likely terminates in the mid stomach with the side-port/sentinel hole just below the GE junction. There is residual oral contrast material throughout the colon. Procedure Note Jean Claude Suarez MD - 09/20/2025 EXAM: XR ABDOMEN FOR FEEDING TUBE 1 VW DATE/TIME OF EXAM: 09/20/2025 9:27 AM REASON FOR EXAM: Check Tube Placement DIAGNOSIS: See Reason for Exam COMPARISON: 09/18/2025 FINDINGS: NG/OG tube is in similar position and likely terminates in the mid stomach with the side-port/sentinel hole just below the GE junction. There is residual oral contrast material throughout the colon. Shlomo Harris MD DIAGNOSTIC IMAGING ORDERABLES Final Result * (ABNORMAL) COMPREHENSIVE METABOLIC PANEL (09/20/2025 4:21 AM CDT) SODIUM 138 136 - 145 mmol/L 09/20/2025 5:37 AM CDT [facility] POTASSIUM 3.9 3.5 - 5.1 mmol/L 09/20/2025 5:37 AM CDT [facility] CHLORIDE 97(L) 98 - 107 mmol/L 09/20/2025 5:37 AM CDT [facility] CO2 27 22 - 29 mmol/L 09/20/2025 5:37 AM CDT [facility] CALCIUM 9.4 8.6 - 10.0 mg/dL 09/20/2025 5:37 AM CDT [facility] BUN 18 6 - 20 mg/dL 09/20/2025 5:37 AM CDT [facility] CREATININE 0.77 0.67 - 1.17 mg/dL 09/20/2025 5:37 AM CDT [facility] GLUCOSE 139(H) 74 - 99 mg/dL 09/20/2025 5:37 AM CDT [facility] TOTAL PROTEIN 7.8 6.4 - 8.3 g/dL 09/20/2025 5:37 AM CDT [facility] ALBUMIN 3.7 3.5 - 5.2 g/dL 09/20/2025 5:37 AM CDT [facility] BILIRUBIN TOTAL 0.4 0.0 - 1.0 mg/dL 09/20/2025 5:37 AM CDT [facility] ALKALINE PHOSPHATASE 242(H) 40 - 129 U/L 09/20/2025 5:37 AM CDT [facility] AST 18 10 - 50 U/L 09/20/2025 5:37 AM T [facility] ALT 16 <=50 U/L 09/20/2025 5:37 AM T [facility] GFR >60 >=60 mL/min/1.7 3 sq meter 09/20/2025 5:37 AM T [facility] Comment:eGFR calculated with 2020 CKD-EPI equation. Vegetarian diet, extremely high or low muscle mass, and may affect results. Cystatin C with Glomerular Filtration Rate is a suitable alternative for these patients. ANION GAP 14 9 - 20 mmol/L 09/20/2025 5:37 AM [facility] Blood Venipuncture / Unknown 09/20/2025 4:21 AM CDT 09/20/2025 4:58 AM CDT us Tex Ricketts MD CHEMISTRY ORDERABLES Final Re sult [facility] CLIA # [id number] [address] [place] [address] * (ABNORMAL) CBC WITH DIFFERENTIAL (09/20/2025 4:21 AM CDT) WBC 9.9 4.8 - 10.8 K/uL 09/20/2025 5:13 AM CDT [facility] RBC 3.82(L) 4.60 - 6.20 M/uL 09/20/2025 5:13 AM CDT [facility] HEMOGLOBIN 11.3(L) 14.0 - 18.0 g/dL 09/20/2025 5:13 AM CDT [facility] HEMATOCRIT 34.6(L) 41.0 - 53.0 % 09/20/2025 5:13 AM [facility] MCV 90.6 84.0 - 103.0 fL 09/20/2025 5:13 AM [facility] MCH 29.6 27.0 - 34.0 pg 09/20/2025 5:13 AM [facility] MCHC 32.7 30.0 - 35.0 g/dL 09/20/2025 5:13 AM [facility] [place] [facility] PLATELETS 228 140 - 440 K/uL 09/20/2025 5:13 AM [facility] [place] [facility] MPV 8.6(L) 8.9 - 12.8 fL 09/20/2025 5:13 AM [facility] [place] [facility] RDW 16.3(H) 11.0 - 14.5 % 09/20/2025 5:13 AM [facility] [place] [facility] RDW-STDEV 54.9(H) 37.0 - 54.0 fL 09/20/2025 5:13 AM [facility] [place] [facility] NEUTROPHILS 78(H) 42 - 75 % 09/20/2025 5:13 AM [facility] LYMPHOCYTES 15(L) 24 - 44 % 09/20/2025 5:13 AM [facility] MONOCYTES 7 2 - 10 % 09/20/2025 5:13 AM [facility] [place] [facility] EOSINOPHILS 0 0 - 7 % 09/20/2025 5:13 AM [facility] [place] [facility] BASOPHILS 0 0 - 1 % 09/20/2025 5:13 AM [facility] IMMATURE GRANULOCYTES 1 0 - 2 % 09/20/2025 5:13 AM [facility] NEUTROPHIL ABSOLUTE 7.72 2.00 - 8.00 K/uL 09/20/2025 5:13 AM [facility] LYMPHOCYTE ABSOLUTE 1.44 1.20 - 4.00 K/uL 09/20/2025 5:13 AM [facility] MONOCYTE ABSOLUTE 0.65(H) 0.10 - 0.60 K/uL 09/20/2025 5:13 AM CDT [facility] EOSINOPHIL ABSOLUTE 0.04 0.00 - 0.70 K/uL 09/20/2025 5:13 AM CDT [facility] BASOPHILS ABSOLUTE 0.02 0.00 - 0.20 K/uL 09/20/2025 5:13 AM CDT [facility] IMMATURE GRANULOCYTES ABSOLUTE 0.06 0.00 - 0.10 K/uL 09/20/2025 5:13 AM CDT [facility] SMEAR REVIEWED: NA - Not Applicable 09/20/2025 5:13 AM CDT [facility] Blood Venipuncture / Unknown 09/20/2025 4:21 AM CDT 09/20/2025 5:00 AM CDT us Tex Ricketts MD HEMATOLOGY ORDERABLES Final R esult Performing Organization Address City/[facility]/ZIP Co de Phone Number [facility] [facility] CLIA # [id number] [address] [address] * (ABNORMAL) POC GLUCOSE (09/19/2025 4:37 AM CDT) [facility] GLUCOSE POC 143(H) 74 - 99 mg/dL 09/19/2025 4:37 AM CDT [facility] SPECIMEN SOURCE, GLUCOSE POC Capillary 09/19/2025 4:37 AM CDT [facility] Blood, whole 09/19/2025 4:37 AM CDT 09/19/2025 4:47 AM CDT us Tex Ricketts MD POINT OF CARE TESTING Final R esult Performing Organization Address City/[facility]/ZIP Co de Phone Number [facility] CLIA # [id number] [address] [place] [address] * (ABNORMAL) COMPREHENSIVE METABOLIC PANEL (09/19/2025 3:[address] [facility]) [facility] SODIUM 138 136 - 145 mmol/L 09/19/2025 4:20 AM [facility] POTASSIUM 3.7 3.5 - 5.1 mmol/L 09/19/2025 4:20 AM [facility] CHLORIDE 99 98 - 107 mmol/L 09/19/2025 4:20 AM [facility] CO2 27 22 - 29 mmol/L 09/19/2025 4:20 AM [facility] CALCIUM 8.8 8.6 - 10.0 mg/dL 09/19/2025 4:20 AM [facility] BUN 12 6 - 20 mg/dL 09/19/2025 4:20 AM [facility] CREATININE 0.79 0.67 - 1.17 mg/dL 09/19/2025 4:20 AM [facility] GLUCOSE 140(H) 74 - 99 mg/dL 09/19/2025 4:20 AM [facility] TOTAL PROTEIN 6.9 6.4 - 8.3 g/dL 09/19/2025 4:20 AM [facility] ALBUMIN 3.4(L) 3.5 - 5.2 g/dL 09/19/2025 4:20 AM [facility] BILIRUBIN TOTAL 0.3 0.0 - 1.0 mg/dL 09/19/2025 4:20 AM [facility] ALKALINE PHOSPHATASE 237(H) 40 - 129 U/L 09/19/2025 4:20 AM [facility] AST 18 10 - 50 U/L 09/19/2025 4:20 AM [facility] ALT 15 <=50 U/L 09/19/2025 4:20 AM [facility] GFR >60 >=60 mL/min/1.7 3 sq meter 09/19/2025 4:20 AM [facility] Comment:eGFR calculated with 2020 CKD-EPI equation. Vegetarian diet, extremely high or low muscle mass, and may affect results. Cystatin C with Glomerular Filtration Rate is a suitable alternative for these patients. ANION GAP 12 9 - 20 mmol/L 09/19/2025 4:20 AM CDT [facility] Blood Venipuncture / Unknown 09/19/2025 3:26 AM CDT 09/19/2025 3:48 AM CDT us Tex Ricketts MD CHEMISTRY ORDERABLES Final Re sult [facility] CLIA # [id number] [address] [place] [address] * (ABNORMAL) CBC WITH DIFFERENTIAL (09/19/2025 3:26 AM CDT) WBC 8.9 4.8 - 10.8 K/uL 09/19/2025 3:51 AM CDT [facility] RBC 3.59(L) 4.60 - 6.20 M/uL 09/19/2025 3:51 AM CDT [facility] HEMOGLOBIN 10.5(L) 14.0 - 18.0 g/dL 09/19/2025 3:51 AM CDT [facility] HEMATOCRIT 32.3(L) 41.0 - 53.0 % 09/19/2025 3:51 AM CDT [facility] MCV 90.0 84.0 - 103.0 fL 09/19/2025 3:51 AM CDT [facility] MCH 29.2 27.0 - 34.0 pg 09/19/2025 3:51 AM CDT [facility] MCHC 32.5 30.0 - 35.0 g/dL 09/19/2025 3:51 AM CDT [facility] PLATELETS 171 140 - 440 K/uL 09/19/2025 3:51 AM CDT [facility] MPV 8.6(L) 8.9 - 12.8 fL 09/19/2025 3:51 AM CDT [facility] RDW 16.4(H) 11.0 - 14.5 % 09/19/2025 3:51 AM [facility] RDW-STDEV 54.6(H) 37.0 - 54.0 fL 09/19/2025 3:51 AM [facility] NEUTROPHILS 75 42 - 75 % 09/19/2025 3:51 AM T [facility] LYMPHOCYTES 17(L) 24 - 44 % 09/19/2025 3:51 AM [facility] MONOCYTES 7 2 - 10 % 09/19/2025 3:51 AM [facility] EOSINOPHILS 0 0 - 7 % 09/19/2025 3:51 AM [facility] BASOPHILS 0 0 - 1 % 09/19/2025 3:51 AM [facility] IMMATURE GRANULOCYTES 1 0 - 2 % 09/19/2025 3:51 AM [facility] NEUTROPHIL ABSOLUTE 6.68 2.00 - 8.00 K/uL 09/19/2025 3:51 AM [facility] LYMPHOCYTE ABSOLUTE 1.53 1.20 - 4.00 K/uL 09/19/2025 3:51 AM [facility] MONOCYTE ABSOLUTE 0.59 0.10 - 0.60 K/uL 09/19/2025 3:51 AM [facility] EOSINOPHIL ABSOLUTE 0.02 0.00 - 0.70 K/uL 09/19/2025 3:51 AM [facility] BASOPHILS ABSOLUTE 0.01 0.00 - 0.20 K/uL 09/19/2025 3:51 AM [facility] IMMATURE GRANULOCYTES ABSOLUTE 0.04 0.00 - 0.10 K/uL 09/19/2025 3:51 AM [facility] SMEAR REVIEWED: NA - Not Applicable 09/19/2025 3:51 AM [facility] Blood Venipuncture / Unknown 09/19/2025 3:26 AM CDT 09/19/2025 3:45 AM CDT Tex Ricketts MD HEMATOLOGY ORDERABLES Final R mark Performing Organization Address [facility]/ZIP Co de Phone Number [facility] CLIA # [id number] [address] [place], [place] [address] * (ABNORMAL) POC GLUCOSE (09/18/2025 9:31 PM CDT) [facility] GLUCOSE POC 125(H) 74 - 99 mg/dL 09/18/2025 9:31 PM CDT [facility] SPECIMEN SOURCE, GLUCOSE POC Capillary 09/18/2025 9:31 PM CDT [facility] Blood, whole 09/18/2025 9:31 PM CDT 09/18/2025 10:32 PM CDT Tex Ricketts MD POINT OF CARE TESTING Final R mark Performing Organization Address [facility] Co de Phone Number [facility] CLIA # [id number] [address] [address] * XR ABDOMEN FOR FEEDING TUBE 1 VW (09/18/2025 4:55 PM CDT) Anatomical Region Laterality Modality Abdomen Computed Radiogr aphy 09/18/2025 4:55 PM CDT Impressions 09/18/2025 4:59 PM CDT IMPRESSION: Please see below. Exam: XR ABDOMEN FOR FEEDING TUBE 1 VW Date/Time of Exam: 09/18/2025 4:55 PM Reason For Exam: Check Tube Placement. Diagnosis: See Reason for Exam. Comparison: 09/14/2025. Findings: A feeding tube is present with its tip terminating in the body of the stomach. A nonspecific bowel gas pattern is present. Impression: 1. As above. Narrative Procedure Note Lili Wharton MD - 09/18/2025 IMPRESSION: Please see below. Exam: XR ABDOMEN FOR FEEDING TUBE 1 VW Date/Time of Exam: 09/18/2025 4:55 PM Reason For Exam: Check Tube Placement. Diagnosis: See Reason for Exam. Comparison: 09/14/2025. Findings: A feeding tube is present with its tip terminating in the body of the stomach. A nonspecific bowel gas pattern is present. Impression: 1. As above. Tracy Moore [facility] DIAGNOSTIC IMAGING ORDERABLES Final Result * (ABNORMAL) BASIC METABOLIC PANEL (09/18/2025 7:43 AM CDT) SODIUM 138 136 - 145 mmol/L 09/18/2025 8:21 AM [facility] POTASSIUM 4.2 3.5 - 5.1 mmol/L 09/18/2025 8:21 AM [facility] CHLORIDE 99 98 - 107 mmol/L 09/18/2025 8:21 AM [facility] CO2 26 22 - 29 mmol/L 09/18/2025 8:21 AM [facility] CALCIUM 8.9 8.6 - 10.0 mg/dL 09/18/2025 8:21 AM [facility] BUN 13 6 - 20 mg/dL 09/18/2025 8:21 AM [facility] CREATININE 0.90 0.67 - 1.17 mg/dL 09/18/2025 8:21 AM [facility] GLUCOSE 131(H) 74 - 99 mg/dL 09/18/2025 8:21 AM [facility] GFR >60 >=60 mL/min/1.7 3 sq meter 09/18/2025 8:21 AM [facility] Comment:eGFR calculated with 2020 CKD-EPI equation. Vegetarian diet, extremely high or low muscle mass, and may affect results. Cystatin C with Glomerular Filtration Rate is a suitable alternative for these patients. ANION GAP 13 9 - 20 mmol/L 09/18/2025 8:21 AM [facility] Blood Venipuncture / Unknown 09/18/2025 7:43 AM CDT 09/18/2025 7:48 AM CDT us Tex Ricketts MD CHEMISTRY ORDERABLES Final Re sult Performing Organization Address [facility]/ZIP Co de Phone Number [facility] CLIA # [id number] [address] [address] [place] [address] * (ABNORMAL) POC GLUCOSE (09/17/2025 12:57 PM CDT) GLUCOSE POC 123(H) 74 - 99 mg/dL 09/17/2025 12:57 PM CDT [facility] SPECIMEN SOURCE, GLUCOSE POC Capillary 09/17/2025 12:57 PM CDT [facility] Blood, whole 09/17/2025 12:5 7 PM CDT 09/17/2025 1:04 PM CDT Tex Ricketts MD POINT OF CARE TESTING Final R esult Performing Organization Address [facility]/ZIP Co de Phone Number [facility] CLIA # [id number] [address] [address] * (ABNORMAL) COMPREHENSIVE METABOLIC PANEL (09/17/2025 5:30 AM CDT) SODIUM 136 136 - 145 mmol/L 09/17/2025 6:47 AM CDT [facility] POTASSIUM 3.5 3.5 - 5.1 mmol/L 09/17/2025 6:47 AM CDT [facility] CHLORIDE 99 98 - 107 mmol/L 09/17/2025 6:47 AM CDT [facility] CO2 20(L) 22 - 29 mmol/L 09/17/2025 6:47 AM CDT [facility] CALCIUM 9.2 8.6 - 10.0 mg/dL 09/17/2025 6:47 AM [facility] BUN 22(H) 6 - 20 mg/dL 09/17/2025 6:47 AM [facility] CREATININE 0.84 0.67 - 1.17 mg/dL 09/17/2025 6:47 AM [facility] GLUCOSE 93 74 - 99 mg/dL 09/17/2025 6:47 AM [facility] TOTAL PROTEIN 7.8 6.4 - 8.3 g/dL 09/17/2025 6:47 AM [facility] ALBUMIN 3.9 3.5 - 5.2 g/dL 09/17/2025 6:47 AM [facility] BILIRUBIN TOTAL 0.4 0.0 - 1.0 mg/dL 09/17/2025 6:47 AM [facility] ALKALINE PHOSPHATASE 304(H) 40 - 129 U/L 09/17/2025 6:47 AM [facility] AST 22 10 - 50 U/L 09/17/2025 6:47 AM [facility] ALT 23 <=50 U/L 09/17/2025 6:47 AM [facility] GFR >60 >=60 mL/min/1.7 3 sq meter 09/17/2025 6:47 AM [facility] Comment:eGFR calculated with 2020 CKD-EPI equation. Vegetarian diet, extremely high or low muscle mass, and may affect results. Cystatin C with Glomerular Filtration Rate is a suitable alternative for these patients. ANION GAP 17 9 - 20 mmol/L 09/17/2025 6:47 AM [facility] Blood Venipuncture / Unknown 09/17/2025 5:30 AM CDT 09/17/2025 5:59 AM T us Andrea Solano MD CHEMISTRY OR DERABLES Final Result [facility] CLIA # [id number] [address] [place] [address] [place] [address] * (ABNORMAL) CBC WITH DIFFERENTIAL (09/17/2025 5:29 AM CDT) [facility] WBC 7.7 4.8 - 10.8 K/uL 09/17/2025 6:07 AM T [facility] RBC 3.97(L) 4.60 - 6.20 M/uL 09/17/2025 6:07 AM T [facility] HEMOGLOBIN 11.5(L) 14.0 - 18.0 g/dL 09/17/2025 6:07 AM [facility] HEMATOCRIT 34.9(L) 41.0 - 53.0 % 09/17/2025 6:07 AM [facility] MCV 87.9 84.0 - 103.0 fL 09/17/2025 6:07 AM [facility] MCH 29.0 27.0 - 34.0 pg 09/17/2025 6:07 AM [facility] MCHC 33.0 30.0 - 35.0 g/dL 09/17/2025 6:07 AM [facility] PLATELETS 182 140 - 440 K/uL 09/17/2025 6:07 AM [facility] MPV 8.6(L) 8.9 - 12.8 fL 09/17/2025 6:07 AM [facility] RDW 16.1(H) 11.0 - 14.5 % 09/17/2025 6:07 AM [facility] RDW-STDEV 52.6 37.0 - 54.0 fL 09/17/2025 6:07 AM [facility] NEUTROPHILS 66 42 - 75 % 09/17/2025 6:07 AM [facility] LYMPHOCYTES 19(L) 24 - 44 % 09/17/2025 6:07 AM [facility] MONOCYTES 14(H) 2 - 10 % 09/17/2025 6:07 AM CDT [facility] EOSINOPHILS 0 0 - 7 % 09/17/2025 6:07 AM CDT [facility] BASOPHILS 0 0 - 1 % 09/17/2025 6:07 AM CDT [facility] IMMATURE GRANULOCYTES 0 0 - 2 % 09/17/2025 6:07 AM CDT [facility] NEUTROPHIL ABSOLUTE 5.11 2.00 - 8.00 K/uL 09/17/2025 6:07 AM CDT [facility] LYMPHOCYTE ABSOLUTE 1.50 1.20 - 4.00 K/uL 09/17/2025 6:07 AM CDT [facility] MONOCYTE ABSOLUTE 1.04(H) 0.10 - 0.60 K/uL 09/17/2025 6:07 AM CDT [facility] EOSINOPHIL ABSOLUTE 0.03 0.00 - 0.70 K/uL 09/17/2025 6:07 AM CDT [facility] BASOPHILS ABSOLUTE 0.02 0.00 - 0.20 K/uL 09/17/2025 6:07 AM CDT [facility] IMMATURE GRANULOCYTES ABSOLUTE 0.02 0.00 - 0.10 K/uL 09/17/2025 6:07 AM T [facility] SMEAR REVIEWED: NA - Not Applicable 09/17/2025 6:07 AM T [facility] Blood Venipuncture / Unknown 09/17/2025 5:29 AM CDT 09/17/2025 6:00 AM CDT us Andrea Solano MD HEMATOLOGY O RDERABLES Final Result [facility] CLIA # [id number] [address] [place] [address] [place] [address] * (ABNORMAL) CBC WITH DIFFERENTIAL (09/16/2025 6:27 AM CDT) Pathologist [facility] WBC 5.5 4.8 - 10.8 K/uL 09/16/2025 6:41 AM [facility] RBC 3.76(L) 4.60 - 6.20 M/uL 09/16/2025 6:41 AM [facility] HEMOGLOBIN 11.1(L) 14.0 - 18.0 g/dL 09/16/2025 6:41 AM [facility] HEMATOCRIT 33.7(L) 41.0 - 53.0 % 09/16/2025 6:41 AM [facility] MCV 89.6 84.0 - 103.0 fL 09/16/2025 6:41 AM [facility] MCH 29.5 27.0 - 34.0 pg 09/16/2025 6:41 AM [facility] MCHC 32.9 30.0 - 35.0 g/dL 09/16/2025 6:41 AM [facility] PLATELETS 152 140 - 440 K/uL 09/16/2025 6:41 AM [facility] MPV 8.3(L) 8.9 - 12.8 fL 09/16/2025 6:41 AM [facility] RDW 16.3(H) 11.0 - 14.5 % 09/16/2025 6:41 AM [facility] RDW-STDEV 54.4(H) 37.0 - 54.0 fL 09/16/2025 6:41 AM [facility] NEUTROPHILS 60 42 - 75 % 09/16/2025 6:41 AM [facility] [place] [facility] LYMPHOCYTES 26 24 - 44 % 09/16/2025 6:41 AM [facility] [place] [facility] MONOCYTES 14(H) 2 - 10 % 09/16/2025 6:41 AM [facility] [place] [facility] EOSINOPHILS 0 0 - 7 % 09/16/2025 6:41 AM [facility] [place] [facility] BASOPHILS 1 0 - 1 % 09/16/2025 6:41 AM [facility] IMMATURE GRANULOCYTES 0 0 - 2 % 09/16/2025 6:41 AM CDT [facility] NEUTROPHIL ABSOLUTE 3.29 2.00 - 8.00 K/uL 09/16/2025 6:41 AM CDT [facility] LYMPHOCYTE ABSOLUTE 1.40 1.20 - 4.00 K/uL 09/16/2025 6:41 AM CDT [facility] MONOCYTE ABSOLUTE 0.74(H) 0.10 - 0.60 K/uL 09/16/2025 6:41 AM CDT [facility] EOSINOPHIL ABSOLUTE 0.02 0.00 - 0.70 K/uL 09/16/2025 6:41 AM CDT [facility] BASOPHILS ABSOLUTE 0.03 0.00 - 0.20 K/uL 09/16/2025 6:41 AM CDT [facility] IMMATURE GRANULOCYTES ABSOLUTE 0.02 0.00 - 0.10 K/uL 09/16/2025 6:41 AM T [facility] SMEAR REVIEWED: NA - Not Applicable 09/16/2025 6:41 AM [facility] Blood Venipuncture / Unknown 09/16/2025 6:27 AM CDT 09/16/2025 6:31 AM CDT Andrea Solano MD HEMATOLOGY O RDERABLES Final Result [facility] CLIA # [id number] [address] [place] [address] * (ABNORMAL) COMPREHENSIVE METABOLIC PANEL (09/16/2025 6:27 AM CDT) SODIUM 135(L) 136 - 145 mmol/L 09/16/2025 7:10 AM CDT [facility] POTASSIUM 3.7 3.5 - 5.1 mmol/L 09/16/2025 7:10 AM CDT [facility] CHLORIDE 98 98 - 107 mmol/L 09/16/2025 7:10 AM CDT [facility] CO2 24 22 - 29 mmol/L 09/16/2025 7:10 AM [facility] CALCIUM 9.2 8.6 - 10.0 mg/dL 09/16/2025 7:10 AM [facility] BUN 15 6 - 20 mg/dL 09/16/2025 7:10 AM [facility] CREATININE 0.88 0.67 - 1.17 mg/dL 09/16/2025 7:10 AM [facility] GLUCOSE 104(H) 74 - 99 mg/dL 09/16/2025 7:10 AM [facility] TOTAL PROTEIN 7.4 6.4 - 8.3 g/dL 09/16/2025 7:10 AM [facility] ALBUMIN 4.0 3.5 - 5.2 g/dL 09/16/2025 7:10 AM [facility] BILIRUBIN TOTAL 0.4 0.0 - 1.0 mg/dL 09/16/2025 7:10 AM [facility] ALKALINE PHOSPHATASE 323(H) 40 - 129 U/L 09/16/2025 7:10 AM [facility] AST 23 10 - 50 U/L 09/16/2025 7:10 AM [facility] ALT 25 <=50 U/L 09/16/2025 7:10 AM [facility] GFR >60 >=60 mL/min/1.7 3 sq meter 09/16/2025 7:10 AM [facility] Comment:eGFR calculated with 2020 CKD-EPI equation. Vegetarian diet, extremely high or low muscle mass, and may affect results. Cystatin C with Glomerular Filtration Rate is a suitable alternative for these patients. ANION GAP 13 9 - 20 mmol/L 09/16/2025 7:10 AM [facility] Blood Venipuncture / Unknown 09/16/2025 6:27 AM CDT 09/16/2025 6:31 AM T Andrea Solano MD CHEMISTRY OR DERABLES Final Result [facility] # [id number] [address] [place] [address] [place] [address] * XR UPR GI (09/15/2025 9:00 AM CDT) Anatomical Region Laterality Modality Abdomen Computed Radiogr aphy 09/15/2025 9:01 AM CDT Impressions 09/15/2025 10:11 AM CDT IMPRESSION: Please see below. Exam: XR UPR GI Date/Time of Exam: 09/15/2025 9:00 AM Reason For Exam: Bowel Obstruction, Comment: Gastric outlet obstruction. Diagnosis: See Reason for Exam. Preliminary findings dictated by Ole Angelo PA-C. Supervision and final interpretation by Dr. Damon. Midwife view of the mid abdomen shows a stent within the common bile duct. Nondistended bowel gas pattern. No other acute findings. The patient was given barium swallow. Thoracic esophagus is normal in course and caliber without mass, stricture ulceration. The esophageal motility is within normal limits. The gastroesophageal junction is within normal limits. The mildly distended stomach does not show any gross mass or ulceration. The duodenal bulb is within normal limits. Moderate to high-grade obstruction from masslike defect in the second portion of the duodenum. The remainder of the duodenum and opacified small bowel is unremarkable. There was no gastroesophageal reflux seen during intermittent fluoroscopy. Impression: 1. Moderate to high grade obstruction secondary to masslike defect in the second portion of the duodenum. Findings consistent with EGD performed on 09/14/2025. 2. Of note, the orientation of the common bile duct stent is now horizontal in the right upper quadrant and on the ERCP image the stent appeared vertical. Displacement of the stent is a consideration. If further evaluation is warranted, repeat cross-sectional imaging with CT or MRI is recommended. There is suspected pneumobilia in the right upper quadrant. Narrative Procedure Note Joe Damon MD - 09/15/2025 IMPRESSION: Please see below. Exam: XR UPR GI Date/Time of Exam: 09/15/2025 9:00 AM Reason For Exam: Bowel Obstruction, Comment: Gastric outlet obstruction. Diagnosis: See Reason for Exam. Preliminary findings dictated by Ole Angelo PA-C. Supervision and final interpretation by Dr. Damon. Midwife view of the mid abdomen shows a stent within the common bile duct. Nondistended bowel gas pattern. No other acute findings. The patient was given barium swallow. Thoracic esophagus is normal in course and caliber without mass, stricture ulceration. The esophageal motility is within normal limits. The gastroesophageal junction is within normal limits. The mildly distended stomach does not show any gross mass or ulceration. The duodenal bulb is within normal limits. Moderate to high-grade obstruction from masslike defect in the second portion of the duodenum. The remainder of the duodenum and opacified small bowel is unremarkable. There was no gastroesophageal reflux seen during intermittent fluoroscopy. Impression: 1. Moderate to high grade obstruction secondary to masslike defect in the second portion of the duodenum. Findings consistent with EGD performed on 09/14/2025. 2. Of note, the orientation of the common bile duct stent is now horizontal in the right upper quadrant and on the ERCP image the stent appeared vertical. Displacement of the stent is a consideration. If further evaluation is warranted, repeat cross-sectional imaging with CT or MRI is recommended. There is suspected pneumobilia in the right upper quadrant. Ernst Chi NP DIAGNOSTIC IMAGING O RDERASALMA Final Result * (ABNORMAL) CBC WITH DIFFERENTIAL (09/15/2025 5:19 AM CDT) Pathologist [facility] WBC 5.0 4.8 - 10.8 K/uL 09/15/2025 5:59 AM CDT [facility] RBC 3.26(L) 4.60 - 6.20 M/uL 09/15/2025 5:59 AM CDT [facility] HEMOGLOBIN 9.7(L) 14.0 - 18.0 g/dL 09/15/2025 5:59 AM CDT [facility] HEMATOCRIT 29.6(L) 41.0 - 53.0 % 09/15/2025 5:59 AM CDT [facility] MCV 90.8 84.0 - 103.0 fL 09/15/2025 5:59 AM CDT [facility] [place] [facility] MCH 29.8 27.0 - 34.0 pg 09/15/2025 5:59 AM [facility] [place] [facility] MCHC 32.8 30.0 - 35.0 g/dL 09/15/2025 5:59 AM [facility] [place] [facility] PLATELETS 145 140 - 440 K/uL 09/15/2025 5:59 AM [facility] [place] [facility] MPV 9.1 8.9 - 12.8 fL 09/15/2025 5:59 AM [facility] [place] [facility] RDW 16.8(H) 11.0 - 14.5 % 09/15/2025 5:59 AM [facility] [place] [facility] RDW-STDEV 55.9(H) 37.0 - 54.0 fL 09/15/2025 5:59 AM [facility] [place] [facility] NEUTROPHILS 60 42 - 75 % 09/15/2025 5:59 AM [facility] [place] [facility] LYMPHOCYTES 25 24 - 44 % 09/15/2025 5:59 AM [facility] [place] [facility] MONOCYTES 13(H) 2 - 10 % 09/15/2025 5:59 AM [facility] [place] [facility] EOSINOPHILS 1 0 - 7 % 09/15/2025 5:59 AM [facility] [place] [facility] BASOPHILS 0 0 - 1 % 09/15/2025 5:59 AM [facility] [place] [facility] IMMATURE GRANULOCYTES 1 0 - 2 % 09/15/2025 5:59 AM [facility] [place] [facility] NEUTROPHIL ABSOLUTE 2.98 2.00 - 8.00 K/uL 09/15/2025 5:59 AM [facility] [place] [facility] LYMPHOCYTE ABSOLUTE 1.26 1.20 - 4.00 K/uL 09/15/2025 5:59 AM [facility] [place] [facility] MONOCYTE ABSOLUTE 0.65(H) 0.10 - 0.60 K/uL 09/15/2025 5:59 AM [facility] [place] [facility] EOSINOPHIL ABSOLUTE 0.06 0.00 - 0.70 K/uL 09/15/2025 5:59 AM CDT [facility] BASOPHILS ABSOLUTE 0.01 0.00 - 0.20 K/uL 09/15/2025 5:59 AM CDT [facility] IMMATURE GRANULOCYTES ABSOLUTE 0.03 0.00 - 0.10 K/uL 09/15/2025 5:59 AM CDT [facility] SMEAR REVIEWED: NA - Not Applicable 09/15/2025 5:59 AM CDT [facility] Blood Venipuncture / Unknown 09/15/2025 5:19 AM CDT 09/15/2025 5:52 AM CDT Andrea Solano MD HEMATOLOGY O RDERABLES Final Result [facility] CLIA # [id number] [facility] [address] * (ABNORMAL) COMPREHENSIVE METABOLIC PANEL (09/15/2025 5:19 AM CDT) SODIUM 134(L) 136 - 145 mmol/L 09/15/2025 6:24 AM CDT [facility] POTASSIUM 4.0 3.5 - 5.1 mmol/L 09/15/2025 6:24 AM T [facility] CHLORIDE 101 98 - 107 mmol/L 09/15/2025 6:24 AM T [facility] CO2 23 22 - 29 mmol/L 09/15/2025 6:24 AM CDT [facility] CALCIUM 8.4(L) 8.6 - 10.0 mg/dL 09/15/2025 6:24 AM CDT [facility] BUN 12 6 - 20 mg/dL 09/15/2025 6:24 AM CDT [facility] CREATININE 0.77 0.67 - 1.17 mg/dL 09/15/2025 6:24 AM CDT [facility] GLUCOSE 99 74 - 99 mg/dL 09/15/2025 6:24 AM CDT [facility] TOTAL PROTEIN 6.4 6.4 - 8.3 g/dL 09/15/2025 6:24 AM CDT [facility] ALBUMIN 3.3(L) 3.5 - 5.2 g/dL 09/15/2025 6:24 AM CDT [facility] BILIRUBIN TOTAL 0.4 0.0 - 1.0 mg/dL 09/15/2025 6:24 AM CDT [facility] ALKALINE PHOSPHATASE 298(H) 40 - 129 U/L 09/15/2025 6:24 AM CDT [facility] AST 24 10 - 50 U/L 09/15/2025 6:24 AM CDT [facility] [facility] ALT 28 <=50 U/L 09/15/2025 6:24 AM CDT [facility] GFR >60 >=60 mL/min/1.7 3 sq meter 09/15/2025 6:24 AM T [facility] Comment:eGFR calculated with 2020 CKD-EPI equation. Vegetarian diet, extremely high or low muscle mass, and may affect results. Cystatin C with Glomerular Filtration Rate is a suitable alternative for these patients. ANION GAP 10 9 - 20 mmol/L 09/15/2025 6:24 AM CDT [facility] Blood Venipuncture / Unknown 09/15/2025 5:19 AM CDT 09/15/2025 5:52 AM CDT Andrea Solano MD CHEMISTRY OR DERABLES Final Result [facility] CLIA # [id number] [address] [place] [id number] * UPPER ENDOSCOPY REPORT (09/14/2025 1:58 PM CDT) Narrative Procedure Note Leno Whittington DO - 09/14/2025 1:58 PM CDT [facility] GI Patient Name: Melo Simpson Procedure Date: 09/14/2025 Date of : 1965 Admit Type: Inpatient Age: 59 Attending MD: Leno Whittington DO, Procedure: Upper GI endoscopy Providers: Leno Whittington DO Referring MD: Medicines: Propofol per Anesthesia Complications: No immediate complications. Procedure: Pre-Anesthesia Assessment: - Prior to the procedure, a History and Physical was performed, and patient medications, allergies and sensitivities were reviewed. The patient's tolerance of previous anesthesia was reviewed. - The risks and benefits of the procedure and the sedation options and risks were discussed with the patient. All questions were answered and informed consent was obtained. - ASA Grade Assessment: III - A patient with severe systemic disease. After obtaining informed consent, the endoscope was passed under direct vision. Throughout the procedure, the patient's blood pressure, pulse, and oxygen saturations were monitored continuously. The Endoscope was introduced through the mouth, and advanced to the duodenal bulb. The upper GI endoscopy was accomplished without difficulty. The patient tolerated the procedure well. Estimated Blood Loss: Estimated blood loss: none. Findings: Mild to moderate esophagitis Normal stomach. Pylorus is patent. Endoscope was passed to the duodenal bulb or an obvious mass was seen circumferentially. I was unable to pass the endoscope beyond this. At least partial obstruction if not complete was seen. Plan: Clear liquid diet if tolerated Per oncology Leno Whittington DO 09/14/2025 1:58:01 PM This report has been signed electronically. Number of Addenda: 0 Note Initiated On: 09/14/2025 1:36 PM Scope Withdrawal Time Scope In: Scope Out: [address] [place], [place] Leno Whittington DO GI PROCEDURE ORDERABLES Final Result * XR ABDOMEN FOR FEEDING TUBE 1 VW (09/14/2025 7:47 AM CDT) Anatomical Region Laterality Modality Abdomen Computed Radiogr aphy 09/14/2025 7:47 AM CDT Impressions 09/14/2025 9:22 AM CDT IMPRESSION: See below. Exam: XR ABDOMEN FOR FEEDING TUBE 1 VW Date/Time of Exam: 09/14/2025 7:47 AM Reason For Exam: Check Tube Placement. Diagnosis: See Reason for Exam. Findings: Comparison: 09/13/2025 The lung parenchyma demonstrates no acute findings. Port-A-Cath tip terminates in low SVC. Nasogastric tube tip terminates in distal esophagus, advancement of 11.9 cm recommended. Bowel gas pattern is nonspecific as visualized. There is a common bile duct stent. IMPRESSION: 1. Nasogastric tube tip terminates in the low SVC, advancement of 11.9 cm needed. 2. Non-obstructive bowel gas pattern. Normal amount of colon stool. Narrative Procedure Note Rikki Castañeda MD - 09/14/2025 IMPRESSION: See below. Exam: XR ABDOMEN FOR FEEDING TUBE 1 VW Date/Time of Exam: 09/14/2025 7:47 AM Reason For Exam: Check Tube Placement. Diagnosis: See Reason for Exam. Findings: Comparison: 09/13/2025 The lung parenchyma demonstrates no acute findings. Port-A-Cath tip terminates in low SVC. Nasogastric tube tip terminates in distal esophagus, advancement of 11.9 cm recommended. Bowel gas pattern is nonspecific as visualized. There is a common bile duct stent. IMPRESSION: 1. Nasogastric tube tip terminates in the low SVC, advancement of 11.9 cm needed. 2. Non-obstructive bowel gas pattern. Normal amount of colon stool. Andrea Solano MD DIAGNOSTIC I MAGING ORDERABLES Final Result * (ABNORMAL) CBC WITH DIFFERENTIAL (09/14/2025 4:17 AM CDT) WBC 6.3 4.8 - 10.8 K/uL 09/14/2025 4:30 AM CDT [facility] RBC 3.52(L) 4.60 - 6.20 M/uL 09/14/2025 4:30 AM CDT [facility] HEMOGLOBIN 10.5(L) 14.0 - 18.0 g/dL 09/14/2025 4:30 AM T [facility] HEMATOCRIT 31.8(L) 41.0 - 53.0 % 09/14/2025 4:30 AM [facility] MCV 90.3 84.0 - 103.0 fL 09/14/2025 4:30 AM [facility] MCH 29.8 27.0 - 34.0 pg 09/14/2025 4:30 AM [facility] MCHC 33.0 30.0 - 35.0 g/dL 09/14/2025 4:30 AM [facility] PLATELETS 143 140 - 440 K/uL 09/14/2025 4:30 AM [facility] MPV 8.9 8.9 - 12.8 fL 09/14/2025 4:30 AM [facility] RDW 17.3(H) 11.0 - 14.5 % 09/14/2025 4:30 AM [facility] RDW-STDEV 57.5(H) 37.0 - 54.0 fL 09/14/2025 4:30 AM [facility] NEUTROPHILS 58 42 - 75 % 09/14/2025 4:30 AM [facility] LYMPHOCYTES 27 24 - 44 % 09/14/2025 4:30 AM [facility] MONOCYTES 13(H) 2 - 10 % 09/14/2025 4:30 AM [facility] EOSINOPHILS 0 0 - 7 % 09/14/2025 4:30 AM [facility] BASOPHILS 1 0 - 1 % 09/14/2025 4:30 AM [facility] IMMATURE GRANULOCYTES 1 0 - 2 % 09/14/2025 4:30 AM [facility] NEUTROPHIL ABSOLUTE 3.62 2.00 - 8.00 K/uL 09/14/2025 4:30 AM [facility] LYMPHOCYTE ABSOLUTE 1.70 1.20 - 4.00 K/uL 09/14/2025 4:30 AM [facility] MONOCYTE ABSOLUTE 0.84(H) 0.10 - 0.60 K/uL 09/14/2025 4:30 AM [facility] EOSINOPHIL ABSOLUTE 0.02 0.00 - 0.70 K/uL 09/14/2025 4:30 AM CDT [facility] BASOPHILS ABSOLUTE 0.03 0.00 - 0.20 K/uL 09/14/2025 4:30 AM CDT [facility] IMMATURE GRANULOCYTES ABSOLUTE 0.04 0.00 - 0.10 K/uL 09/14/2025 4:30 AM T [facility] SMEAR REVIEWED: NA - Not Applicable 09/14/2025 4:30 AM T [facility] Blood Venipuncture / Unknown 09/14/2025 4:17 AM CDT 09/14/2025 4:23 AM CDT Andrea Solano MD HEMATOLOGY O RDERABLES Final Result [facility] CLIA # [id number] [address] [place] [id number] * (ABNORMAL) COMPREHENSIVE METABOLIC PANEL (09/14/2025 4:17 AM CDT) SODIUM 134(L) 136 - 145 mmol/L 09/14/2025 5:03 AM T [facility] POTASSIUM 3.9 3.5 - 5.1 mmol/L 09/14/2025 5:03 AM [facility] CHLORIDE 99 98 - 107 mmol/L 09/14/2025 5:03 AM T [facility] CO2 22 22 - 29 mmol/L 09/14/2025 5:03 AM T [facility] CALCIUM 8.8 8.6 - 10.0 mg/dL 09/14/2025 5:03 AM T [facility] BUN 15 6 - 20 mg/dL 09/14/2025 5:03 AM [facility] CREATININE 0.77 0.67 - 1.17 mg/dL 09/14/2025 5:03 AM T [facility] GLUCOSE 92 74 - 99 mg/dL 09/14/2025 5:03 AM [facility] TOTAL PROTEIN 6.8 6.4 - 8.3 g/dL 09/14/2025 5:03 AM [facility] ALBUMIN 3.7 3.5 - 5.2 g/dL 09/14/2025 5:03 AM [facility] BILIRUBIN TOTAL 0.5 0.0 - 1.0 mg/dL 09/14/2025 5:03 AM T [facility] ALKALINE PHOSPHATASE 331(H) 40 - 129 U/L 09/14/2025 5:03 AM [facility] AST 26 10 - 50 U/L 09/14/2025 5:03 AM [facility] ALT 34 <=50 U/L 09/14/2025 5:03 AM [facility] GFR >60 >=60 mL/min/1.7 3 sq meter 09/14/2025 5:03 AM [facility] Comment:eGFR calculated with 2020 CKD-EPI equation. Vegetarian diet, extremely high or low muscle mass, and may affect results. Cystatin C with Glomerular Filtration Rate is a suitable alternative for these patients. ANION GAP 13 9 - 20 mmol/L 09/14/2025 5:03 AM [facility] Blood Venipuncture / Unknown 09/14/2025 4:17 AM CDT 09/14/2025 4:23 AM CDT Andrea Solano MD CHEMISTRY OR DERABLES Final Result [facility] CLIA # [id number] [address] [place] [id number] * (ABNORMAL) HEMOGLOBIN AND HEMATOCRIT (09/13/2025 9:37 PM CDT) HEMOGLOBIN 10.2(L) 14.0 - 18.0 g/dL 09/13/2025 10:01 PM CDT [facility] HEMATOCRIT 31.5(L) 41.0 - 53.0 % 09/13/2025 10:01 PM CDT [facility] Blood Venipuncture / Unknown 09/13/2025 9:37 PM CDT 09/13/2025 9:54 PM CDT us Federico Garibay MD HEMATOLOGY ORDERABLES Final Resu lt [facility] CLIA # [id number] [address] [place] [id number] * XR ABDOMEN FOR FEEDING TUBE 1 VW (09/13/2025 7:57 PM CDT) Anatomical Region Laterality Modality Abdomen Computed Radiogr aphy 09/13/2025 7:57 PM CDT Narrative 09/13/2025 8:21 PM CDT EXAM: XR ABDOMEN FOR FEEDING TUBE 1 VW DATE/TIME OF EXAM: 09/13/2025 7:57 PM REASON FOR EXAM: Check Tube Placement DIAGNOSIS: See Reason for Exam COMPARISON: Same abdominal x-ray FINDINGS: The nasogastric tube was advanced. Tip is within the gastric fundus. The side-port is at the gastroesophageal junction. Recommend advancing 7 to 10 cm. Procedure Note Kendall Falcon MD - 09/13/2025 EXAM: XR ABDOMEN FOR FEEDING TUBE 1 VW DATE/TIME OF EXAM: 09/13/2025 7:57 PM REASON FOR EXAM: Check Tube Placement DIAGNOSIS: See Reason for Exam COMPARISON: Same abdominal x-ray FINDINGS: The nasogastric tube was advanced. Tip is within the gastric fundus. The side-port is at the gastroesophageal junction. Recommend advancing 7 to [address] [facility] ORDE RABLES Final Result * XR ABDOMEN FOR FEEDING TUBE 1 VW (09/13/2025 7:32 PM CDT) Anatomical Region Laterality Modality Abdomen Computed Radiogr aphy 09/13/2025 7:32 PM CDT Narrative 09/13/2025 7:37 PM CDT EXAM: XR ABDOMEN FOR FEEDING TUBE 1 VW DATE/TIME OF EXAM: 09/13/2025 7:32 PM REASON FOR EXAM: Check Tube Placement DIAGNOSIS: See Reason for Exam COMPARISON: None. FINDINGS: The nasogastric tube is within the esophagus with tip in the distal aspect. Recommend advancing at least 13 cm. Procedure Note Kendall Falcon MD - 09/13/2025 EXAM: XR ABDOMEN FOR FEEDING TUBE 1 VW DATE/TIME OF EXAM: 09/13/2025 7:32 PM REASON FOR EXAM: Check Tube Placement DIAGNOSIS: See Reason for Exam COMPARISON: None. FINDINGS: The nasogastric tube is within the esophagus with tip in the distal aspect. Recommend advancing at least [address] [facility] Final Result * (ABNORMAL) HEMOGLOBIN AND HEMATOCRIT (09/13/2025 1:08 PM CDT) HEMOGLOBIN 10.4(L) 14.0 - 18.0 g/dL 09/13/2025 1:18 PM CDT [facility] HEMATOCRIT 32.0(L) 41.0 - 53.0 % 09/13/2025 1:18 PM CDT [facility] Blood Venipuncture / Unknown 09/13/2025 1:08 PM CDT 09/13/2025 1:14 PM CDT us Federico Garibay MD HEMATOLOGY ORDERABLES Final Resu lt [facility] CLIA # [id number] [address] [place] [address] [place] [address] * PROTIME-INR (09/13/2025 4:02 AM CDT) PROTIME 13.7 12.7 - 14.9 Seconds 09/13/2025 4:53 AM CDT [facility] INR 1.0 0.8 - 1.2 09/13/2025 4:53 AM CDT [facility] Blood 09/13/2025 4:02 AM CDT 09/13/2025 4:41 AM CDT Narrative [facility] - 09/13/2025 4:53 AM CDT Expected Values for INR: DVT/PE Goal INR 2.5; range 2.0 - 3.0 Valve Replacement Tissue Goal INR 2.5; range 2.0 - 3.0 Valve Replacement Mechanical Goal INR 3.0; range 2.5 - 3.5 POST-PR Goal INR 2.5; range 2.0 - 3.0 or Goal INR 3.0; range 2.5 - 3.5 Atrial Fibrillation Goal INR 2.5; range 2.0 - 3.0 Ischemic Stroke Goal INR 2.5; range 2.0 - 3.0 us Federico Garibay MD HEMATOLOGY ORDERABLES Final Resu lt [facility] CLIA # [id number] [address] [place] [id number] * (ABNORMAL) COMPREHENSIVE METABOLIC PANEL (09/13/2025 3:48 AM CDT) SODIUM 136 136 - 145 mmol/L 09/13/2025 5:18 AM CDT [facility] POTASSIUM 4.4 3.5 - 5.1 mmol/L 09/13/2025 5:18 AM CDT [facility] CHLORIDE 103 98 - 107 mmol/L 09/13/2025 5:18 AM CDT [facility] CO2 25 22 - 29 mmol/L 09/13/2025 5:18 AM CDT [facility] CALCIUM 8.6 8.6 - 10.0 mg/dL 09/13/2025 5:18 AM CDT [facility] BUN 14 6 - 20 mg/dL 09/13/2025 5:18 AM T [facility] CREATININE 0.81 0.67 - 1.17 mg/dL 09/13/2025 5:18 AM [facility] GLUCOSE 106(H) 74 - 99 mg/dL 09/13/2025 5:18 AM [facility] TOTAL PROTEIN 6.5 6.4 - 8.3 g/dL 09/13/2025 5:18 AM [facility] ALBUMIN 3.7 3.5 - 5.2 g/dL 09/13/2025 5:18 AM [facility] BILIRUBIN TOTAL 0.3 0.0 - 1.0 mg/dL 09/13/2025 5:18 AM [facility] ALKALINE PHOSPHATASE 355(H) 40 - 129 U/L 09/13/2025 5:18 AM [facility] AST 32 10 - 50 U/L 09/13/2025 5:18 AM [facility] ALT 39 <=50 U/L 09/13/2025 5:18 AM [facility] GFR >60 >=60 mL/min/1.7 3 sq meter 09/13/2025 5:18 AM [facility] Comment:eGFR calculated with 2020 CKD-EPI equation. Vegetarian diet, extremely high or low muscle mass, and may affect results. Cystatin C with Glomerular Filtration Rate is a suitable alternative for these patients. ANION GAP 8(L) 9 - 20 mmol/L 09/13/2025 5:18 AM [facility] Blood Venipuncture / Unknown 09/13/2025 3:48 AM CDT 09/13/2025 4:41 AM CDT us Federico Garibay MD CHEMISTRY ORDERABLES Final Resul t [facility] CLIA # [id number] [address] [place] [id number] * (ABNORMAL) CBC WITH DIFFERENTIAL (09/13/2025 3:48 AM CDT) [facility] WBC 5.3 4.8 - 10.8 K/uL 09/13/2025 4:51 AM CDT [facility] RBC 3.38(L) 4.60 - 6.20 M/uL 09/13/2025 4:51 AM [facility] HEMOGLOBIN 10.2(L) 14.0 - 18.0 g/dL 09/13/2025 4:51 AM CDT [facility] HEMATOCRIT 31.1(L) 41.0 - 53.0 % 09/13/2025 4:51 AM [facility] MCV 92.0 84.0 - 103.0 fL 09/13/2025 4:51 AM [facility] MCH 30.2 27.0 - 34.0 pg 09/13/2025 4:51 AM [facility] MCHC 32.8 30.0 - 35.0 g/dL 09/13/2025 4:51 AM [facility] PLATELETS 144 140 - 440 K/uL 09/13/2025 4:51 AM [facility] MPV 8.6(L) 8.9 - 12.8 fL 09/13/2025 4:51 AM [facility] RDW 18.4(H) 11.0 - 14.5 % 09/13/2025 4:51 AM [facility] RDW-STDEV 61.8(H) 37.0 - 54.0 fL 09/13/2025 4:51 AM [facility] NEUTROPHILS 55 42 - 75 % 09/13/2025 4:51 AM [facility] LYMPHOCYTES 30 24 - 44 % 09/13/2025 4:51 [facility](H[facility] 2 - 10 % 09/13/2025 4:51 AM [facility] EOSINOPHILS 0 0 - 7 % 09/13/2025 4:51 AM [facility] BASOPHILS 0 0 - 1 % 09/13/2025 4:51 [facility] GRANULOCYTES 0 0 - 2 % 09/13/2025 4:51 AM [facility] NEUTROPHIL ABSOLUTE 2.89 2.00 - 8.00 K/uL 09/13/2025 4:51 AM CDT [facility] LYMPHOCYTE ABSOLUTE 1.58 1.20 - 4.00 K/uL 09/13/2025 4:51 AM T [facility] MONOCYTE ABSOLUTE 0.78(H) 0.10 - 0.60 K/uL 09/13/2025 4:51 AM CDT [facility] EOSINOPHIL ABSOLUTE 0.02 0.00 - 0.70 K/uL 09/13/2025 4:51 AM CDT [facility] BASOPHILS ABSOLUTE 0.02 0.00 - 0.20 K/uL 09/13/2025 4:51 AM [facility] IMMATURE GRANULOCYTES ABSOLUTE 0.01 0.00 - 0.10 K/uL 09/13/2025 4:51 AM [facility] SMEAR REVIEWED: NA - Not Applicable 09/13/2025 4:51 AM [facility] Blood Venipuncture / Unknown 09/13/2025 3:48 AM CDT 09/13/2025 4:44 AM CDT us Federico Garibay MD HEMATOLOGY ORDERABLES Final Resu lt [facility] CLIA # [id number] [address] [place] [id number] documented in this encounter Visit Diagnoses Diagnosis Upper GI bleed- Primary Hemorrhage of gastrointestinal tract, unspecified Upper GI bleed Hemorrhage of gastrointestinal tract, unspecified Adenocarcinoma of pancreas (CMS/HCC) Malignant neoplasm of pancreas, part unspecified History of biliary stent insertion Pancreatic mass Unspecified disease of pancreas Abdominal pain, acute, right upper quadrant Abdominal pain, right upper quadrant Gastric outlet obstruction Acquired hypertrophic pyloric stenosis Adenocarcinoma of pancreas (CMS/HCC) Malignant neoplasm of pancreas, part unspecified Anemia in neoplastic disease Protein-calorie malnutrition, moderate Malnutrition of moderate degree documented in this encounter Administered Medications Inactive Administered Medications - up to 3 most recent administrations Medication Order MAR Action Action Date Dose Rate Site acetaminophen (TYLENOL) tablet 650 mg 650 mg, Oral, EVERY 6 HOURS PRN, Starting on 09/13/25 at 0046, Until Luzma 09/23/25 at 1132, Other (See Comment), See admin instructions, Routine barium sulfate (LIQUID E-Z PAQUE,BAROSPERSE) oral suspension 355 mL 355 mL, Oral, INTRA-PROCEDURE ONCE, 1 dose, Starting on Sat09/15/25 at 0900, Until Sat09/15/25 at 0900, Routine Given 09/15/2025 9:00 AM CDT 355 mL dextrose 5 % - lactated ringers infusion IV, at 75 mL/hr, CONTINUOUS, Starting on 09/18/25 at 0915, Until 09/19/25 at 0914, Routine New Bag 09/19/2025 5:50 AM CDT 75 mL/hr New Bag 09/18/2025 3:31 PM CDT 75 mL/hr dextrose 5 % in water 250 mL flush bag 25 mL 25 mL, IV, SEE ADMIN INSTRUCTIONS, Starting on Sat09/13/25 at 0045, Until Luzma 09/23/25 at 1132, Routine enoxaparin (LOVENOX) injection 40 mg 40 mg, subCUT, EVERY 24 HOURS, First dose on 09/18/25 at 0900, Until Discontinued, Routine, Indication: Prophylaxis of VTE Given 09/23/2025 8:44 AM CDT 40 mg Abdomen, Left Lower Quadrant Given 09/22/2025 9:19 AM CDT 40 mg Ab domen, Right Lower Quadrant Given 09/21/2025 9:39 AM CDT 40 mg Ab domen, Right Lower Quadrant famotidine PF (PEPCID) 20 mg in sodium chloride 0.9% 10 mL injection 20 mg, IV, ONE TIME ONLY, 1 dose, On 09/20/25 at 0515, Routine, For bloating, gas, reflux. Pt is npo Given 09/20/2025 5:04 AM CDT 20 mg fentaNYL (PF) (SUBLIMAZE) 50 mcg/mL injection 50 mcg 50 mcg, IV, POST-PROCEDURE Q 3 MINUTES PRN, 5 doses, Starting on Sat09/17/25 at 0936, Until Sat09/17/25 at 1443, Pain, Moderate, VAS 1-4, Routine, PACU Given 09/17/2025 1:04 PM CDT 50 mcg Given 09/17/2025 12:59 PM CDT 50 mcg Given 09/17/2025 12:40 PM CDT 50 mcg hydrALAZINE (APRESOLINE) 20 mg/mL injection 5 mg 5 mg, IV, EVERY 6 HOURS PRN, Starting on 09/18/25 at 0914, Until Luzma 09/23/25 at 1132, Blood Pressure, >160/90, Routine HYDROmorphone (PF) (DILAUDID) injection 0.3 mg 0.3 mg, IV, ONE TIME ONLY, 1 dose, On 09/19/25 at 2045, Routine Given 09/19/2025 9:27 PM CDT 0.3 mg HYDROmorphone (PF) (DILAUDID) injection 0.5 mg 0.5 mg, IV, EVERY 3 HOURS PRN, 5 doses, Starting on 09/13/25 at 0046, Until 09/17/25 at 1924, Pain (See admin instructions), Routine Given 09/17/2025 7:24 PM CDT 0.5 mg Given 09/17/2025 3:02 PM CDT 0.5 mg Given 09/13/2025 7:56 PM CDT 0.5 mg HYDROmorphone (PF) (DILAUDID) injection 0.5 mg 0.5 mg, IV, POST-PROCEDURE Q 5 MINUTES PRN, 5 doses, Starting on Sat09/17/25 at 0936, Until Sat09/17/25 at 1443, Pain, Pain, Moderate, VAS >5, Routine, PACU Given 09/17/2025 1:41 PM CDT 0.5 mg Given 09/17/2025 1:31 PM CDT 0.5 mg Given 09/17/2025 1:25 PM CDT 0.5 mg HYDROmorphone (PF) (DILAUDID) injection 0.5 mg 0.5 mg, IV, EVERY 2 HOURS PRN, 4 doses, Starting on Sat09/17/25 at 2339, Until 09/19/25 at 0031, Pain (See admin instructions), Routine Given 09/19/2025 12:31 AM CDT 0.5 mg Given 09/18/2025 1:43 PM CDT 0.5 mg Given 09/18/2025 1:50 AM CDT 0.5 mg lactated ringers infusion IV, at 75 mL/hr, CONTINUOUS, Starting on Sat09/13/25 at 0100, Until Sat09/14/25 at 0059, Routine New Bag 09/13/2025 2:44 AM CDT 75 mL/hr lactated ringers infusion IV, at 75 mL/hr, CONTINUOUS, Starting on Luzma 09/16/25 at 0900, Until Sat09/17/25 at 0859, Routine New Bag 09/16/2025 9:36 AM CDT 75 mL/hr lactated ringers infusion IV, at 100 mL/hr, CONTINUOUS, Starting on Sat09/17/25 at 1500, Until 09/18/25 at 0909, Routine Rate Change 09/18/2025 8:36 AM CDT 100 mL/hr Restarted 09/17/2025 3:00 PM CDT 75 mL/hr lactated ringers infusion IV, at 75 mL/hr, CONTINUOUS, Starting on Sat09/20/25 at 0545, Until Sat09/21/25 at 0544, Routine New Bag 09/20/2025 3:57 PM CDT 75 mL/hr New Bag 09/20/2025 5:42 AM CDT 75 mL/hr lactated ringers infusion IV, at 75 mL/hr, CONTINUOUS, Starting on Sat09/21/25 at 0830, Until Sat09/22/25 at 0658, Routine Rate Verify 09/21/2025 8:30 AM CDT 75 mL/hr metoclopramide (REGLAN) 5 mg/mL injection 10 mg 10 mg, IV, EVERY 6 HOURS, 4 doses, First dose on Sat09/21/25 at 1400, Last dose on Sat09/22/25 at 0800, Routine Given 09/22/2025 9:21 AM CDT 10 mg Given 09/22/2025 2:50 AM CDT 10 mg Given 09/21/2025 8:10 PM CDT 10 mg morphine 4 mg/mL injection 2 mg 2 mg, IV, EVERY 4 HOURS PRN, Starting on 09/19/25 at 1644, Until Luzma 09/23/25 at 1132, Pain (See admin instructions), Routine Given 09/21/2025 4:01 PM CDT 2 mg Given 09/20/2025 10:48 PM CDT 2 mg Given 09/20/2025 4:44 PM CDT 2 mg ondansetron (ZOFRAN) 4 mg/2 mL injection 4 mg 4 mg, IV, EVERY 6 HOURS PRN, Starting on 09/13/25 at 0046, Until Luzma 09/23/25 at 1132, Nausea/Emesis, Routine Given 09/20/2025 4:23 AM CDT 4 mg Given 09/19/2025 7:24 PM CDT 4 mg Given 09/19/2025 1:01 PM CDT 4 mg oxyCODONE (ROXICODONE) tablet 5 mg 5 mg, Oral, EVERY 4 HOURS PRN, Starting on Sat09/13/25 at 0044, Until Luzma 09/23/25 at 1132, Pain, Routine, Previous Med: oxyCODONE (ROXICODONE) 5 mg tablet - Orig Sig - Take 1 Tablet (5 mg) by mouth every 4 hours as needed for Pain. Max Daily Amount: 30 mg Given 09/19/2025 1:08 PM CDT 5 mg Given 09/15/2025 7:02 AM CDT 5 mg pantoprazole (PROTONIX) 40 mg in sodium chloride 0.9% 10 mL injection 40 mg, IV, TWO TIMES DAILY, First dose on Sat09/13/25 at 0045, Until Discontinued, Routine, For vial+diluent: 10 mL NS is needed to reconstitute pantoprazole vial. For doses less than 40 mg Epic may default less than 10 mL NS. Pharmacist to change NS dispense amount to 10 mL., Indication: Upper gastrointestinal (GI) bleed Given 09/22/2025 8:18 PM CDT 40 mg Given 09/22/2025 9:27 AM CDT 40 mg Given 09/21/2025 8:10 PM CDT 40 mg pantoprazole (PROTONIX) tablet 40 mg 40 mg, Oral, DAILY BEFORE BREAKFAST, First dose on Luzma 09/23/25 at 0730, Until Discontinued, Routine, Indication: Gastroesophageal reflux disease (GERD) Given 09/23/2025 7:23 AM CDT 40 mg polyethylene glycol (MIRALAX) packet 17 Gram 17 Gram, Oral, DAILY, First dose on Sat09/22/25 at 1015, Until Discontinued, Routine Feeding Started 09/22/2025 12:17 PM CDT 17 Grams potassium CHLORIDE 40 mEq in sodium chloride 0.9 % 1,000 mL infusion IV, at 50 mL/hr, CONTINUOUS, Starting on Sat09/22/25 at 0700, Until Luzma 09/23/25 at 0259, Routine New Bag 09/22/2025 9:14 AM CDT 50 mL/hr prochlorperazine (COMPAZINE) injection 10 mg 10 mg, IV, EVERY 6 HOURS PRN, Starting on Sat09/13/25 at 0055, Until Luzma 09/23/25 at 1132, Nausea/Emesis, Routine Given 09/19/2025 9:24 PM CDT 10 mg Given 09/19/2025 2:14 PM CDT 10 mg simethicone (GAS-X) capsule 125 mg 125 mg, Oral, EVERY 6 HOURS PRN, Starting on Sat09/15/25 at 1710, Until Luzma 09/23/25 at 1132, Gas, Routine Given 09/15/2025 8:55 PM CDT 125 mg simethicone chewable tablet 80 mg 80 mg, Oral, EVERY 6 HOURS PRN, Starting on Luzma 09/16/25 at 1723, Until Luzma 09/23/25 at 1132, Gas, Routine Given 09/17/2025 4:11 AM CDT 80 mg Given 09/16/2025 8:08 PM CDT 80 mg sodium chloride 0.9 % flush bag 25 mL 25 mL, IV, SEE ADMIN INSTRUCTIONS, Starting on Sat09/13/25 at 0045, Until Luzma 09/23/25 at 1132, Routine sodium chloride flush injection 10 mL 10 mL, IV, EVERY 12 HOURS (BlD), First dose on Sat09/13/25 at 0100, Until Discontinued, Routine Given 09/22/2025 8:18 PM CDT 10 mL Given 09/22/2025 9:00 AM CDT 10 mL Given 09/21/2025 8:11 PM CDT 10 mL sodium chloride flush injection 10 mL 10 mL, IV, SEE ADMIN INSTRUCTIONS, Starting on Sat09/13/25 at 0045, Until Luzma 09/23/25 at 1132, Routine sodium chloride flush injection 10 mL 10 mL, IV, TWO TIMES DAILY, First dose on Sat09/20/25 at 2100, Until Discontinued, Routine Given 09/22/2025 9:3 4 AM CDT 10 mL Given 09/20/2025 8:40 PM CDT 10 mL sodium chloride flush injection 10 mL 10 mL, IV, SEE ADMIN INSTRUCTIONS, Starting on Sat09/20/25 at 1927, Until Luzma 09/23/25 at 1132, Routine Given 09/22/2025 9:40 AM CDT 10 mL sodium chloride flush injection 10 mL 10 mL, IV, TWO TIMES DAILY, First dose on Sat09/21/25 at 0900, Until Discontinued, Routine Given 09/22/2025 9:2 3 AM CDT 10 mL sodium chloride flush injection 10 mL 10 mL, IV, SEE ADMIN INSTRUCTIONS, Starting on Sat09/20/25 at 2325, Until Luzma 09/23/25 at 1132, Routine documented in this encounter Active and Recently Administered Medications Times are shown in CDT. Scheduled Medication Order 09/21/2025 09/22/2025 09/23/2025 dextrose 5 % in water 250 mL flush bag 25 mL 25 mL, IV, SEE ADMIN INSTRUCTIONS, Starting on Sat09/13/25 at 0045, Until Luzma 09/23/25 at 1132, Routine enoxaparin (LOVENOX) injection 40 mg 40 mg, subCUT, EVERY 24 HOURS, First dose on Sat09/18/25 at 0900, Until Discontinued, Routine, Indication: Prophylaxis of VTE 0939 (Given - Provider: Binta Garay RN) 0919 (Given - Provider: Laura Bond, Student Nurse) 0844 (Given - Provider: WARREN Guo) metoclopramide (REGLAN) 5 mg/mL injection 10 mg (COMPLETED) 10 mg, IV, EVERY 6 HOURS, 4 doses, First dose on Sat09/21/25 at 1400, Last dose on Sat09/22/25 at 0800, Routine 1538 (Given - Provider: Binta Garay RN)2009 (Given - Provider: WARREN Tony) 249 (Given - Provider: WARREN Tony)920 (Given - Provider: Giovanny Colon Nurse) naloxone (NARCAN) 0.4 mg/mL injection 0.1-0.4 mg 0.1-0.4 mg, IV, SEE ADMIN INSTRUCTIONS, Starting on Sat09/13/25 at 0044, Until Sat09/23/25 at 1132, Routine pantoprazole (PROTONIX) 40 mg in sodium chloride 0.9% 10 mL injection (CANCELED) 40 mg, IV, TWO TIMES DAILY, First dose on Sat09/13/25 at 0045, Until Discontinued, Routine, For vial+diluent: 10 mL NS is needed to reconstitute pantoprazole vial. For doses less than 40 mg Epic may default less than 10 mL NS. Pharmacist to change NS dispense amount to 10 mL., Indication: Upper gastrointestinal (GI) bleed 938 (Given - Provider: Binta Garay RN)2009 (Given - Provider: WARREN Tony) 926 (Given - Provider: Giovanny Colon Nurse)2017 (Given - Provider: WARREN Tony) pantoprazole (PROTONIX) tablet 40 mg 40 mg, Oral, DAILY BEFORE BREAKFAST, First dose on Sat09/23/25 at 0730, Until Discontinued, Routine, Indication: Gastroesophageal reflux disease (GERD) 0723 (Given - Provider: WARREN Guo) polyethylene glycol (MIRALAX) packet 17 Gram 17 Gram, Oral, DAILY, First dose on Sat09/22/25 at 1015, Until Discontinued, Routine 1217 (Feeding Started - Provider: Giovanny Colon Nurse) 0900 (Refused - Provider: WARREN Guo) sodium chloride 0.9 % flush bag 25 mL 25 mL, IV, SEE ADMIN INSTRUCTIONS, Starting on Sat09/13/25 at 0045, Until Sat09/23/25 at 1132, Routine sodium chloride flush injection 10 mL 10 mL, IV, EVERY 12 HOURS (BlD), First dose on Sat09/13/25 at 0100, Until Discontinued, Routine 0900 (Canceled Entry - Provider: Binta Garay RN)2010 (Given - Provider: WARREN Tony) 09 (Given - Provider: Giovanny Colon Nurse)2017 (Given - Provider: WARREN Tony) 0900 (Not Given - Provider: WARREN Guo - Reason: Other - See Comment - Comment: iv removed) sodium chloride flush injection 10 mL 10 mL, IV, SEE ADMIN INSTRUCTIONS, Starting on Sat09/13/25 at 0045, Until Sat09/23/25 at 1132, Routine sodium chloride flush injection 10 mL 10 mL, IV, TWO TIMES DAILY, First dose on Sat09/20/25 at 2100, Until Discontinued, Routine 0900 (Canceled Entry - Provider: Binta Garay RN)2099 (Not Given - Provider: WARREN Tony - Reason: Clarify-Other (Comment) - Comment: Already given) 0934 (Given - Provider: Giovanny Colon)2099 (Not Given - Provider: WARREN Tony - Reason: Clarify-Other (Comment) - Comment: Already given) 09 (Not Given - Provider: WARREN Guo - Reason: Other - See Comment) sodium chloride flush injection 10 mL 10 mL, IV, SEE ADMIN INSTRUCTIONS, Starting on Sat09/20/25 at 1927, Until Sat09/23/25 at 1132, Routine 0940 (Given - Provider: Giovanny Colon Nurse) sodium chloride flush injection 10 mL 10 mL, IV, TWO TIMES DAILY, First dose on Sat09/21/25 at 0900, Until Discontinued, Routine 0900 (Canceled Entry - Provider: Binta Garay RN)2100 (Not Given - Provider: WARREN Tony - Reason: Other - See Comment - Comment: Already given) 0923 (Given - Provider: Giovanny Colon)2100 (Not Given - Provider: WARREN Tony - Reason: Other - See Comment - Comment: Already given) 0900 (Not Given - Provider: WARREN Guo - Reason: Other - See Comment) sodium chloride flush injection 10 mL 10 mL, IV, SEE ADMIN INSTRUCTIONS, Starting on Sat09/20/25 at 2325, Until Luzma 09/23/25 at 1132, Routine Continuous Medication Order 09/21/2025 09/22/2025 09/23/2025 lactated ringers infusion (CANCELED) IV, at 75 mL/hr, CONTINUOUS, Starting on Tu09/21/25 at 0830, Until Sat09/22/25 at 0658, Routine 0830 (Rate Verify - Provider: Binta Garay RN) 0658 (Stopped - Provider: Laura Bond, Student Nurse - Comment: [Order ends at this time. Document the following action when infusion is complete: Stopped]) potassium CHLORIDE 40 mEq in sodium chloride 0.9 % 1,000 mL infusion (CANCELED) IV, at 50 mL/hr, CONTINUOUS, Starting on Sat09/22/25 at 0700, Until Luzma 09/23/25 at 0259, Routine 0914 (New Bag - Provider: Laura Bond, Student Nurse) 0259 (Stopped - Provider: WARREN Tony - Comment: [Order ends at this time. Document the following action when infusion is complete: Stopped]) PRN Medication Order 09/21/2025 09/22/2025 09/23/2025 acetaminophen (TYLENOL) tablet 650 mg 650 mg, Oral, EVERY 6 HOURS PRN, Starting on Sat09/13/25 at 0046, Until Luzma 09/23/25 at 1132, Other (See Comment), See admin instructions, Routine hydrALAZINE (APRESOLINE) 20 mg/mL injection 5 mg 5 mg, IV, EVERY 6 HOURS PRN, Starting on 09/18/25 at 0914, Until Luzma 09/23/25 at 1132, Blood Pressure, >160/90, Routine morphine 4 mg/mL injection 2 mg 2 mg, IV, EVERY 4 HOURS PRN, Starting on 09/19/25 at 1644, Until Luzma 09/23/25 at 1132, Pain (See admin instructions), Routine 1601 (Given - Provider: Binta Garay RN) ondansetron (ZOFRAN) 4 mg/2 mL injection 4 mg 4 mg, IV, EVERY 6 HOURS PRN, Starting on Sat09/13/25 at 0046, Until Sat09/23/25 at 1132, Nausea/Emesis, Routine oxyCODONE (ROXICODONE) tablet 5 mg 5 mg, Oral, EVERY 4 HOURS PRN, Starting on Sat09/13/25 at 0044, Until Sat09/23/25 at 1132, Pain, Routine, Previous Med: oxyCODONE (ROXICODONE) 5 mg tablet - Orig Sig - Take 1 Tablet (5 mg) by mouth every 4 hours as needed for Pain. Max Daily Amount: 30 mg prochlorperazine (COMPAZINE) injection 10 mg 10 mg, IV, EVERY 6 HOURS PRN, Starting on Sat09/13/25 at 0055, Until Sat09/23/25 at 1132, Nausea/Emesis, Routine simethicone (GAS-X) capsule 125 mg 125 mg, Oral, EVERY 6 HOURS PRN, Starting on Sat09/15/25 at 1710, Until Sat09/23/25 at 1132, Gas, Routine simethicone chewable tablet 80 mg 80 mg, Oral, EVERY 6 HOURS PRN, Starting on Sat09/16/25 at 1723, Until Sat09/23/25 at 1132, Gas, Routine documented in this encounter
[2025-09-25] VITALS (52 sets, daily range): BP systolic 141–199; BP diastolic 71–110; PULSE 58–85; RESP 7–23; TEMP 36.4; O2SAT 90–100; BMI 23.6
--- NOTE | 2025-09-25 06:33 | XRR_ITS ---
PROCEDURE INFORMATION: Exam: XR Chest Exam date and time: 09/25/2025 6:45 AM Age: 59 years old Clinical indication: Intercostal; Prior surgery; Surgery date: 6+ months; Surgery type: Port a cath; C/O rib pain with n/v. History of pancreatic cancer. ; Additional info: Dyspnea/cough TECHNIQUE: Imaging protocol: Radiologic exam of the chest. Views: 1 view. COMPARISON: CR (CHEST, ) 09/12/2025 7:06 PM FINDINGS: Tubes, catheters and devices: Right IJ Port-A-Cath tip in the mid SVC. Lungs: Unremarkable. No consolidation. Pleural spaces: Unremarkable. No pleural effusion. No pneumothorax. Heart/Mediastinum: Unremarkable. No cardiomegaly. Bones/joints: Unremarkable. XR/XR chest 1V portable [id number] IMPRESSION: No acute findings.
--- OUTSIDE RECORDS SUMMARY | 2025-09-25 06:34 | XMS_ITS | Patient Health Record ---
Author Organization [facility] Address [address] [place] [address] Care Team Providers Care Pamphlet Distributor Name Role Phone Ara Escalona APN Primary [...] Status W/U Status Risk Notes Problem Hyperlipidaemia (31316742) Hyperlipidemia, unspecified hyperlipidemia type (E78.5) Active confirmed Problem Pruritic rash (12622110) Pruritic rash (L28.2) Active confirmed Problem Elevated liver enzymes level (467779080) Elevated LFTs (R79.89) Active confirmed Encounters Encounter Location Date Provider Diagnosis [facility] [address] [place] [id number] 11/04/2024 Ambrosio Mustafa Pruritic rash L28.2 Assessments Encounter Date Diagnosis (ICD Code) Assessment Notes Treatment Notes Treatment Clinical Notes Section Notes 11/04/2024 Pruritic rash (ICD-10 - L28.2) Plan Of Treatment No Information Insurance Providers Payer Name Payer Address Payer Phone Subscriber Number Group Number Insured Name Patient Relationship to Insured Coverage Start Date Coverage End Date Home [facility] Health Plan Medicaid Replacement [address] [facility] [place] [id number] [id number] KINA GUTIERREZ Self - patient is the insured Medical (General) History Medical History History ICD Code seasonal allergies Surgical History Surgery Date(Month/Year) L shoulder x 3 cyst removal neck
--- OUTSIDE RECORDS SUMMARY | 2025-09-25 06:34 | XMS_ITS | Encounter Summary ---
Author Organization [facility] Address [address] [place] [address] Care Team Providers Care Information Systems Security Analyst Name Role Phone Unavailable Primary Care Provider Unavailabl e Encounter Details Date Type Department Care Team (Late st Contact Info) Description 09/20/2025 Abstract [facility] [address] 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
--- OUTSIDE RECORDS SUMMARY | 2025-09-25 06:34 | XMS_ITS | Clinical Summary ---
Author Organization [facility] Address [address] [place] [address] Phone Care Team Providers Care Jira Administrator Name Role Phone Unavailable Primary Care Provider Unavailabl e Allergies Active Allergy Reactions Criticality Noted Date Comments Onion Unknown 04/16/2025 Shrimp Anaphylaxis High 04/16/2025 Medications ferrous sulfate 325 mg (65 mg iron) tablet Take 1 Tablet (325 mg) by mouth daily. 30 Tablet 2 5 Active oxyCODONE (ROXICODONE) 5 mg tabletIndicati ons:Elevated LFTs Take 1 Tablet (5 mg) by mouth every 4 hours as needed for Pain. Max Daily Amount: 30 mg 20 Tablet 5 Active pantoprazole (PROTONIX) 40 mg Tablet, Delayed Release (E.C.) Take 1 Tablet (40 mg) by mouth daily. 30 Tablet 1 09/23/2025 9:12 AM CDT 5 Active polyethylene glycol 3350 (MIRALAX) 17 gram/dose Powder Take 1 Scoop (17 Grams) by mouth daily. 510 Gram 09/23/2025 9:12 AM CDT 5 10/23/20 25 Active simethicone (GAS-X) 125 mg Capsule Take 1 Capsule (125 mg) by mouth every 6 hours as needed for Gas. 20 Capsule 5 Active pantoprazole (PROTONIX) 40 mg Tablet, Delayed Release (E.C.) Take 40 mg by mouth daily. 09/23/20 25 Discontinued Active Problems Problem Noted Date Diagnosed Date Adenocarcinoma of pancreas 09/15/2025 Anemia in neoplastic disease 09/15/2025 Upper GI bleed 09/13/2025 Gastric outlet obstruction 09/13/2025 Protein-calorie malnutrition, moderate Biliary stricture 04/14/2025 History of biliary stent insertion 04/14/2025 Biliary obstruction 04/09/2025 Elevated LFTs 04/09/2025 Pancreatic mass 04/08/2025 Common bile duct dilatation 04/08/2025 Transaminitis 04/08/2025 Calcification of gallbladder 04/08/2025 Abdominal pain, acute, right upper quadrant 07/2025 Encounters Date Type Department Care Team Description 09/22/2025 External Device Data STL ABSTRACTION Provider, Abstract 09/22/2025 External Device Data STL ABSTRACTION Provider, Abstract 09/21/2025 External Device Data STL ABSTRACTION Provider, Abstract 09/20/2025 Abstract [facility] HIM [address] [place] [address] Provider, Abstract 09/17/2025 9:49 AM CDT Anesthesia Event [facility] Operating Room [address] [place] [address] Chandler Christie MD Adam-Hager, McKenzie, CRNA 09/17/2025 8:32 AM CDT - 09/17/2025 10:44 AM CDT Surgery [facility] Operating Room [address] [place] [address] Jai Hilario DO GASTROJEJUNOSTOMY 09/17/2025 Chart Note [facility] 7A Oncology [address] [place] [address] Kayla Schaefer FNP 09/14/2025 1:40 PM CDT - 09/14/2025 2:00 PM CDT Surgery [facility] Endoscopy [address] [place] [address] Leno Whittington, DO ESOPHAGOGASTRODUODENOSCOPY 09/14/2025 1:39 PM CDT Anesthesia Event [facility] Endoscopy [address] [facility] [place] [address] Shyann Love MD 09/14/2025 External Device Data STL ABSTRACTION Provider, Abstract 09/14/2025 External Device Data STL ABSTRACTION Provider, Abstract 09/14/2025 External Device Data STL ABSTRACTION Provider, Abstract 09/13/2025 12:34 AM CDT - 09/23/2025 9:22 AM CDT Hospital Encounter [facility] 7A Oncology [address] 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 Gender Identity Not on file Sexual Orientation [...] Mass Index 24.07 09/13/2025 12:48 AM CDT Plan of Treatment Upcoming Encounters Date Type Department Care Team (Late st Contact Info) Description 10/06/2025 1:00 PM DENTURE WAXER [facility] [address] [address] Marah Cardenas NP [address] [facility] [address] [place] [phone] Health Maintenance Due Date Last Done Comments DTAP/TDAP/TD VACCINES (1 - Tdap) 1986 HEPATITIS B VACCINES (1 of 3 - 19+ 3-dose series) 09/02 COLORECTAL SCREENING 2012 Colorectal Cancer Screening 2012 FIT-DNA Q 3 years 2012 FIT/FOBT Q 1 year 2012 Flex Sig/CT Colonography Q 5 years 2012 ZOSTER VACCINE (1 of 2) 2017 INFLUENZA VACCINE (#1) 2025 Medical Devices Implanted Type Area Shoemaking Cutter Device Identifier Shelf Expiration Date Model / Serial / Lot 8.5f Resolve Biliary Drain-04/12/2025 Implanted:Qty: 1 on 04/12/2025 by Yefri Topete MD Catheter Left: Bile Duct 02/17/2027 / / [id number] Stent Bili Wallflex Rx 10x60 [id number] - [id number] Implanted:Qty: 1 on 04/13/2025 by Stephanie Oden DO at [facility] Stent N/A: Bile Duct [employer] [id number] 01/07/2027 [id number] / / [id number] Procedures Procedure Name Priority Date/Time Associated Diagnosis [...] POC GLUCOSE Routine 09/17/2025 12:57 PM CDT MT ANES INSERT ENDOTRACHEAL AIRWAY Routine 09/17/2025 9:59 AM CDT GASTROJEJUNOSTOMY 09/17/2025 8:32 AM CDT COMPREHENSIVE [...] CDT UPPER ENDOSCOPY REPORT 1:58 PM CDT ANESTHESIA AIRWAY Routine 09/14/2025 1:42 PM CDT ESOPHAGOGASTRODUODENOSCOPY 09/14 1:40 PM CDT [...] CDT PROTIME-INR Routine 09/13/2025 4:02 AM CDT COMPREHENSIVE METABOLIC PANEL Routine 3:48 AM CDT CBC WITH DIFFERENTIAL Routine 09/13/2025 3:48 AM CDT from Last 3 Months Results * TELEMETRY REPORT (09/24/2025 3:19 PM CDT) us Provider Scanning ECG ORDERABLES Final Result * (ABNORMAL) COMPREHENSIVE METABOLIC PANEL (09/23/2025 5:01 AM CDT) Only the most recent of10 resultswithin the time period is included. SODIUM 134(L) 136 - 145 mmol/L 09/23/2025 5:48 AM CDT [facility] POTASSIUM 3.9 3.5 - 5.1 mmol/L 09/23/2025 5:48 AM CDT [facility] CHLORIDE 100 98 - 107 mmol/L 09/23/2025 5:48 AM CDT [facility] CO2 24 22 - 29 mmol/L 09/23/2025 5:48 AM CDT [facility] CALCIUM 8.1(L) 8.6 - 10.0 mg/dL 09/23/2025 5:48 AM CDT [facility] BUN 10 6 - 20 mg/dL 09/23/2025 5:48 AM T [facility] CREATININE 0.72 0.67 - 1.17 mg/dL 09/23/2025 5:48 AM [facility] GLUCOSE 122(H) 74 - 99 mg/dL 09/23/2025 5:48 AM [facility] TOTAL PROTEIN 5.8(L) 6.4 - 8.3 g/dL 09/23/2025 5:48 AM [facility] ALBUMIN 2.9(L) 3.5 - 5.2 g/dL 09/23/2025 5:48 AM [facility] BILIRUBIN TOTAL 0.3 0.0 - 1.0 mg/dL 09/23/2025 5:48 AM [facility] ALKALINE PHOSPHATASE 297(H) 40 - 129 U/L 09/23/2025 5:48 AM [facility] AST 17 10 - 50 U/L 09/23/2025 5:48 AM [facility] ALT 11 <=50 U/L 09/23/2025 5:48 AM [facility] GFR >60 >=60 mL/min/1.7 3 sq meter 09/23/2025 5:48 AM [facility] Comment:eGFR calculated with 2020 CKD-EPI equation. Vegetarian diet, extremely high or low muscle mass, and may affect results. Cystatin C with Glomerular Filtration Rate is a suitable alternative for these patients. ANION GAP 10 9 - 20 mmol/L 09/23/2025 5:48 AM [facility] Blood Venipuncture / Unknown 09/23/2025 5:01 AM CDT 09/23/2025 5:11 AM CDT us Tex Ellison MD CHEMISTRY ORDERABLES Final Re sult [facility] CLIA # [id number] [address] [place] [address] * MAGNESIUM LEVEL (09/22/2025 1:39 AM CDT) MAGNESIUM 1.8 1.6 - 2.6 mg/dL 09/22/2025 7:45 AM CDT [facility] [employer] [facility] Blood Venipuncture / Unknown 09/22/2025 1:39 AM CDT 09/22/2025 1:50 AM CDT Shlomo Harris MD CHEMISTRY ORDERABLE S Final Result [facility] CLIA # [id number] [address] [place] [address] * INSERT MIDLINE IV (09/20/2025 7:15 PM CDT) Narrative Renny Nuno RN - 09/20/2025 7:15 PM CDT Renny Nuno RN 09/20/2025 7:28 PM VASCULAR ACCESS NOTE Midline PATIENT NAME: Melo Simpson DATE OF : 1965 CSN: [id number] DATE: 09/20/2025 Room: [address] [place] [address] Admit Date: 09/13/2025 Hospital day: LOS: 7 [...] weekly and as needed using sterile technique us Shlomo Harris MD IV THERAPY ORDERABL ES Final Result * XR ABDOMEN FOR FEEDING TUBE 1 VW (09/20/2025 9:27 AM CDT) Only the most recent of5 resultswithin the time period is included. Anatomical Region Laterality Modality Abdomen Computed Radiogr [...] DIAGNOSTIC IMAGING ORDERABLES Final Result * (ABNORMAL) CBC WITH DIFFERENTIAL (09/20/2025 4:21 AM CDT) Only the most recent of7 resultswithin the time period is included. WBC 9.9 4.8 - 10.8 K/uL 09/20/2025 5:13 AM CDT [facility] RBC 3.82(L) 4.60 - 6.20 M/uL 09/20/2025 5:13 AM CDT [facility] HEMOGLOBIN 11.3(L) 14.0 - 18.0 g/dL 09/20/2025 5:13 AM CDT [facility] HEMATOCRIT 34.6(L) 41.0 - 53.0 % 09/20/2025 5:13 AM CDT [facility] MCV 90.6 84.0 - 103.0 fL 09/20/2025 5:13 AM CDT [facility] MCH 29.6 27.0 - 34.0 pg 09/20/2025 5:13 AM [facility] MCHC 32.7 30.0 - 35.0 g/dL 09/20/2025 5:13 AM [facility] PLATELETS 228 140 - 440 K/uL 09/20/2025 5:13 AM [facility] MPV 8.6(L) 8.9 - 12.8 fL 09/20/2025 5:13 AM [facility] [employer] [facility] RDW 16.3(H) 11.0 - 14.5 % 09/20/2025 5:13 AM [facility] RDW-STDEV 54.9(H) 37.0 - 54.0 fL 09/20/2025 5:13 AM [facility] [employer] [facility] NEUTROPHILS 78(H) 42 - 75 % 09/20/2025 5:13 AM [facility] [employer] [facility] LYMPHOCYTES 15(L) 24 - 44 % 09/20/2025 5:13 AM [facility] [employer] [facility] MONOCYTES 7 2 - 10 % 09/20/2025 5:13 AM [facility] EOSINOPHILS 0 0 - 7 % 09/20/2025 5:13 AM [facility] BASOPHILS 0 0 - 1 % 09/20/2025 5:13 AM [facility] IMMATURE GRANULOCYTES 1 0 - 2 % 09/20/2025 5:13 AM [facility] NEUTROPHIL ABSOLUTE 7.72 2.00 - 8.00 K/uL 09/20/2025 5:13 AM [facility] LYMPHOCYTE ABSOLUTE 1.44 1.20 - 4.00 K/uL 09/20/2025 5:13 AM [facility] [employer] [facility] MONOCYTE ABSOLUTE 0.65(H) 0.10 - 0.60 K/uL 09/20/2025 5:13 AM [facility] EOSINOPHIL ABSOLUTE 0.04 0.00 - 0.70 K/uL 09/20/2025 5:13 AM CDT [facility] BASOPHILS ABSOLUTE 0.02 0.00 - 0.20 K/uL 09/20/2025 5:13 AM CDT [facility] IMMATURE GRANULOCYTES ABSOLUTE 0.06 0.00 - 0.10 K/uL 09/20/2025 5:13 AM CDT [facility] SMEAR REVIEWED: NA - Not Applicable 09/20/2025 5:13 AM CDT [facility] Blood Venipuncture / Unknown 09/20/2025 4:21 AM CDT 09/20/2025 5:00 AM CDT Tex Ellison MD HEMATOLOGY ORDERABLES Final R esult Performing Organization Address [facility] Co de Phone Number [facility] CLIA # [id number] [address] [phone] * (ABNORMAL) POC GLUCOSE (09/19/2025 4:37 AM CDT) Only the most recent of3 resultswithin the time period is included. GLUCOSE POC 143(H) 74 - 99 mg/dL 09/19/2025 4:37 AM CDT [facility] SPECIMEN SOURCE, GLUCOSE POC Capillary 09/19/2025 4:37 AM CDT [facility] Blood, whole 09/19/2025 4:37 AM CDT 09/19/2025 4:47 AM CDT Tex Ellison MD POINT OF CARE TESTING Final R esult Performing Organization Address [facility]/ZIP Co de Phone Number [facility] CLIA # [id number] [address] [phone] * (ABNORMAL) BASIC METABOLIC PANEL (09/18/2025 7:43 AM CDT) SODIUM 138 136 - 145 mmol/L 09/18/2025 8:21 AM CDT [facility] POTASSIUM 4.2 3.5 - 5.1 mmol/L 09/18/2025 8:21 AM CDT [facility] CHLORIDE 99 98 - 107 mmol/L 09/18/2025 8:21 AM T [facility] CO2 26 22 - 29 mmol/L 09/18/2025 8:21 AM T [facility] CALCIUM 8.9 8.6 - 10.0 mg/dL 09/18/2025 8:21 AM CDT [facility] BUN 13 6 - 20 mg/dL 09/18/2025 8:21 AM T [facility] CREATININE 0.90 0.67 - 1.17 mg/dL 09/18/2025 8:21 AM T [facility] GLUCOSE 131(H) 74 - 99 mg/dL 09/18/2025 8:21 AM T [facility] GFR >60 >=60 mL/min/1.7 3 sq meter 09/18/2025 8:21 AM T [facility] Comment:eGFR calculated with 2020 CKD-EPI equation. Vegetarian diet, extremely high or low muscle mass, and may affect results. Cystatin C with Glomerular Filtration Rate is a suitable alternative for these patients. ANION GAP 13 9 - 20 mmol/L 09/18/2025 8:21 AM T [facility] Blood Venipuncture / Unknown 09/18/2025 7:43 AM CDT 09/18/2025 7:48 AM CDT us Tex Ellison MD CHEMISTRY ORDERABLES Final Re sult [facility] CLIA # [id number] [address] [place] [address] * MT ANES INSERT ENDOTRACHEAL AIRWAY (09/17/2025 9:59 AM CDT) Narrative Gloria Pearce CRNA - 09/17/2025 9:59 AM CDT Gloria Pearce CRNA 09/17/2025 10:07 AM Airway Date/Time: 09/17/2025 9:59 AM Location: OR Plan: routine intubation Patient Identity Confirmed by: Verbally with patient and armband Staffing Performed: Student NA/AA Authorized by: Chandler Christie MD Performed by: Gloria Pearce CRNA Fuel Agent: Gloria Pearce CRNA Indications and Patient Condition: Indications for Airway Management: Anesthesia Sedation Level: general anesthesia Preoxygenated: yes Patient Position: Sniffing Mask Difficulty Assessment: 2 - vent by mask + OA or adjuvant +/- NMBA Oral Airway: 90mm Plan to extubate at end of case: Yes Final Airway Details: Final Airway Type: Endotracheal airway ETT Cuffed: Yes Cuff Volume (mL): 8 Technique Used for Successful ETT Placement: Direct laryngoscopy Devices/Methods Used in Placement: Cricoid pressure and intubating stylet Blade Type: curved blade Blade Size: 3 Insertion Site: Oral ETT Size (mm): 7.5 Measured from: Teeth ETT to Teeth (cm): 22 Tube secured with: Tape Placement Verified by: auscultation, end tidal CO2 and chest rise Cormack-Lehane Classification: Grade III - view of epiglottis only Number of Attempts at Approach: 1 Additional Procedure Information: atraumatic and dentition unchanged Chandler Christie MD PROCEDURE/MINOR SURGICAL ORD ERABLES Final Result * XR UPR GI (09/15/2025 9:00 AM [...] Supervision and final interpretation by Dr. Damon. Class C Truck Driver view of the mid abdomen shows a [...] Supervision and final interpretation by Dr. Damon. Class C Truck Driver view of the mid abdomen shows a [...] quadrant. Ernst Chi NP DIAGNOSTIC IMAGING O RDERABLES Final Result * UPPER ENDOSCOPY REPORT (09/14/2025 1:58 PM CDT) Narrative Procedure Note Leno Whittington DO - 09/14/2025 1:58 PM CDT [facility] GI Patient Name: Melo Simpson [...] Withdrawal Time Scope In: Scope Out: [address] [place], [place] us Leno Whittington DO GI PROCEDURE ORDERABLES Final Result * Airway (09/14/2025 1:42 PM CDT) Narrative Tawanda Taylor CRNA - 09/14/2025 1:42 PM CDT [facility] RN SURGERY 09/14/2025 1:42 PM Airway Date/Time: 09/14/2025 1:42 PM Staffing Authorized by: Shyann Love MD Performed by: Tawanda Taylor CRNA Final Airway Details: Final Airway Type: Mask Additional Comments: 10 L/min us Shyann Love MD PROCEDURE/MINOR SURGICAL ORDE RABLES Final Result * (ABNORMAL) HEMOGLOBIN AND HEMATOCRIT (09/13/2025 9:37 PM CDT) Only the most recent of2 resultswithin the time period is included. HEMOGLOBIN 10.2(L) 14.0 - 18.0 g/dL 09/13/2025 10:01 PM CDT [facility] HEMATOCRIT 31.5(L) 41.0 - 53.0 % 09/13/2025 10:01 PM CDT [facility] Blood Venipuncture / Unknown 09/13/2025 9:37 PM CDT 09/13/2025 9:54 PM CDT Federico Garibay MD HEMATOLOGY ORDERABLES Final Resu lt [facility] CLIA # [id number] [address] [facility] [place] [address] * PROTIME-INR (09/13/2025 4:02 AM CDT) PROTIME 13.7 12.7 - 14.9 Seconds 09/13/2025 4:53 AM CDT [facility] INR 1.0 0.8 - 1.2 09/13/2025 4:53 AM CDT [facility] [employer] [facility] Blood 09/13/2025 4:02 AM CDT 09/13/2025 4:41 AM CDT Narrative [facility] [employer] [facility] - 09/13/2025 4:53 AM CDT Expected Values for INR: DVT/PE Goal INR 2.5; range 2.0 - 3.0 Valve Replacement Tissue Goal INR 2.5; range 2.0 - 3.0 Valve Replacement Mechanical Goal INR 3.0; range 2.5 - 3.5 POST-PA Goal INR 2.5; range 2.0 - 3.0 or Goal INR 3.0; range 2.5 - 3.5 Atrial Fibrillation Goal INR 2.5; range 2.0 - 3.0 Ischemic Stroke Goal INR 2.5; range 2.0 - 3.0 us Federico Garibay MD HEMATOLOGY ORDERABLES Final Resu lt [facility] Organization Address City/State/ZIP Co de Phone Number [facility] CLIA # [id number] [address] [address] [place] [address] from Last 3 Months Insurance [facility] [id number] RX INFOCROSSING Medicaid Advance Directives For more information, please contact: [phone] * Full Code (Latest Code Status on File) Date Activated Date Inactivated Comments 09/13/2025 12:47 AM 09/23/2025 11:37 AM * Full Code Date Activated Date Inactivated Comments 04/13/2025 10:28 AM 04/16/2025 5:00 PM * Full Code Date Activated Date Inactivated Comments 04/08/2025 7:44 PM 04/13/2025 10:28 AM
--- OUTSIDE RECORDS SUMMARY | 2025-09-25 06:34 | XMS_ITS | Encounter Summary ---
Author Organization [employer] Address [address] [place] [address] Care Team Providers Care Metal Sander Name Role Phone Unavailable Primary Care Provider Unavailabl e Encounter Details Date Type Department Care Team (Late st Contact Info) Description 09/21/2025 External Device Data STL ABSTRACTION Provider, Abstract NO ADDRESS ON FILE Social [...] worry about transportation for future doctor visits, lease picker medication, etc.? 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
--- OUTSIDE RECORDS SUMMARY | 2025-09-25 06:35 | XMS_ITS | Encounter Summary ---
Author Organization [facility] Address [address] [place] [address] Care Team Providers Care Care Professional Name Role Phone Unavailable Primary Care Provider Unavailabl e Encounter Details Date Type Department Care Team (Late st Contact Info) Description 11/13/2005 Emergency [facility] Emergency Department [address] 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
--- OUTSIDE RECORDS SUMMARY | 2025-09-25 06:35 | XMS_ITS | Encounter Summary ---
Author Organization [employer] Address [address] [place] [address] Care Team Providers Care Drafting Layout Worker Name Role Phone Unavailable Primary Care Provider Unavailabl e Encounter Details Date Type Department Care Team (Late st Contact Info) Description 09/22/2025 External Device Data STL ABSTRACTION [...] worry about transportation for future doctor visits, picker / packer medication, etc.? 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
--- OUTSIDE RECORDS SUMMARY | 2025-09-25 06:35 | XMS_ITS | Clinical Summary ---
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
--- OUTSIDE RECORDS SUMMARY | 2025-09-25 06:35 | XMS_ITS | Encounter Summary ---
Author Organization [employer] Address [address] [place] [address] Care Team Providers Care Coal Mill Operator Name Role Phone Unavailable Primary Care Provider [...] worry about transportation for future doctor visits, continuous pickling line pickler helper medication, etc.? 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
--- OUTSIDE RECORDS SUMMARY | 2025-09-25 06:35 | XMS_ITS | Patient Health Record ---
Author Organization [employer] [facility] Address [address] [address] Care Team Providers Care Law Office Receptionist Name Role Phone Ara Escalona Unavailable [phone] Allergies No Known Allergies Reason For Referral No Information Medications Medication [...] Status W/U Status Risk Notes Problem Hyperlipidaemia (53961034) Hyperlipidemia, unspecified hyperlipidemia type (E78.5) Active confirmed Problem Elevated liver enzymes level (159247772) Elevated LFTs (R79.89) Active confirmed Plan Of Treatment No Information Insurance Providers Payer Name Payer Address Payer Phone Subscriber Number Group Number Insured Name Patient Relationship to Insured Coverage Start Date Coverage End Date [facility] [address] [place] [phone] [id number] Melo Simpson Self - patient is the insured Medical (General) History Medical History History ICD Code HX of high blood pressure swollen salivary gland Surgical History Surgery Date(Month/Year) Right Neck abscess 11/2023 left shoulder surgery x3 Hospitalization History Reason Date(Month/Year) right neck abscess [facility] 11/2022
--- NOTE | 2025-09-25 06:37 | W.ED.ABDPA2 ---
HPI - Abdominal Pain General: Chief Complaint: Nausea/Vomiting/Diarrhea Stated Complaint: N/V Pain around ribs Time Seen by Provider: 09/25/25 06:35 History of Present Illness: 59-year-old male presents to the emergency room with nausea and vomiting and epigastric abdominal pain. No hematemesis or coffee-ground emesis. No fever. Patient recently had a duodenal bypass due to occlusion of the duodenum from a pancreatic cancer metastasis. Earlier this year patient was found to have a pancreatic mass with extension obstructing the common bile duct and infiltrating the duodenum also with some extension to the liver. He has been being seen at [facility] he had an ERCP had a common bile duct stent ultimately however the duodenal portion of this has begun to occlude the duodenum and patient recently underwent surgery at [facility] in [place] for a duodenal bypass. The mass was biopsied in [place] and pathology showed pancreatic cancer. Subsequent PET scans have confirmed metastasis. Associated Symptoms: Reports bloating, nausea and vomiting; Denies chills, coffee ground emesis, dysuria, fever(s) and hematemesis Related Data Previous Rx's ?Medication ?Instructions ?Recorded pantoprazole 40 mg tablet,delayed 40 mg PO DAILY #60 tabs 05/03/25 release (Protonix) diphenoxylate-atropine 2.5 2 tab PO QID PRN diarrhea #60 tabs 09/07/25 mg-0.025 mg tablet (Lomotil) ondansetron HCl 4 mg tablet 4 mg PO Q6H PRN nausea and 09/07/25 vomiting #30 tabs prochlorperazine maleate 10 mg 10 mg PO Q4H PRN mild nausea #30 09/07/25 tablet (Compazine) tabs Allergies Allergy/AdvReac Type Severity Reaction Status Date / Time No Known Drug Allergies Allergy Unknown Verified 09/12/25 14:25 Review of Systems Const: Denies: fever(s) or chills Card: Denies: chest pain Resp: Denies: dyspnea GI: Reports: abdominal pain, nausea, vomiting and bloating; Denies: hematemesis or coffee ground emesis : Denies: dysuria, urinary frequency or urinary urgency Musc: Denies: neck pain or back pain Skin/Breast: Denies: rash PFSH ED PFSH: Medical History Port-A-Cath in place 04/23/25 Dr Taylor Social History Smoking and tobacco/nicotine status: never used tobacco/nicotine Physical Exam Const: GENERAL APPEARANCE: cooperative ORIENTATION/CONSCIOUSNESS: Yes awake, Yes oriented to person, Yes oriented to place and Yes oriented to time HENMT: COMMON NORMALS: normocephalic, atraumatic and hearing grossly normal bilaterally HEAD & SCALP: normocephalic and atraumatic Resp: COMMON NORMALS: normal respiratory effort, No retractions, No use of accessory muscles and clear to auscultation bilaterally AUSCULTATION: clear to auscultation bilaterally Cardio: COMMON NORMALS: regular rate, regular rhythm and No murmurs present (Cardio) RATE: regular rate RHYTHM: regular rhythm GI: AUSCULTATION: Yes Absent bowel sounds PALPATION: Yes Tenderness to palpation present (GI) and Yes Guarding due to palpation present (GI) Extremity: COMMON NORMALS: normal to inspection, capillary refill normal, no clubbing, cyanosis or edema, no calf tenderness and no pedal edema Neuro: SENSORIUM/ORIENTATION: Yes oriented to person, Yes oriented to place and Yes oriented to time Skin: COMMON NORMALS: no rashes or lesions noted GENERAL SKIN EXAM: no rashes or lesions noted Course Vital Signs: Vital signs: Vital Signs Temperature 97.6 F 09/25/25 06:34 Pulse Rate 72 09/25/25 13:56 Respiratory Rate 20 H 09/25/25 12:00 Blood Pressure 168/86 09/25/25 13:56 Pulse Oximetry 100 09/25/25 13:56 Oxygen Delivery Me thod Room Air 09/25/25 06:34 MDM - Abdominal Pain Medical Decision Making Patient has acute abdomen on exam CT shows free intraperitoneal air. Started on antibiotics given fluid bolus no leukocytosis discussed with surgery and with hospitalist. Patient has significant pancreatic cancer the gastrojejunostomy was due to duodenal obstruction. Concern for a leak at the anastomosis. Will transfer patient ED to ED surgery will see the patient there and reevaluate stable at the time of transfer Medical Records I reviewed the patient's medical records. Lab Data I reviewed the patient's lab results. 09/25/25 07:39 09/25/25 07:39 Labs/Radiology: Radiology Impressions Chest X-Ray 09/25/25 06:33 IMPRESSION: No acute findings. Abdomen/Pelvis CT 09/25/25 06:46 IMPRESSION: 1. Large mass regional to the 2nd portion of the duodenum and pancreatic head larger on today's exam. 2. Free intraperitoneal air. This is likely related to recent surgery however, recommend clinical correlation. 3. Edema involving the anterior mesentery and omentum likely related to recent surgery. There is also a small air and fluid collection underneath the anterior abdominal wall presumably related to recent surgery as well. This collection may or may not be infected. 4. Cholelithiasis. 5. Please see above comments for additional details. ADDENDUM: 09/25/25 [id number] Addendum: Please note that patient's surgery was 8 day prior. Given the amount of free air, a bowel leak/perforation can not be reasonably excluded. Recommend clinical correlation. COMMENT: THIS REPORT CONTAINS FINDINGS THAT MAY BE CRITICAL TO PATIENT CARE. The exam findings were verbally communicated by me to YASH DE ANDA via telephone conference at 7:56 AM CDT on 09/25/2025. The findings were acknowledged and understood. Laboratory Results WBC 9.14 10^3/uL (3.29-11.43) 09/25/25 07:39 RBC 2.96 10^6/uL (3.85-5.65) L 09/25/25 07:39 Hgb 8.70 g/dL (11.27-16.99) L 09/25/25 07:39 Hct 26.5 % (37-53) L 09/25/25 07:39 MCV 89.5 fl (82-101) 09/25/25 07:39 MCH 29.4 pg (27-33) 09/25/25 07:39 MCHC 32.8 g/dL (30-55) 09/25/25 07:39 RDW 15.1 % (12.1-15.1) 09/25/25 07:39 Plt Count 198 10^3/cmm (157-399) 09/25/25 07:39 MPV 8.4 fL (7.4-10.4) 09/25/25 07:39 Neut % (Auto) 82.2 % 09/25/25 07:39 Lymph % (Auto) 9.8 % 09/25/25 07:39 Winkler % (Auto) 6.5 % 09/25/25 07:39 Eos % (Auto) 0.1 % 09/25/25 07:39 Baso % (Auto) 0.3 % 09/25/25 07:39 Neut # (Auto) 7.51 10^3/uL (1.8-7.7) 09/25/25 07:39 Lymph # (Auto) 0.9 10^3/uL (0.8-4.8) 09/25/25 07:39 Winkler # (Auto) 0.6 10^3/uL (0.2-0.9) 09/25/25 07:39 Eos # (Auto) 0.0 10^3/uL (0.0-0.8) 09/25/25 07:39 Baso # (Auto) 0.0 10^3/uL (0.0-0.1) 09/25/25 07:39 Nucleated RBC % (auto) 0 % 09/25/25 07:39 Nucleated RBCs # 0.0 /100WBC 09/25/25 07:39 Sodium 126 mmol/L (136-145) L 09/25/25 07:39 Potassium 3.4 mmol/L (3.5-5.1) L 09/25/25 07:39 Chloride 90 mmol/L (98-107) L 09/25/25 07:39 Carbon Dioxide 20 mmol/L (22-29) L 09/25/25 07:39 Anion Gap 19.4 (5-19) H 09/25/25 07:39 BUN 12 mg/dL (6-20) 09/25/25 07:39 Creatinine 0.5 mg/dL (0.7-1.2) L 09/25/25 07:39 GFR Calculation 171.4 mL/min (90-130) H 09/25/25 07:39 Glucose 129 mg/dL (65-115) H 09/25/25 07:39 Calculated Osmolality 263 mOsm/kg (285-295) L 09/25/25 07:39 Lactic Acid 1.5 mmol/L (0.5-2.2) 09/25/25 07:39 Calcium 8.1 mg/dL (8.5-10.5) L 09/25/25 07:39 Magnesium 1.8 mg/dL (1.7-2.3) 09/25/25 07:39 Total Bilirubin 0.4 mg/dL (0.15-1.2) 09/25/25 07:39 AST 19 U/L (0-40) 09/25/25 07:39 ALT 16 U/L (0-41) 09/25/25 07:39 Alkaline Phosphatase 426 U/L (40-130) H 09/25/25 07:39 Total Protein 6.3 g/dL (6.6-8.7) L 09/25/25 07:39 Albumin 3.3 g/dL (3.5-5.2) L 09/25/25 07:39 Globulin 3.0 g/dL (1.3-4.6) 09/25/25 07:39 Lipase 124 U/L (13-60) H 09/25/25 07:39 All radiology interpretation(s) finalized by discharge Discharge Plan Discharge Patient Disposition: Transfer to ED Clinical Impression: Peritonitis, 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, Pancreatic cancer Condition: Stable Prescriptions: No Action pantoprazole [Protonix] 40 mg tablet,delayed release (DR/EC) 40 mg PO DAILY Qty: 60 3RF prochlorperazine maleate [Compazine] 10 mg tablet 10 mg PO Q4H PRN (Reason: mild nausea) Qty: 30 3RF ondansetron HCl 4 mg tablet 4 mg PO Q6H PRN (Reason: nausea and vomiting) Qty: 30 3RF diphenoxylate-atropine [Lomotil] 2.5-0.025 mg tablet 2 tab PO QID MDD 8 tab PRN (Reason: diarrhea) Qty: 60 3RF Rx Instructions: 2 tabs orally 4xdaily until control of diarrhea Referrals: Elizabeth Hollis MIXING TUMBLER OPERATOR [Primary Care Provider, Family Practice] Print Language: Danish Coding Level of Care Code ED Social Worker [facility] Services for [facility] Giovani
--- NOTE | 2025-09-25 06:46 | CTR_ITS ---
PROCEDURE INFORMATION: Exam: CT Abdomen And Pelvis With Contrast Exam date and time: 09/25/2025 7:20 AM Age: 59 years old Clinical indication: Abdominal pain; Generalized; Prior surgery; Surgery date: 3-7 days post-operative; Surgery type: Patient arrives via pov for C/O nausea, vomiting and rib pain. Symptoms began at approximately. Patient had a surgery where they attached his intestines to his stomach at [facility] on Saturday. ; Additional info: Abd pain TECHNIQUE: Imaging protocol: Computed tomography of the abdomen and pelvis with contrast. Radiation optimization: All CT scans at this facility use at least one of these dose optimization techniques: automated exposure control; mA and/or kV adjustment per patient size (includes targeted exams where dose is matched to clinical indication); or iterative reconstruction. Contrast material: OMNI 350; Contrast volume: 100 ml; Contrast route: INTRAVENOUS (IV); COMPARISON: PT PET skull to thigh SUBS [id number] 09/24/2025 12:08 PM RADIATION DOSE METRICS: Total DLP (mGy-cm): 499.93 FINDINGS: Lungs: Lung bases are clear as visualized. Liver: Normal. No mass. Gallbladder and biliary ducts: There is a biliary stent present. There is pneumobilia. Hyperdense material seen within the gallbladder presumably related to gallstones. No pericholecystic inflammatory changes noted. Pancreas: There is a large low-density mass regional to the duodenal and pancreatic head/uncinate process measuring 6.8 cm AP dimension by 6.4 cm transverse dimension larger on today's exam when compared to prior exam. The pancreas is otherwise normal. Spleen: Normal. No splenomegaly. Adrenal glands: Normal. No mass. Kidneys and ureters: Normal. No hydronephrosis. Stomach and bowel: There appear to be postoperative changes status post gastrojejunostomy. No dilated loops of large or small bowel is appreciated. No definite bowel wall thickening is noted. There are a few scattered colonic diverticula. Appendix: No evidence of appendicitis. Intraperitoneal space: There is free intraperitoneal air. Small air and fluid collection seen underneath the anterior abdominal wall measuring 3.1 x 1.8 cm (series 4, image 23). This is likely postoperative. No rim enhancement is noted. Mild edema is noted involving the anterior mesentery/omentum likely postoperative in nature. Vasculature: The aorta is normal in caliber. There is calcified plaque involving the aorta and its branch vessels. Lymph nodes: Unremarkable. No enlarged lymph nodes. Urinary bladder: Unremarkable as visualized. Reproductive: Unremarkable as visualized. Bones/joints: Unremarkable. No acute fracture. Soft tissues: There are midline surgical skin amelia. CT/CT abdomen pelvis w con* [id number] IMPRESSION: 1. Large mass regional to the 2nd portion of the duodenum and pancreatic head larger on today's exam. 2. Free intraperitoneal air. This is likely related to recent surgery however, recommend clinical correlation. 3. Edema involving the anterior mesentery and omentum likely related to recent surgery. There is also a small air and fluid collection underneath the anterior abdominal wall presumably related to recent surgery as well. This collection may or may not be infected. 4. Cholelithiasis. 5. Please see above comments for additional details.
[2025-09-25] MEDS: iohexol 350 mg/mL 500 mL Btl (per mL) IV (07:18)
[2025-09-25 07:46] LABS: Hematocrit 26.5 % (37-53); Hemoglobin 8.70 g/dL (11.27-16.99); Mean Corpuscular HGB Conc 32.8 g/dL (30-55); Mean Corpuscular Hemoglobin 29.4 pg (27-33); Mean Corpuscular Volume 89.5 fl (82-101); Nucleated Red Blood Cells % 0 %; Platelet Count 198 10^3/cmm (157-399); Red Blood Count 2.96 10^6/uL (3.85-5.65); White Blood Count 9.14 10^3/uL (3.29-11.43)
[2025-09-25] MEDS: morphine 4 mg/mL SDV 1 mL IVP ×2 (07:46→09:34)
[2025-09-25] MEDS: ondansetron 2 mg/ML SDV 2 mL 4 MG IVP (07:47)
[2025-09-25 08:06] LABS: Alanine Aminotransferase 16 U/L (0-41); Albumin Level 3.3 g/dL (3.5-5.2); Alkaline Phosphatase 426 U/L (40-130); Anion Gap 19.4 (5-19); Aspartate Amino Transferase 19 U/L (0-40); Blood Urea Nitrogen 12 mg/dL (6-20); Calcium 8.1 mg/dL (8.5-10.5); Carbon Dioxide 20 mmol/L (22-29); Chloride 90 mmol/L (98-107); Creatinine Clr Calc Pharmacy 164.9145; Globulin 3.0 g/dL (1.3-4.6); Glucose 129 mg/dL (65-115); Lipase 124 U/L (13-60); Magnesium 1.8 mg/dL (1.7-2.3); Osmolality Calculated 263 mOsm/kg (285-295); Potassium 3.4 mmol/L (3.5-5.1); Sodium 126 mmol/L (136-145); Total Protein 6.3 g/dL (6.6-8.7)
[2025-09-25 08:07] LABS: Lactic Sepsis W/Reflex 1.5 mmol/L (0.5-2.2)
[2025-09-25] MEDS: piperacillin-tazobactam 3.375 GM in sodium chloride 0.9% (plus) 50 ML IV (08:19)
--- NOTE | 2025-09-25 08:35 | ECG_ITS ---
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
[2025-09-25] MEDS: HYDROmorphone 0.5 MG/0.5 ML INJ IVP ×2 (10:26→13:33)
== END 2025-09-25 13:58 ==
PROVIDERS: Emergency Provider Family Medicine; PCP Nurse Practitioner Family
DX: K65.9 Peritonitis, unspecified (principal); C17.9 Malignant neoplasm of small intestine, unspecified; C78.7 Secondary malignant neoplasm of liver and intrahepatic bile duct; C61 Malignant neoplasm of prostate
CPT/HCPCS: 71045; 74177; 80053; 83605; 83690; 83735; 85025; 87040; 93005; 96374; 96375; 96376; 99285; J1171; J2270; J2405; J2543; J7030; J9999

== ENCOUNTER 2025-10-26 08:15 | Oncology outpatient (recurring) (ONCR) | payer MEDICAID, SELFPAY ==
[2025-10-04 09:53] LABS: Hematocrit 26.8 % (37-53); Hemoglobin 8.60 g/dL (11.27-16.99); Mean Corpuscular HGB Conc 32.1 g/dL (30-55); Mean Corpuscular Hemoglobin 28.7 pg (27-33); Mean Corpuscular Volume 89.3 fl (82-101); Nucleated Red Blood Cells % 0 %; Platelet Count 279 10^3/cmm (157-399); Red Blood Count 3.00 10^6/uL (3.85-5.65); White Blood Count 6.06 10^3/uL (3.29-11.43)
[2025-10-04 10:42] LABS: Slide Review Slide Review Perform
[2025-10-13 09:52] LABS: Hematocrit 27.1 % (37-53); Hemoglobin 8.60 g/dL (11.27-16.99); Mean Corpuscular HGB Conc 31.7 g/dL (30-55); Mean Corpuscular Hemoglobin 29.1 pg (27-33); Mean Corpuscular Volume 91.6 fl (82-101); Nucleated Red Blood Cells % 0 %; Platelet Count 416 10^3/cmm (157-399); Red Blood Count 2.96 10^6/uL (3.85-5.65); White Blood Count 9.99 10^3/uL (3.29-11.43)
[2025-10-13 10:11] LABS: Alanine Aminotransferase 22 U/L (0-41); Albumin Level 3.7 g/dL (3.5-5.2); Alkaline Phosphatase 709 U/L (40-130); Anion Gap 19.0 (5-19); Aspartate Amino Transferase 21 U/L (0-40); Blood Urea Nitrogen 20 mg/dL (6-20); Calcium 9.0 mg/dL (8.5-10.5); Carbon Dioxide 22 mmol/L (22-29); Chloride 93 mmol/L (98-107); Globulin 3.4 g/dL (1.3-4.6); Glucose 107 mg/dL (65-115); Osmolality Calculated 273 mOsm/kg (285-295); Potassium 4.0 mmol/L (3.5-5.1); Sodium 130 mmol/L (136-145); Total Protein 7.1 g/dL (6.6-8.7)
[2025-10-13] MEDS: ondansetron 2 mg/ML SDV 2 mL 8 MG IVP (10:27)
[2025-10-13 10:34] VITALS: BP 136/79; PULSE 91; RESP 16
--- NOTE | 2025-10-13 11:45 | XR_ITS ---
WS: [id number] Exam: XR KUB [id number] Date/Time of Exam: 10/13/2025 11:55 AM Reason For Exam: recent obstruction; n/v Compared to abdominal CT scan performed 09/25/2025. No bowel obstruction. Questionable curvilinear free air along the medial aspect of the liver. A biliary stent noted in the RIGHT abdomen. No sign of organ enlargement. Bony structures are intact. XR/XR KUB [id number] IMPRESSION: 1. No bowel obstruction. 2. Questionable small curvilinear area of possible free air along the medial as pect of the liver. This may represent residual free air as reported on abdomina l CT scan dated 09/25/2025.
[2025-10-13 12:38] LABS: Hematocrit 22.8 % (37-53); Hemoglobin 7.30 g/dL (11.27-16.99); Mean Corpuscular HGB Conc 32.0 g/dL (30-55); Mean Corpuscular Hemoglobin 29.3 pg (27-33); Mean Corpuscular Volume 91.6 fl (82-101); Platelet Count 308 10^3/cmm (157-399); Red Blood Count 2.49 10^6/uL (3.85-5.65); White Blood Count 12.30 10^3/uL (3.29-11.43)
[2025-10-13 13:00] LABS: Total Cells Counted 100 (0-100)
[2025-10-13 13:03] LABS: Absolute Segmented Neutrophil 11.7 10/cmm (1.6-7.1); Atypical Lymphs 0.0 % (0-5); Band Neutrophils Absolute 0.0 10^3/cmm (0.0-1.2)
[2025-10-13 13:04] LABS: Anisocytosis 1+
[2025-10-13 14:33] VITALS: BP 128/79; PULSE 79; RESP 16; TEMP 36.6; O2SAT 98
[2025-10-13 14:51] VITALS: BP 125/76; PULSE 74; RESP 16; TEMP 36.5; O2SAT 96
[2025-10-13 15:06] VITALS: BP 120/75; PULSE 72; RESP 16; TEMP 36.5; O2SAT 96
[2025-10-13 16:06] VITALS: BP 125/78; PULSE 77; RESP 16; TEMP 37; O2SAT 96
[2025-10-13 16:45] VITALS: BP 114/67; PULSE 74; TEMP 36.6; O2SAT 98
[2025-10-14 08:04] VITALS: BP 131/76; PULSE 83; RESP 16; TEMP 36.2; O2SAT 97
[2025-10-14] MEDS: ondansetron 2 mg/ML SDV 2 mL 8 MG IVP (08:07)
[2025-10-14 10:06] VITALS: BP 137/79; PULSE 75; RESP 16; TEMP 36.6; O2SAT 96
[2025-10-14 10:12] VITALS: BP 124/70; PULSE 76; RESP 16; TEMP 36.5; O2SAT 96
[2025-10-14 10:36] VITALS: BP 131/74; PULSE 72; RESP 16; TEMP 36.6; O2SAT 97
[2025-10-14 11:36] VITALS: BP 118/72; PULSE 79; RESP 16; TEMP 36.7; O2SAT 98
[2025-10-14 12:18] VITALS: BP 118/72; PULSE 79; TEMP 36.7; O2SAT 98
[2025-10-20] VITALS (11 sets, daily range): BP systolic 104–117; BP diastolic 60–77; PULSE 62–73; RESP 18; TEMP 36.3–37.2; O2SAT 96–98
[2025-10-20 10:26] LABS: Hematocrit 25.2 % (37-53); Hemoglobin 8.20 g/dL (11.27-16.99); Mean Corpuscular HGB Conc 32.5 g/dL (30-55); Mean Corpuscular Hemoglobin 30.0 pg (27-33); Mean Corpuscular Volume 92.3 fl (82-101); Nucleated Red Blood Cells % 0 %; Platelet Count 242 10^3/cmm (157-399); Red Blood Count 2.73 10^6/uL (3.85-5.65); White Blood Count 7.48 10^3/uL (3.29-11.43)
[2025-10-20 11:01] LABS: Alanine Aminotransferase 12 U/L (0-41); Albumin Level 2.9 g/dL (3.5-5.2); Alkaline Phosphatase 409 U/L (40-130); Anion Gap 12.6 (5-19); Aspartate Amino Transferase 14 U/L (0-40); Blood Urea Nitrogen 11 mg/dL (6-20); Calcium 7.9 mg/dL (8.5-10.5); Cancer Antigen 19 9 0.600 U/mL (0-35); Carbon Dioxide 26 mmol/L (22-29); Chloride 96 mmol/L (98-107); Globulin 3.1 g/dL (1.3-4.6); Glucose 155 mg/dL (65-115); Osmolality Calculated 275 mOsm/kg (285-295); Potassium 3.6 mmol/L (3.5-5.1); Sodium 131 mmol/L (136-145); Total Protein 6.0 g/dL (6.6-8.7)
[2025-10-20] MEDS: ondansetron 2 mg/ML SDV 2 mL 8 MG IVP (11:11)
[2025-10-26 08:25] LABS: Hematocrit 31.4 % (37-53); Hemoglobin 10.30 g/dL (11.27-16.99); Mean Corpuscular HGB Conc 32.8 g/dL (30-55); Mean Corpuscular Hemoglobin 29.8 pg (27-33); Mean Corpuscular Volume 90.8 fl (82-101); Nucleated Red Blood Cells % 0 %; Platelet Count 247 10^3/cmm (157-399); Red Blood Count 3.46 10^6/uL (3.85-5.65); White Blood Count 10.87 10^3/uL (3.29-11.43)
[2025-10-26 08:49] LABS: Alanine Aminotransferase 15 U/L (0-41); Albumin Level 3.2 g/dL (3.5-5.2); Alkaline Phosphatase 485 U/L (40-130); Anion Gap 13.7 (5-19); Aspartate Amino Transferase 21 U/L (0-40); Blood Urea Nitrogen 17 mg/dL (6-20); Calcium 8.3 mg/dL (8.5-10.5); Carbon Dioxide 28 mmol/L (22-29); Chloride 95 mmol/L (98-107); Globulin 3.0 g/dL (1.3-4.6); Glucose 110 mg/dL (65-115); Osmolality Calculated 276 mOsm/kg (285-295); Potassium 4.7 mmol/L (3.5-5.1); Sodium 132 mmol/L (136-145); Total Protein 6.2 g/dL (6.6-8.7)
[2025-10-26] MEDS: ondansetron 2 mg/ML SDV 2 mL 8 MG IVP (09:10)
[2025-10-26 09:14] VITALS: RESP 16
[2025-10-26] MEDS: morphine 4 mg/mL SDV 1 mL 2 MG IVP (09:14)
[2025-10-26 10:30] VITALS: BP 106/59; PULSE 90; RESP 16; O2SAT 93
== END 2025-10-31 23:59 | disposition home or self-care (01) ==
PROVIDERS: Internal Medicine Medical Oncology; Nurse Practitioner Family; PCP Nurse Practitioner Family; Visit Provider Nurse Practitioner
DX: Z53.9 Procedure and treatment not carried out, unspecified reason; C17.9 Malignant neoplasm of small intestine, unspecified; C78.7 Secondary malignant neoplasm of liver and intrahepatic bile duct; R03.0 Elevated blood-pressure reading, without diagnosis of hypertension; D64.9 Anemia, unspecified; Z79.899 Other long term (current) drug therapy; Z79.52 Long term (current) use of systemic steroids
CPT/HCPCS: 36430; 36591; 74018; 80053; 85007; 85025; 85027; 86301; 86850; 86900; 86920; 96361; 96365; 96367; 96374; 96375; J1100; J2270; J2405; J3490; J7030; J7050; J9999; P9016

== ENCOUNTER 2025-12-01 10:00 | Oncology outpatient (recurring) (ONCR) | payer MEDICAID, SELFPAY ==
[2025-11-01 08:01] LABS: Hematocrit 29.6 % (37-53); Hemoglobin 9.60 g/dL (11.27-16.99); Mean Corpuscular HGB Conc 32.4 g/dL (30-55); Mean Corpuscular Hemoglobin 28.9 pg (27-33); Mean Corpuscular Volume 89.2 fl (82-101); Nucleated Red Blood Cells % 0 %; Platelet Count 266 10^3/cmm (157-399); Red Blood Count 3.32 10^6/uL (3.85-5.65); White Blood Count 9.07 10^3/uL (3.29-11.43)
[2025-11-01 08:48] VITALS: RESP 16
[2025-11-01] MEDS: morphine 4 mg/mL SDV 1 mL 2 MG IVP ×2 (08:48→12:56)
[2025-11-01 09:21] LABS: Alanine Aminotransferase 17 U/L (0-41); Albumin Level 3.3 g/dL (3.5-5.2); Alkaline Phosphatase 459 U/L (40-130); Anion Gap 14.5 (5-19); Aspartate Amino Transferase 19 U/L (0-40); Blood Urea Nitrogen 13 mg/dL (6-20); Calcium 8.4 mg/dL (8.5-10.5); Carbon Dioxide 26 mmol/L (22-29); Chloride 94 mmol/L (98-107); Globulin 2.9 g/dL (1.3-4.6); Glucose 101 mg/dL (65-115); Osmolality Calculated 270 mOsm/kg (285-295); Potassium 4.5 mmol/L (3.5-5.1); Sodium 130 mmol/L (136-145); Total Protein 6.2 g/dL (6.6-8.7)
[2025-11-01] MEDS: dexamethasone 4 mg/mL INJ 5 mL 12 MG IVP (10:13)
[2025-11-01] MEDS: atropine 1 mg/mL SDV 1 mL 0.4 MG IV (10:16)
[2025-11-01] MEDS: irinotecan 320 MG in dextrose 5% 250 ML 177.33 MG IV (11:18)
[2025-11-01] MEDS: leucovorin 720 MG in dextrose 5% 250 ML 166.67 MG IV (11:19)
[2025-11-01 12:56] VITALS: RESP 16
[2025-11-01] MEDS: fluorouraciL 50 mg/ml MDV 100 mL 716 MG IVP (13:00)
[2025-11-01] MEDS: fluorouraciL 4,300 MG, elastomeric pump 1 PUMP in sodium chloride 0.9% (100 ml) 6 ML IV (13:04)
[2025-11-03 13:42] VITALS: BP 108/70; PULSE 68; RESP 16; TEMP 36.4; O2SAT 97
[2025-11-03 13:55] LABS: Hematocrit 27.0 % (37-53); Hemoglobin 8.80 g/dL (11.27-16.99); Mean Corpuscular HGB Conc 32.6 g/dL (30-55); Mean Corpuscular Hemoglobin 28.7 pg (27-33); Mean Corpuscular Volume 87.9 fl (82-101); Nucleated Red Blood Cells % 0 %; Platelet Count 247 10^3/cmm (157-399); Red Blood Count 3.07 10^6/uL (3.85-5.65); White Blood Count 8.03 10^3/uL (3.29-11.43)
[2025-11-03 14:30] LABS: Alanine Aminotransferase 15 U/L (0-41); Albumin Level 3.2 g/dL (3.5-5.2); Alkaline Phosphatase 413 U/L (40-130); Anion Gap 15.9 (5-19); Aspartate Amino Transferase 20 U/L (0-40); Blood Urea Nitrogen 16 mg/dL (6-20); Calcium 8.8 mg/dL (8.5-10.5); Carbon Dioxide 25 mmol/L (22-29); Chloride 94 mmol/L (98-107); Globulin 2.9 g/dL (1.3-4.6); Glucose 105 mg/dL (65-115); Osmolality Calculated 274 mOsm/kg (285-295); Potassium 3.9 mmol/L (3.5-5.1); Sodium 131 mmol/L (136-145); Total Protein 6.1 g/dL (6.6-8.7)
[2025-11-03 14:42] VITALS: BP 111/66; PULSE 70; RESP 16; TEMP 36.8; O2SAT 98
[2025-11-05 08:45] LABS: Hematocrit 25.7 % (37-53); Hemoglobin 8.30 g/dL (11.27-16.99); Mean Corpuscular HGB Conc 32.3 g/dL (30-55); Mean Corpuscular Hemoglobin 28.7 pg (27-33); Mean Corpuscular Volume 88.9 fl (82-101); Nucleated Red Blood Cells % 0 %; Platelet Count 195 10^3/cmm (157-399); Red Blood Count 2.89 10^6/uL (3.85-5.65); White Blood Count 4.62 10^3/uL (3.29-11.43)
[2025-11-05 08:46] VITALS: RESP 17
[2025-11-05] MEDS: morphine 4 mg/mL SDV 1 mL 2 MG IVP (08:46)
[2025-11-05 09:13] LABS: Alanine Aminotransferase 18 U/L (0-41); Albumin Level 3.0 g/dL (3.5-5.2); Alkaline Phosphatase 482 U/L (40-130); Anion Gap 13.9 (5-19); Aspartate Amino Transferase 25 U/L (0-40); Blood Urea Nitrogen 9 mg/dL (6-20); Calcium 8.3 mg/dL (8.5-10.5); Carbon Dioxide 26 mmol/L (22-29); Chloride 93 mmol/L (98-107); Globulin 2.6 g/dL (1.3-4.6); Glucose 115 mg/dL (65-115); Osmolality Calculated 268 mOsm/kg (285-295); Potassium 3.9 mmol/L (3.5-5.1); Sodium 129 mmol/L (136-145); Total Protein 5.6 g/dL (6.6-8.7)
[2025-11-05 09:46] VITALS: BP 118/67; PULSE 66; RESP 16; TEMP 37.1; O2SAT 99
[2025-11-08] VITALS (11 sets, daily range): BP systolic 99–119; BP diastolic 57–75; PULSE 58–69; RESP 16–17; TEMP 36.4–37; O2SAT 97–98
[2025-11-08 09:38] LABS: Hematocrit 24.3 % (37-53); Hemoglobin 7.90 g/dL (11.27-16.99); Mean Corpuscular HGB Conc 32.5 g/dL (30-55); Mean Corpuscular Hemoglobin 28.8 pg (27-33); Mean Corpuscular Volume 88.7 fl (82-101); Nucleated Red Blood Cells % 0 %; Platelet Count 135 10^3/cmm (157-399); Red Blood Count 2.74 10^6/uL (3.85-5.65); White Blood Count 3.89 10^3/uL (3.29-11.43)
[2025-11-08 10:42] LABS: Alanine Aminotransferase 22 U/L (0-41); Albumin Level 2.9 g/dL (3.5-5.2); Alkaline Phosphatase 504 U/L (40-130); Anion Gap 12.7 (5-19); Aspartate Amino Transferase 29 U/L (0-40); Blood Urea Nitrogen 10 mg/dL (6-20); Calcium 8.1 mg/dL (8.5-10.5); Carbon Dioxide 26 mmol/L (22-29); Chloride 98 mmol/L (98-107); Globulin 2.8 g/dL (1.3-4.6); Glucose 136 mg/dL (65-115); Osmolality Calculated 277 mOsm/kg (285-295); Potassium 3.7 mmol/L (3.5-5.1); Sodium 133 mmol/L (136-145); Total Protein 5.7 g/dL (6.6-8.7)
[2025-11-08] MEDS: morphine ER (12 HR) 15 mg Tablet PO (11:25)
[2025-11-10 09:20] VITALS: BP 111/75; PULSE 88; RESP 16; TEMP 36.6; O2SAT 99
[2025-11-10] MEDS: ondansetron 2 mg/ML SDV 2 mL 8 MG IVP (09:43)
[2025-11-15 08:04] LABS: Hematocrit 31.9 % (37-53); Hemoglobin 10.20 g/dL (11.27-16.99); Mean Corpuscular HGB Conc 32.0 g/dL (30-55); Mean Corpuscular Hemoglobin 28.1 pg (27-33); Mean Corpuscular Volume 87.9 fl (82-101); Nucleated Red Blood Cells % 0 %; Platelet Count 141 10^3/cmm (157-399); Red Blood Count 3.63 10^6/uL (3.85-5.65); White Blood Count 3.83 10^3/uL (3.29-11.43)
[2025-11-15 08:23] LABS: Alanine Aminotransferase 32 U/L (0-41); Albumin Level 3.0 g/dL (3.5-5.2); Alkaline Phosphatase 640 U/L (40-130); Anion Gap 10.1 (5-19); Aspartate Amino Transferase 49 U/L (0-40); Blood Urea Nitrogen 8 mg/dL (6-20); Calcium 8.1 mg/dL (8.5-10.5); Carbon Dioxide 27 mmol/L (22-29); Chloride 105 mmol/L (98-107); Globulin 2.4 g/dL (1.3-4.6); Glucose 115 mg/dL (65-115); Osmolality Calculated 287 mOsm/kg (285-295); Potassium 3.1 mmol/L (3.5-5.1); Sodium 139 mmol/L (136-145); Total Protein 5.4 g/dL (6.6-8.7)
[2025-11-15] MEDS: dexamethasone 4 mg/mL INJ 5 mL 12 MG IVP (09:29)
[2025-11-15] MEDS: atropine 1 mg/mL SDV 1 mL 0.4 MG IV (09:30)
[2025-11-15] MEDS: leucovorin 720 MG in dextrose 5% 250 ML 166.67 MG IV (09:57)
[2025-11-15] MEDS: fluorouraciL 50 mg/ml MDV 100 mL 724 MG IVP (11:38)
[2025-11-15] MEDS: fluorouraciL 4,350 MG, elastomeric pump 1 PUMP in sodium chloride 0.9% (100 ml) 5 ML IV (11:39)
[2025-11-15 11:50] VITALS: BP 132/78; PULSE 71; RESP 17; TEMP 36.7; O2SAT 97
[2025-11-15 11:59] LABS: Add Urine Microscopic? NO
[2025-11-15 12:17] LABS: Glucose Urine UA Negative (Normal); Nitrate Urine Negative (Negative); Specific Gravity, Urine 1.022 (1.005-1.030)
[2025-11-15 12:25] LABS: Charge for UA Resulting for Rev
[2025-11-29 08:12] LABS: Hematocrit 29.8 % (37-53); Hemoglobin 9.50 g/dL (11.27-16.99); Mean Corpuscular HGB Conc 31.9 g/dL (30-55); Mean Corpuscular Hemoglobin 28.1 pg (27-33); Mean Corpuscular Volume 88.2 fl (82-101); Nucleated Red Blood Cells % 0 %; Platelet Count 172 10^3/cmm (157-399); Red Blood Count 3.38 10^6/uL (3.85-5.65); White Blood Count 4.84 10^3/uL (3.29-11.43)
[2025-11-29 08:20] LABS: Glucose Urine UA Negative (Normal); Nitrate Urine Negative (Negative); Specific Gravity, Urine 1.022 (1.005-1.030)
[2025-11-29 08:23] LABS: Add Urine Microscopic? YES
[2025-11-29 08:39] LABS: Alanine Aminotransferase 47 U/L (0-41); Albumin Level 3.2 g/dL (3.5-5.2); Alkaline Phosphatase 581 U/L (40-130); Anion Gap 14.1 (5-19); Aspartate Amino Transferase 41 U/L (0-40); Blood Urea Nitrogen 13 mg/dL (6-20); Calcium 8.2 mg/dL (8.5-10.5); Carbon Dioxide 25 mmol/L (22-29); Chloride 102 mmol/L (98-107); Globulin 2.3 g/dL (1.3-4.6); Glucose 134 mg/dL (65-115); Osmolality Calculated 288 mOsm/kg (285-295); Potassium 3.1 mmol/L (3.5-5.1); Sodium 138 mmol/L (136-145); Total Protein 5.5 g/dL (6.6-8.7)
[2025-11-29] MEDS: dexamethasone 4 mg/mL INJ 5 mL 12 MG IVP (09:01)
[2025-11-29] MEDS: atropine 1 mg/mL SDV 1 mL 0.4 MG IV (09:43)
[2025-11-29] MEDS: leucovorin 720 MG in dextrose 5% 250 ML 166.67 MG IV (10:06)
[2025-11-29] MEDS: fluorouraciL 50 mg/ml MDV 100 mL 750 MG IVP (11:56)
[2025-11-29] MEDS: fluorouraciL 4,350 MG, elastomeric pump 1 PUMP in sodium chloride 0.9% (100 ml) 5 ML IV (12:05)
[2025-11-29 12:10] VITALS: BP 120/71; PULSE 72; TEMP 36.3; O2SAT 96
== END 2025-12-01 23:59 | disposition home or self-care (01) ==
PROVIDERS: Internal Medicine Medical Oncology; Nurse Practitioner; PCP Nurse Practitioner Family; Visit Provider Nurse Practitioner Family
DX: Z45.1 Encounter for adjustment and management of infusion pump; Z95.828 Presence of other vascular implants and grafts; Z53.9 Procedure and treatment not carried out, unspecified reason
CPT/HCPCS: 36430; 36591; 80053; 81001; 81003; 85025; 86850; 86900; 86920; 96360; 96361; 96366; 96367; 96368; 96374; 96375; 96376; 96409; 96411; 96413; 96415; 96416; 96417; 96523; J0461; J0640; J1100; J2270; J2405; J2469; J3490; J7030; J7040; J7050; J7060; J9190; J9206; J9999; P9016